=== PATIENT | male | born 1965 | race Caucasian/White ===

== ENCOUNTER 2023-06-18 12:41 | Outpatient (CLI) | payer BC, SELFPAY ==
--- NOTE | ~2023-06-18 | CT_ITS ---
EXAMINATION: CT abdomen pelvis wo con DATE: 06/18/2023 13:14 INDICATION: Abdominal pain TECHNIQUE: Computed tomography (CT) of the abdomen and pelvis was performed without intravenous contr ast. Automated exposure control and iterative reconstruction technique were employed. Exam dose: 645 .77 mGy-cm total exam DLP. COMPARISON: None. FINDINGS: 2.4 mm lingular soft tissue density. 4.3 and 3.6 mm left lower lobe pulmonary nodules. There is a calcified left lower lobe pulmonary granuloma. 1.2 and 1.4 cm middle lobe circumscribed soft tissue masses are noted near the anterior aspect of the greater fissure. There is mild discoid atelectasis at the lung bases. Normal heart size. No pericardial or pleural effusion. There is heterogeneous density of the liver suggesting numerous hepatic metastatic lesions of variabl e size, some quite large. No pancreatic mass lesion, calcification or pancreatic duct dilatation. No bile duct dilatation. The gallbladder appears to be contracted. The spleen measures up to 15 cm vertical dimension consistent with mild splenomegaly. Normal morphology of the adrenal glands. No apparent renal mass lesion is noted on this limited noncontrast examination. Nonobstructing approximately 3.3 mm upper pole left renal calculus. No ureteral calculi or hydrourete ronephrosis. The urinary bladder and prostate gland are unremarkable. Normal caliber of the abdominal aorta mild calcification. No intraperitoneal or retroperitoneal or pe lvic mass lesion or adenopathy or ascites is evident. Bilateral small fat-containing inguinal hernias, right larger than left. There is a suture line of the sigmoid colon. Normal appendix. No bowel obstruction is detected. Nonspecific soft tissue thickening in the wall of the colon is sugg ested in the distal transverse colon and at a short segment of the distal sigmoid colon, uncertain if any significance. Consider colon workup to evaluate for possible large bowel malignancy. Recommend c linical correlation for the cause of the previous sigmoid colon resection. CT-guided percutaneous needle biopsy of liver may be of diagnostic benefit as clinically appropriate. Small fat-containing umbilical hernia. No suspicious osteolytic or osteoblastic lesions are noted. IMPRESSION: Multiple bilateral pulmonary nodules and extensive hepatic masses of variable size, sugg esting pulmonary and hepatic metastases Status post sigmoid colon partial resection; recommend clinical correlation for causes of this resect ion and consider: Workup to exclude: Malignancy Splenomegaly Nonobstructing 3.3 mm upper pole left renal calculus Reviewed, dictated and finalized at [facility]. Reviewed, dictated and finalized at location B. ONHOLE MAKER IMPRESSION: Multiple bilateral pulmonary nodules and extensive hepatic masses of variable size, suggesting pulmonary and hepatic metastases Status post sigmoid colon partial resection; recommend clinical correlation for causes of this resection and consider: Workup to exclude: Malignancy Splenomegaly Nonobstructing 3.3 mm upper pole left renal calculus
[2023-06-18 13:25] LABS: Hematocrit 41.4 % (42.0-52.0); Hemoglobin 13.2 g/dL (14.0-18.0); Mean Corpuscular HGB Conc 31.9 g/dl (32-36); Mean Corpuscular Hemoglobin 26.5 pg (26-34); Mean Platelet Volume 9.3 fl (7.4-10.4); Platelet Count Result 398 k/mm3 (150-375); Red Blood Count 4.99 M/mm3 (4.6-6.20); Red Cell Distribution Width 13.8 % (11.5-14.5); White Blood Count 16.2 K/mm3 (4.5-10.0)
[2023-06-18 13:37] LABS: Alanine Aminotransferase 45 U/L (6-50); Albumin Level 4.3 g/dL (3.5-5.1); Alkaline Phosphatase 189 U/L (38-126); Amylase 71 U/L (30-110); Anion Gap 11 mmol/L (8-16); Aspartate Amino Transferase 74 U/L (17-59); Bilirubin,Total 1.2 mg/dL (0.2-1.3); Blood Urea Nitrogen 18 mg/dL (9-20); Calcium 9.5 mg/dL (8.4-10.2); Carbon Dioxide 27 mmol/L (22-30); Chloride 100 mmol/L (98-107); Estimated Glomerular Filt Rate > 60; Glucose 218 mg/dL (65-110); Lipase 107 U/L (23-300); Potassium 4.4 mmol/L (3.4-5.0); Sodium 138 mmol/L (137-145)
[2023-06-18 13:46] LABS: Band Neutrophils Percent 3 % (0-6); Eosinophils Absolute Manual 1.78 K/mm3 (0.02-0.5); Eosinophils Percent Manual 11 % (0-4); Lymphocytes Absolute Manual 1.94 K/mm3 (1.1-4.5); Lymphocytes Percent Manual 12 % (18-44); Monocytes Absolute Manual 1.13 K/mm3 (0.1-0.90); Monocytes Percent Manual 7 % (3-9); Neutrophils Absolute Manual 11.34 K/mm3 (1.3-6.7); Neutrophils Percent Manual 67 % (46-73); Total Cells Counted 100
[2023-06-18 13:47] LABS: Platelet Estimate Increased (Adequate)
[2023-06-18 13:48] LABS: Ovalocytes 1+ (NORMAL); Poikilocytosis 1+ (NORMAL); Schistocytes None Seen (NORMAL)
== END 2023-06-18 12:42 | disposition home or self-care (01) ==
LOC: ANHIMG 12:42
PROVIDERS: PCP Family Medicine; Visit Provider Nurse Practitioner Family
DX: R10.9 Unspecified abdominal pain (principal); R50.9 Fever, unspecified; R73.01 Impaired fasting glucose; R91.8 Other nonspecific abnormal finding of lung field; R16.0 Hepatomegaly, not elsewhere classified; R16.1 Splenomegaly, not elsewhere classified; N20.0 Calculus of kidney
CPT/HCPCS: 36415; 74176; 80053; 82150; 83690; 85025

== ENCOUNTER 2023-06-20 13:03 | Emergency (ER) | payer BC, SELFPAY ==
--- NOTE | ~2023-06-20 | XR_ITS ---
XR chest 2V DATE: 06/20/2023 16:47 INDICATION: Fever, hypertension TECHNIQUE: PA and lateral views COMPARISON: None FINDINGS: Suspected approximately 2 cm mass density of medial right upper lobe. Approximately 11 mm o pacity at right lower lung. CT thorax is recommended for further evaluation. Mild infiltrate, atelectasis and/or scarring, left lower lobe. Normal heart size. No hilar or mediastinal enlargement is evident. No pleural effusion or pulmonary vascular congestion or pneumothorax. IMPRESSION: Right lung masses; CT thorax is recommended Mild infiltrate, atelectasis or scarring, left lower lobe Reviewed, dictated and finalized at location B. CHOOL ASSISTANT TEACHER
--- NOTE | ~2023-06-20 | CT_ITS ---
EXAMINATION: CT diagnostic chest wo con DATE: 06/20/2023 17:13 INDICATION: right chest pain TECHNIQUE: Computed tomography (CT) of the chest was performed with 100 mL Omnipaque-350 intravenous contrast. Additional 3D reconstructions utilizing coronal maximum intensity projection (MIP) were per formed. Automated exposure control and iterative reconstruction technique were employed. The dose-bárbara gth product was 236.85 mGy-cm. COMPARISON: Chest radiograph dated 06/20/2023 FINDINGS: There are several bilateral pulmonary nodules, the largest measuring 2.6 x 1.7 cm mass with lobular m argins at the right apex. Additional 4 mm and 7 mm right upper lobe nodules. 6 mm nodule at the super ior segment of the right lower lobe. 1.4 cm and 1.3 cm nodules in the right middle lobe. Three 4-6 mm left lower lobe nodules. There is scattered mild linear discoid atelectasis at the lingula and bilat eral lower lobes. No pulmonary edema, pleural effusion or pneumothorax. Heart size is normal. Atheros clerotic coronary artery calcific lesion. No pericardial or pleural effusion. Thoracic aorta is cyndy l in caliber. No pathologically enlarged thoracic lymphadenopathy. Multiple subtle hypodense nodules and masses scattered throughout the liver, the largest in the posterior right hepatic lobe measuring approximately 7-8 cm maximal diameter. Visualized upper abdomen is otherwise unremarkable. Mild thora cic spondylosis. No suspicious lytic or blastic bone lesions. IMPRESSION: 1. Multiple bilateral pulmonary nodules and multiple hepatic masses consistent with metastatic diseas e of indeterminate primary. Recommend ultrasound guided biopsy of one of the liver lesions. Would als o consider further evaluation with contrast-enhanced CT of the abdomen and pelvis to be performed on a nonemergent basis to assess for any potential primary malignancy. Reviewed, dictated and finalized at location A. RANCE INSTRUCTOR IMPRESSION: 1. Multiple bilateral pulmonary nodules and multiple hepatic masses consistent with metastatic disease of indeterminate primary. Recommend ultrasound guided b iopsy of one of the liver lesions. Would also consider further evaluation with contrast-enhanced CT of the abdomen and pelvis to be performed on a nonemergent basis to assess for any potential primary malignancy.
--- NOTE | ~2023-06-20 | US_ITS ---
EXAMINATION: US abdomen limited DATE: 06/20/2023 17:58 INDICATION: Right upper quadrant abdominal pain TECHNIQUE: Multiple grayscale and Doppler ultrasound images of the abdomen were obtained. COMPARISON: CT dated 06/18/2023 FINDINGS: The pancreatic head and body are normal in appearance. The pancreatic tail is not visualized. Liver has normal contour, with a smooth surface. There are multiple hepatic masses which are primarily cent rally hyperechoic with peripheral hypoechoic halos consistent with metastatic disease. No intrahepati c biliary duct dilation suspected. Portal venous flow was seen in the hepatopetal, normal direction a nd has normal Doppler waveform. There are a few small likely benign gallbladder polyps along the wall of the partially decompressed gallbladder, the largest measuring <3 mm . No evident cholelithiasis. The common bile duct measures 304 mm in maximal diameter which is within normal limits. Sonographic M urphy sign was reported as negative by the motor coach operator. Visualized portion of the proximal inferior v barbara cava is normal. IMPRESSION: 1. Multiple hepatic masses consistent with metastatic disease. On prior CT there is been prior partia l sigmoid colon resection and would correlate for any history of prior malignancy including colon can cer. Could consider ultrasound guided biopsy for further evaluation as clinically indicated. 2. A few <3 mm likely benign gallbladder polyps. Reviewed, dictated and finalized at location A. OFFICER IMPRESSION: 1. Multiple hepatic masses consistent with metastatic disease. On prior CT ther e is been prior partial sigmoid colon resection and would correlate for any his tory of prior malignancy including colon cancer. Could consider ultrasound guid ed biopsy for further evaluation as clinically indicated. 2. A few <3 mm likely benign gallbladder polyps.
[2023-06-20 13:24] VITALS: BP 137/85; PULSE 89; RESP 17; TEMP 36.7; O2SAT 98
[2023-06-20 13:39] LABS: Hematocrit 40.4 % (42.0-52.0); Hemoglobin 12.8 g/dL (14.0-18.0); Mean Corpuscular HGB Conc 31.7 g/dl (32-36); Mean Corpuscular Hemoglobin 26.5 pg (26-34); Mean Corpuscular Volume 83.6 fl (80-100); Mean Platelet Volume 9.3 fl (7.4-10.4); Platelet Count Result 421 k/mm3 (150-375); Red Blood Count 4.83 M/mm3 (4.6-6.20); Red Cell Distribution Width 13.6 % (11.5-14.5); White Blood Count 13.5 K/mm3 (4.5-10.0)
[2023-06-20 13:40] LABS: Appearance Urine Clear (Clear); Bilirubin Urine Negative (Negative); Blood Urine Negative (Negative); Color Urine Yellow (Yellow); Glucose Urine UA 3+ mg/dL (Negative); Ketones Urine Negative (Negative); Leukocyte Esterase Ur Negative LEU/UL (Negative); Nitrate Urine Negative (Negative); Protein Urine Negative (Negative); Specific Grav Ur 1.035 (1.001-1.035); pH Urine 5.5 (5.0-9.0)
[2023-06-20 13:42] LABS: Add Urine Microscopic? NO
[2023-06-20 13:51] LABS: Alanine Aminotransferase 47 U/L (6-50); Albumin Level 4.3 g/dL (3.5-5.1); Alkaline Phosphatase 216 U/L (38-126); Anion Gap 12 mmol/L (8-16); Aspartate Amino Transferase 53 U/L (17-59); Bilirubin,Total 0.9 mg/dL (0.2-1.3); Blood Urea Nitrogen 21 mg/dL (9-20); Calcium 9.8 mg/dL (8.4-10.2); Carbon Dioxide 24 mmol/L (22-30); Chloride 101 mmol/L (98-107); Estimated CRCL calculation 80 ml/min; Estimated Glomerular Filt Rate > 60; Glucose 188 mg/dL (65-110); Lipase 125 U/L (23-300); Potassium 4.5 mmol/L (3.4-5.0); Sodium 137 mmol/L (137-145)
[2023-06-20 13:54] LABS: Band Neutrophils Percent 7 % (0-6); Eosinophils Absolute Manual 1.89 K/mm3 (0.02-0.5); Eosinophils Percent Manual 14 % (0-4); Lymphocytes Absolute Manual 1.21 K/mm3 (1.1-4.5); Lymphocytes Percent Manual 9 % (18-44); Monocytes Absolute Manual 0.67 K/mm3 (0.1-0.90); Monocytes Percent Manual 5 % (3-9); Neutrophils Absolute Manual 9.72 K/mm3 (1.3-6.7); Neutrophils Percent Manual 65 % (46-73); Platelet Estimate Increased (Adequate); Poikilocytosis 1+ (NORMAL); Total Cells Counted 100
[2023-06-20 13:55] LABS: Ovalocytes 1+ (NORMAL); Schistocytes None Seen (NORMAL)
[2023-06-20 15:38] VITALS: BP 146/87; PULSE 87; RESP 18; O2SAT 98
[2023-06-20 16:16] VITALS: BP 132/89; O2SAT 94
[2023-06-20] MEDS: ONDANSETRON INJ 4 MG/2 ML VIAL IV PUSH (16:40)
[2023-06-20] MEDS: HYDROmorphone HCL INJ (*CRX) 1 MG/ML SYR IV PUSH (16:40)
--- NOTE | 2023-06-20 17:29 | ED.ABDPAIN ---
HPI - Abdominal Pain General Chief Complaint: Abdominal Pain Stated Complaint: abd pain/back pain/Nausea Time Seen by Provider: 06/20/23 15:53 Source: patient, RN notes reviewed and old records reviewed Mode of arrival: ambulatory Limitations: no limitations History of Present Illness HPI narrative: This is a 58 year old male who presents for evaluation of right upper abdominal pain. He states he developed sudden onset pain on Friday. He states his pain has been constant but the intensity waxes and wanes. He denies nausea and vomiting but he reports diarrhea. He reports 1 episode of nonbloody diarrhea today. He reports sweating profusely for past 2 nights. He is unsure if he had a fever. He denies shortness of breath. He was seen by PCP and he had outpatient CT abdomen and labs. He was told he had liver mass on CT and possible infection. He reports having colon cancer 2 years ago that was treated with resection. He saw an oncologist once and he has not followed since. Related Data Allergies Allergy/AdvReac Type Severity Reaction Status Date / Time Penicillins Allergy Unknown Unknown Verified 06/20/23 15:38 Review of Systems Constitutional: Constitutional: Denies weakness Comments: night sweats Cardiovascular: Cardiovascular: Denies syncope, Denies rapid heart rate, Denies irregular heart rhythm, Denies leg edema and Denies dyspnea Respiratory: Respiratory: Denies chest congestion, Denies hemoptysis, Denies excessive phlegm production and Denies dyspnea Gastrointestinal: Gastrointestinal: Reports abdominal pain, Denies hematochezia, Reports diarrhea and Denies vomiting Genitourinary: Genitourinary: Denies hematuria, Denies dysuria, Denies penile discharge and Denies testicular pain Musculoskeletal: Musculoskeletal: Denies joint swelling, Denies loss of height and Denies muscle weakness Neurologic: Denies syncope, Denies focal weakness and Denies weakness PMFSH Past Medical History Medical History Abnormal colonoscopy Hydronephrosis Hyperlipidemia Hypertension Type 2 diabetes mellitus without complications Surgical History Surgical History H/O colonoscopy 01/31/21 H/O esophagogastroduodenoscopy 01/31/21 S/P cystoscopy with ureteral stent placement 01/31/21 S/P left colectomy Family History Family History Mother Hypertension Family history of chronic obstructive pulmonary disease Family history of diabetes mellitus in first degree relative Father Hypertension Family history of malignant neoplasm Family history of diabetes mellitus in first degree relative Grandparent Family history of cardiovascular disease Family history of diabetes mellitus in first degree relative Social History Social History Smoking status: Never smoker Second hand tobacco smoke exposure: No Alcohol intake: never Substance use: never Substance use type: does not use Living arrangements: alone Occupation/Education: occupation Gender identity (if verbalized by the patient): Male Spiritual care concerns: No Agree to blood products: No Exam Const: General: no acute distress and alert Nutritional Appearance: well nourished Orientation/consciousness: patient oriented x3 HENMT: Head: normal to inspection Mouth: Yes Normal oral and palatal mucosa present, Yes lip normal and Yes moist mucous membranes Eyes: EOM: EOMs intact bilaterally Chest: Chest palpation & inspection: normal inspection of the chest Resp: Effort & Inspection: normal respiratory effort Auscultation: clear to auscultation bilaterally Cardio: Rate: regular rate Rhythm: regular rhythm Heart sounds: no murmurs GI: GI Palp: Yes Soft to palpation, Yes Tenderness to palpation present (GI) (RUQ), No Guard
[2023-06-20 19:14] VITALS: BP 137/85; PULSE 88; RESP 18; O2SAT 95
[2023-06-20 19:38] LABS: Carcinoembryonic Antigen 68.9 ng/mL (0.0-3.0)
== END 2023-06-20 19:15 | disposition home or self-care (01) ==
PROVIDERS: Emergency Provider General Practice; PCP Family Medicine
DX: C18.9 Malignant neoplasm of colon, unspecified (principal); C78.7 Secondary malignant neoplasm of liver and intrahepatic bile duct; R91.8 Other nonspecific abnormal finding of lung field; E78.5 Hyperlipidemia, unspecified; I10 Essential (primary) hypertension; E11.9 Type 2 diabetes mellitus without complications
CPT/HCPCS: 36415; 71046; 71250; 76705; 80053; 81003; 82378; 83690; 85025; 96374; 96375; 99284; J1170; J2405

== ENCOUNTER 2023-06-23 15:41 | Outpatient (CLI) | payer BC, SELFPAY ==
--- NOTE | ~2023-06-23 | MR_ITS ---
EXAMINATION: MR abdomen wo/w con DATE: 06/23/2023 17:34 INDICATION: Secondary malignant neoplasm of unspecified site with hepatic and pulmonary metastases. TECHNIQUE: Magnetic resonance imaging (MRI) of the abdomen was performed without and with 17 mL Multi aracely intravenous contrast. Sequences included coronal T2-weighted SS-FSE, coronal and axial FS 2D-F IESTA, axial STIR FSE, axial T2-weighted SS-FSE, axial T2-weighted FS SS-FSE, axial diffusion-weighte d SE, axial dual-echo T1-weighted FSPGR, and axial and coronal T1-weighted LAVA. Postcontrast axial T 1-weighted LAVA images were obtained in a time course. Postcontrast coronal T1-weighted LAVA images w ere obtained. COMPARISON: CT and ultrasound studies dated 06/18/2023 and 06/20/2023 FINDINGS: Again seen are couple pulmonary nodules measuring up to 1.4 cm in the right middle lobe suspicious fo r metastatic disease. Heart size is normal. No pericardial or pleural effusion. There are multiple en hancing masses scattered throughout the liver which demonstrate slow progressive continuous periphera l enhancement suspicious for metastatic disease. The largest such mass or conglomeration of masses wh ich is located posteriorly in segment 7 measures 10.9 x 6.1 cm. The decompressed gallbladder, the spl een, pancreas, bilateral adrenal glands and kidneys are normal. Bowels are unremarkable with no obstr uction or evident masses. The suture line seen on prior CT at the sigmoid colon is unable to be ident ified on the MRI images. Visualized portion of the bladder is unremarkable. No pathologically enlarge d abdominal or pelvic lymphadenopathy. Bone marrow signal is normal throughout with no evident osseou s metastatic disease. IMPRESSION: 1. Pulmonary nodules the right middle lobe and multiple heterogeneously enhancing hepatic masses conc erning for metastatic disease of unknown primary. Consider ultrasound guided biopsy of one of the hep atic masses for further evaluation. Reviewed, dictated and finalized at location A. ER IMPRESSION: 1. Pulmonary nodules the right middle lobe and multiple heterogeneously enhanci ng hepatic masses concerning for metastatic disease of unknown primary. Conside r ultrasound guided biopsy of one of the hepatic masses for further evaluation.
== END 2023-06-23 15:42 | disposition home or self-care (01) ==
PROVIDERS: PCP Family Medicine; Visit Provider Family Medicine
DX: C79.9 Secondary malignant neoplasm of unspecified site (principal); K76.89 Other specified diseases of liver
CPT/HCPCS: 74183; A9577

== ENCOUNTER 2023-06-25 10:34 | Outpatient (CLI) | payer BC, SELFPAY ==
[2023-06-24 14:03] VITALS: BMI 28.5
--- NOTE | 2023-06-24 14:04 | PC.NURSE ---
Pre Radiology instructions Report to the outpatient [facility] on date 06/25/23 at time 1100 for procedure Time: 1300. YOU MAY BE MONITORED AT HOSPITAL FOR UP TO 4 HOURS AFTER YOUR PROCEDURE. A visitor will be allowed to accompany the patient into the hospital. You and your visitor will be asked to self-screen and do not enter if you have any COVID symptoms. A mask is OPTIONAL within the hospital. Patients are to have no food or drink 6 hours prior to procedure time Driving will be restricted after the procedure, you must have a person to drive you home. Labs will be drawn in preop area and once reviewed, you will be taken to radiology area for procedure. When the procedure is completed, you will be taken to outpatient where you will be monitored for several hours. You may have one visitor in this area. Other than holding anti-coagulants, patient may take other medication(s) as scheduled. Prior to your appointment date patients are instructed to hold anti-coagulants after discussing with ordering provider to stop. If unable to discontinue anti-coagulants please notify radiologist. ? No aspirin or warfarin (Coumadin) for 7 days prior to the procedure. ? No clopidogrel (Plavix), ticagrelor (Brilinta), prasugrel (Effient) or dabigatran (Pradaxa) for 5 days prior to the procedure. ? No rivaroxaban (Xarelto), apixaban (Eliquis), dipyridamole (Aggrenox or Persantine) or cilostazol (Pletal) for 2 days prior to the procedure. Medications to discontinue per physician: N/A Date to take last dose: N/A Please leave all valuables, including medications, at home the day of procedure. The hospital will not accept responsibility for valuables. Wear comfortable, loose fitting clothing.? Follow any additional instructions given to you from ordering provider. Telephone instructions given to PT - XIN WHITE and asked if any additional questions and then verbalized understanding. Patient advised to call scheduling provider office or registration scheduling [phone] if any additional questions.
[2023-06-25] VITALS (11 sets, daily range): BP systolic 112–157; BP diastolic 66–93; PULSE 78–83; RESP 16–20; TEMP 37.3; O2SAT 96–100
--- NOTE | ~2023-06-25 | US_ITS ---
EXAMINATION: US biopsy liver DATE: 06/25/2023 14:09 INDICATION: Liver masses TECHNIQUE: The procedure including the risks and benefits was discussed with the patient. Risks discu ssed included bleeding and infection. The patient understood the risks and agreed to proceed. The sk in overlying the liver was prepped and draped in usual sterile fashion. Anesthetic was administered with 1% lidocaine subcutaneously. An 18 gauge core biopsy needle was advanced under continuous ultra sound observation to the lesion of interest. 3 core biopsy specimens were obtained. The needle was removed and the entry site was cleaned and dressed. Post procedure ultrasound demonstrated no hemorr preston. FINDINGS: Ultrasound images demonstrate multiple isoechoic hypoechoic nodules with peripheral more hy poechoic halo scattered throughout the liver. Subsequent images demonstrate the biopsy needle advance d through a 3.0 cm nodule in the lateral segment of the left hepatic lobe. IMPRESSION: 1. Successful Ultrasound-guided biopsy of one of several hepatic masses concerning for metastatic dis ease. Reviewed, dictated and finalized at location A. AL POSITION SYSTEM TECHNICIAN IMPRESSION: 1. Successful Ultrasound-guided biopsy of one of several hepatic masses concern ing for metastatic disease.
[2023-06-25 11:27] LABS: Platelet Count Result 455 k/mm3 (150-375)
[2023-06-25 11:40] LABS: Prothrombin Time 13.9 Seconds (11.1-14.7)
--- NOTE | 2023-06-25 12:02 | SUR.PREOP ---
DR. RANGEL AWARE OF PLATELET COUNT 455. NO NEW ORDERS.
[2023-06-25 14:45] LABS: Glucose Point of Care 59 mg/dl (65-105)
[2023-06-25 14:45] LABS: Glucose Point of Care 63 mg/dl (65-105)
--- NOTE | 2023-06-25 15:00 | SUR.PHASEII ---
Patient refuses PO pain medications ordered by Dr. Benitez. Patient stated he took his own pain medication from home. Notified Dr. Benitez of this. Also educated patient on importance of only taking hospital supplied medications during his stay in recovery.
[2023-06-25 15:36] LABS: Glucose Point of Care 83 mg/dl (65-105)
== END 2023-06-25 17:55 | disposition home or self-care (01) ==
PROVIDERS: PCP Family Medicine; Referring Provider Internal Medicine Hematology & Oncology; Visit Provider Radiology Diagnostic Radiology
PROC: BF45ZZZ Ultrasonography of Liver (ICD-10-PCS; CPT 47000; principal; 2023-06-25 13:00)
DX: K76.9 Liver disease, unspecified (principal)
CPT/HCPCS: 36415; 47000; 76942; 80048; 82948; 85025; 85049; 85610; 85730; 88307; 88342; A9270

== ENCOUNTER 2023-06-25 13:39 | Outpatient (CLI) | payer BC, SELFPAY ==
[2023-06-25 13:01] LABS: Hemoglobin 13.1 g/dL (14.0-18.0); Mean Corpuscular Hemoglobin 26.3 pg (26-34); Mean Corpuscular Volume 82.3 fl (80-100); Mean Platelet Volume 8.8 fl (7.4-10.4); Platelet Count Result 467 k/mm3 (150-375); Red Blood Count 4.98 M/mm3 (4.6-6.20); Red Cell Distribution Width 13.3 % (11.5-14.5); White Blood Count 15.5 K/mm3 (4.5-10.0)
[2023-06-25 13:14] LABS: Anion Gap 12 mmol/L (8-16); Blood Urea Nitrogen 15 mg/dL (9-20); Calcium 9.7 mg/dL (8.4-10.2); Carbon Dioxide 26 mmol/L (22-30); Chloride 102 mmol/L (98-107); Estimated CRCL calculation 102 ml/min; Estimated Glomerular Filt Rate > 60; Glucose 71 mg/dL (65-110); Potassium 4.2 mmol/L (3.4-5.0); Sodium 140 mmol/L (137-145)
[2023-06-25 13:20] LABS: Partial Thromboplastin Time 31.7 SECONDS (22.3-36.8); Prothrombin Time 13.8 Seconds (11.1-14.7)
[2023-06-25 13:24] LABS: Band Neutrophils Percent 8 % (0-6); Basophils Absolute Manual 0.15 K/mm3 (0.0-0.1); Basophils Percent Manual 1 % (0-1); Eosinophils Absolute Manual 2.79 K/mm3 (0.02-0.5); Eosinophils Percent Manual 18 % (0-4); Lymphocytes Absolute Manual 3.41 K/mm3 (1.1-4.5); Monocytes Absolute Manual 0.15 K/mm3 (0.1-0.90); Monocytes Percent Manual 1 % (3-9); Neutrophils Absolute Manual 8.99 K/mm3 (1.3-6.7); Neutrophils Percent Manual 50 % (46-73); Platelet Estimate Increased (Adequate); Total Cells Counted 100
[2023-06-25 13:25] LABS: Schistocytes None Seen (NORMAL)
== END 2023-06-25 13:40 | disposition home or self-care (01) ==
PROVIDERS: PCP Family Medicine; Visit Provider Surgery
DX: Z01.818 Encounter for other preprocedural examination (principal)
CPT/HCPCS: 80048; 85025; 85610; 85730

== ENCOUNTER 2023-07-02 01:18 | Day surgery (SDC) | payer BC, SELFPAY ==
[2023-06-25 12:16] VITALS: BMI 28.6
--- NOTE | 2023-06-25 12:29 | PC.NURSE ---
Report to the Outpatient Waiting Room, entrance under the green pavilion located off [facility], at time __10:00 on date 07/02/23 . Planned Procedure Time: __12:00 . Time changes happen often and if your time is changed the preop area will call you the afternoon before. - You and your visitor will be asked to self-screen and do not enter if you have any COVID symptoms. - A mask is optional within the hospital at this time. Patients may have clear liquids (water, carbonated beverages, clear teas, apple juice) until 3 hours prior to surgery with a maximum of 20 ounces. - No food from midnight until time of surgery Take the following medications with a SIP of water the morning of surgery: __PAIN PILL DO NOT STOP ANY OF YOUR OTHER PRESCRIPTION MEDICATIONS PRIOR TO SURGERY ?EXCEPT THE FOLLOWING Medications to discontinue per physician N/A Date to take last dose____N/A Please no make-up, nail kiswahili, hairspray, perfume, deodorant, or body powder the day of surgery. No jewelry (including any body piercings) or valuables the day of surgery, leave them at home. Please take a shower or bath the night before, or the morning of, surgery with an antibacterial soap. Wear comfortable, loose fitting clothing. - Jewelry must be removed prior to entering the operating room. Rings and piercings that are not removed may be cut off. - The hospital will not accept responsibility for valuables. - Please leave all valuables, including medications, at home the day of surgery. If you are going home after surgery, a licensed class c driver must drive you home. - NO public transportation without another adult if you receive anesthesia. - We recommend that an adult stay with you for 24 hours following discharge. - We also recommend that you do not drive, make important decision, drink alcoholic beverages, or take any drugs that were not prescribed by your health care provider for at least 24 hours after your discharge time. Follow any additional instructions given to you from your surgeon. If you or anyone in your household have experienced Covid symptoms in the past week, please notify your surgeon or the nurse liaison at the phone number below for possible testing. Telephone instructions given to __JOHN and asked if any additional questions and then verbalized understanding. Patient advised to call surgeon office or pre surgery nurse liaison [phone] if any additional questions.
--- NOTE | ~2023-07-02 | XR_ITS ---
EXAMINATION: XR chest port-a-cath/central DATE: 07/02/2023 13:35 INDICATION: Port placement. TECHNIQUE: A single frontal view of the chest was obtained. COMPARISON: Chest 2 views 06/20/2023, chest CT 06/20/2023 FINDINGS: There is mild atelectasis at left lung base. There are multiple nodules in right lung. No p leural effusion or pneumothorax. The heart size is normal. There is a left subclavian port with tip a t superior cavoatrial junction. There is compression of the catheter between the clavicle and first r ib. IMPRESSION: 1. Port tip at superior cavoatrial junction. Compression of the catheter between the clavicle and fir st rib. 2. Right lung nodules, consistent with metastatic disease. Reviewed, dictated and finalized at location A. WELDER IMPRESSION: 1. Port tip at superior cavoatrial junction. Compression of the catheter betwee n the clavicle and first rib. 2. Right lung nodules, consistent with metastatic disease.
--- NOTE | ~2023-07-02 | XR_ITS ---
EXAMINATION: XR fl guide central line place DATE: 07/02/2023 13:00 MEDIA SPECIALIST INDICATION: INSERT ROSEANNA CATH . TECHNIQUE: 2 fluoroscopic images of the chest were obtained during Port-A-Cath insertion. I was not p resent during the procedure. Fluoroscopy exposure time was 20.8 seconds. Air Kerma 3.37 mGy. DAP 0.10 655 mGym2. COMPARISON: None FINDINGS: Implanted subclavian left chest port terminating at the cavoatrial junction. IMPRESSION: Fluoroscopic documentation of Port-A-Cath insertion. Please refer to the operative note for complete procedural details . Reviewed, dictated and finalized at location K. A SPECIALIST IMPRESSION: Fluoroscopic documentation of Port-A-Cath insertion. Please refer to the operat femi note for complete procedural details .
[2023-07-02 10:10] VITALS: BP 139/82; PULSE 75; RESP 16; TEMP 37.3; O2SAT 98
[2023-07-02] MEDS: LACTATED RINGERS 1,000 ML 30 ML IV CONT ×2 (10:10→13:21)
[2023-07-02 10:23] LABS: Glucose Point of Care 94 mg/dl (65-105)
[2023-07-02] MEDS: KETOROLAC 15 MG/ML VIAL (*BKC) IV PUSH (10:30)
--- NOTE | 2023-07-02 11:22 | WPDANESEPPF ---
Anes - Initial Pre Proc Eval Procedure: Operation Date: 07/02/23 12:00 Proposed Procedures p Insertion Lady Cath - Ninfa Ho MD Date/Time: 07/02/23 11:22 Surgeon: Ninfa Ho MD Pre Op Diagnosis: colon CA Patient Data Age: 58 Gender: M Height: 1.75 m Weight: 88 kg Last Vital Signs Temp 99.2 F 07/02/23 10:10 Pulse 75 07/02/23 10:10 Resp 16 07/02/23 10:10 BP 139/82 07/02/23 10:10 Pulse Ox 98 07/02/23 10:10 O2 Del Method Room Air 07/02/23 10:10 Allergies Allergy/AdvReac Type Severity Reaction Status Date / Time Penicillins Allergy Unknown Unknown Verified 07/02/23 11:12 Home Medications Medication Instructions Recorded Confirmed Type lisinopril 20 mg tablet 20 mg PO DAILY #90 tabs 03/25/23 06/25/23 Rx oxycodone-acetaminophen 5 mg-325 1 tablet PO Q6H PRN pain #20 tabs 06/20/23 06/25/23 Rx mg tablet (Endocet) atorvastatin 40 mg tablet 40 mg PO HS 06/25/23 06/25/23 History empagliflozin 25 mg tablet 25 mg PO HS 06/25/23 06/25/23 History (Jardiance) glimepiride 2 mg tablet 4 mg PO BID 06/25/23 06/25/23 History metformin 1,000 mg tablet 500 mg PO BID 06/25/23 06/25/23 History Laboratory Tests 07/02/23 10:11 POC Capillary Glucose 94 mg/dl (65-105) Patient hx anesthesia problems: none Family hx anesthesia problems: none Results Review: All pre-operative results and documents have been reviewed as part of the pre-operative evaluation. [facility] Past Medical History Medical History (Updated 06/23/23 @ 17:05 by Tommy Dias MD) Abnormal colonoscopy Hydronephrosis Hyperlipidemia Hypertension Liver nodule Metastatic disease Pulmonary nodule Type 2 diabetes mellitus without complications Surgical History Surgical History H/O colonoscopy 01/31/21 H/O esophagogastroduodenoscopy 01/31/21 S/P cystoscopy with ureteral stent placement 01/31/21 S/P left colectomy Family History Family History Mother Hypertension Family history of chronic obstructive pulmonary disease Family history of diabetes mellitus in first degree relative Father Hypertension Family history of malignant neoplasm Family history of diabetes mellitus in first degree relative Grandparent Family history of cardiovascular disease Family history of diabetes mellitus in first degree relative Social History Social History (Updated 06/23/23 @ 10:24 by Shawna Yost [facility]) Smoking status: Never smoker Second hand tobacco smoke exposure: No Alcohol intake: former Alcohol use details: QUIT 30 YRS AGO Substance use: never Substance use type: does not use Lack of Transportation: No Lack of Food: Never True Current Housing: I Have Housing Concerned About Future Housing: No Difficulty Paying Gas/Electric Bills: No Difficulty Paying for Meds: No Currently Unemployed: No Education: Don't Know Difficulty w/ Childcare or Family Care: No Living arrangements: with family Occupation/Education: occupation Gender identity (if verbalized by the patient): Male Spiritual care concerns: No Agree to blood products: No Anes - Eval Final PreProcedure Day of Procedure 07/02/23 11:22 Patient weight: normal Heart: regular rate and rhythm Lungs: clear to auscultation Airway: Mallampati scale class II Neurological: alert and oriented Last oral intake: >/= 8 hours ASA classification: III Emergent: no Anesthetic plan: proceed Anesthesia type and monitoring: general GIVS and standard monitoring Results Review: All pre-operative results and documents have been reviewed as part of the pre-operative evaluation. Informed Consent: The patient's anesthetic plan and its attendant risks and benefits were discussed with the patient/family/POA. Questions were solicited and answers provided to the satisfaction of the patient/family/POA.
--- NOTE | 2023-07-02 11:32 | PM.IMHP ---
H&P: HPI History of Present Illness Date/Time: 07/02/23 11:32 Chief Complaint: metastatic colon cancer Narrative: Pt is a 58 y/o M presenting c metastatic colon cancer to liver, lung needing access for chemotherapy. Pt denies previous central venous catheterization. Review of Systems Review of Systems: All systems reviewed & are unremarkable except as noted in HPI and below PMFSH Past Medical History Medical History Abnormal colonoscopy Hydronephrosis Hyperlipidemia Hypertension Liver nodule Metastatic disease Pulmonary nodule Type 2 diabetes mellitus without complications Surgical History Surgical History H/O colonoscopy 01/31/21 H/O esophagogastroduodenoscopy 01/31/21 S/P cystoscopy with ureteral stent placement 01/31/21 S/P left colectomy Family History Family History Mother Hypertension Family history of chronic obstructive pulmonary disease Family history of diabetes mellitus in first degree relative Father Hypertension Family history of malignant neoplasm Family history of diabetes mellitus in first degree relative Grandparent Family history of cardiovascular disease Family history of diabetes mellitus in first degree relative Social History Social History Smoking status: Never smoker Second hand tobacco smoke exposure: No Alcohol intake: former Alcohol use details: QUIT 30 YRS AGO Substance use: never Substance use type: does not use Lack of Transportation: No Lack of Food: Never True Current Housing: I Have Housing Concerned About Future Housing: No Difficulty Paying Gas/Electric Bills: No Difficulty Paying for Meds: No Currently Unemployed: No Education: Don't Know Difficulty w/ Childcare or Family Care: No Living arrangements: with family Occupation/Education: occupation Gender identity (if verbalized by the patient): Male Spiritual care concerns: No Agree to blood products: No Meds Home Medications and Allergies Home Medications Medication Instructions Recorded Confirmed Type lisinopril 20 mg tablet 20 mg PO DAILY #90 tabs 03/25/23 06/25/23 Rx oxycodone-acetaminophen 5 mg-325 1 tablet PO Q6H PRN pain #20 tabs 06/20/23 06/25/23 Rx mg tablet (Endocet) atorvastatin 40 mg tablet 40 mg PO HS 06/25/23 06/25/23 History empagliflozin 25 mg tablet 25 mg PO HS 06/25/23 06/25/23 History (Jardiance) glimepiride 2 mg tablet 4 mg PO BID 06/25/23 06/25/23 History metformin 1,000 mg tablet 500 mg PO BID 06/25/23 06/25/23 History Allergies Allergy/AdvReac Type Severity Reaction Status Date / Time Penicillins Allergy Unknown Unknown Verified 07/02/23 11:12 Vital Signs Vital Signs - 24 hr 07/02/23 10:10 Temperature 37.3 C Pulse Rate 75 Respiratory Rate 16 Blood Pressure 139/82 Pulse Oximetry 98 Oxygen Delivery Room Air Exam Const: General: cooperative, comfortable and no acute distress Neck: Neck: normal visual inspection, full ROM and no lymphadenopathy Chest: Chest palpation & inspection: normal inspection of the chest Resp: Auscultation: clear to auscultation bilaterally Cardio: Rate: regular rate Rhythm: regular rhythm GI: Inspection: normal to inspection Assessment and Plan Assessment and plan (1) Metastatic disease: Code(s): C79.9 - Secondary malignant neoplasm of unspecified site Status: Acute Assessment and Plan: will setup for placement of VAD for chemo access
--- NOTE | 2023-07-02 11:36 | WPDHPUPDATE1 ---
History and Physical Update Update Date/Time: 07/02/23 11:36 History and Physical has been reviewed, including an updated exam of the patient. There are NO changes in the patient's condition. Risks, benefits, and alternatives have been discussed and questions answered. Patient agrees to proceed with procedure.
[2023-07-02] MEDS: fentaNYL CITRATE INJ (*CRX) 100 MCG/2 ML VIAL 50 MCG IV PUSH (11:50)
[2023-07-02] MEDS: ceFAZolin 2 GM/D5W 50 ML 2 GM/50 ML BAG IVPB (12:36)
[2023-07-02] MEDS: BUPIVACAINE/EPINEPHRINE 0.5% 50 ML VIAL 30 ML INFILTRATE (12:59)
[2023-07-02] MEDS: HEPARIN SODIUM 5,000 UNITS/ML VIAL 5000 UNITS IRRIGATION (13:00)
[2023-07-02] MEDS: HEPARIN SODIUM, PORCINE 10,000 UNITS/10 ML VIAL 4000 UNITS IV PUSH (13:00)
[2023-07-02 13:21] VITALS: BP 116/68; PULSE 83; RESP 16; O2SAT 98
--- NOTE | 2023-07-02 13:29 | W.PM.PROC2 ---
Procedure Note - Detailed Date of Procedure 07/02/23 Pre-op Diagnosis metastatic colon cancer Post-op Diagnosis Same Procedure Performed placement of left subclavian venous access device Surgeon Ninfa Ho MD Anesthesia MAC and Local Indications 58 y/o M c metastatic colon cancer requiring chemotherapy Findings first stick L SCV Description of Procedure Patient was brought into the operating room and placed in the supine position. After adequate induction of mac anesthesia, the patient was prepped and draped in normal sterile fashion. Time-out was then done to verify the patient's identity, as well as the procedure being performed. I began by making a small incision in the left chest, I then gained access into the left subclavian vein with an 18 gauge needle. I then placed the guidewire into the vein and confirmed placement via fluoroscopic guidance. I then locally anesthetized the area in the left chest. I then enlarged the incision around the guidewire including making a subcutaneous pocket inferiorly to allow placement of the port itself. I then placed a dilating sheath over the guidewire into the left subclavian vein via sterile Seldinger technique. This was once again done and confirmed via fluoroscopic guidance. I then removed the dilator and the guidewire, now just leaving the sheath in the vein. I then fed the previously flushed catheter into the left subclavian vein under fluoroscopic guidance. At approximately 22 cm, the catheter was noted to be near the atrial caval junction. I then peeled away the sheath, now just leaving the catheter in the vein. I then was able to easily draw and flush from the catheter. The catheter was cut to fit and attached to the port itself. The port was placed into the previously made subcutaneous pocket and sutured in with 0 Ethibond suture. Final fluoroscopic view showed the termination of the catheter at the atrial caval junction with a nice smooth curvature back to the port itself. I was able to gain access to the port with a Kent needle and was able to easily draw and flush from the port. I then flushed 4 cc of a final heparin flush into the port. The incision was closed with 3 0 Vicryl suture in the subcutaneous tissue and the skin was closed with 4 O Monocryl subcuticular suture. Dermabond was then placed on wound. The patient tolerated the procedure well and will be sent to the recovery room in stable condition. Implants L SCV VAD Estimated Blood Loss 5 Drains No Packing No Pathology None sent Complications No immediate complications Condition Stable Disposition PACU [facility] Billing Surgery - Charge Forward: Surgery Billing
[2023-07-02 13:30] LABS: Glucose Point of Care 105 mg/dl (65-105)
[2023-07-02 13:50] VITALS: BP 121/74; PULSE 79; RESP 16; O2SAT 97
[2023-07-02 14:20] VITALS: BP 133/76; PULSE 77; RESP 18
[2023-07-02 14:35] VITALS: BP 131/68; PULSE 79; RESP 18
== END 2023-07-02 14:44 | disposition home or self-care (01) ==
PROVIDERS: PCP Family Medicine; Visit Provider Surgery
PROC: (CPT 36561; principal; 2023-07-02 12:00)
DX: C18.9 Malignant neoplasm of colon, unspecified (principal); C78.7 Secondary malignant neoplasm of liver and intrahepatic bile duct; I10 Essential (primary) hypertension; E11.9 Type 2 diabetes mellitus without complications; E78.5 Hyperlipidemia, unspecified; Z90.49 Acquired absence of other specified parts of digestive tract; Z79.84 Long term (current) use of oral hypoglycemic drugs; Z79.891 Long term (current) use of opiate analgesic
CPT/HCPCS: 36561; 77001; 82948; C1788; J0690; J1644; J1885; J2250; J3010; J7030; J7120

== ENCOUNTER 2023-10-24 14:47 | Outpatient (CLI) | payer BC, SELFPAY ==
--- NOTE | ~2023-10-24 | CT_ITS ---
EXAMINATION: CT chest abdomen pelvis w con DATE: 10/25/2023 07:37 CDT INDICATION: Malignant neoplasm of the colon TECHNIQUE: Computed tomography (CT) of the chest, abdomen, and pelvis was performed with 100 cc Omnip aque 350 intravenous contrast. The dose-length product was 695.63 mGy-cm. Automated exposure control and iterative reconstruction technique were employed. COMPARISON: CT dated 06/20/2023 FINDINGS: CHEST CT: There are multiple bilateral pulmonary nodules. There are approximately 10 mm the right and 6 on the left. The largest nodules on the right have decreased in size compared with prior examination allowin g for differences of technique. The right upper lobe nodule, image 30 measures 1.9 x 1.6 cm compared with 2.4 x 1.7 cm on 06/20/2023. Right middle lobe nodule, image 69 measures 1.2 x 1.4 cm compared wi th 1.4 x 1.4 cm on prior examination. No focal consolidation. No endobronchial lesions. No thoracic l ymphadenopathy. ABDOMEN/PELVIS CT: There are multiple hypovascular masses throughout the liver involving all segments, largest measuring approximately 8.8 x 5.3 cm. Changes to these masses is difficult to assess due to lack of contrast o n prior examination. Gallbladder is contracted. The spleen, pancreas, adrenal glands and kidneys are unremarkable. Nonobstructive bowel gas pattern. No lymphadenopathy. Portacatheter tip in the SVC. No focal lytic or blastic lesions. No free air or free fluid. There are changes of partial colectomy. IMPRESSION: 1. Multiple bilateral pulmonary nodules and hypovascular liver masses, consistent with metastatic dis ease secondary to known adenocarcinoma the colon. Decreased size of dominant right-sided pulmonary no dules consistent with partial interval response to therapy. Interval change to hypovascular liver mas ses is difficult to assess due to lack of contrast and incomplete inclusion of the liver on prior keke dy. Reviewed, dictated and finalized at location A. IMPRESSION: 1. Multiple bilateral pulmonary nodules and hypovascular liver masses, consiste nt with metastatic disease secondary to known adenocarcinoma the colon. Decreas ed size of dominant right-sided pulmonary nodules consistent with partial inter kevin response to therapy. Interval change to hypovascular liver masses is diffic ult to assess due to lack of contrast and incomplete inclusion of the liver on prior study.
== END 2023-10-24 14:48 | disposition home or self-care (01) ==
LOC: ANHIMG 14:47
PROVIDERS: PCP Family Medicine; Visit Provider Internal Medicine Hematology & Oncology
DX: R91.8 Other nonspecific abnormal finding of lung field (principal); C18.9 Malignant neoplasm of colon, unspecified
CPT/HCPCS: 71260; 74177; Q9967

== ENCOUNTER 2024-01-20 08:19 | Outpatient (CLI) | payer BC, SELFPAY ==
--- NOTE | ~2024-01-20 | CT_ITS ---
CT chest abdomen pelvis w con Ordering provider: Tommy Dias MD History: 58 years Male with . MALIGNANT NEOPLASM OF COLON . Comparison: October 24, 2023 Technique: CT chest with IV contrast. CT abdomen and pelvis CT abdomen and pelvis with IV and with or al contrast. Radiation reduction technique utilized. DLP measures 678.93 mGy. FINDINGS: --VISUALIZED THORACIC INLET: Normal. Left central line with the tip overlying superior vena cava. --MEDIASTINUM: Aorta/coronary arteries: Mild atheromatous disease. Heart/other: The heart is not enlarged. Lymph nodes: No mediastinal or hilar adenopathy. Paratracheal lymph node is seen measuring 1.1 cm. Other: Normal. --LUNGS: Multiple metastatic lesions are seen in the right lung which are unchanged except for the no dule seen in the right upper lobe which is slightly smaller than the previous study measuring 12.5 x 17.7 mm compared to 19.2 x 15.6 mm.. The smaller lesions are seen in the right lung with small lesion in the left lung base medially. No infiltrates or effusions. No pneumothorax. --MUSCULOSKELETAL: Soft tissues: The superficial soft tissues are normal. Bones: Age appropriate degenerative changes of the spine. No suspicious bony lytic or sclerotic lesio ns. ABDOMEN/PELVIS: --MUSCULOSKELETAL: Bones: Age appropriate degenerative changes of the spine. No suspicious bony lytic or sclerotic lesio ns. Superficial soft tissues: The superficial soft tissues are normal. --UPPER ABDOMINAL ORGANS: Liver: Multiple hypodense lesions suggestive of metastatic lesions or primary mass is unchanged from previous examination. Gallbladder: Contracted. Spleen: Normal. Stomach/duodenum: Normal. Pancreas: Normal. Adrenals: Normal. Kidneys: Stone in the left kidney upper pole. --PELVIC ORGANS: The bladder is normal. No bladder stones. --BOWEL AND MESENTERY: Colon: No evidence of diverticulitis. Postoperative changes in the sigmoid colon. No definite mass is seen in the colon at this time. If still suspicious colonoscopy advised. Normal appendix. Small Bowel: Normal. No obstruction. Peritoneum/mesentery: No free air or free fluid. No mesenteric lymphadenopathy. --RETROPERITONEUM: Mild atheromatous disease of the abdominal aorta. No retroperitoneal lymphadenop athy. IMPRESSION: CHEST: 1. Multiple metastatic lesions with the lesion in the right upper lobe slightly smaller. 2. Small lymph node in the right paratracheal area. ABDOMEN/PELVIS: 1. Multiple metastatic lesions in the liver are unchanged from previous examination. 2. No definite masses in the colon. If Still suspicious colonoscopy advised. Reviewed, dictated and finalized at location A. IMPRESSION: CHEST: 1. Multiple metastatic lesions with the lesion in the right upper lobe slightl y smaller. 2. Small lymph node in the right paratracheal area. ABDOMEN/PELVIS: 1. Multiple metastatic lesions in the liver are unchanged from previous examin ation. 2. No definite masses in the colon. If Still suspicious colonoscopy advised.
== END 2024-01-20 08:20 | disposition home or self-care (01) ==
PROVIDERS: PCP Family Medicine; Visit Provider Internal Medicine Hematology & Oncology
DX: C18.9 Malignant neoplasm of colon, unspecified (principal); R91.8 Other nonspecific abnormal finding of lung field; K76.9 Liver disease, unspecified
CPT/HCPCS: 71260; 74177; Q9967

== ENCOUNTER 2024-04-14 13:16 | Outpatient (CLI) | payer BC, SELFPAY ==
--- NOTE | ~2024-04-14 | CT_ITS ---
Non-contrast CT scan of the Abdomen and Pelvis Clinical indication: Abdominal pain Technique: 2.5 mm axial scans were obtained through the abdomen and pelvis without intravenous or or al contrast. Dose reduction technique was used on this scan by utilizing automated exposure control a nd iterative reconstruction technique. The dose-length product (DLP) was 544.86 mGy-cm. COMPARISON: 01/20/2024 Findings: Images through the lung bases reveal 2 noncalcified right middle lobe nodules, measuring 1 .5 cm in diameter each, minimally increased from prior exam. There are additional smaller nodules at the right middle lobe (axial image 22), and right lower lobe (axial images 19, 45), which are also in creased in size from prior exam. Stable calcified granuloma left lung base.. There is no evidence of renal or ureteral calculi. The kidneys and the ureters are nondilated. There are numerous, extensive hypodense hepatic masses, compatible with extensive hepatic metastatic disease. Several lesions are increased in size from prior exam. There is gallbladder wall thickening, nonspecific. The spleen, pancreas, and adrenals appear normal. There is no aortic aneurysm. There is no evidence of bowel obstruction. Rectosigmoid anastomosis is noted. Images through the pelvis were performed. There is no evidence of ascites or lymphadenopathy. Urinary bladder unremarkable. No pelvic mass seen. No ascites. Stable mild compression deformity of L1. Impression: Extensive hepatic metastatic disease, progressed from prior exam. Metastatic bibasilar pulmonary nodu les, also progressed from prior exam. Diffuse gallbladder wall thickening. Consider acute cholecystitis. Consider ultrasound and/or HIDA sc an for further evaluation. Reviewed, dictated and finalized at [facility]. Impression: Extensive hepatic metastatic disease, progressed from prior exam. Metastatic bi basilar pulmonary nodules, also progressed from prior exam. Diffuse gallbladder wall thickening. Consider acute cholecystitis. Consider ult rasound and/or HIDA scan for further evaluation.
== END 2024-04-14 13:17 | disposition home or self-care (01) ==
PROVIDERS: PCP Nurse Practitioner Family; Visit Provider Nurse Practitioner Family
DX: C78.7 Secondary malignant neoplasm of liver and intrahepatic bile duct (principal); C78.01 Secondary malignant neoplasm of right lung; K82.8 Other specified diseases of gallbladder; R10.31 Right lower quadrant pain
CPT/HCPCS: 74176

== ENCOUNTER 2024-04-16 10:02 | Outpatient (CLI) | payer BC, SELFPAY ==
--- NOTE | ~2024-04-16 | US_ITS ---
EXAMINATION: US abdomen limited DATE: 04/16/2024 09:40 INDICATION: Other specified diseases of the gallbladder. Thickened gallbladder wall. TECHNIQUE: Multiple grayscale and Doppler ultrasound images of the abdomen were obtained. COMPARISON: CT abdomen and pelvis 05/14/2024 FINDINGS: The visualized portion of the head of the pancreas is normal. There are multiple masses in the liver measuring up to 3.4 cm. There is normal flow in main portal vein. The gallbladder is normal in size and contains sludge. Gallbladder wall thickening is noted. There was a positive sonographic Santamaria's sign. The common duct is normal and measures 4 mm. IMPRESSION: 1. Normal-sized gallbladder with sludge, gallbladder wall thickening, and positive sonographic Santamaria 's sign. These findings are indeterminate for acute cholecystitis. If there is clinical suspicion for acute cholecystitis, consider hepatobiliary scintigraphy. 2. Liver masses, consistent with metastatic disease. Reviewed, dictated and finalized at location A. IMPRESSION: 1. Normal-sized gallbladder with sludge, gallbladder wall thickening, and posit femi sonographic Santamaria's sign. These findings are indeterminate for acute yaya cystitis. If there is clinical suspicion for acute cholecystitis, consider hepa tobiliary scintigraphy. 2. Liver masses, consistent with metastatic disease.
[2024-04-16 10:43] LABS: Creatinine Urine 121.8 mg/dL
[2024-04-16 10:47] LABS: Alanine Aminotransferase 29 U/L (6-50); Alkaline Phosphatase 209 U/L (38-126); Anion Gap 10 mmol/L (4-12); Aspartate Amino Transferase 43 U/L (17-59); Bilirubin,Total 0.9 mg/dL (0.2-1.3); Blood Urea Nitrogen 17 mg/dL (9-20); Calcium 9.3 mg/dL (8.4-10.2); Carbon Dioxide 27 mmol/L (22-30); Chloride 102 mmol/L (98-107); Cholesterol 129 mg/dL (0-200); Estimated Glomerular Filt Rate > 60; Glucose 89 mg/dL (65-110); HDL Direct 29 mg/dL; MALB Creatinine Ratio 6.4 mg/g (0-30); Microalbumin Urine Random 7.8 mg/L (0-16.7); Sodium 139 mmol/L (137-145); Triglycerides 113 mg/dL (<150)
[2024-04-16 10:59] LABS: LDL Cholesterol Direct 65 mg/dL
== END 2024-04-16 10:03 | disposition home or self-care (01) ==
PROVIDERS: PCP Nurse Practitioner Family; Visit Provider Nurse Practitioner Family
DX: K82.8 Other specified diseases of gallbladder (principal); R10.11 Right upper quadrant pain; Z13.220 Encounter for screening for lipoid disorders; E11.9 Type 2 diabetes mellitus without complications; Z12.5 Encounter for screening for malignant neoplasm of prostate; K76.89 Other specified diseases of liver
CPT/HCPCS: 36415; 76705; 80053; 80061; 82043; 83036; 84153; 84443; G0103

== ENCOUNTER 2024-05-15 08:58 | Outpatient (CLI) | payer BC, SELFPAY ==
--- NOTE | ~2024-05-15 | CT_ITS ---
EXAMINATION:CT diagnostic chest w con DATE: 05/15/2024 09:37 INDICATION: Malignant neoplasm of colon. TECHNIQUE: Computed tomography (CT) of the chest was performed with 75 mL Omnipaque 350 intravenous c ontrast. Automated exposure control and iterative reconstruction technique were employed. The dose-le ngth product (DLP) was 239.86 mGy-cm. COMPARISON: Chest CT, abdomen, and pelvis 01/20/2024 FINDINGS: There are greater than 20 nodules in the lungs measuring up to 14 mm in right upper lobe. S ome of the nodules demonstrate mild increase in size. For example, a right middle lobe nodule measure s 14 mm that previously measured 13 mm. A 10 mm right upper lobe nodule previously measured 7 mm. No pleural effusion. The heart size is normal. No pericardial effusion. There is a left subclavian port with tip at superior cavoatrial junction. There are embolization coils in gastroduodenal artery. Ther e are greater than 10 masses in the liver. For example, a 3.9 cm mass in left hepatic lobe previously measured 3.3 cm. There is a 3 mm stone in left kidney. There is mild thoracic spondylosis. There is a chronic compression fracture of L1. IMPRESSION: 1. Pulmonary nodules and liver masses with interval worsening, consistent with metastatic disease. Reviewed, dictated and finalized at location A.
== END 2024-05-15 08:59 | disposition home or self-care (01) ==
LOC: ANHIMG 08:59
PROVIDERS: PCP Nurse Practitioner Family; Visit Provider Internal Medicine Hematology & Oncology
DX: C18.9 Malignant neoplasm of colon, unspecified (principal); R91.8 Other nonspecific abnormal finding of lung field; R16.0 Hepatomegaly, not elsewhere classified
CPT/HCPCS: 71260; Q9967

== ENCOUNTER 2024-06-16 09:12 | Emergency (ER) | payer BC, SELFPAY ==
--- NOTE | ~2024-06-16 | CT_ITS ---
EXAMINATION: CT abdomen pelvis w con DATE: 06/16/2024 11:47 INDICATION: Abdominal pain and nausea TECHNIQUE: Computed tomography (CT) of the abdomen and pelvis was performed with 100 mL Omnipaque-350 intravenous contrast. Automated exposure control and iterative reconstruction technique were employe d. The dose-length product was 474.03 mGy-cm. COMPARISON: CT chest dated 05/15/[address] abdomen and pelvis dated 04/14/2024. FINDINGS: Interval increase in the few scattered pulmonary nodules at the bilateral lung bases common the large st in the right middle lobe increasing from 8 x 5 mm to currently measuring 10 x 6 consistent with pr ogression of metastatic disease. No pneumonia, pulmonary edema or pleural effusion. Heart size is nor mal. No pericardial effusion. Very small sliding-type hiatal hernia. Again seen are multiple hypoenha ncing masses scattered throughout the liver consistent with metastatic disease which is without signi ficant interval change since the more recent contrast-enhanced CT of the chest. Minimal pericholecyst ic fluid versus edematous wall thickening of the decompressed gallbladder. Embolization closed at the gastroduodenal artery. Spleen, pancreas, bilateral kidneys and right adrenal gland are normal. Uncha nged calcifications at the lateral limb of the otherwise normal left adrenal gland. Status post parti al sigmoidectomy with anastomotic suture line along the short remaining sigmoid colon. No bowel obstr uction. Normal appendix. Bladder is normal. No free intraperitoneal gas or fluid. Small fat-containin g right inguinal hernia. No pathologically enlarged abdominal or pelvic lymphadenopathy. IMPRESSION: 1. Nonspecific minimal pericholecystic fluid and/or edematous wall thickening at the decompressed gal lbladder likely related to liver disease. No other acute intra-abdominal/pelvic process. 2. Stable appearance of multiple hypoenhancing likely metastatic masses throughout the liver with sli ght interval increase in size of several pulmonary metastases at the lung bases. 3. Small sliding-type hiatal hernia. Reviewed, dictated and finalized at location B. [facility] IMPRESSION: 1. Nonspecific minimal pericholecystic fluid and/or edematous wall thickening a t the decompressed gallbladder likely related to liver disease. No other acute intra-abdominal/pelvic process. 2. Stable appearance of multiple hypoenhancing likely metastatic masses through out the liver with slight interval increase in size of several pulmonary metast ases at the lung bases. 3. Small sliding-type hiatal hernia.
[2024-06-16 09:12] VITALS: BP 121/75; PULSE 73; RESP 18; TEMP 36.4; O2SAT 100
--- NOTE | 2024-06-16 11:28 | ED.ABDPAIN ---
HPI - Abdominal Pain General Chief Complaint: Abdominal Pain <Chloé Payne PA-C - Last Filed: 06/16/24 18:14> Stated Complaint: abd pain <Chloé Payne PA-C - Last Filed: 06/16/24 18:14> Time Seen by Provider: 06/16/24 11:29 <Chloé Payne PA-C - Last Filed: 06/16/24 18:14> Focused HPI: This is a 59 year old male that presents to the ER for abdominal pain. Reports this started earlier this morning. Reports it was unrelieved with his narcotic pain medication. He was at his oncologists office who sent him here for further evaluation. Reports constipation and nausea. Denies fever, vomiting, diarrhea, dysuria or hematuria. GENERAL: Uncomfortable, well-nourished HEAD: Normocephalic, atraumatic. CHEST: Clear to auscultation. ?No respiratory distress. HEART: Regular rate and rhythm.? NEURO: ?Alert and oriented x3. Patient screened in triage and initial orders placed.? ?Additional care and disposition to be based upon?diagnostic testing and treatment. <Chloé Payne PA-C - Last Filed: 06/16/24 18:14> History of Present Illness HPI narrative: 59-year-old male with history of metastatic colon cancer presenting with abdominal pain. Went to the chemo session today and complained of severe abdominal pain so was advised to come to the ER any evaluate for obstruction. <Gaby Beavers MD - Last Filed: 06/16/24 16:51> Related Data Allergies/Adverse Reactions: Allergies Allergy/AdvReac Type Severity Reaction Status Date / Time Penicillins Allergy Unknown Unknown Verified 06/16/24 13:55 <Chloé Payne PA-C - Last Filed: 06/16/24 18:14> Review of Systems Review of Systems: All systems reviewed & are unremarkable except as noted in HPI and below <Gaby Beavers MD - Last Filed: 06/16/24 16:51> PMFSH Past Medical History Medical History: Medical History Abnormal colonoscopy Hydronephrosis Hyperlipidemia Hypertension Liver nodule Metastatic disease Pulmonary nodule Type 2 diabetes mellitus without complications <Chloé Payne PA-C - Last Filed: 06/16/24 18:14> Surgical History Surgical History: Surgical History H/O colonoscopy 01/31/21 H/O esophagogastroduodenoscopy 01/31/21 S/P cystoscopy with ureteral stent placement 01/31/21 S/P left colectomy <VINCE Little Last Filed: 06/16/24 18:14> Family History Family History: Family History Mother Hypertension Family history of chronic obstructive pulmonary disease Family history of diabetes mellitus in first degree relative Father Hypertension Family history of malignant neoplasm Family history of diabetes mellitus in first degree relative Grandparent Family history of cardiovascular disease Family history of diabetes mellitus in first degree relative <VINCE Little Last Filed: 06/16/24 18:14> Social History Social History: Social History Smoking status: Never smoker Second hand tobacco smoke exposure: No Alcohol intake: former Alcohol use details: QUIT 30 YRS AGO Substance use: never Substance use type: does not use Lack of Transportation: No Lack of Food: Never True Current Housing: I Have Housing Concerned About Future Housing: No Difficulty Paying Gas/Electric Bills: No Difficulty Paying for Meds: No Currently Unemployed: No Education: Don't Know Difficulty w/ Childcare or Family Care: No Living arrangements: with family Occupation/Education: occupation Gender identity (if verbalized by the patient): Male Spiritual care concerns: No Agree to blood products: No <VINCE Little Last Filed: 06/16/24 18:14> Exam Narrative: GENERAL: Chronically ill-appearing, no acute distress, pleasant cooperative HEAD: Normocephalic, atraumatic. EYES: PERRLA and EOMI. ENT: Mucous membranes moist. NECK: Supple. CHEST:No respiratory distress. HEART: Regular rate and rhythm ABDOMEN: Soft, diffusely tender without guarding or rebound EXTREMITIES: Normal range of motion SKIN: Warm, dry, no rash. NEURO: Alert and oriented x3. PSYCH: Normal mood and affect. <Gaby Beavers MD - Last Filed: 06/16/24 16:51> Course Vital Signs Vital signs: Vital Signs Temperature 97.6 F 06/16/24 09:12 Pulse Rate 73 06/16/24 09:12 Respiratory Rate 18 06/16/24 09:12 Blood Pressure 121/75 06/16/24 09:12 Pulse Oximetry 100 06/16/24 09:12 Oxygen Delivery Room Air 06/16/24 09:12 Temperature 97.3 F L 06/16/24 17:06 Pulse Rate 72 06/16/24 17:06 Respiratory Rate 18 06/16/24 17:06 Blood Pressure 138/81 06/16/24 17:06 Pulse Oximetry 96 06/16/24 17:06 Oxygen Delivery Room Air 06/16/24 09:12 <Chloé Payne PA-C - Last Filed: 06/16/24 18:14> Vital Signs Temperature 97.6 F 06/16/24 09:12 Pulse Rate 73 06/16/24 09:12 Respiratory Rate 18 06/16/24 09:12 Blood Pressure 121/75 06/16/24 09:12 Pulse Oximetry 100 06/16/24 09:12 Oxygen Delivery Room Air 06/16/24 09:12 Temperature 97.3 F L 06/16/24 17:06 Pulse Rate 72 06/16/24 17:06 Respiratory Rate 18 06/16/24 17:06 Blood Pressure 138/81 06/16/24 17:06 Pulse Oximetry 96 06/16/24 17:06 Oxygen Delivery Room Air 06/16/24 09:12 <Gaby Beavers MD - Last Filed: 06/16/24 16:51> MDM - Abdominal Pain MDM Narrative Medical decision making narrative: 59-year-old male presenting with abdominal pain. Vitals are within normal limits. Exam remarkable for the above. Blood work is unremarkable. CT abdomen pelvis shows no acute abnormalities. There is nonspecific minimal pericholecystic fluid likely related to his underlying liver disease. Inflammation in this areas improved prior to prior exams. I do not suspect his pain is related to acute cholecystitis at this time given these imaging results and is normal white count and LFTs. He is pretty diffusely tender, it is not focal to his right upper quadrant. At this point the plan is for pain control and hopefully discharge home. Patient received 2 mg of Dilaudid with moderate improvement in his pain for several hours. States that it starting to come back so will give another dose of Dilaudid. His workup shows no acute abnormalities, he is safe for outpatient management. Will give him a dose of his oxycodone and advised that he take his prescribed oxycodone as instructed. Advised he call his oncologist tomorrow morning. Appropriate supportive care and return precautions given. Discharged in stable condition. <Gaby Beavers MD - Last Filed: 06/16/24 16:51> Differential Diagnosis Differential diagnosis: Likely abdominal pain, constipation, diverticulitis, pancreatitis and small bowel obstruction <Gaby Beavers MD - Last Filed: 06/16/24 16:51> Medical Records Attestation: I reviewed the patient's medical records. <Gaby Beavers MD - Last Filed: 06/16/24 16:51> Lab Data Attestation: I reviewed the patient's lab results. <Gaby Beavers MD - Last Filed: 06/16/24 16:51> Result diagrams: 06/16/24 11:37 06/16/24 11:43 <Chloé Payne PA-C - Last Filed: 06/16/24 18:14> Labs: Lab Results 06/16/24 06/16/24 06/16/24 Range/Units 11:37 11:43 13:50 WBC 5.4 (4.5-10.0) K/mm3 RBC 5.20 (4.6-6.20) M/mm3 Hgb 14.9 (14.0-18.0) g/dL Hct 44.6 (42.0-52.0) % MCV 85.8 (80-100) fl MCH 28.7 (26-34) pg MCHC 33.4 (32-36) g/dl RDW 15.4 H (11.5-14.5) % Plt Count 206 (150-375) k/mm3 MPV 9.1 (7.4-10.4) fl Immature Gran % (Auto) 0.2 (0-0.5) % Neut % (Auto) 77.1 H (45.5-73.1) % Lymph % (Auto) 10.8 L (18.3-44.2) % [place] % (Auto) 6.8 (2.6-8.5) % Eos % (Auto) 4.2 (0-4.4) % Baso % (Auto) 0.9 (0.2-1.2) % Lymph # (Auto) 0.59 L (0.9-3.2) K/mm3 [place] # (Auto) 0.4 (0.1-0.6) K/mm3 Eos # (Auto) 0.2 (0-0.3) K/mm3 Baso # (Auto) 0.1 (0.0-0.1) K/mm3 Abs Immat Gran (auto) 0.01 (0.00-0.031) K/mm3 Absolute Neuts (auto) 4.2 (1.3-6.7) K/mm3 Absolute Nucleated RBC 0.000 (0.0-0.012) K/mm3 Nucleated RBC % 0.0 (0.0-0.2) % Sodium 140 (137-145) mmol/L Potassium 4.7 (3.4-5.0) mmol/L Chloride 105 (98-107) mmol/L Carbon Dioxide 26 (22-30) mmol/L Anion Gap 9 (4-12) mmol/L BUN 14 (9-20) mg/dL Creatinine 0.80 0.80 (0.7-1.3) mg/dL Estim Creat Clear Calc 89 89 ml/min Estimated GFR > 60 > 60 (59 - ) Glucose 109 (65-110) mg/dL Calcium 10.4 H (8.4-10.2) mg/dL Total Bilirubin 0.8 (0.2-1.3) mg/dL AST 35 (17-59) U/L ALT 40 (6-50) U/L Alkaline Phosphatase 216 H (38-126) U/L Total Protein 9.0 H (6.3-8.2) g/dL Albumin 4.8 (3.5-5.1) g/dL Lipase 159 (23-300) U/L Urine Color Yellow (Yellow) Urine Appearance Clear (Clear) Urine pH 5.0 (5.0-9.0) Ur Specific [place] > 1.045 H (1.001-1.035) Urine Protein Negative (Negative) mg/dL Urine Glucose (UA) 3+ H (Negative) mg/dL Urine Ketones Negative (Negative) mg/dL Ur Blood (Man) Negative (Negative) Urine Nitrate Negative (Negative) Urine Bilirubin Negative (Negative) Urine Urobilinogen 0.2 (<2.0) mg/dL Leukocyte Esterase Rfl Negative (Negative) BABATUNDE/UL <Chloé Payne PA-C - Last Filed: 06/16/24 18:14> Lab Results 06/16/24 06/16/24 06/16/24 Range/Units 11:37 11:43 13:50 WBC 5.4 (4.5-10.0) K/mm3 RBC 5.20 (4.6-6.20) M/mm3 Hgb 14.9 (14.0-18.0) g/dL Hct 44.6 (42.0-52.0) % MCV 85.8 (80-100) fl MCH 28.7 (26-34) pg MCHC 33.4 (32-36) g/dl RDW 15.4 H (11.5-14.5) % Plt Count 206 (150-375) k/mm3 MPV 9.1 (7.4-10.4) fl Immature Gran % (Auto) 0.2 (0-0.5) % Neut % (Auto) 77.1 H (45.5-73.1) % Lymph % (Auto) 10.8 L (18.3-44.2) % [place] % (Auto) 6.8 (2.6-8.5) % Eos % (Auto) 4.2 (0-4.4) % Baso % (Auto) 0.9 (0.2-1.2) % Lymph # (Auto) 0.59 L (0.9-3.2) K/mm3 [place] # (Auto) 0.4 (0.1-0.6) K/mm3 Eos # (Auto) 0.2 (0-0.3) K/mm3 Baso # (Auto) 0.1 (0.0-0.1) K/mm3 Abs Immat Gran (auto) 0.01 (0.00-0.031) K/mm3 Absolute Neuts (auto) 4.2 (1.3-6.7) K/mm3 Absolute Nucleated RBC 0.000 (0.0-0.012) K/mm3 Nucleated RBC % 0.0 (0.0-0.2) % Sodium 140 (137-145) mmol/L Potassium 4.7 (3.4-5.0) mmol/L Chloride 105 (98-107) mmol/L Carbon Dioxide 26 (22-30) mmol/L Anion Gap 9 (4-12) mmol/L BUN 14 (9-20) mg/dL Creatinine 0.80 0.80 (0.7-1.3) mg/dL Estim Creat Clear Calc 89 89 ml/min Estimated GFR > 60 > 60 (59 - ) Glucose 109 (65-110) mg/dL Calcium 10.4 H (8.4-10.2) mg/dL Total Bilirubin 0.8 (0.2-1.3) mg/dL AST 35 (17-59) U/L ALT 40 (6-50) U/L Alkaline Phosphatase 216 H (38-126) U/L Total Protein 9.0 H (6.3-8.2) g/dL Albumin 4.8 (3.5-5.1) g/dL Lipase 159 (23-300) U/L Urine Color Yellow (Yellow) Urine Appearance Clear (Clear) Urine pH 5.0 (5.0-9.0) Ur Specific [place] > 1.045 H (1.001-1.035) Urine Protein Negative (Negative) mg/dL Urine Glucose (UA) 3+ H (Negative) mg/dL Urine Ketones Negative (Negative) mg/dL Ur Blood (Man) Negative (Negative) Urine Nitrate Negative (Negative) Urine Bilirubin Negative (Negative) Urine Urobilinogen 0.2 (<2.0) mg/dL Leukocyte Esterase Rfl Negative (Negative) BABATUNDE/UL <Gaby Beavers MD - Last Filed: 06/16/24 16:51> Imaging Data Radiologist's impression: ITS Impressions Abdomen/Pelvis CT 06/16/24 11:56 IMPRESSION: 1. Nonspecific minimal pericholecystic fluid and/or edematous wall thickening at the decompressed gallbladder likely related to liver disease. No other acute intra-abdominal/pelvic process. 2. Stable appearance of multiple hypoenhancing likely metastatic masses throughout the liver with slight interval increase in size of several pulmonary metastases at the lung bases. 3. Small sliding-type hiatal hernia. <Chloé Payne PA-C - Last Filed: 06/16/24 18:14> ITS Impressions Abdomen/Pelvis CT 06/16/24 11:56 IMPRESSION: 1. Nonspecific minimal pericholecystic fluid and/or edematous wall thickening at the decompressed gallbladder likely related to liver disease. No other acute intra-abdominal/pelvic process. 2. Stable appearance of multiple hypoenhancing likely metastatic masses throughout the liver with slight interval increase in size of several pulmonary metastases at the lung bases. 3. Small sliding-type hiatal hernia. <Gaby Beavers MD - Last Filed: 06/16/24 16:51> Critical Care Time Critical Care Time Critical Care Time: No <Gaby Beavers MD - Last Filed: 06/16/24 16:51> Discharge Plan Discharge Clinical Impression: Metastatic cancer, Abdominal pain <Chloé Payne PA-C - Last Filed: 06/16/24 18:14> Patient Disposition: Home, Self-Care <Chloé Payne PA-C - Last Filed: 06/16/24 18:14> Condition: Stable <Chloé Payne PA-C - Last Filed: 06/16/24 18:14> Instructions: Antibiotic Form, Abdominal Pain (ED) <Chloé Payne PA-C - Last Filed: 06/16/24 18:14> Additional Instructions: The workup today shows no new changes. We suspect your pain is related to your cancer. Please take your narcotic pain medications as prescribed. Follow-up closely with your cancer doctor. If your symptoms worsen or other concerning symptoms arise, please return to the ER. <Chloé Payne PA-C - Last Filed: 06/16/24 18:14> Prescriptions: No Action ondansetron HCl 4 mg tablet 4 mg PO Q6H PRN (Reason: nausea and vomiting) Qty: 30 2RF glimepiride 2 mg tablet 4 mg PO BID Qty: 360 0RF pantoprazole 40 mg tablet,delayed release (DR/EC) 40 mg PO QAM Qty: 90 0RF metformin 1,000 mg tablet 1,000 mg PO BID Qty: 180 0RF atorvastatin 40 mg tablet 40 mg PO DAILY Qty: 90 0RF Jardiance 25 mg tablet 25 mg PO DAILY Qty: 90 0RF lisinopril 20 mg tablet 20 mg PO DAILY Qty: 90 1RF <Chloé Payne PA-C - Last Filed: 06/16/24 18:14> Follow-up/Referrals: Tommy Dias MD [Physician] - Kelsey Sherwood APRN [Primary Care Provider] - <Chloé Payne PA-C - Last Filed: 06/16/24 18:14> Stand Alone Forms: Work/School Release IP <Chloé Payne PA-C - Last Filed: 06/16/24 18:14>
[2024-06-16 11:44] LABS: Basophils Absolute Auto 0.1 K/mm3 (0.0-0.1); Basophils Percent Auto 0.9 % (0.2-1.2); Eosinophils Absolute Auto 0.2 K/mm3 (0-0.3); Eosinophils Percent Auto 4.2 % (0-4.4); Hematocrit 44.6 % (42.0-52.0); Hemoglobin 14.9 g/dL (14.0-18.0); Immature Granulocyte Absolute 0.01 K/mm3 (0.00-0.031); Immature Granulocyte Percent A 0.2 % (0-0.5); Lymphocytes Absolute Auto 0.59 K/mm3 (0.9-3.2); Lymphocytes Percent Auto 10.8 % (18.3-44.2); Mean Corpuscular HGB Conc 33.4 g/dl (32-36); Mean Corpuscular Hemoglobin 28.7 pg (26-34); Mean Corpuscular Volume 85.8 fl (80-100); Mean Platelet Volume 9.1 fl (7.4-10.4); Monocytes Absolute Auto 0.4 K/mm3 (0.1-0.6); Monocytes Percent Auto 6.8 % (2.6-8.5); Neutrophils Absolute Auto 4.2 K/mm3 (1.3-6.7); Neutrophils Percent Auto 77.1 % (45.5-73.1); Platelet Count Result 206 k/mm3 (150-375); Red Cell Distribution Width 15.4 % (11.5-14.5); White Blood Count 5.4 K/mm3 (4.5-10.0)
[2024-06-16 11:46] LABS: Estimated CRCL calculation 89 ml/min; Estimated Glomerular Filt Rate > 60
[2024-06-16 11:58] LABS: Alanine Aminotransferase 40 U/L (6-50); Albumin Level 4.8 g/dL (3.5-5.1); Alkaline Phosphatase 216 U/L (38-126); Anion Gap 9 mmol/L (4-12); Aspartate Amino Transferase 35 U/L (17-59); Bilirubin,Total 0.8 mg/dL (0.2-1.3); Blood Urea Nitrogen 14 mg/dL (9-20); Calcium 10.4 mg/dL (8.4-10.2); Carbon Dioxide 26 mmol/L (22-30); Chloride 105 mmol/L (98-107); Estimated CRCL calculation 89 ml/min; Estimated Glomerular Filt Rate > 60; Glucose 109 mg/dL (65-110); Lipase 159 U/L (23-300); Potassium 4.7 mmol/L (3.4-5.0); Sodium 140 mmol/L (137-145)
[2024-06-16] MEDS: HYDROmorphone HCL INJ (*CRX) 1 MG/ML SYR IV PUSH ×3 (13:01→16:47)
[2024-06-16] MEDS: SODIUM CHLORIDE 0.9% IV 1,000 ML 999 ML IV CONT (13:52)
[2024-06-16 13:54] VITALS: BP 143/91; PULSE 70; RESP 18; O2SAT 99
[2024-06-16 14:01] LABS: Add Urine Microscopic? NO; Appearance Urine Clear (Clear); Bilirubin Urine Negative (Negative); Blood Urine Negative (Negative); Color Urine Yellow (Yellow); Glucose Urine UA 3+ mg/dL (Negative); Ketones Urine Negative (Negative); Leukocyte Esterase Ur Negative LEU/UL (Negative); Nitrate Urine Negative (Negative); Protein Urine Negative (Negative); Specific Grav Ur > 1.045 (1.001-1.035); Urobilinogen Urine 0.2 mg/dL (<2.0)
[2024-06-16] MEDS: oxyCODONE/ACETAMINOPHEN (*CRX) 10-325 MG TABLET 1 TAB PO (16:47)
[2024-06-16 16:50] VITALS: BP 128/74; PULSE 73; RESP 20; O2SAT 98
[2024-06-16 17:06] VITALS: BP 138/81; PULSE 72; RESP 18; TEMP 36.3; O2SAT 96
== END 2024-06-16 17:08 | disposition home or self-care (01) ==
PROVIDERS: Physician Assistant; Emergency Provider Emergency Medicine; PCP Nurse Practitioner Family
DX: R10.9 Unspecified abdominal pain (principal); C18.9 Malignant neoplasm of colon, unspecified; C78.7 Secondary malignant neoplasm of liver and intrahepatic bile duct; C78.00 Secondary malignant neoplasm of unspecified lung; I10 Essential (primary) hypertension; E78.5 Hyperlipidemia, unspecified; E11.9 Type 2 diabetes mellitus without complications; Z90.49 Acquired absence of other specified parts of digestive tract; Z79.60 Long term (current) use of unspecified immunomodulators and immunosuppressants; Z79.84 Long term (current) use of oral hypoglycemic drugs; Z79.899 Other long term (current) drug therapy
CPT/HCPCS: 36415; 74177; 80053; 81003; 83690; 85025; 96361; 96374; 96376; 99284; A9270; J1171; J7030; Q9967

== ENCOUNTER 2024-07-30 08:34 | Outpatient (CLI) | payer BC, SELFPAY ==
--- NOTE | ~2024-07-30 | US_ITS ---
EXAMINATION: US right upper quadrant DATE: 07/30/2024 08:50 INDICATION: Other specified diseases of gallbladder. TECHNIQUE: Multiple grayscale and Doppler ultrasound images of the abdomen were obtained. COMPARISON: CT abdomen and pelvis 06/16/2024 FINDINGS: The visualized portions of the head, body, and tail of the pancreas are normal. The liver d emonstrates a nodular surface contour. There are multiple hyperechoic masses in the liver measuring u p to 3.9 cm. There is normal flow in main portal vein. The gallbladder is contracted. No gallstones o r sonographic Santamaria sign. The common duct is normal and measures 5 mm. IMPRESSION: 1. Liver masses, consistent with metastatic disease. Reviewed, dictated and finalized at location A. [facility]
== END 2024-07-30 08:35 | disposition home or self-care (01) ==
LOC: GOSHIMG 08:35
PROVIDERS: PCP Surgery; Visit Provider Surgery
DX: R16.0 Hepatomegaly, not elsewhere classified (principal); K82.8 Other specified diseases of gallbladder
CPT/HCPCS: 76705

== ENCOUNTER 2024-09-18 12:51 | Outpatient (CLI) | payer BC, SELFPAY ==
--- NOTE | ~2024-09-18 | CT_ITS ---
CLINICAL INDICATION: Colon cancer COMPARISON: 06/16/2024. And 05/15 2024 TECHNIQUE: An enhanced CT of the chest, abdomen and pelvis was performed utilizing multislice spiral technique reconstructed at 5 mm slice thickness. Coronal and sagittal reconstructions were performed . This CT examination was performed utilizing dose reduction techniques. DLP: 371.2 mGy-cm FINDINGS/OBSERVATIONS: LUNG: Innumerable lesions within the bilateral lung mendoza, without interval enlargement or evidence of dis ease progression. The nodule size and morphology are stable. HEART: The heart is of normal size, without pericardial effusion. MEDIASTINUM: No pathologically enlarged or morphologically suspicious lymph nodes are identified within the medias tinum, bilateral axilla, or within the soft tissues of the anterior chest wall. SOFT TISSUES OF THE CHEST: Unremarkable. BONES OF THE CHEST: No acute fracture. No lytic or blastic lesions are identified. LIVER: Relative decrease in the disease burden within the liver, when compared with 06/16/2024 with decrease in the overall size and extent of lesions when compared to prior study. GALLBLADDER AND BILIARY SYSTEM: The gallbladder is decompressed, and otherwise unremarkable. PANCREAS: The pancreas enhances homogeneously, without ductal dilatation. SPLEEN: The spleen enhances homogeneously and is enlarged measuring 14 cm in longitudinal dimension, unchanged from prior. KIDNEYS: The bilateral kidneys enhance symmetrically without hydronephrosis or renal calculi. ADRENAL GLANDS: Unremarkable. GASTROINTESTINAL TRACT: Trace fecal stasis within the colon. APPENDIX: The air-filled appendix is of normal caliber (axial series, images 174 through 193). VASCULATURE: Vascular coil is identified within (likely) the gastroduodenal artery suggesting prior Y90 treatment to the liver (performed at some point between the January and April 2024 CT examinations). The portal vein is patent. The hepatic veins are patent LYMPH NODES: Scattered nonpathologically enlarged lymph nodes within the root of the mesentery and deep in the pel vis. PELVIC STRUCTURES: The bladder is minimally distended and otherwise unremarkable. The prostate gland is not enlarged. BODY WALL AND MUSCULOSKELETAL: Compression of the superior endplate of L1 is identified, unchanged from prior. Degenerative disease is redemonstrated at the level of L5/S1 with osteophyte formation and disc space narrowing. Grade 1 retrolisthesis of L5 onto S1 is noted. Preservation of the remaining vertebral body heights and intervertebral disc spaces. IMPRESSION: No evidence of disease progression when compared with previous examination in the chest and liver, as detailed above. Findings suggesting a positive response to treatment. Reviewed, dictated and finalized at location A. CIPAL CLERK TYPIST IMPRESSION: No evidence of disease progression when compared with previous examination in t he chest and liver, as detailed above. Findings suggesting a positive response to treatment.
--- OUTSIDE RECORDS SUMMARY | 2024-09-18 13:02 | XMS_ITS | Clinical Summary ---
[facility] Organization [facility] Address [address] [place] [address] Care Team Providers Care Tennis Centre Manager Name Role Phone Anthony Modi MD Primary Care Provider [phone] Allergies Active Allergy Reactions Criticality Noted Date Comments Penicillin V Unknown 11/13/2020 When he was a kid Medications atorvastatin (LIPITOR) 40 mg tablet Take 40 mg by mouth daily. 09/16/19 21 Active glimepiride (AMARYL) 2 mg tablet Take 4 mg by mouth 2 times daily. 04/21/20 22 Active metFORMIN (GLUCOPHAGE) 1,000 mg tablet Take 1,000 mg by mouth 2 times daily. 09/16/19 21 Active lisinopriL (PRINIVIL) 20 mg tablet Take 20 mg by mouth daily. Active empagliflozin (Jardiance) 25 mg tablet Take by mouth daily in the morning. Active lidocaine-pril ocaine (EMLA) 2.5-2.5 % CreamIndicatio ns:Liver mass Apply to affected area see administration instructions. 30 Gram 1 07/07/20 23 Active ondansetron (ZOFRAN ODT) 8 mg Tablet, Rapid DissolveIndica tions:Liver mass Dissolve 1 tablet on top of tongue then swallow with saliva every 8 hours as needed for nausea or vomiting 30 Tablet 1 07/07/20 23 Active naloxone (NARCAN) 4 mg/spray Allen, Non-Aerosol EMERGENCY USE ONLY: Administer 1 spray (4 mg) in one nostril one time. May repeat in alternating nostrils every 2-3 min until responsive or EMS arrives. 2 Each 3 04/10/20 24 Active ursodioL (ACTIGALL) 300 mg capsule Take 1 Capsule by mouth 2 times daily. 07/23/20 24 Active apixaban (ELIQUIS) 5 mg tablet Take 2 Tablets (10 mg) by mouth 2 times daily for 8 days, THEN 1 Tablet (5 mg) 2 times daily. 18 Tablet 4 08/13/19 25 025 Active oxyCODONE (ROXICODONE) 10 mg tabletIndicati ons:Secondary malignant neoplasm of liver (CMS/HCC) Take 1 Tablet (10 mg) by mouth every 8 hours as needed for Pain, Moderate. Max Daily Amount: 30 mg 60 Tablet 09/08/19 25 Active oxyCODONE (ROXICODONE) 10 mg tabletIndicati ons:Secondary malignant neoplasm of liver (CMS/HCC) Take 1 Tablet (10 mg) by mouth every 8 hours as needed for Pain, Moderate. 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 Essential hypertension 08/10/2024 Intractable epigastric abdominal pain 04/10/2024 Type 2 diabetes mellitus with hyperglycemia 02/2024 Colon cancer metastasized to liver 04/10/2024 Secondary malignant neoplasm of liver 07/02/2023 Malignant neoplasm of descending colon Nephrolithiasis 12/11/2020 Overview (08/03/2024): Added automatically from request for surgery [id number] Encounters Date Type Department Care Team Description 09/14/2024 External Device Data STL ABSTRACTION Provider, Abstract 09/14/2024 External Device Data STL ABSTRACTION Provider, Abstract 09/14/2024 Orders Only [facility] Oncology and Hematology - [place] [address] [place] [address] Tommy Dias MD Secondary malignant neoplasm of liver (CMS/HCC) (Primary Dx) 09/08/2024 Orders Only [facility] Oncology and Hematology - [place] [address] [place] [address] Gaby Angel Secondary malignant neoplasm of liver (CMS/HCC) 09/06/2024 Orders Only [facility] Oncology and Hematology [facility] [address] [place] [address] Tommy Dias MD Malignant neoplasm of colon, unspecified part of colon (CMS/HCC) 08/31/2024 External Device Data STL ABSTRACTION Provider, Abstract 08/26/2024 Abstract [facility] Oncology and Hematology [facility] [address] [place] [id number] Tommy Dias MD 08/26/2024 Telephone [facility] Oncology [facility] Hematology [facility] [address] [place] [address] Tommy Dias MD Surgical Clearance 08/24/2024 Orders Only [facility] Oncology and Hematology [facility] [address] [place] [address] Tommy Dias MD Malignant neoplasm of colon, unspecified part of colon (CMS/HCC) (Primary Dx) 08/23/2024 Orders Only [facility] Oncology and Hematology [facility] [address] [place] [address] Tommy Dias MD Malignant neoplasm of colon, unspecified part of colon (CMS/HCC) 08/17/2024 External Device Data STL ABSTRACTION Provider, Abstract 08/17/2024 Orders Only [facility] Oncology and Hematology [place] [address] [place] [address] Tommy Dias MD 08/16/2024 Orders Only [facility] Oncology and Hematology [facility] [address] [place] [address] Tommy Dias MD 08/13/2024 Telephone [facility] Admitting [address] [place] [address] Negro Han MD Metastatic colon cancer admitted to [facility] thrombosis (SPOKE WITH SANTOS / DR. DELACRUZ OFFICE) 08/11/2024 Orders Only [facility] Oncology and Hematology - [place] [address] [place] [address] Tommy Dias MD 08/11/2024 Telephone [facility] Admitting [address] [place] [address] Staci Isaac, Metastatic colon cancer admitted to [facility] thrombosis (LEFT MESSAGE / DR. DIAS EXCHANGE) 08/11/2024 Travel 08/10/2024 9:27 PM INSIGHT DIRECTOR - 08/13/2024 11:04 AM INSIGHT DIRECTOR Hospital Encounter [facility] Medical Telemetry [address] [place] [address] Sven Tobin MD Mutungi, Pen[place], MD Superior mesenteric vein thrombosis Discharge Disposition: Home or Self Care 08/09/2024 Orders Only [facility] Oncology and Hematology - [place] [address] [place] [address] Tommy Dias MD Malignant neoplasm of colon, unspecified part of colon (CMS/HCC) 08/03/2024 9:00 AM INSIGHT DIRECTOR Office Visit [facility] Oncology and Hematology [facility] [address] [place] [address] Cristel Melton MD Malignant neoplasm of colon, unspecified part of colon (CMS/HCC) (Primary Dx); Secondary malignant neoplasm of liver (CMS/HCC) 07/26/2024 Orders Only [facility] Oncology and Hematology - [place] [address] [place] [address] Tommy Dias MD Malignant neoplasm of colon, unspecified part of colon (CMS/HCC) 07/20/2024 Orders Only [facility] Oncology and Hematology - [place] [address] [place] [address] Tommy Dias MD 07/19/2024 8:45 AM INSIGHT DIRECTOR Office Visit [facility] Oncology and Hematology [facility] [address] [place] [address] Tommy Dias MD Secondary malignant neoplasm of liver (CMS/HCC) (Primary Dx) 07/14/2024 Refill [facility] Oncology and Hematology - [place] [address] [place] [address] Tommy Dias MD Secondary malignant neoplasm of liver (CMS/HCC) 07/12/2024 Orders Only [facility] Oncology and Hematology - [place] [address] [place] [address] Tommy Dias MD Malignant neoplasm of colon, unspecified part of colon (CMS/HCC) 07/06/2024 External Device Data STL ABSTRACTION Provider, Abstract 07/05/2024 Telephone [facility] Oncology and Hematology [facility] [address] [place] [address] Tommy Dias MD Abdominal Pain 06/29/2024 Orders Only [facility] Oncology and Hematology [facility] [address] [place] [address] Tommy Dias MD 06/28/2024 Orders Only [facility] Oncology and Hematology [place] [address] [place] [address] Tommy Dias MD Malignant neoplasm of colon, unspecified part of colon (CMS/HCC) 06/24/2024 Refill [facility] Oncology and Hematology [facility] [address] [place] [address] Tommy Dias MD Secondary malignant neoplasm of liver (CMS/HCC) from Last 3 Months Family History Medical History Relation Name Comments Diabetes Father Prostate Cancer Father Relation Name Status Comments Brother 1 Alive Brother 2 Alive Daughter Alive Father Mother Alive Sister Son 1 Alive Son 2 Alive Social History Tobacco Use Types Packs/Day Years Used Date Smoking Tobacco: Never Smokeless Tobacco: Never Alcohol Use Standard Drinks/Week Comments Not Currently 0 (1 standard drink = 0.6 oz pur e alcohol) Feeling Safe Answer Date Recorded Are you in a relationship wi th someone who hurts you emotionally and/or physically? No 08/10/2024 Food Insecurity Answer Date Recorded Social/Environmental Concerns No concerns Transportation Needs Answer Date Record ed Social/Environmental Concerns No concerns Housing Stability Answer Date Recorded Social/Environmental Concerns No concerns Utility Needs Answer Date Recorded Social/Environmental Concerns No concerns Sex and Gender Information Value Date Recorded Sex Assigned at Not on file Legal Sex Male 10:48 AM INSIGHT DIRECTOR Gender Identity Not on file Sexual Orientation Not on file Last Filed Vital Signs Vital Sign Reading Time Taken Comments Blood Pressure 136/77 08/13/2024 7:13 AM INSIGHT DIRECTOR Pulse 72 08/13/2024 7:13 AM INSIGHT DIRECTOR Temperature 36.4 C (97.5 F) 08/13/2024 7:13 AM INSIGHT DIRECTOR Respiratory Rate 20 08/13/2024 7:13 AM INSIGHT DIRECTOR Oxygen Saturation 99% 08/13/2024 7:13 AM INSIGHT DIRECTOR Inhaled Oxygen Concentration - - Weight 84.7 kg (186 lb 11.2 oz) 08/13/2024 5:00 AM INSIGHT DIRECTOR Height 175.3 cm (5' 9 ) 08/10/2024 10:1 4 PM INSIGHT DIRECTOR Body Mass Index 27.57 08/10/2024 10:14 PM INSIGHT DIRECTOR Plan of Treatment Upcoming Encounters Date Type Department Care Team (Late st Contact Info) Description 09/27/2024 8:45 AM INSIGHT DIRECTOR Office Visit [facility] Oncology and Hematology - [place] [address] [facility] [address] [place] [address] Tommy Dias MD [address] [place] [address] Health Maintenance Due Date Last Done Comments DIABETES ANNUAL FOOT EXAM 1985 DIABETES ANNUAL RETINAL EXAM 1985 DIABETES MICROALBUMIN ANNUAL SCREEN 1985 LDL CHOLESTEROL ANNUAL 1985 DTAP/TDAP/TD VACCINES (1 - Tdap) 1986 HEPATITIS B VACCINES (1 of 3 - 19+ 3-dose series) 1986 ZOSTER VACCINE (1 of 2) 1986 COVID-19 Vaccine (2 - Jansse n risk series) 01/29/2021 01/01/2021 INFLUENZA VACCINE (#1) 2024 06/03/2020 Preventative Visit- Commercial 08/04/2024 DIABETES HBA1C Q 6 MONTHS 10/07/2024 04/09/2024, COLORECTAL SCREENING Discontinued 08/06/2022, 08/06/19 23 Colorectal Cancer Screening Discontinued FIT-DNA Q 3 years Discontinued FIT/FOBT Q 1 year Discontinued Flex Sig/CT Colonography Q 5 years Discontinued Medical Devices Implanted Type Area Athletic Equipment Custodian Device Identifier Shelf Expiration Date Model / Serial / Lot Coil-03/19/2024 Implanted:Qty: 1 on 03/19/2024 by Thuan Trujillo MD Trist 11/04/2031 [id number] / / [id number] Description:Packing coil 15c m implanted on 03/19/[address] Trujillo Y90 Mapping Coil-03/19/2024 Implanted:Qty: 1 on 03/19/2024 by Thuan Trujillo MD Trist 11/05/2031 [id number] / / [id number] Description:POD3 implanted o n 03/19/[address] Trujillo Y90 Mapping Procedures Procedure Name Priority Date/Time Associated Diagnosis Comments BASIC METABOLIC PANEL Routine 08/16/2024 4:18 PM INSIGHT DIRECTOR COMPREHENSIVE METABOLIC PANEL Routine 08/16/2024 4:14 PM INSIGHT DIRECTOR URINALYSIS DIPSTICK ONLY Routine 08/16/2024 1:20 PM INSIGHT DIRECTOR POC GLUCOSE Routine 08/13/2024 7:15 AM INSIGHT DIRECTOR POC GLUCOSE Routine 08/13/2024 5:08 AM INSIGHT DIRECTOR POC GLUCOSE Routine 08/13/2024 1:14 AM INSIGHT DIRECTOR POC GLUCOSE Routine 08/12/2024 8:35 PM INSIGHT DIRECTOR POC GLUCOSE Routine 08/12/2024 3:17 PM INSIGHT DIRECTOR POC GLUCOSE Routine 08/12/2024 7:37 AM INSIGHT DIRECTOR UNFRACTIONATED HEPARIN ACTIVITY Timed Study 08/12/2024 5:33 AM INSIGHT DIRECTOR COMPREHENSIVE METABOLIC PANEL Routine 08/12/2024 5:33 AM INSIGHT DIRECTOR CBC WITH DIFFERENTIAL Routine 08/12/2024 5:33 AM INSIGHT DIRECTOR POC GLUCOSE Routine 08/12/2024 5:22 AM INSIGHT DIRECTOR POC GLUCOSE Routine 08/11/2024 11:26 PM INSIGHT DIRECTOR POC GLUCOSE Routine 08/11/2024 8:49 PM INSIGHT DIRECTOR POC GLUCOSE Routine 08/11/2024 3:22 PM INSIGHT DIRECTOR UNFRACTIONATED HEPARIN ACTIVITY Timed Study 08/11/2024 12:52 PM INSIGHT DIRECTOR POC GLUCOSE Routine 08/11/2024 11:00 AM INSIGHT DIRECTOR POC GLUCOSE Routine 08/11/2024 7:14 AM INSIGHT DIRECTOR UNFRACTIONATED HEPARIN ACTIVITY Stat 08/11/2024 6:59 AM INSIGHT DIRECTOR PTT Timed Study 08/11/2024 6:59 AM INSIGHT DIRECTOR COMPREHENSIVE METABOLIC PANEL Routine 08/11/2024 6:59 AM INSIGHT DIRECTOR CBC WITH DIFFERENTIAL Routine 08/11/2024 6:59 AM INSIGHT DIRECTOR POC GLUCOSE Routine 08/11/2024 5:04 AM INSIGHT DIRECTOR POC GLUCOSE Routine 08/11/2024 12:45 AM INSIGHT DIRECTOR LACTIC ACID Stat 08/10/2024 11:16 PM INSIGHT DIRECTOR COMPREHENSIVE METABOLIC PANEL Stat 08/10/2024 11:16 PM INSIGHT DIRECTOR UNFRACTIONATED HEPARIN ACTIVITY Routine 08/10/2024 11:16 PM INSIGHT DIRECTOR PTT Routine 08/10/2024 11:16 PM INSIGHT DIRECTOR CBC WITH DIFFERENTIAL Stat 08/10/2024 11:15 PM INSIGHT DIRECTOR BASIC METABOLIC PANEL Routine 08/03/2024 4:19 PM INSIGHT DIRECTOR CBC WITH DIFFERENTIAL Routine 08/03/2024 3:50 PM INSIGHT DIRECTOR COMPREHENSIVE METABOLIC PANEL Routine 07/19/2024 11:39 AM INSIGHT DIRECTOR BASIC METABOLIC PANEL Routine 07/19/2024 10:42 AM INSIGHT DIRECTOR CBC WITH DIFFERENTIAL Routine 07/19/2024 10:36 AM INSIGHT DIRECTOR COMPREHENSIVE METABOLIC PANEL Routine 06/28/2024 10:55 AM INSIGHT DIRECTOR BASIC METABOLIC PANEL Routine 06/28/2024 10:47 AM INSIGHT DIRECTOR CBC WITH DIFFERENTIAL Routine 06/28/2024 10:30 AM INSIGHT DIRECTOR HEMOGLOBIN A1C Routine 04/09/2024 11:36 PM CDT from Last 3 Months or Most Recently Relevant to Health Maintenance Results * BASIC METABOLIC PANEL (08/16/2024 4:18 PM INSIGHT DIRECTOR) Only the most recent of4 resultswithin the time period is included. Blood us Tommy Dias MD CHEMISTRY ORDERABLES Final Resu lt * COMPREHENSIVE METABOLIC PANEL (08/16/2024 4:14 PM INSIGHT DIRECTOR) Only the most recent of6 resultswithin the time period is included. Blood us Tommy Dias MD CHEMISTRY ORDERABLES Final Resu lt * URINALYSIS DIPSTICK ONLY (08/16/2024 1:20 PM INSIGHT DIRECTOR) Urine URINE SPECIMEN OBTAINED BY CLEAN CATCH PROCEDURE / Unknown us Tommy Dias MD URINE ORDERABLES Final Result * (ABNORMAL) POC GLUCOSE (08/13/2024 7:15 AM INSIGHT DIRECTOR) Only the most recent of14 resultswithin the time period is included. [facility] GLUCOSE POC 129(H) 74 - 99 mg/dL 08/13/2024 7:15 AM INSIGHT DIRECTOR [facility] POINT OF CARE SPECIMEN SOURCE, GLUCOSE POC Whole Blood 08/13/2024 7:15 AM [facility] POINT OF CARE Blood, whole 08/13/2024 7:15 AM INSIGHT DIRECTOR 08/13/2024 7:22 AM INSIGHT DIRECTOR Negro Han MD POINT OF CARE TESTING Final Result Performing Organization Address City/[facility]/ZIP Co de Phone Number [facility] POINT OF CARE CLIA # [id number] [address] [place] [address] * (ABNORMAL) UNFRACTIONATED HEPARIN MONITORING (08/12/2024 5:33 AM INSIGHT DIRECTOR) Only the most recent of4 resultswithin the time period is included. [facility] ANTI-XA UNFRAC HEP >1.10(HH) See Interpreta tion. IU/mL 08/12/2024 6:55 AM INSIGHT DIRECTOR [facility] Blood Venipuncture / Unknown 08/12/2024 5:33 AM INSIGHT DIRECTOR 08/12/2024 5:58 AM INSIGHT DIRECTOR Narrative [facility] - 08/12/2024 6:55 AM INSIGHT DIRECTOR Unfractionated Heparin Therapeutic Range: 0.30-0.70 IU/ml Refer to pharmacy adult heparin protocol for further recommendation. The reference range for this test is specific to the anticoagulant and is not appropriate for monitoring patients on a DOAC protocol. Negro Han MD HEMATOLOGY ORDERABLES Final Result Performing Organization Address City/[facility]/ZIP Co de Phone Number [facility] CLIA# [id number] [place] [address] * (ABNORMAL) CBC WITH DIFFERENTIAL (08/12/2024 5:33 AM INSIGHT DIRECTOR) Only the most recent of6 resultswithin the time period is included. [facility] WBC 3.3(L) 4.0 - 9.8 K/uL 08/12/2024 6:31 AM [facility] RBC 4.46(L) 4.50 - 5.40 M/uL 08/12/2024 6:31 AM [facility] HEMOGLOBIN 12.9(L) 13.6 - 16.5 g/dL 08/12/2024 6:31 AM [facility] HEMATOCRIT 37.4(L) 40.0 - 48.0 % 08/12/2024 6:31 AM [facility] MCV 83.9 82.0 - 99.0 fL 08/12/2024 6:31 AM [facility] MCH 28.9 27.2 - 32.6 pg 08/12/2024 6:31 AM [facility] MCHC 34.5 31.5 - 35.5 g/dL 08/12/2024 6:31 AM [facility] RDW 14.4 11.5 - 14.5 % 08/12/2024 6:31 AM [facility] RDW-STDEV 43.8 37.1 - 48.7 fL 08/12/2024 6:31 AM [facility] PLATELETS 165 140 - 350 K/uL 08/12/2024 6:31 AM [facility] MPV 9.6 9.3 - 12.4 fL 08/12/2024 6:31 AM [facility] [employer] [facility] NEUTROPHILS 63 % 08/12/2024 6:31 AM [facility] LYMPHOCYTES 24 % 08/12/2024 6:31 AM [facility] MONOCYTES 9 % 08/12/2024 6:31 AM [facility] EOSINOPHILS 2 % 08/12/2024 6:31 AM [facility] BASOPHILS 2 % 08/12/2024 6:31 AM [facility] IMMATURE GRANULOCYTES 1 % 08/12/2024 6:31 AM [facility] Comment:IG (Immature Granulo cyte) count includes Metamyelocytes, Myelocytes, and Promyelocytes NEUTROPHIL ABSOLUTE 2.08 1.90 - 7.00 K/uL 08/12/2024 6:31 AM [facility] LYMPHOCYTE ABSOLUTE 0.80 0.70 - 4.50 K/uL 08/12/2024 6:31 AM [facility] MONOCYTE ABSOLUTE 0.29 0.10 - 1.30 K/uL 08/12/2024 6:31 AM [facility] EOSINOPHIL ABSOLUTE 0.08 0.00 - 0.70 K/uL 08/12/2024 6:31 AM [facility] BASOPHILS ABSOLUTE 0.05 0.00 - 0.20 K/uL 08/12/2024 6:31 AM [facility] IMMATURE GRANULOCYTES ABSOLUTE 0.02 0.00 - 0.03 K/uL 08/12/2024 6:31 AM [facility] Blood Venipuncture / Unknown 08/12/2024 5:33 AM INSIGHT DIRECTOR 08/12/2024 5:58 AM INSIGHT DIRECTOR Staci Isaac DO HEMATOLOGY ORDERABLES Final R esult [facility] CLIA# [id number] [address] [place] [address] * (ABNORMAL) PTT (08/11/2024 6:59 AM INSIGHT DIRECTOR) Only the most recent of2 resultswithin the time period is included. PTT 75.4(H) 23.1 - 37.1 seconds 08/11/2024 7:42 AM INSIGHT DIRECTOR [facility] Blood Venipuncture / Unknown 08/11/2024 6:59 AM INSIGHT DIRECTOR 08/11/2024 7:18 AM INSIGHT DIRECTOR us Sven Lopez MD HEMATOLOGY ORDERABLES Qi l Result [facility] CLIA# [id number] [address] [place] [address] * LACTIC ACID (08/10/2024 11:16 PM INSIGHT DIRECTOR) LACTIC ACID 0.8 <=2.0 mmol/L 08/10/2024 11:54 PM INSIGHT DIRECTOR [facility] Blood Venipuncture / Unknown 08/10/2024 11:16 PM INSIGHT DIRECTOR 08/10/2024 11:20 PM INSIGHT DIRECTOR Staci Isaac DO CHEMISTRY ORDERABLES Final Re sult Performing Organization Address City/[facility]/ZIP Co de Phone Number [facility] [id number] [address] [place] [address] * (ABNORMAL) HEMOGLOBIN A1C (04/09/2024 11:36 PM CDT) HEMOGLOBIN A1C 6.0(H) <5.7 % 04/10/2024 3:23 PM CDT [facility] EST. AVG GLUCOSE, A1C 126 mg/dL 04/10/2024 3:23 PM CDT [facility] Blood Venipuncture / Unknown 04/09/2024 11:36 PM CDT 04/09/2024 11:57 PM CDT Narrative [facility] - 04/10/2024 3:23 PM CDT HGB A1C INTERPRETATION NORMAL: <5.7% PRE-DIABETES: 5.7 - 6.4% DIABETES: 6.5% OR GREATER Mickie Leal DO CHEMISTRY ORDERABLES Final R esult Performing Organization Address City/[facility]/ZIP Co de Phone Number [facility] [id number] [address] [place] [address] from Last 3 Months or Most Recently Relevant to Health Maintenance Insurance [facility] BLUE PREFERRED [facility] PREFERRED RX [employer] Commercial Advance Directives For more information, please contact: [phone] * Default Full Code - Needs Discussion (Latest Code Status on File) Date Activated Date Inactivated Comments 08/10/2024 9:42 PM 08/13/2024 1:04 PM * Full Code Date Activated Date Inactivated Comments 04/09/2024 9:01 PM 04/10/2024 8:40 PM Care Teams Tennis Centre Manager Relationship Specialty Start Date End Date Anthony Modi MD [address] [place] [phone] PCP - General Family Practice 06/23/23
--- OUTSIDE RECORDS SUMMARY | 2024-09-18 13:02 | XMS_ITS | Patient Health Summary ---
Author Organization [facility] Address [address] [place] [address] Care Team Providers Care Contract Assistant Name Role Phone Unavailable Primary Care Provider Unavailabl e Note from [facility],non-owned Affiliates and Associated Physician Practices is amultiple site organization consisting of ambulatory clinics and hospital sitesin [place], [place], [place] and [place]. This disclosure is being madepursuant to the Care Everywhere program and may not contain all information available regarding this patient. 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
--- OUTSIDE RECORDS SUMMARY | 2024-09-18 13:02 | XMS_ITS | Encounter Summary ---
Author Organization [facility] Address [address] [place] [address] Care Team Providers Care Materials Recycler Name Role Phone Anthony Modi MD Primary Care Provider [phone] Reason for Visit * Reason Onset Date Comments Metastatic colon cancer admi tted to [facility] thrombosis 08/11/2024 LEFT MESSAGE / DR. DIAS EX CHANGE Encounter Details Date Type Department Care Team (Late st Contact Info) Description 08/11/2024 Telephone [facility] Admitting [address] [place] [address] [place] [address] [place] [address] Metastatic colon cancer admitted to [facility] thrombosis (LEFT MESSAGE / DR. DIAS EXCHANGE) Social History Tobacco Use Types Packs/Day Years [...] on file Legal Sex Male 10:48 AM PILOT Gender Identity Not on file Sexual Orientation Not on file documented as of this encounter Plan of Treatment Upcoming Encounters Date Type Department Care Team (Late st Contact Info) Description 09/27/2024 8:45 AM PILOT Office Visit [facility] - [place] [address] [facility] [address] [place] [address] Tommy Dias MD [address] [facility] [address] [place] [address] documented as of this encounter Visit Diagnoses Not on filedocumented in this encounter Care Teams Materials Recycler Relationship Specialty Start Date End Date Anthony Modi MD [address] [place] [phone] PCP - General Family Practice 06/23/23 documented as of this encounter
--- OUTSIDE RECORDS SUMMARY | 2024-09-18 13:02 | XMS_ITS ---
Author Organization [facility] Address [address] [place] [address] Care Team Providers Care Equipment Scheduler Name Role Phone Yue Avila DO Primary Care Provider + Sander Ahmadi MD Unavailable [phone] Marco A Maier MD Unavailable [phone] Twila Bowie NP Unavailable [phone] Active Problems Problem Noted Date Diagnosed Date 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/2021 Cancer Staging:Pathologic stage from 03/22/2021:Stage IIA(pT3, pN0, cM0) - Signed by Johnathon Ramirez MD on 03/22/2021 Nephrolithiasis 12/11/2020 Overview (12/11/2020): Added automatically from request for surgery [id number] Current Oncology Plans No current plan information found. Past Plans No past plan information found. Radiation Treatments * No radiation treatments are documented for this patient in [facility]. Treatments may have been administered in another system. Lifetime Dose Tracking * Chemical Lifetime Dose Automatic Entry Manual Entr y DLP 973 mGycm 973 mGycm 0 mGycm
--- OUTSIDE RECORDS SUMMARY | 2024-09-18 13:02 | XMS_ITS | Encounter Summary ---
Author Organization [facility] Address [address] [place] [address] Care Team Providers Care Foundry Metallurgist Name Role Phone Anthony Modi MD Primary Care Provider [phone] Reason for Visit * Reason Onset Date Comments Metastatic colon cancer admi tted to [facility] thrombosis 08/13/2024 SPOKE WITH [facility] / DR. DELACRUZ OFFICE Encounter Details Date Type Department Care Team (Late st Contact Info) Description 08/13/2024 Telephone [facility] Admitting [address] [place] [address] [place] [address] [address] Metastatic colon cancer admitted to [facility] thrombosis (SPOKE WITH [facility] / DR. DELACRUZ OFFICE) Social History Tobacco Use Types Packs/Day Years [...] on file Legal Sex Male 10:48 AM CONVERTING OPERATOR Gender Identity Not on file Sexual Orientation Not on file documented as of this encounter Plan of Treatment Upcoming Encounters Date Type Department Care Team (Late st Contact Info) Description 09/27/2024 8:45 AM CONVERTING OPERATOR Office Visit [facility] Oncology and Hematology - [place] [address] [facility] [address] [place] [address] Tommy Dias MD [address] [facility] [address] [place] [address] documented as of this encounter Visit Diagnoses Not on filedocumented in this encounter Care Teams Foundry Metallurgist Relationship Specialty Start Date End Date Anthony Modi MD [address] [place] [phone] PCP - General Family Practice 06/23/23 documented as of this encounter
--- OUTSIDE RECORDS SUMMARY | 2024-09-18 13:03 | XMS_ITS | Referral Summary ---
Author Organization [facility] Address [address] [place] [address] Care Team Providers Care Butter Liquefier Name Role Phone Unavailable Primary Care Provider Unavailabl e Source Comments [facility],non-owned Affiliates and Associated Physician Practices is amultiple site organization consisting of ambulatory clinics and hospital sitesin [place], [place], [place] and [place]. This disclosure is being madepursuant to the Care Everywhere program and may not contain all information available regarding this patient. 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
--- OUTSIDE RECORDS SUMMARY | 2024-09-18 13:03 | XMS_ITS | Clinical Summary ---
Author Organization [facility] Address [address] [place] [address] Care Team Providers Care Account Consultant Name Role Phone Alissa Lara PA-C Primary Care Provider [phone]- [phone] Allergies Active Allergy Reactions Criticality Noted Date Comments Penicillin V Unknown 11/13/2020 When he was a kid Medications atorvastatin 40 MG tablet Take 40 mg by mouth daily. 09/16/2020 Active metFORMIN 1000 MG tablet Take 1,000 mg by mouth 2 (two) times daily. 09/16/2020 Active glimepiride (AMARYL) 2 MG tablet Take 4 mg by mouth 2 (two) times daily. 04/21/2022 Active pantoprazole EC (PROTONIX) 40 MG tablet TAKE 1 TABLET BY MOUTH TWICE DAILY IN THE MORNING AND BEFORE SUPPER 07/17/2022 Active Active Problems No known active problems Encounters Date Type Department Care Team Description 08/09/2024 9:38 PM CORE BLOWER OPERATOR - 08/10/2024 8:13 PM [facility] [place] [facility] Emergency Room [address] [place] [address] Natanael Pierre MD Buggs, Mablene, MD Abdominal Pain; Back Pain (Pt stated pain started at approx. 3 pm today.) Discharge Disposition: Transfer to Acute [facility] Hospital 08/09/2024 Travel from Last 3 Months Immunizations Name Administration Dates Next Due Fluarix (IIV4) 06/03/2020 Influenza Adult (Generic) 06/03/2020 CORI (CARLEEN & CARLEEN) COVID-19 AD26 VACCINE 0.5 ML IM SUSP 01/01/2021 Pneumococcal (Prevnar 13) 06/22/2020 Social History Tobacco Use Types Packs/Day Years Used Date Smoking Tobacco: Never Smokeless Tobacco: Never Tobacco Cessation:Counseling Given: Not Answered Alcohol Use Standard Drinks/Week Comments Never 0 (1 standard drink = 0.6 oz pur e alcohol) PHQ-2 Answer Date Recorded PHQ-2 Score - If the patient scores above 3, please move on to questions 3-9 0 05/07/2022 Sex and Gender Information Value Date Recorded Sex Assigned at Not on file Legal Sex Male 5:27 PM CDT Gender Identity Not on file Sexual Orientation Not on file Last Filed Vital Signs Vital Sign Reading Time Taken Comments Blood Pressure 140/81 08/10/2024 5:00 PM CORE BLOWER OPERATOR Pulse 72 08/10/2024 5:30 PM CORE BLOWER OPERATOR Temperature 36.6 C (97.9 F) 08/09/2024 11:54 PM CORE BLOWER OPERATOR Respiratory Rate 17 08/10/2024 5:30 PM CORE BLOWER OPERATOR Oxygen Saturation 98% 08/10/2024 12:56 PM CORE BLOWER OPERATOR Inhaled Oxygen Concentration - - Weight 73.1 kg (161 lb 2.5 oz) 08/10/2024 1:32 A M CORE BLOWER OPERATOR Height 175.3 cm (5' 9 ) 08/09/2024 10:28 PM CORE BLOWER OPERATOR Body Mass Index 23.8 08/09/2024 10:28 PM CORE BLOWER OPERATOR Plan of Treatment Health Maintenance Due Date Last Done Comments Annual Physical 1970 Hepatitis C 1985 DTaP, Tdap and Td Vaccines (1 - Tdap) 1986 Hepatitis B Vaccines (1 of 3 - 19+ 3-dose series) 1986 Zoster Vaccines (1 of 2) 2017 COVID-19 Vaccine (2 - season) 2024 01/01/2021 Influenza Adult (#1) 2024 06/03/2020, 06/03/20 20 Colorectal Cancer Screening Colonoscopy (10 Years) 08/06/2032 08/06/2022, 08/06/2022, 01/31/2021, Additional history exists Pneumococcal Vaccine: Pediatrics (0 to 5 Years) and At-Risk Patients (6 to 64 Years) Aged Out 06/22/2020 No longer eligible based on patient's age to complete this topic Meningococcal B Vaccine Aged Out No l onger eligible based on patient's age to complete this topic Meningococcal Vaccine Aged Out No jakub jacqueline eligible based on patient's age to complete this topic RSV Immunizations Under 20 Months Aged Out No longer eligible based on patient's age to complete this topic Procedures Procedure Name Priority Date/Time Associated Diagnosis Comments HEPARIN, ANTI XA, UFH STAT 08/10/2024 5:37 PM CORE BLOWER OPERATOR LACTIC ACID W REFLEX (SEPSIS) STAT 08/10/2024 2:45 PM CORE BLOWER OPERATOR COMPREHENSIVE METABOLIC PANEL STAT 08/10/2024 2:45 PM CORE BLOWER OPERATOR CBC W/DIFF AUTOMATED STAT 08/10/2024 2:45 PM CORE BLOWER OPERATOR HEPARIN, ANTI XA, UFH STAT 08/10/2024 10:12 AM CORE BLOWER OPERATOR POCT GLUCOSE - ALEXANDER DOCKED DEVICE Routine 08/10/2024 8:47 AM CORE BLOWER OPERATOR HEPARIN, ANTI XA, UFH STAT 08/10/2024 8:17 AM CORE BLOWER OPERATOR PROTHROMBIN TIME, VENOUS STAT 08/10/2024 1:31 AM CORE BLOWER OPERATOR PARTIAL THROMBOPLASTIN TIME,PTT STAT 08/10/2024 1:31 AM CORE BLOWER OPERATOR LACTIC ACID W REFLEX (SEPSIS) STAT 08/10/2024 12:50 AM CORE BLOWER OPERATOR ECG 12-LEAD Routine 08/09/2024 11:52 PM CORE BLOWER OPERATOR CT CHEST+ABD+PEL W CON STAT 11:49 PM CORE BLOWER OPERATOR TROPONIN, QUANT STAT 08/09/2024 10:36 PM CORE BLOWER OPERATOR LIPASE STAT 08/09/2024 10:36 PM CORE BLOWER OPERATOR COMPREHENSIVE METABOLIC PANEL STAT 08/09/2024 10:36 PM CORE BLOWER OPERATOR CBC W/DIFF AUTOMATED STAT 08/09/2024 10:36 PM CORE BLOWER OPERATOR COLONOSCOPY Routine 08/06/2022 10:58 AM CORE BLOWER OPERATOR from Last 3 Months or Most Recently Relevant to Health Maintenance Results * (ABNORMAL) HEPARIN, ANTI XA, UFH (08/10/2024 5:37 PM CORE BLOWER OPERATOR) Only the most recent of3 resultswithin the time period is included. HEPARIN ANTI XA UFH 0.75(H) 0.30 - 0.70 IU/ML 08/10/2024 5:49 PM CORE BLOWER OPERATOR [facility] Comment: UFH Therapeutic Anti Xa Ranges: Medical Therapeutic Range: 0.30 - 0.70 IU/mL Cardiac Therapeutic Range: 0.30 - 0.50 IU/mL Neuro Therapeutic Range: 0.20 - 0.40 IU/mL 08/10/2024 5:37 PM CORE BLOWER OPERATOR Natanael Pierre MD LABORATORY Final Result Performing Organization Address City/[facility]/ZIP Co de Phone Number [facility] [address] [place] [address], [place] [phone] * LACTIC ACID W REFLEX (SEPSIS) (08/10/2024 2:45 PM CORE BLOWER OPERATOR) Only the most recent of2 resultswithin the time period is included. LACTIC ACID VENOUS 1.1 0.4 - 2.0 MMOL/L 08/10/2024 3:10 PM CORE BLOWER OPERATOR [facility] 08/10/2024 2:45 PM CORE BLOWER OPERATOR Raj Ceballos MD LABORATORY Final Result Performing Organization Address City/[facility]/ZIP Co de Phone Number [facility] [address] [place] [address], [place] [phone] * (ABNORMAL) COMPREHENSIVE METABOLIC PANEL (08/10/2024 2:45 PM CORE BLOWER OPERATOR) Only the most recent of2 resultswithin the time period is included. [facility] Signature GLUCOSE 106(H) 70 - 99 MG/DL 08/10/2024 3:07 PM [facility] BUN 11 7 - 18 MG/DL 08/10/2024 3:07 PM [facility] CREATININE S/P/B 0.90 0.7 - 1.3 MG/DL 08/10/2024 3:07 PM [facility] SODIUM S/P/B 143 136 - 145 MMOL/L 08/10/2024 3:07 PM [facility] POTASSIUM S/P/B 4.1 3.5 - 5.1 MMOL/L 08/10/2024 3:07 PM [facility] CHLORIDE S/P/B 107 100 - 108 MMOL/L 08/10/2024 3:07 PM [facility] CO2 28.4 21 - 32 MMOL/L 08/10/2024 3:07 PM [facility] CALCIUM S/P/B 9.3 8.5 - 10.1 MG/DL 08/10/2024 3:07 PM [facility] BILIRUBIN TOTAL S/P/B 0.7 0.2 - 1.2 MG/DL 08/10/2024 3:07 PM [facility] TOTAL PROTEIN S/P/B 7.1 6.4 - 8.2 G/DL 08/10/2024 3:07 PM [facility] ALBUMIN S/P/B 3.5 3.4 - 5.0 G/DL 08/10/2024 3:07 PM [facility] AST 24 15 - 37 U/L 08/10/2024 3:07 PM [facility] ALT 37 16 - 60 U/L 08/10/2024 3:07 PM [facility] ALKALINE PHOSPHATASE S/P/B 173(H) 50 - 136 U/L 08/10/2024 3:07 PM [facility] ANION GAP 7.6 5 - 15 MMOL/L 08/10/2024 3:07 PM [facility] BUN CREATININE RATIO 12.2 6 - 26 08/10/2024 3:07 PM [facility] A/G RATIO 1.0 1.0 - 2.0 RATIO 08/10/2024 3:07 PM [facility] GFR ESTIMATE >90 >90 ML/MIN/1.7 3 M2 08/10/2024 3:07 PM [facility] Comment: NOTE: eGFR is not calculated for patients <18 years of age. This is an estimated GFR calculation using the new CKD EPI creatinine equation without race and so does not require a correction factor for race. This estimated GFR should not be used for calculating drug doses. 08/10/2024 2:45 PM CORE BLOWER OPERATOR us Raj Ceballos MD LABORATORY Final Result [facility] [address] [place] [address], [place] [phone] * (ABNORMAL) CBC W/DIFF AUTOMATED (08/10/2024 2:45 PM CORE BLOWER OPERATOR) Only the most recent of2 resultswithin the time period is included. WBC 3.02(L) 4.4 - 11.0 x10'3/uL 08/10/2024 2:55 PM CORE BLOWER OPERATOR [facility] RBC 4.66 4.50 - 5.90 x10'6/uL 08/10/2024 2:55 PM [facility] HGB 13.5(L) 14.0 - 17.5 G/DL 08/10/2024 2:55 PM [facility] HCT 39.8(L) 41.5 - 50.4 % 08/10/2024 2:55 PM [facility] MCV 85.4 80.0 - 96.0 FL 08/10/2024 2:55 PM [facility] MCH 29.0 26.5 - 31.4 PG 08/10/2024 2:55 PM [facility] MCHC 33.9 31.9 - 34.8 G/DL 08/10/2024 2:55 PM [facility] RDW 14.7(H) 12.3 - 14.3 % 08/10/2024 2:55 PM [facility] PLT 148(L) 151 - 353 x10'3/uL 08/10/2024 2:55 PM [facility] MPV 9.4(L) 9.7 - 11.9 FL 08/10/2024 2:55 PM [facility] RBC MORPHOLOGY NORMAL 08/10/2024 2:55 PM [facility] PLT MORPH. NORMAL 08/10/2024 2:55 PM [facility] WBC MORPHOLOGY NORMAL 08/10/2024 2:55 PM [facility] LYMPHOCYTES % 27.2 15.8 - 45.0 % 08/10/2024 2:55 PM [facility] NEUTROPHILS % 61.5 42.1 - 71.9 % 08/10/2024 2:55 PM [facility] MONOCYTES % 7.6 5.7 - 12.5 % 08/10/2024 2:55 PM [facility] EOSINOPHILS 2.0 0.0 - 5.6 % 08/10/2024 2:55 PM [facility] BASOPHILS 1.0 0.0 - 1.3 % 08/10/2024 2:55 PM CORE BLOWER OPERATOR [facility] ABS. NEUTROPHILS 1.86 1.40 - 6.00 x10'3/uL 08/10/2024 2:55 PM CORE BLOWER OPERATOR [facility] IMMATURE GRANS % 0.7(H) 0.0 - 0.5 % 08/10/2024 2:55 PM CORE BLOWER OPERATOR [facility] ABS. LYMPHOCYTES 0.82 0.80 - 4.70 x10'3/uL 08/10/2024 2:55 PM CORE BLOWER OPERATOR [facility] 08/10/2024 2:45 PM CORE BLOWER OPERATOR us Raj Ceballos MD LABORATORY Final Result Performing Organization Address [facility] Co de Phone Number [facility] [address] [place] [address], [place] [phone] * POCT glucose (08/10/2024 8:47 AM CORE BLOWER OPERATOR) GLUCOSE POC 80 70 - 110 mg/dL 08/10/2024 8:56 AM CORE BLOWER OPERATOR [facility] 08/10/2024 8:47 AM CORE BLOWER OPERATOR us Natanael Pierre MD POCT ORDERABLES - DEVICE Fin al Result Performing Organization Address [facility]/ZIP Co de Phone Number [facility] [address] [place] [address], [place] [phone] * PARTIAL THROMBOPLASTIN TIME,PTT (08/10/2024 1:31 AM CORE BLOWER OPERATOR) PTT 34.6 27.0 - 36.8 SEC 08/10/2024 1:55 AM CORE BLOWER OPERATOR [facility] 08/10/2024 1:31 AM CORE BLOWER OPERATOR us Natanael Pierre MD LABORATORY Final Result Performing Organization Address City/[facility]/ZIP Co de Phone Number [facility] [address] [place] [address], * (ABNORMAL) PROTIME/INR, VENOUS (08/10/2024 1:31 AM CORE BLOWER OPERATOR) PROTIME 13.1(H) 9.1 - 12.4 SEC 08/10/2024 1:55 AM CORE BLOWER OPERATOR [facility] INR 1.1 08/10/2024 1:55 AM CORE BLOWER OPERATOR [facility] Comment: Recommend INR ranges for Oral Anticoagulant Therapy: Mechanical Cardiac Values 2.5-3.5 All others indication 2.0-3.0 08/10/2024 1:31 AM CORE BLOWER OPERATOR us Natanael Pierre MD LABORATORY Final Result Performing Organization Address [facility] Co de Phone Number [facility] [address] [place] [address], * ECG 12 lead (08/09/2024 11:52 PM CORE BLOWER OPERATOR) 08/09/2024 11:5 2 PM CORE BLOWER OPERATOR Narrative [facility] RAD - 08/10/2024 8:10 AM CORE BLOWER OPERATOR [facility] Test Date: 2024-08-09 Pat Name: XIN MAIER Department: 85 Room: EXAM 101 Gender: Male Brass Pourer: : 1965 Requested By: NATANAEL PIERRE Order Number: [id number] Reading : David Monroe Measurements Intervals Weiner Rate: 71 P: 49 IN: 166 QRS: 34 QRSD: 83 T: 40 QT: 394 QTc: 428 Interpretive Statements SINUS RHYTHM No previous ECG available for comparison BLOWER OPERATOR Procedure Note David Monroe MD - 08/10/2024 [facility] Test Date: 2024-08-09 Pat Name: XIN MAIER Department: 85 Room: EXAM 101 Gender: Male Brass Pourer: : 1965 Requested By: NATANAEL PIERRE Order Number: [id number] Reading MD: David Monroe Measurements Intervals Weiner Rate: 71 P: 49 IN: 166 QRS: 34 QRSD: 83 T: 40 QT: 394 QTc: 428 Interpretive Statements SINUS RHYTHM No previous ECG available for comparison BLOWER OPERATOR us Natanael Pierre MD ECG ORDERABLES Final Result [facility] RAD * CT CHEST+ABD+PEL W CON (08/09/2024 11:49 PM CORE BLOWER OPERATOR) Anatomical Region Laterality Modality Chest, Abdomen, Pelvis Computed Tomography 08/09/2024 11:5 8 PM CORE BLOWER OPERATOR Impressions 08/10/2024 12:10 AM CORE BLOWER OPERATOR IMPRESSION: 1. Findings highly suspicious for SMV thrombosis with central filling defect which appears to extend into left lower quadrant distal branches. Heterogeneous contrast enhancement extends into the portal vein and portal vein thrombus is not excluded. Late arterial phase contrast somewhat limits sensitivity. 2. There are a few hyperenhancing small bowel loops in the left lower quadrant without noted thickening or pneumatosis. This is favored to be secondary to congestive changes from SMV thrombosis, and early ischemia is not excluded. 3. Findings consistent with diffuse hepatic and lung metastatic disease. Referred By: Interpreted By: Biju Shaw MD, 08/09/2024 11:58 PM Narrative 08/10/2024 12:10 AM CORE BLOWER OPERATOR [facility] [address] [place] [address] EXAMINATION: CT CHEST ABDOMEN AND PELVIS WITH CONTRAST INDICATION: History of metastatic cancer. Chest, abdominal, back pain. COMPARISON: CT abdomen and pelvis with contrast on 11/13/2020. TECHNIQUE: Computed tomography of the chest, abdomen, and pelvis was performed after administration of intravenous contrast, 75 mL of Isovue-370, without immediate complication according to routine protocol. Sagittal and coronal reconstructions. Radiation dose reduction technique(s) were used. FINDINGS: CHEST: Airways are patent. No pleural effusion, pneumothorax, or consolidation. There are multifocal solid pulmonary nodules scattered throughout all lobes of the lungs of varying sizes. The largest of these in the right upper lobe measures about 17 x 12 mm. This is consistent with given history of metastatic disease No cardiomegaly or pericardial effusion. The thoracic aorta and main pulmonary artery are normal in caliber. There is no convincing evidence of mediastinal or hilar lymphadenopathy. No axillary lymphadenopathy. ABDOMEN/PELVIS: Upper abdominal organs: There are multifocal heterogeneous liver lesions which are suboptimally characterized on this examination due to late arterial phase of imaging but are consistent with given history of metastatic disease. The spleen, pancreas, gallbladder, and biliary tree are within normal limits. No discrete adrenal nodule. Subtle calcification in the left adrenal gland which could represent sequelae of prior hemorrhage but is nonspecific. There is a nonobstructing left renal stone measuring about 3 mm. No hydronephrosis or solid renal lesions. Vascular: The abdominal aorta is normal in caliber. There is a central filling defect involving the superior mesenteric vein which appears to extend down into left lower quadrant branches. There is heterogeneous contrast opacification of the portal vein which appears to extend into the left branch and extension of thrombus into the portal venous system is not excluded. Note that late arterial phase imaging as opposed to portal venous limits sensitivity. Lymph nodes: No retroperitoneal or mesenteric lymphadenopathy. No inguinal lymphadenopathy. Gastrointestinal: There appears to be a surgical clip in the pylorus. No bowel obstruction or bowel wall thickening. There are hyperenhancing loops of small bowel in the left lower quadrant, favored to be secondary to venous congestion. Early ischemic changes are nonexcluded though there is no evidence of bowel wall pneumatosis or thickening at this time. Postoperative changes of prior distal colon resection. Miscellaneous: No free intraperitoneal air or ascites. Pelvis: No free pelvic fluid. The urinary bladder is normal. The prostate is unremarkable. MSK: Stable superior endplate deformity of L1 which could be physiologic/degenerative. Procedure Note Biju Shaw MD - 08/10/2024 [facility] [address] [place] [address] EXAMINATION: CT CHEST ABDOMEN AND PELVIS WITH CONTRAST INDICATION: History of metastatic cancer. Chest, abdominal, back pain. COMPARISON: CT abdomen and pelvis with contrast on 11/13/2020. TECHNIQUE: Computed tomography of the chest, abdomen, and pelvis wasperformed after administration of intravenous contrast, 75 mL ofIsovue-370, without immediate complication according to routine protocol.Sagittal and coronal reconstructions. Radiation dose reductiontechnique(s) were used. FINDINGS: CHEST: Airways are patent. No pleural effusion, pneumothorax, or consolidation.There are multifocal solid pulmonary nodules scattered throughout alllobes of the lungs of varying sizes. The largest of these in the rightupper lobe measures about 17 x 12 mm. This is consistent with givenhistory of metastatic disease No cardiomegaly or pericardial effusion. The thoracic aorta and mainpulmonary artery are normal in caliber. There is no convincing evidence ofmediastinal or hilar lymphadenopathy. No axillary lymphadenopathy. ABDOMEN/PELVIS: Upper abdominal organs: There are multifocal heterogeneous liver lesionswhich are suboptimally characterized on this examination due to latearterial phase of imaging but are consistent with given history ofmetastatic disease. The spleen, pancreas, gallbladder, and biliary treeare within normal limits. No discrete adrenal nodule. Subtlecalcification in the left adrenal gland which could represent sequelae ofprior hemorrhage but is nonspecific. There is a nonobstructing left renalstone measuring about 3 mm. No hydronephrosis or solid renal lesions. Vascular: The abdominal aorta is normal in caliber. There is a centralfilling defect involving the superior mesenteric vein which appears toextend down into left lower quadrant branches. There is heterogeneouscontrast opacification of the portal vein which appears to extend into theleft branch and extension of thrombus into the portal venous system is notexcluded. Note that late arterial phase imaging as opposed to portalvenous limits sensitivity. Lymph nodes: No retroperitoneal or mesenteric lymphadenopathy. Noinguinal lymphadenopathy. Gastrointestinal: There appears to be a surgical clip in the pylorus. Nobowel obstruction or bowel wall thickening. There are hyperenhancingloops of small bowel in the left lower quadrant, favored to be secondaryto venous congestion. Early ischemic changes are nonexcluded though thereis no evidence of bowel wall pneumatosis or thickening at this time.Postoperative changes of prior distal colon resection. Miscellaneous: No free intraperitoneal air or ascites. Pelvis: No free pelvic fluid. The urinary bladder is normal. The prostateis unremarkable. MSK: Stable superior endplate deformity of L1 which could bephysiologic/degenerative. IMPRESSION: 1. Findings highly suspicious for SMV thrombosis with central fillingdefect which appears to extend into left lower quadrant distal branches.Heterogeneous contrast enhancement extends into the portal vein and portalvein thrombus is not excluded. Late arterial phase contrast somewhatlimits sensitivity. 2. There are a few hyperenhancing small bowel loops in the left lowerquadrant without noted thickening or pneumatosis. This is favored to besecondary to congestive changes from SMV thrombosis, and early ischemia isnot excluded. 3. Findings consistent with diffuse hepatic and lung metastaticdisease. Referred By: Interpreted By: Biju Shaw MD, 08/09/2024 11:58 PM Natanael Pierre MD CT Final Result * TROPONIN, QUANT (08/09/2024 10:36 PM CORE BLOWER OPERATOR) [facility] TROPONIN I HIGH SENSITIVITY 5 0 - 75 ng/L 08/09/2024 11:48 PM CORE BLOWER OPERATOR [facility] Comment: HIGH DOSES OF BIOTIN, TROPONIN-SPECIFIC AUTOANTIBODIES, AND ANTIBODY THERAPY CONTAINING HAMA MAY INTERFERE WITH THIS TEST RESULT. CORRELATION TO CLINICAL HISTORY AND PRESENTATION RECOMMENDED. 08/09/2024 10:3 6 PM CORE BLOWER OPERATOR Natanael Pierre MD LABORATORY Final Result [facility] [address] [place] [address], [place] [phone] * LIPASE (08/09/2024 10:36 PM CORE BLOWER OPERATOR) Pathologist [facility] LIPASE 39 16 - 77 UNITS/L 08/09/2024 10:56 PM CORE BLOWER OPERATOR [facility] 08/09/2024 10:3 6 PM CORE BLOWER OPERATOR Natanael Pierre MD LABORATORY Final Result [facility] [address] [place] [address], [place] [phone] * Colonoscopy (08/06/2022 10:58 AM CORE BLOWER OPERATOR) Narrative Elliot Maier MD - 08/06/2022 10:58 AM CORE BLOWER OPERATOR Elliot Maier MD 08/06/2022 11:25 AM ELLIOT MAIER MD, FACG, FACP COLONOSCOPY 08/06/2022 INDICATION: Personal history of colon cancer. POST-OP: One polyp removed. Post-surgical colonoscopy. SEDATION: Per Anesthesia PREP: Good. With the patient in the left lateral decubitus position, the Olympus [id number] colonoscope was introduced into the rectum and advanced easily to the Terminal Ileum. Careful inspection of the mucosa was made upon insertion and withdrawal of the endoscope. FINDINGS: Terminal ileum: distal 5 cm normal. Cecum, Ascending colon, Transverse colon and Rectum including retroflexion normal. Descending colon: 1.2 cm sessile polyp removed with snare polypectomy without bleed. Sigmoid colon: anastomosis seen at 15 cm. No masses, AVMs, colitis or diverticulosis seen. No complications, blood loss or implants. ASSESSMENT AND PLAN: Personal history of colon cancer: - Colon cancer of the Descending colon s/p left campos-colectomy 01/28/2021; no chemo or XRT - Surveillance colonoscopy 08/06/2022 with one polyp removed - If no cancer repeat colonoscopy in three years - Further recommendations on labs and imaging per Dr. Austin Ahmadi Thank you for allowing me to care for your patient. He will follow-up with Dr. Avila and Dr. Ahmadi. Elliot Maier M.D. Cc: Dr. Daren Avila; Dr. Austin Ahmadi Elliot Maier MD GI PROCEDURE ORDERABLES Fin al Result from Last 3 Months or Most Recently Relevant to Health Maintenance Insurance [facility] Care Teams Account Consultant Relationship Specialty Start Date End Date Alissa Lara PA-C [address] [place] [address] [address] [place] [address] PCP - General PHYSICIAN CONCIERGE 08/09/24
--- OUTSIDE RECORDS SUMMARY | 2024-09-18 13:03 | XMS_ITS | Clinical Summary ---
Author Organization [facility] Address [address] [place] [address] Care Team Providers Care Plant Changer Name Role Phone Yue Avila DO Primary Care Provider + Sander Ahmadi MD Unavailable [phone] Marco A Maier MD Unavailable [phone] Twila Bowie NP Unavailable [phone] Allergies No known active allergies Medications metFORMIN (GLUCOPHAGE) 1,000 mg tabletIndicatio ns:type 2 diabetes mellitus Take 1,000 mg by mouth 2 (two) times a day 01/02/2021 Active glimepiride (AMARYL) 1 mg tabletIndicatio ns:type 2 diabetes mellitus Take 1 mg by mouth 2 (two) times a day 01/02/2021 Active folic acid (FOLVITE) 1 mg tabletIndicatio ns:health Take 1,000 mcg by mouth daily 01/23/2021 Active iron 325 mg (65 mg iron) tablet Take 1 tablet by mouth every morning 01/24/2021 Active atorvastatin (LIPITOR) 40 mg tabletIndicatio ns:hyperlipidem ia Take 40 mg by mouth nightly 01/02/2021 Active omeprazole (PriLOSEC) 20 mg capsuleIndicati ons:GERD Take 20 mg by mouth every morning Active Active Problems Problem Noted Date Diagnosed Date 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/2021 Cancer Staging:Pathologic stage from 03/22/2021:Stage IIA(pT3, pN0, cM0) - Signed by Johnathon Ramirez MD on 03/22/2021 Nephrolithiasis 12/11/2020 Overview (12/11/2020): Added automatically from request for surgery [id number] Surgical History Surgery Date Site/Laterality Comments CYSTOSCOPY W/ URETEROSCOPY URETERAL STENT PLACEMENT COLONOSCOPY Medical History Medical History Date Comments Nephrolithiasis Cancer (CMS/HCC) (HCC) Diabetes mellitus (HCC) Abdominal pain Fecal incontinence Weight loss History of kidney problems Family History Medical History Relation Name Comments Diabetes Father Lung cancer Father Prostate cancer Father Diabetes Mother Anesthesia problems Neg Hx Relation Name Status Comments Father Mother Social History Tobacco Use Types Packs/Day Years Used Date Smoking Tobacco: Never Smokeless Tobacco: Never AUDIT-C Answer Date Recorded Q1: How often do you have a drink containing alc ohol? Never 02/23/2021 Average Number of Drinks Not on file 021 Q3: How often do you have si x or more drinks on one occasion? 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 Gender Identity Male 12/07/2020 3:16 PM CDT Sexual Orientation Not on file Obstetrics History Last Filed Vital Signs Vital Sign Reading Time Taken Comments Blood Pressure 151/84 04/04/2021 8:40 AM CDT Pulse 78 04/04/2021 8:40 AM CDT Temperature 36.2 C (97.2 F) 04/04/2021 8:40 AM CDT Respiratory Rate 16 03/22/2021 9:51 AM CDT Oxygen Saturation 97% 04/04/2021 8:40 AM CDT Inhaled Oxygen Concentration - - Weight 89.8 kg (198 lb) 04/04/2021 8:40 AM CDT Height 174 cm (5' 8.5 ) 04/04/2021 8:40 AM CDT Body Mass Index 29.67 04/04/2021 8:40 AM CDT Plan of Treatment Health Maintenance Due Date Last Done Comments Colon Cancer Screening-Colonoscopy 1967 Depression Screening 1967 Hepatitis C Screening 1967 Prostate Cancer Screening-PSA 1967 DTaP/Tdap/Td Vaccine (1 - Tdap) 1978 Hepatitis B Screening 1985 Regular Well Visit/Exam 18-64 1985 Zoster Vaccine (1 of 2) 2017 Covid-19 Vaccine (2 2023-2 5 season) 2024 01/01/2021 Influenza Vaccine (#1) 2024 06/03/2020 Pneumococcal vaccine <65 Aged Out 06/22/2020 No longer eligible based on patient's age to complete this topic Insurance CHOICE PRF PPO [place] CHOICE [facility] PPO [place] [facility] Advance Directives For more information, please contact: [phone] * Full Code (Latest Code Status on File) Date Activated Date Inactivated Comments 02/27/2021 11:57 AM 03/01/2021 4:35 PM Care Teams Plant Changer Relationship Specialty Start Date End Date Yue Avila DO [address] [place] [phone] PCP - General 11/14/20 Sander Ahmadi MD [address] [facility] [phone] [address] Surgeon Colon and Rectal Surgery 02/13/21 Marco A Maier MD [address] [facility] [phone] [address] Editorial Clerk Gastroenterology 02/13/21 Twila Bowie NP [address] [place] [address] Medical Oncologist/Measurement Operator Medical Oncology 06/20/21
--- OUTSIDE RECORDS SUMMARY | 2024-09-18 13:03 | XMS_ITS | Clinical Summary ---
Author Organization [facility] Address [address] [facility] [place] [address] Care Team Providers Care Motor Builder Winder Name Role Phone Unavailable Primary Care Provider Unavailabl e Source Comments [facility] [employer],non-owned Affiliates and Associated Physician Practices is amultiple site organization consisting of ambulatory clinics and hospital sitesin [place], [place], [place] and [place]. This disclosure is being madepursuant to the Care Everywhere program and may not contain all information available regarding this patient. 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 Encounters Date Type Department Care Team Description 08/10/2024 Telephone [facility] [address] [place] [id number] Kianna Hammer MD Hospital Admission from Last 3 Months Social History Tobacco Use Types Packs/Day Years Used Date Smoking Tobacco: Never Assessed Sex and Gender Information Value Date Recorded Sex Assigned at Not on file Gender Identity Not on file Sexual Orientation Not on file Plan of Treatment Health Maintenance Due Date Last Done Comments COLOGUARD (AGES 45-75) - COL ON CA SCREENING 1967 COLON MONITORING 1967 COLONOSCOPY - COLON CA SCREENING 1967 CT COLONOGRAPHY - COLON CA SCREENING 1967 Colorectal Cancer Screening 1967 FIT - COLON CA SCREENING 1967 FLEX SIG - COLON CA SCREENING 1967 LIPID TESTING 1967 HIV SCREENING 1982 HEPATITIS C SCREENING 05/20/1985 DTAP/TDAP/TD VACCINES (1 - Tdap) 1986 HEPATITIS B VACCINE (1 of 3 - 19+ 3-dose series) 1986 PNEUMOCOCCAL VACCINE 50+ (1 of 1 - PCV) 2017 ZOSTER VACCINE (1 of 2) 2017 COVID-19 VACCINE (1 - 2023-2 5 season) 2024 INFLUENZA VACCINE (#1) 2024 DEPRESSION SCREENING 08/04/2024 HIB VACCINE Aged Out No longer eligi ble based on patient's age to complete this topic HPV VACCINE Aged Out No longer eligi ble based on patient's age to complete this topic MENINGOCOCCAL (Group B) VACCINE Aged Out No longer eligible based on patient's age to complete this topic MENINGOCOCCAL VACCINE Aged Out No jakub jacqueline eligible based on patient's age to complete this topic PNEUMOCOCCAL VACCINE Aged Out No long er eligible based on patient's age to complete this topic XIN MAIER Personal/Family Spouse [address] [phone] Xin Maier Personal/Family Self 1965 [address] [phone] XIN MAIER Personal/Family Spouse Xin Maier Personal/Family Self 1965
--- OUTSIDE RECORDS SUMMARY | 2024-09-18 13:03 | XMS_ITS | Referral Summary ---
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 Gender Identity Male 12/07/2020 3:16 PM CDT Sexual Orientation Not on file Last Filed [...] 04/04/2021 8:40 AM CDT Plan of Treatment Not on file Insurance CHOICE PRF PPO [place] CHOICE PRF [place] [facility] Advance Directives For more information, please contact: [phone] * Full Code (Latest Code Status on File) Date Activated Date Inactivated Comments 02/27/2021 11:57 AM 03/01/2021 4:35 PM Care Teams Form Setter/Driver Relationship Specialty Start Date End Date Yue Avila DO [address] [place] [address] PCP - General 11/14/20 Sander Ahmadi MD [address] [facility] [phone] [facility] [place] [address] Surgeon Colon and Rectal Surgery 02/13/21 Marco A Maier MD [address] [facility] [phone] [address] Community Case Manager Gastroenterology 02/13/21 Twila Bowie NP [address] [place] [id number] Medical Oncologist/Janitor Supervisor Medical Oncology 06/20/21
== END 2024-09-18 12:52 | disposition home or self-care (01) ==
PROVIDERS: PCP Nurse Practitioner Family; Visit Provider Internal Medicine Hematology & Oncology
DX: C18.9 Malignant neoplasm of colon, unspecified (principal)
CPT/HCPCS: 71260; 74177; Q9967

== ENCOUNTER 2024-12-12 12:14 | Outpatient (CLI) | payer BC, SELFPAY ==
--- NOTE | ~2024-12-12 | CT_ITS ---
Clinical Indication: Colon cancer CT Scan of the Chest, Abdomen, and Pelvis with Contrast: Technique: Contiguous sections were acquired throughout the chest, abdomen, and pelvis after intraven ous administration of 100 cc of Omnipaque 350. Dose reduction technique was used on this scan by rom moulton automated exposure control and iterative reconstruction technique. The dose-length product (DL P) was 429.00 mGy-cm. Comparison: 09/18/2024 Findings: There is no evidence of any significant mediastinal, hilar or axillary lymphadenopathy. The mediastin al soft tissues appear normal. There is no evidence of pleural or pericardial effusion. Multiple scattered pulmonary nodules are essentially stable from prior exam, largest lesions in the r ight middle lobe measuring 1.4 cm in diameter. Extensive hepatic metastatic disease is probably without significant change from prior exam. The sple en, pancreas, gallbladder, adrenals and kidneys are within normal limits. No evidence of aortic aneu rysm. No lymphadenopathy. No bowel obstruction or bowel wall thickening. Distal large bowel anastomosis noted. Urinary bladder is unremarkable. Prostate gland and seminal vesicles are unremarkable. Stable mild L1 compression deformity. Impression: Pulmonary and hepatic metastatic disease is essentially unchanged from prior exam. Stable L1 mild compression deformity. Reviewed, dictated and finalized at location . Impression: Pulmonary and hepatic metastatic disease is essentially unchanged from prior ex am. Stable L1 mild compression deformity.
--- OUTSIDE RECORDS SUMMARY | 2024-12-12 12:54 | XMS_ITS | Clinical Summary ---
[facility] Address [address] [place] [address] Care Team Providers Care Industrial Laborer Name Role Phone Anthony Modi MD Primary Care Provider [phone] [phone] Allergies Active Allergy Reactions Criticality Noted Date [...] 07/07/20 23 Active naloxone (NARCAN) 4 mg/spray [place], Non-Aerosol EMERGENCY USE ONLY: Administer 1 spray (4 mg) in one nostril one time. May repeat in alternating nostrils every 2-3 min until responsive or EMS arrives. 2 Each 3 04/10/20 24 Active ursodioL (ACTIGALL) 300 mg capsule Take 1 Capsule by mouth 2 times daily. 07/23/20 24 Active gabapentin (NEURONTIN) 300 mg capsule Take 1 Capsule (300 mg) by mouth 2 times daily. 60 Capsule 1 09/29/19 25 Active oxyCODONE (ROXICODONE) 10 mg tabletIndicati ons:Secondary malignant neoplasm of liver (CMS/HCC) Take 1 Tablet (10 mg) by mouth every 8 hours as needed for Pain, Moderate. Max Daily Amount: 30 mg 60 Tablet 12/09/19 25 Active oxyCODONE (ROXICODONE) 10 mg tabletIndicati ons:Secondary malignant neoplasm of liver (CMS/HCC) Take 1 Tablet (10 mg) by mouth every 8 hours as needed for Pain, Moderate. 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 Essential hypertension 08/10/2024 Intractable epigastric abdominal pain 04/10/2024 Type 2 diabetes mellitus with hyperglycemia 02/2024 Colon cancer metastasized to liver 04/10/2024 Secondary malignant neoplasm of liver 07/02/2023 Malignant neoplasm of descending colon Nephrolithiasis 12/11/2020 Overview (08/03/2024): Added automatically from request for surgery [id number] Encounters Date Type Department Care Team Description 12/10/2024 Orders Only [facility] - [place] [address] [place] [phone] Tommy Dias MD 12/09/2024 Abstract [facility] - [place] [address] [place] [phone] Tamera Marx MD 12/09/2024 Abstract [facility] - [place] [address] [place] [phone] Tommy Dias MD 12/08/2024 Refill [facility] - [place] [address] [place] [phone] Tommy Dias MD Secondary malignant neoplasm of liver (CMS/HCC) 12/06/2024 Orders Only [facility] - [place] [address] [place] [phone] Tommy Dias MD Secondary malignant neoplasm of liver (CMS/HCC) 11/23/2024 9:00 AM CDT Office Visit [facility] - [place] [address] [place] [phone] Tamera Marx MD Malignant neoplasm of colon, unspecified part of colon (CMS/HCC) (Primary Dx) 11/23/2024 External Device Data STL ABSTRACTION Provider, Abstract 11/23/2024 Orders Only [facility] - [place] [address] [place] [phone] Tommy Dias MD 11/22/2024 Orders Only [facility] - [place] [address] [place] [phone] Tommy Dias MD Secondary malignant neoplasm of liver (CMS/HCC) 11/09/2024 External Device Data STL ABSTRACTION Provider, Abstract 11/09/2024 Orders Only [facility] - [place] [address] [place] [phone] Tommy Dias MD 11/08/2024 Orders Only [facility] - [place] [address] [place] [address] Tommy Dias MD Secondary malignant neoplasm of liver (CMS/HCC) 10/27/2024 Orders Only [facility] - [place] [address] [place] [phone] Tommy Dias MD 10/26/2024 Orders Only [facility] - [place] [address] [place] [address] Tommy Dias MD 10/25/2024 9:30 AM CDT Office Visit [facility] H[facility] [address] [place] [phone] Tommy Dias MD Secondary malignant neoplasm of liver (CMS/HCC) 10/25/2024 Orders Only [facility] [address] [place] [phone] Tommy Dias MD 10/20/2024 External Device Data STL ABSTRACTION Provider, Abstract 10/13/2024 Refill [facility] H[facility] [address] [place] [phone] Tommy Disa MD Secondary malignant neoplasm of liver (CMS/HCC) (Primary Dx) 10/12/2024 Orders Only [facility] [address] [place] [phone] Tommy Dias MD 10/11/2024 Orders Only [facility] [address] [place] [phone] Tommy Dias MD Secondary malignant neoplasm of liver (CMS/HCC) 10/09/2024 External Device Data STL ABSTRACTION Provider, Abstract 10/08/2024 External Device Data STL ABSTRACTION Provider, Abstract 09/28/2024 Orders Only [facility] Hematology [facility] [address] [place] [address] Tommy Dias MD Secondary malignant neoplasm of liver (CMS/HCC) (Primary Dx) 09/27/2024 8:45 AM MANAGER REGULATORY Office Visit [facility] Hematology [facility] [address] [place] [address] Tommy Dias MD Secondary malignant neoplasm of liver (CMS/HCC) 09/27/2024 Orders Only [facility] - [place] [address] [place] [address] Tommy Dias MD 09/21/2024 External Device Data STL ABSTRACTION Provider, Abstract 09/20/2024 Orders Only [facility] - [place] [address] [place] [address] Tommy Dias MD 09/14/2024 External Device Data STL ABSTRACTION Provider, Abstract 09/14/2024 External Device Data STL ABSTRACTION Provider, Abstract 09/14/2024 Orders Only [facility] - [place] [address] [place] [address] Tommy Dias MD Secondary malignant neoplasm of liver (CMS/HCC) (Primary Dx) from Last 3 Months Family History Medical History Relation Name Comments Diabetes Father Prostate Cancer Father Relation Name Status Comments Brother 1 Alive Brother 2 Alive Daughter Alive Father Mother Alive Sister Son 1 Alive Son 2 Alive Social History Tobacco Use Types Packs/Day Years Used Date Smoking Tobacco: Never Smokeless Tobacco: Never Tobacco Cessation:Counseling Given: Not Answered Alcohol Use Standard Drinks/Week Comments Not Currently 0 (1 standard drink = 0.6 oz pur e alcohol) Feeling Safe Answer Date Recorded Are you in a relationship wi th someone who hurts you emotionally and/or physically? No 08/10/2024 Food Insecurity Answer Date Recorded Patient needs follow up regardin 11/25/2024 Transportation Needs Answer Date Record ed Patient needs follow up regardin 11/25/2024 Housing Stability Answer Date Recorded Social/Environmental Concerns No concerns Utility Needs Answer Date Recorded Patient needs follow up regardin 11/25/2024 Sex and Gender Information Value Date Recorded Sex Assigned at Not on file Legal Sex Male 10:48 AM MANAGER REGULATORY Gender Identity Not on file Sexual Orientation Not on file Last Filed Vital Signs Vital Sign Reading Time Taken Comments Blood Pressure 132/71 11/23/2024 8:39 AM CDT Pulse 86 11/23/2024 8:39 AM CDT Temperature 36.8 C (98.3 F) 11/23/2024 8:39 AM CDT Respiratory Rate 16 11/23/2024 8:39 AM CDT Oxygen Saturation 94% 11/23/2024 8:39 AM CDT Inhaled Oxygen Concentration - - Weight 75.3 kg (166 lb) 11/23/2024 8:39 AM CDT Height 175.3 cm (5' 9 ) 08/10/2024 10:14 PM MANAGER REGULATORY Body Mass Index 24.51 08/10/2024 10:14 PM MANAGER REGULATORY Plan of Treatment Upcoming Encounters Date Type Department Care Team (Late st Contact Info) Description 12/21/2024 8:45 AM CDT Office Visit [facility] - [place] [address] [facility] [address] [place] [address] Tommy Dias MD [address] [facility] [address] [place] [address] Health Maintenance Due Date Last [...] 01/29/2021 01/01/2021 INFLUENZA VACCINE (#1) 2024 06/03/2020 DIABETES HBA1C Q 6 MONTHS 10/07/2024 04/09/2024, COLORECTAL SCREENING Discontinued 08/06/2022, 08/06/19 23 Colorectal Cancer Screening Discontinued FIT-DNA Q 3 years Discontinued FIT/FOBT Q 1 year Discontinued Flex Sig/CT Colonography Q 5 years Discontinued Medical Devices Implanted Type Area Gas Appliance Servicer Device Identifier Shelf Expiration Date Model / Serial / Lot Coil-03/19/2024 Implanted:Qty: 1 on 03/19/2024 by Thuan Trujillo MD [employer] 11/04/2031 [id number] / / [id number] Description:Packing coil 15c m implanted on 03/19/[address] Trujillo Y90 Mapping Coil-03/19/2024 Implanted:Qty: 1 on 03/19/2024 by Thuan Trujillo MD [facility] 11/05/2031 [id number] / / [id number] Description:POD3 implanted o n 03/19/[address] Trujillo Y90 Mapping Procedures Procedure Name Priority Date/Time Associated Diagnosis Comments BASIC METABOLIC PANEL Routine 12/07/2024 3:40 PM CDT COMPREHENSIVE METABOLIC PANEL Routine 11/23/2024 3:30 PM CDT COMPREHENSIVE METABOLIC PANEL Routine 11/23/2024 2:58 PM CDT BASIC METABOLIC PANEL Routine 11/23/2024 1:36 PM CDT COMPREHENSIVE METABOLIC PANEL Routine 11/08/2024 12:13 PM CDT BASIC METABOLIC PANEL Routine 10/25/2024 3:53 PM CDT COMPREHENSIVE METABOLIC PANEL Routine 10/25/2024 3:52 PM CDT URINE CULTURE Routine 10/25/2024 3:10 PM CDT COMPREHENSIVE METABOLIC PANEL Routine 10/25/2024 1:27 PM CDT BASIC METABOLIC PANEL Routine 10/11/2024 10:59 AM CDT BASIC METABOLIC PANEL Routine 09/27/2024 2:[address] CHEST ABDOMEN PELVIS W CONT Routine 09/18/2024 1:47 PM MANAGER REGULATORY HEMOGLOBIN A1C Routine 04/09/2024 11:36 PM CDT from Last 3 Months or Most Recently Relevant to Health Maintenance Results * BASIC METABOLIC PANEL (12/07/2024 3:40 PM CDT) Only the most recent of5 resultswithin the time period is included. Blood us Tommy Dias MD CHEMISTRY ORDERABLES Final Resu lt * COMPREHENSIVE METABOLIC PANEL (11/23/2024 3:30 PM CDT) Only the most recent of5 resultswithin the time period is included. Blood us Tommy Dias MD CHEMISTRY ORDERABLES Final Resu lt * URINE CULTURE (10/25/2024 3:10 PM CDT) Urine Tommy Dias MD MICROBIOLOGY - GENERAL ORDERABL ES Final Result * CT CHEST ABDOMEN PELVIS W CONT (09/18/2024 1:47 PM MANAGER REGULATORY) Anatomical Region Laterality Modality Chest Computed Tomogra phy Tommy Dias MD CT ORDERABLES Final Result * (ABNORMAL) HEMOGLOBIN A1C (04/09/2024 11:36 PM CDT) HEMOGLOBIN A1C 6.0(H) <5.7 % 04/10/2024 3:23 PM CDT [facility] EST. AVG GLUCOSE, A1C 126 mg/dL 04/10/2024 3:23 PM CDT [facility] Blood Venipuncture / Unknown 04/09/2024 11:36 PM CDT 04/09/2024 11:57 PM CDT Narrative [facility] - 04/10/2024 3:23 PM CDT HGB A1C INTERPRETATION NORMAL: <5.7% PRE-DIABETES: 5.7 - 6.4% DIABETES: 6.5% OR GREATER Mickie Leal DO CHEMISTRY ORDERABLES Final R esult [facility] [id number] [address] [place] [address] from Last 3 Months or Most Recently Relevant to Health Maintenance Insurance BCBS BLUE PREFERRED BC[employer] BLUE PREFERRED RX [employer] Commercial Advance Directives For more information, please contact: [phone] * Default Full Code - Needs Discussion (Latest Code Status on File) Date Activated Date Inactivated Comments 08/10/2024 9:42 PM 08/13/2024 1:04 PM * Full Code Date Activated Date Inactivated Comments 04/09/2024 9:01 PM 04/10/2024 8:40 PM Care Teams Industrial Laborer Relationship Specialty Start Date End Date Anthony Modi MD [address] [place] [phone] PCP - General Family Practice 06/23/23
--- OUTSIDE RECORDS SUMMARY | 2024-12-12 12:54 | XMS_ITS | Referral Summary ---
Author Organization [facility] Address [address] [place] [address] Care Team Providers Care Director Of Rotc Name Role Phone Yue Avila DO Primary Care Provider + Sander Ahmadi MD Unavailable [phone] Marco A Maier MD Unavailable [phone] Twila Bowie NP Unavailable [phone]- [phone] Allergies No known active allergies Medications metFORMIN [...] Diagnosed Date Malignant neoplasm of descending colon Cancer Staging:Pathologic stage from 03/22/2021:Stage IIA(pT3, pN0, cM0) - Signed by Johnathon Ramirez MD on 03/22/2021 Nephrolithiasis 12/11/2020 Overview (12/11/2020): Added automatically from request for surgery [id number] Social History Tobacco Use Types Packs/Day Years [...] on file 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 Gender Identity Male 12/07/2020 3:16 PM CDT [...] on file [place] [facility] Advance Directives For more information, please contact: [phone] * Full Code (Latest Code Status on File) Date Activated Date Inactivated Comments 02/27/2021 11:57 AM 03/01/2021 4:35 PM Care Teams Director Of Rotc Relationship Specialty Start Date End Date Yue Avila DO [address] [place] [id number] PCP - General 11/14/20 Sander Ahmadi MD [address] [facility] [place] [phone] [address] [place] [address] Surgeon Colon and Rectal Surgery 02/13/21 Marco A Maier MD [address] [facility] [phone] [facility] [place] [address] Carbon Sequestration Plant Engineer Gastroenterology 02/13/21 Twila Bowie NP [address] [place] [id number] Medical Oncologist/Heavy Coil [facility] 06/20/21
--- OUTSIDE RECORDS SUMMARY | 2024-12-12 12:54 | XMS_ITS | Clinical Summary ---
Author Organization [facility] Address [address] [place] [address] Care Team Providers Care Automobile Insurance Claim Examiner Name Role Phone Alissa Lara PA-C Primary Care Provider [phone]- [phone] Allergies Active Allergy Reactions Criticality Noted Date [...] THE MORNING AND BEFORE SUPPER 07/17/2022 Active gabapentin (NEURONTIN) 300 MG capsule Take 1 capsule (300 mg total) by mouth 2 (two) times daily. 09/29/2024 Active oxyCODONE immediate release (ROXICODONE) 10 MG immediate release tablet Take 1 tablet (10 mg total) by mouth every 8 (eight) hours as needed. 09/08/2024 Active apixaban (ELIQUIS) 5 MG tablet Take 1 tablet (5 mg total) by mouth 2 (two) times daily. 60 tablet 10/09/2024 Active Active Problems No known active problems Encounters Date Type Department Care Team Description 10/09/2024 3:22 AM ADVANCED RESEARCH PROGRAMS DIRECTOR - 10/09/2024 5:29 AM ADVANCED RESEARCH PROGRAMS DIRECTOR Emergency [facility] Emergency Services [facility] [address] [place], [place] [id number] Kody Almaraz, Abdominal Pain; Back Pain Discharge Disposition: Home or Self Care (Routine Discharge) 10/09/2024 Travel from Last 3 Months Immunizations Immunization Administration Dates Next Due Fluarix (IIV4) 06/03/2020 Influenza Adult (Generic) 06/03/2020 Snappy shuttle (CARLEEN & CARLEEN) COVID-19 AD26 VACCINE 0.5 [...] Information Value Date Recorded Sex Assigned at Male 10/09/2024 3:22 AM ADVANCED RESEARCH PROGRAMS DIRECTOR Legal Sex Male 5:27 PM CDT Gender Identity Not on file Sexual Orientation Not on file Last Filed Vital Signs Vital Sign Reading Time Taken Comments Blood Pressure 115/72 10/09/2024 5:00 AM ADVANCED RESEARCH PROGRAMS DIRECTOR Pulse 70 10/09/2024 5:00 AM ADVANCED RESEARCH PROGRAMS DIRECTOR Temperature 36.2 C (97.1 F) 10/09/2024 3:28 AM ADVANCED RESEARCH PROGRAMS DIRECTOR Respiratory Rate 16 10/09/2024 5:00 AM ADVANCED RESEARCH PROGRAMS DIRECTOR Oxygen Saturation 99% 10/09/2024 5:00 AM ADVANCED RESEARCH PROGRAMS DIRECTOR Inhaled Oxygen Concentration - - Weight 73.9 kg (163 lb) 10/09/2024 3:28 AM ADVANCED RESEARCH PROGRAMS DIRECTOR Height 175.3 cm (5' 9 ) 10/09/2024 3:28 AM ADVANCED RESEARCH PROGRAMS DIRECTOR Body Mass Index 24.07 10/09/2024 3:28 AM ADVANCED RESEARCH PROGRAMS DIRECTOR Plan of Treatment Health Maintenance Due Date Last Done Comments Annual Physical 1970 Hepatitis C 1985 DTaP, Tdap and Td Vaccines (1 - Tdap) 1986 Hepatitis B Vaccines (1 of 3 - 19+ 3-dose series) 1986 Zoster Vaccines (1 of 2) 2017 Pneumococcal Vaccine: 50+ Years (2 of 2 - PPSV23) 06/22/2021 06/22/2020 COVID-19 Vaccine (2 - season) 2024 01/01/2021 Colorectal Cancer Screening Colonoscopy (10 Years) 08/06/2032 08/06/2022, 08/06/2022, 01/31/2021, Additional history exists Meningococcal B Vaccine Aged Out No l onger eligible based on patient's age to complete this topic Meningococcal Vaccine Aged Out No jakub jacqueline eligible based on patient's age to complete this topic RSV Immunizations Under 20 Months Aged Out No longer eligible based on patient's age to complete this topic Procedures Procedure Name Priority Date/Time Associated Diagnosis Comments CT ABD+PEL W CON STAT 10/09/2024 4:23 AM ADVANCED RESEARCH PROGRAMS DIRECTOR LIPASE STAT 10/09/2024 3:35 AM ADVANCED RESEARCH PROGRAMS DIRECTOR COMPREHENSIVE METABOLIC PANEL STAT 10/09/2024 3:35 AM ADVANCED RESEARCH PROGRAMS DIRECTOR CBC W/DIFF AUTOMATED STAT 10/09/2024 3:35 AM ADVANCED RESEARCH PROGRAMS DIRECTOR COLONOSCOPY Routine 08/06/2022 10:58 AM ADVANCED RESEARCH PROGRAMS DIRECTOR from Last 3 Months or Most Recently Relevant to Health Maintenance Results * CT ABD+PEL W CON (10/09/2024 4:23 AM ADVANCED RESEARCH PROGRAMS DIRECTOR) Anatomical Region Laterality Modality Abdomen Computed Tomogra phy 10/09/2024 4:21 AM ADVANCED RESEARCH PROGRAMS DIRECTOR Impressions 10/09/2024 4:36 AM ADVANCED RESEARCH PROGRAMS DIRECTOR IMPRESSION: 1. NO EVIDENCE OF ACUTE INFLAMMATORY CHANGE, ABSCESS OR ASCITES. 2. BOWEL GAS PATTERN CONSISTENT WITH DIFFUSE ILEUS. NO EVIDENCE OF MECHANICAL BOWEL OBSTRUCTION OR PERFORATION. 3. DIFFUSE ABNORMAL APPEARANCE OF THE LIVER WITH NUMEROUS HYPOENHANCING LESIONS CONSISTENT WITH HISTORY OF METASTATIC DISEASE. 4. PERSISTENT SPLENOMEGALY UNCHANGED. Signed: Michael Schulz MD Referred By: Interpreted By: Michael Schulz MD, 10/09/2024 4:21 AM Narrative 10/09/2024 4:36 AM ADVANCED RESEARCH PROGRAMS DIRECTOR [address] [place] [address] PATIENT NAME: XIN MAIER EXAM: CT abdomen/pelvis with contrast DATE OF EXAM: 10/09/2024 COMPARISON EXAM: 08/09/2024 INDICATION: History of colon cancer with liver and lung metastatic disease. Abdominal pain and nausea. TECHNIQUE: Axial images obtained from the xiphoid process to pubic symphysis with intravenous injection of 95 mL Isovue 370 contrast using low-dose CT technique. Sagittal and coronal reconstruction. FINDINGS: CT ABDOMEN: Visualized portions of the lung bases demonstrate no acute abnormality. There is a small hiatal hernia with mild diffuse concentric wall thickening involving the distal esophagus suggestive of esophagitis. No pleural effusion. There is a diffusely abnormal appearance of the liver with nodular surface contour and numerous hypoenhancing lesions scattered throughout both right and left lobe of the liver consistent with history of metastatic disease. The lesions present appear somewhat more hypodense and well-circumscribed and noted on previous study suggesting some response to therapy. The gallbladder is partially contracted. No evidence of cholelithiasis or cholecystitis. No biliary duct dilatation. The portal vein is widely patent with no filling defect. There is persistent splenomegaly with spleen measuring approximately 14 cm in length similar to previous study. No focal splenic lesion. The pancreas and the adrenal glands are unremarkable. The kidneys demonstrate no acute perirenal inflammatory stranding or fluid. No evidence of ureteral stone nor hydronephrosis on either side. No evidence of renal mass lesion. There is no acute inflammatory change, abscess nor ascites. I will gas pattern suggests diffuse ileus. No evidence of mechanical bowel obstruction or perforation. No significant lymphadenopathy. Abdominal aorta and IVC are unremarkable. Suspected filling defect noted in the SMV on previous study is no longer seen. CT PELVIS: No pelvic mass nor adenopathy. No acute inflammatory change, abscess or ascites. Mild chronic compression deformity at L1 unchanged. Procedure Note Michael Schulz MD - 10/09/[address] [place] [address] PATIENT NAME: XIN MAIER EXAM: CT abdomen/pelvis with contrast DATE OF EXAM: 10/09/2024 COMPARISON EXAM: 08/09/2024 INDICATION: History of colon cancer with liver and lung metastaticdisease. Abdominal pain and nausea. TECHNIQUE: Axial images obtained from the xiphoid process to pubicsymphysis with intravenous injection of 95 mL Isovue 370 contrast usinglow-dose CT technique. Sagittal and coronal reconstruction. FINDINGS: CT ABDOMEN: Visualized portions of the lung bases demonstrate no acuteabnormality. There is a small hiatal hernia with mild diffuse concentricwall thickening involving the distal esophagus suggestive of esophagitis.No pleural effusion. There is a diffusely abnormal appearance of the liver with nodular surfacecontour and numerous hypoenhancing lesions scattered throughout both rightand left lobe of the liver consistent with history of metastatic disease.The lesions present appear somewhat more hypodense and well-circumscribedand noted on previous study suggesting some response to therapy. Thegallbladder is partially contracted. No evidence of cholelithiasis orcholecystitis. No biliary duct dilatation. The portal vein is widelypatent with no filling defect. There is persistent splenomegaly with spleen measuring approximately 14 cmin length similar to previous study. No focal splenic lesion. Thepancreas and the adrenal glands are unremarkable. The kidneys demonstrate no acute perirenal inflammatory stranding orfluid. No evidence of ureteral stone nor hydronephrosis on either side.No evidence of renal mass lesion. There is no acute inflammatory change, abscess nor ascites. I will gaspattern suggests diffuse ileus. No evidence of mechanical bowelobstruction or perforation. No significant lymphadenopathy. Abdominalaorta and IVC are unremarkable. Suspected filling defect noted in the SMVon previous study is no longer seen. CT PELVIS: No pelvic mass nor adenopathy. No acute inflammatory change,abscess or ascites. Mild chronic compression deformity at L1 unchanged. IMPRESSION: 1. NO EVIDENCE OF ACUTE INFLAMMATORY CHANGE, ABSCESS OR ASCITES. 2. BOWEL GAS PATTERN CONSISTENT WITH DIFFUSE ILEUS. NO EVIDENCE OFMECHANICAL BOWEL OBSTRUCTION OR PERFORATION. 3. DIFFUSE ABNORMAL APPEARANCE OF THE LIVER WITH NUMEROUS HYPOENHANCINGLESIONS CONSISTENT WITH HISTORY OF METASTATIC DISEASE. 4. PERSISTENT SPLENOMEGALY UNCHANGED. Signed: Michael Schulz MD Referred By: Interpreted By: Michael Schulz MD, 10/09/2024 4:21 AM Kody Almaraz DO CT Final Result * (ABNORMAL) COMPREHENSIVE METABOLIC PANEL (10/09/2024 3:35 AM ADVANCED RESEARCH PROGRAMS DIRECTOR) Pathologist [facility] GLUCOSE 73 70 - 99 MG/DL 10/09/2024 4:05 AM ADVANCED RESEARCH PROGRAMS DIRECTOR [facility] BUN 14 7 - 18 MG/DL 10/09/2024 4:05 AM [facility] CREATININE S/P/B 0.82 0.50 - 1.20 MG/DL 10/09/2024 4:05 AM [facility] SODIUM S/P/B 140 136 - 145 MMOL/L 10/09/2024 4:05 AM [facility] POTASSIUM S/P/B 3.2(L) 3.5 - 5.1 MMOL/L 10/09/2024 4:05 AM [facility] CHLORIDE S/P/B 103 100 - 108 MMOL/L 10/09/2024 4:05 AM [facility] CO2 27.5 21.0 - 32.0 MMOL/L 10/09/2024 4:05 AM [facility] CALCIUM S/P/B 8.6 8.5 - 10.1 MG/DL 10/09/2024 4:05 AM [facility] BILIRUBIN TOTAL S/P/B 0.5 0.2 - 1.2 MG/DL 10/09/2024 4:05 AM [facility] Comment: THIS ASSAY IS NOT RECOMMENDED FOR PATIENTS UNDERGOING TREATMENT WITH ELTROMBOPAG DUE TO THE POTENTIAL FOR FALSELY ELEVATED RESULTS. TOTAL PROTEIN S/P/B 6.9 6.4 - 8.2 G/DL 10/09/2024 4:05 AM [facility] ALBUMIN S/P/B 3.3(L) 3.4 - 5.0 G/DL 10/09/2024 4:05 AM [facility] AST 20 15 - 37 U/L 10/09/2024 4:05 AM [facility] ALT 25 16 - 60 U/L 10/09/2024 4:05 AM [facility] ALKALINE PHOSPHATASE S/P/B 135 50 - 136 U/L 10/09/2024 4:05 AM [facility] ANION GAP 9.5 5.0 - 15.0 MMOL/L 10/09/2024 4:05 AM [facility] BUN CREATININE RATIO 17.1 6 - 26 10/09/2024 4:05 AM [facility] A/G RATIO 0.9(L) 1.0 - 2.5 RATIO 10/09/2024 4:05 AM [facility] GFR ESTIMATE >90 >90 ML/MIN/1.7 3 M2 10/09/2024 4:05 AM [facility] Comment: NOTE: eGFR is not calculated for patients <18 years of age. This is an estimated GFR calculation using the new CKD EPI creatinine equation without race and so does not require a correction factor for race. This estimated GFR should not be used for calculating drug doses. 10/09/2024 3:35 AM ADVANCED RESEARCH PROGRAMS DIRECTOR Kody Almaraz DO LABORATORY Final Result [facility] [address] [place] [address], * (ABNORMAL) CBC W/DIFF AUTOMATED (10/09/2024 3:35 AM ADVANCED RESEARCH PROGRAMS DIRECTOR) WBC 4.40(L) 4.50 - 11.00 x10'3/uL 10/09/2024 3:51 AM [facility] RBC 4.31(L) 4.50 - 5.90 x10'6/uL 10/09/2024 3:51 AM [facility] HGB 12.7(L) 14.0 - 18.0 G/DL 10/09/2024 3:51 AM [facility] HCT 36.5(L) 43.0 - 54.0 % 10/09/2024 3:51 AM [facility] MCV 84.7 80.0 - 100.0 FL 10/09/2024 3:51 AM [facility] MCH 29.5 26.0 - 34.0 PG 10/09/2024 3:51 AM [facility] MCHC 34.8 31.0 - 37.0 G/DL 10/09/2024 3:51 AM [facility] RDW 15.2(H) 11.6 - 14.8 % 10/09/2024 3:51 AM [facility] PLT 166 130 - 400 x10'3/uL 10/09/2024 3:51 AM [facility] MPV 9.3 7.0 - 12.0 FL 10/09/2024 3:51 AM [facility] CBC COMMENT AUTOMATED RBC MORPHOLOGY AND PLATELET EVALUATION NORMAL 10/09/2024 3:51 AM [facility] NEUTROPHILS % 66.4 40.0 - 74.0 % 10/09/2024 3:51 AM [facility] LYMPHOCYTES % 23.9 14.0 - 46.0 % 10/09/2024 3:51 AM [facility] MONOCYTES % 7.7 4.0 - 13.0 % 10/09/2024 3:51 AM [facility] EOSINOPHILS 1.1 0.0 - 7.0 % 10/09/2024 3:51 AM [facility] BASOPHILS 0.7 0.0 - 3.0 % 10/09/2024 3:51 AM [facility] IMMATURE GRANS % 0.2 0.0 - 0.43 % 10/09/2024 3:51 AM [facility] NRBC % 0.0 % 10/09/2024 3:51 AM [facility] ABS. NEUTROPHILS TOTAL 2.92 1.69 - 7.81 x10'3/uL 10/09/2024 3:51 AM [facility] ABS. LYMPHOCYTES 1.05 0.21 - 5.42 x10'3/uL 10/09/2024 3:51 AM [facility] ABS. MONOCYTES 0.34 0.04 - 1.37 x10'3/uL 10/09/2024 3:51 AM [facility] ABS. EOSINOPHILS 0.05 0.00 - 0.68 x10'3/uL 10/09/2024 3:51 AM ADVANCED RESEARCH PROGRAMS DIRECTOR [facility] ABS. BASOPHILS 0.03 0.00 - 0.08 x10'3/uL 10/09/2024 3:51 AM ADVANCED RESEARCH PROGRAMS DIRECTOR [facility] ABS. IMMATURE GRANULOCYTES 0.01 0.00 - 0.06 x10'3/uL 10/09/2024 3:51 AM ADVANCED RESEARCH PROGRAMS DIRECTOR [facility] ABS. NUCLEATED RBC'S 0.00 0.00 - 0.01 x10'3/uL 10/09/2024 3:51 AM ADVANCED RESEARCH PROGRAMS DIRECTOR [facility] 10/09/2024 3:35 AM ADVANCED RESEARCH PROGRAMS DIRECTOR Kody Almaraz DO LABORATORY Final Result Performing Organization Address [facility] de Phone Number [facility] [address] [place] [address], [place] * LIPASE (10/09/2024 3:35 AM ADVANCED RESEARCH PROGRAMS DIRECTOR) LIPASE 62 16 - 77 UNITS/L 10/09/2024 4:05 AM ADVANCED RESEARCH PROGRAMS DIRECTOR [facility] 10/09/2024 3:35 AM ADVANCED RESEARCH PROGRAMS DIRECTOR Kody Almaraz DO LABORATORY Final Result Performing Organization Address [facility] de Phone Number [facility] [address] [place] [address], [place] * Colonoscopy (08/06/2022 10:58 AM ADVANCED RESEARCH PROGRAMS DIRECTOR) Narrative Marco A Frederick MD - 08/06/2022 10:58 AM ADVANCED RESEARCH PROGRAMS DIRECTOR Marco A Frederick MD 08/06/2022 11:25 AM MARCO A FREDERICK MD, FACG, FACP COLONOSCOPY 08/06/2022 INDICATION: Personal history of colon cancer. POST-OP: One polyp removed. Post-surgical colonoscopy. SEDATION: Per Anesthesia PREP: Good. With the patient in the left lateral decubitus position, the Olympus [id number] colonoscope was introduced into the rectum and [...] follow-up with Dr. Avila and Dr. Ahmadi. Marco A Frederick M.D. Cc: Dr. Daren Avila; Dr. Austin Ahmadi Marco A Frederick MD GI PROCEDURE ORDERABLES Fin al Result from Last 3 Months or Most Recently Relevant to Health Maintenance Insurance [facility] Care Teams Automobile Insurance Claim Examiner Relationship Specialty Start Date End Date Alissa Lara PA-C [address] [place] [address] [address] [place] [address] PCP - General PHYSICIAN PAINTINGS CONSERVATOR 08/09/24
--- OUTSIDE RECORDS SUMMARY | 2024-12-12 12:54 | XMS_ITS | Encounter Summary ---
Author Organization [facility] [employer] [place] [facility] Address [address] [place] [address] Care Team Providers Care Lockstitch Front Maker Name Role Phone Anthony Modi MD Primary Care Provider [phone] Encounter Details Date Type Department Care Team (Late Contact Info) Description 12/10/2024 Orders Only [facility] Oncology and Hematology - [place] [address] [facility] [address] [place] [address] Tommy Dias MD [address] [facility] [address] [place] [address] Social History Tobacco Use Types Packs/Day Years [...] on file Legal Sex Male 10:48 AM INSURANCE ACCOUNT ASSISTANT Gender Identity Not on file Sexual Orientation Not on file documented as of this encounter Plan of Treatment Upcoming Encounters Date Type Department Care Team (Late Contact Info) Description 12/21/2024 8:45 AM CDT Office Visit [facility] Oncology and Hematology - [place] [address] [facility] [address] [place] [address] Tommy Dias MD [address] [facility] [address] [place] [address] documented as of this encounter Procedures Procedure Name Priority Date/Time Associated Diagnosis Comments BASIC METABOLIC PANEL Routine 12/07/2024 3:40 PM CDT documented in this encounter Results * BASIC METABOLIC PANEL (12/07/2024 3:40 PM CDT) Blood Tommy Dias MD CHEMISTRY ORDERABLES Final Resu lt documented in this encounter Visit Diagnoses Not on filedocumented in this encounter Care Teams Lockstitch Front Maker Relationship Specialty Start Date End Date Anthony Modi MD [address] [place] [phone] PCP - General Family Practice 06/23/23 documented as of this encounter
--- OUTSIDE RECORDS SUMMARY | 2024-12-12 12:54 | XMS_ITS ---
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 Past Treatment and Therapy Plans No past plan information found. Lifetime Dose Tracking * Chemical Lifetime Dose Automatic Entry Manual Entr y DLP 973 mGycm 973 mGycm 0 mGycm
--- OUTSIDE RECORDS SUMMARY | 2024-12-12 12:54 | XMS_ITS | Encounter Summary ---
Author Organization [facility] Address [address] [place] [address] Care Team Providers Care Auto Claims Adjuster Name Role Phone Anthony Modi MD Primary Care Provider [phone] Reason for Visit * Reason Onset Date Comments Metastatic colon cancer admi tted to [facility] thrombosis 08/13/2024 SPOKE WITH [facility] / DR. DELACRUZ OFFICE Encounter Details Date Type Department Care Team (Late st Contact Info) Description 08/13/2024 Telephone [facility] Admitting [address] [place] [address] [place] [address] [address] Metastatic colon cancer admitted to [facility] thrombosis (SPOKE WITH [facility] / DR. DELACRUZ [...] on file Legal Sex Male 10:48 AM ENVIRONMENTAL TECHNOLOGY PROFESSOR Gender Identity Not on file Sexual Orientation Not on file documented as of this encounter Plan of Treatment Upcoming Encounters Date Type Department Care Team (Late st Contact Info) Description 12/21/2024 8:45 AM CDT Office Visit [facility] Oncology and Hematology - [place] [address] [facility] [address] [place] [address] Tommy Dias MD [address] [facility] [address] [place] [address] documented as of this encounter Visit Diagnoses Not on filedocumented in this encounter Care Teams Auto Claims Adjuster Relationship Specialty Start Date End Date Anthony Modi MD [address] [place] [phone] PCP - General Family Practice 06/23/23 documented as of this encounter
--- OUTSIDE RECORDS SUMMARY | 2024-12-12 12:54 | XMS_ITS | Clinical Summary ---
Author Organization [facility] Address [address] [place] [address] Care Team Providers Care Orthotic Assistant Name Role Phone Yue Avila DO Primary Care Provider + Sander Ahmadi MD Unavailable [phone] Marco A Maier MD Unavailable [phone] Twila Bowie NP Unavailable [phone] Allergies No known active allergies Medications metFORMIN [...] (12/11/2020): Added automatically from request for surgery [id number] Surgical History Surgery Date Site/Laterality Comments CYSTOSCOPY W/ URETEROSCOPY URETERAL STENT PLACEMENT COLONOSCOPY Medical History Medical History Date Comments Nephrolithiasis Cancer (HCC) Diabetes mellitus (HCC) Abdominal pain Fecal [...] on file Legal Sex Male 5:43 PM MAIL ROOM CLERK Gender Identity Male 12/07/2020 3:16 PM CDT [...] patient's age to complete this topic [place] [facility] Advance Directives For more information, please contact: [phone] * Full Code (Latest Code Status on File) Date Activated Date Inactivated Comments 02/27/2021 11:57 AM 03/01/2021 4:35 PM Care Teams Orthotic Assistant Relationship Specialty Start Date End Date Yue Avila DO [address] [place] [phone] PCP - General 11/14/20 Sander Ahmadi MD [address] [facility] [phone] [address] Surgeon Colon and Rectal Surgery 02/13/21 Marco A Maier MD [address] [facility] [phone] [address] Senior Qa Engineer Gastroenterology 02/13/21 Twila Bowie NP [address] [place] [id number] Medical Oncologist/Retail Reset Merchandiser Medical Oncology 06/20/21
--- OUTSIDE RECORDS SUMMARY | 2024-12-12 12:54 | XMS_ITS | Encounter Summary ---
Author Organization [facility] Address [address] [place] [address] Care Team Providers Care Road Commissioner Name Role Phone Anthony Modi MD Primary Care Provider [phone] Reason for Visit * Reason Onset Date Comments Metastatic colon cancer admi tted to [facility] thrombosis 08/11/2024 LEFT MESSAGE / DR. DIAS EX CHANGE Encounter Details Date Type Department Care Team (Late st Contact Info) Description 08/11/2024 Telephone [facility] Admitting [address] [place] [address] [place] [address] [place] [address] Metastatic colon cancer admitted to [facility] thrombosis (LEFT MESSAGE / DR. DIAS EXCHANGE) [...] on file Legal Sex Male 10:48 AM PRODUCT MANAGEMENT SPECIALIST Gender Identity Not on file Sexual Orientation Not on file documented as of this encounter Plan of Treatment Upcoming Encounters Date Type Department Care Team (Late st Contact Info) Description 12/21/2024 8:45 AM CDT Office Visit [facility] Oncology and Hematology - [place] [address] [facility] [address] [place] [address] Tommy Dias MD [address] [facility] [address] [place] [address] documented as of this encounter Visit Diagnoses Not on filedocumented in this encounter Care Teams Road Commissioner Relationship Specialty Start Date End Date Anthony Modi MD [address] [place] [phone] PCP - General Family Practice 06/23/23 documented as of this encounter
--- OUTSIDE RECORDS SUMMARY | 2024-12-12 12:54 | XMS_ITS | Clinical Summary ---
Author Organization [facility] Address [address] [place] [address] Care Team Providers Care Necktie Stitcher Name Role Phone Unavailable Primary Care Provider Unavailabl e Source Comments [facility],non-owned Affiliates and Associated Physician Practices is amultiple site organization consisting of ambulatory clinics and hospital sitesin [place], [place], [place] and [place]. This disclosure is being madepursuant to the Care Everywhere program and may not contain all information available regarding this patient. 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 Social History Tobacco Use Types Packs/Day Years Used Date Smoking Tobacco: Never Assessed Sex and Gender Information Value Date Recorded Sex Assigned at Not on file Legal Sex Male 7:43 PM HAND RUG BRAIDER Gender Identity Not on file Sexual Orientation [...] VACCINE (1 of 2) 2017 COVID-19 VACCINE ( - 2023-2 5 season) 2024 DEPRESSION SCREENING 08/04/2024 INFLUENZA VACCINE (Season Ended) 2025 HIB VACCINE Aged Out No longer eligi ble based on patient's age to complete this topic HPV VACCINE Aged Out No longer eligi ble based on patient's age to complete this topic MENINGOCOCCAL (Group B) VACC INE SHARED DECISION-MAKING Aged Out No longer eligibl e based on patient's age to complete this topic MENINGOCOCCAL GROUPS A/C/Y/W VACCINE Aged Out No longer eligible b ased on patient's age to complete this topic Insurance [facility] ANTHEM [facility] SELF PAY NO INSURANCE Member Subscriber Plan / Payer (Ef fective for All Dates) Name:Xin Maier Member ID:Not on file Relation to Subscriber:Not on file Name:XIN MAIER Subscriber ID:Not on file Address: [facility] [place] [address] Payer ID:Not on file Group ID:Not on file Type:Self Pay Address: [place], [place] * Guarantor: XIN MAIER Account Type Relation to Patient Date of Phone Billing Address Personal/Family Spouse
== END 2024-12-12 12:15 | disposition home or self-care (01) ==
PROVIDERS: PCP Nurse Practitioner Family; Visit Provider Internal Medicine
DX: C18.9 Malignant neoplasm of colon, unspecified (principal); C78.01 Secondary malignant neoplasm of right lung; C78.7 Secondary malignant neoplasm of liver and intrahepatic bile duct; M43.8X6 Other specified deforming dorsopathies, lumbar region
CPT/HCPCS: 71260; 74177; Q9967

== ENCOUNTER 2025-01-03 11:07 | Outpatient (CLI) | payer BC, SELFPAY ==
--- NOTE | ~2025-01-03 | XR_ITS ---
EXAMINATION: XR fl port a cath w contrast DATE: 01/03/2025 12:12 INDICATION: Liver cancer with pain at the left supraclavicular region and nonfunctioning port cathete r TECHNIQUE: A single fluoroscopic image of the left infraclavicular region was obtained. Fluoroscopy e xposure time was 0.1 minutes. Total DAP was 0.293 Gycm^2. COMPARISON: CT dated 12/12/2024 FINDINGS: Bones are normal alignment. No clavicle fracture. There is however a fracture with discontinuity of t he left subclavian central venous port catheter which occurs when the catheter passes between the ant erior first rib and the inferior margin of the medial left clavicle. IMPRESSION: 1. Fracture with discontinuity of the left subclavian central venous port catheter where it passes be tween the left first rib and the left clavicle. Reviewed, dictated and finalized at location A. IMPRESSION: 1. Fracture with discontinuity of the left subclavian central venous port bam ter where it passes between the left first rib and the left clavicle.
--- OUTSIDE RECORDS SUMMARY | 2025-01-03 11:42 | XMS_ITS | Clinical Summary ---
[facility] Address [address] [place] [address] Care Team Providers Care Business Director Name Role Phone Anthony Modi MD Primary Care Provider [phone] Allergies Active Allergy Reactions Criticality Noted Date [...] by mouth daily in the morning. Active naloxone (NARCAN) 4 mg/spray [place], Non-Aerosol EMERGENCY USE ONLY: Administer 1 spray [...] 30 mg 60 Tablet 12/09/19 25 Active lidocaine-pril ocaine (EMLA) 2.5-2.5 % CreamIndicatio ns:Liver mass Apply a quarter size amount to port site 30 minutes before access. 30 Gram 1 01/01/20 25 Active ondansetron (ZOFRAN ODT) 8 mg Tablet, Rapid DissolveIndica tions:Liver mass Dissolve 1 tablet on top of tongue then swallow with saliva every 8 hours as needed for nausea or vomiting 30 Tablet 1 01/01/20 25 Active lidocaine-pril ocaine (EMLA) 2.5-2.5 % CreamIndicatio ns:Liver mass Apply to affected area see administration instructions. 30 Gram 1 07/07/20 23 025 Discontin ued(Reord er) ondansetron (ZOFRAN ODT) 8 mg Tablet, Rapid DissolveIndica tions:Liver mass Dissolve 1 tablet on top of tongue then swallow with saliva every 8 hours as needed for nausea or vomiting 30 Tablet 1 07/07/20 23 025 Discontin ued(Reord er) oxyCODONE (ROXICODONE) 10 mg tabletIndicati ons:Secondary malignant [...] (08/03/2024): Added automatically from request for surgery [id number] Encounters Date Type Department Care Team Description 01/03/2025 Orders Only [facility] - [place] [address] [place] [phone] Tommy Dias MD Secondary malignant neoplasm of liver (CMS/HCC) (Primary Dx) 01/03/2025 Orders Only [facility] - [place] [address] [place] [phone] Tommy Dias MD Secondary malignant neoplasm of liver (CMS/HCC) 12/31/2024 Refill [facility] [place] [address] [place] [phone] Tommy Dias MD Liver mass 12/23/2024 External Device Data STL ABSTRACTION Provider, Abstract 12/22/2024 External Device Data STL ABSTRACTION Provider, Abstract 12/21/2024 8:45 AM CDT Office Visit [facility] - [place] [address] [place] [address] Tommy Dias MD Secondary malignant neoplasm of liver (CMS/HCC) (Primary Dx) 12/21/2024 External Device Data STL ABSTRACTION Provider, Abstract 12/20/2024 Orders Only [facility] - [place] [address] [place] [id number] Tommy Dias MD Secondary malignant neoplasm of liver (CMS/HCC) 12/14/2024 Orders Only [facility] [place] [address] [place] [phone] Tommy Dias MD 12/10/2024 Orders Only [facility] [place] [address] [place] [address] Tommy Dias MD 12/09/2024 Abstract [facility] [place] [address] [place] [address] Tamera Marx MD 12/09/2024 Abstract [facility] [place] [address] [place] [address] Tommy Dias MD 12/08/2024 Refill [facility] [place] [address] [place] [address] Tommy Dias MD Secondary malignant neoplasm of liver (CMS/HCC) 12/06/2024 Orders Only [facility] - [place] [address] [place] [phone] Tommy Dias MD Secondary malignant neoplasm of liver (CMS/HCC) 11/23/2024 9:00 AM CDT Office Visit [facility] [place] Edelmira M[address] [place] [address] Tamera Marx MD Malignant neoplasm of colon, unspecified part of colon (CMS/HCC) (Primary Dx) 11/23/2024 External Device Data STL ABSTRACTION Provider, Abstract 11/23/2024 Orders Only [facility] - [place] [address] [place] [address] Tommy Dias MD 11/22/2024 Orders Only [facility] [place] [address] [place] [address] Tommy Dias MD Secondary malignant neoplasm of liver (CMS/HCC) 11/09/2024 External Device Data STL ABSTRACTION Provider, Abstract 11/09/2024 Orders Only [facility] [place] [address] [place] [address] Tommy Dias MD 11/08/2024 Orders Only [facility] [place] [address] [place] [address] Tommy Dias MD Secondary malignant neoplasm of liver (CMS/HCC) 10/27/2024 Orders Only [facility] [place] [address]ira [address] [place] [address] Tommy Dias MD 10/26/2024 Orders Only [facility] [place] [address] [place] [address] Tommy Dias MD 10/25/2024 9:30 AM CDT Office Visit [facility] [place] [address] [place] [address] Tommy Dias MD Secondary malignant neoplasm of liver (CMS/HCC) 10/25/2024 Orders Only [facility] - [place] [address] Tommy Dias MD 10/20/2024 External Device Data STL ABSTRACTION Provider, Abstract 10/13/2024 Refill [facility] - [place] [address] [place] [address] Tommy Dias MD Secondary malignant neoplasm of liver (CMS/HCC) (Primary Dx) 10/12/2024 Orders Only [facility] [place] [address] [place] [address] Tommy Dias MD 10/11/2024 Orders Only [facility] [place] [address] [place] [address] Tommy Dias MD Secondary malignant neoplasm of liver (CMS/HCC) 10/09/2024 External Device Data STL ABSTRACTION Provider, Abstract 10/08/2024 External Device Data STL ABSTRACTION Provider, Abstract from Last 3 Months Family History Medical [...] on file 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 Gender Identity Not on file Sexual Orientation Not on file Last Filed Vital Signs Vital Sign Reading Time Taken Comments Blood Pressure 131/83 12/21/2024 8:37 AM CDT Pulse 85 12/21/2024 8:37 AM CDT Temperature 36.4 C (97.6 F) 12/21/2024 8:37 AM CDT Respiratory Rate 15 12/21/2024 8:37 AM CDT Oxygen Saturation 97% 12/21/2024 8:37 AM CDT Inhaled Oxygen Concentration - - Weight 76.2 kg (168 lb) 12/21/2024 8:37 AM CDT Height 175.3 cm (5' 9) 08/10/2024 10:14 PM TRANSPORT OPERATIONS INSPECTOR Body Mass Index 24.81 08/10/2024 10:14 PM TRANSPORT OPERATIONS INSPECTOR Plan of Treatment Upcoming Encounters Date Type Department Care Team (Late st Contact Info) Description 01/24/2025 9:15 AM CDT Office Visit [facility] - [place] [address] [facility] [address] [place] [address] Tommy Dias MD [address] [facility] [address] [place] [address] Health Maintenance Due Date Last [...] years Discontinued Medical Devices Implanted Type Area Batch Operator Device Identifier Shelf Expiration Date Model / Serial / Lot Coil-03/19/2024 Implanted:Qty: 1 on 03/19/2024 by Thuan Trujillo MD SADAR 3D 11/04/2031 [id number] / / [id number] Description:Packing coil 15c m implanted on 03/19/[address] Trujillo Y90 Mapping Coil-03/19/2024 Implanted:Qty: 1 on 03/19/2024 by Thuan Trujillo MD SADAR 3D 11/05/2031 [id number] / / [id number] Description:POD3 implanted o n 03/19/[address] Trujillo Y90 Mapping Procedures Procedure Name Priority Date/Time Associated Diagnosis Comments BASIC METABOLIC PANEL Routine 12/07/2024 3:40 PM CDT COMPREHENSIVE METABOLIC PANEL Routine 12/07/2024 2:22 PM CDT COMPREHENSIVE METABOLIC PANEL Routine 11/23/2024 [...] METABOLIC PANEL Routine 10/11/2024 10:59 AM CDT HEMOGLOBIN A1C Routine 04/09/2024 11:36 PM CDT from Last 3 Months or Most Recently Relevant to Health Maintenance Results * BASIC METABOLIC PANEL (12/07/2024 3:40 PM CDT) Only the most recent of4 resultswithin the time period is included. Blood Tommy Dias MD CHEMISTRY ORDERABLES Final Resu lt * COMPREHENSIVE METABOLIC PANEL (12/07/2024 2:22 PM CDT) Only the most recent of6 resultswithin the time period is included. Blood Tommy Dias MD CHEMISTRY ORDERABLES Final Resu lt * URINE CULTURE (10/25/2024 3:10 PM CDT) Urine Tommy Dias MD MICROBIOLOGY - GENERAL ORDERABL ES Final Result * (ABNORMAL) HEMOGLOBIN A1C (04/09/2024 11:36 PM CDT) HEMOGLOBIN A1C 6.0(H) <5.7 % 04/10/2024 3:[address] [facility] EST. AVG GLUCOSE, A1C 126 mg/dL 04/10/2024 3:[address] [facility] Blood Venipuncture / Unknown 04/09/2024 11:36 PM CDT 04/09/2024 11:[address] [facility] - 04/10/2024 3:23 PM CDT HGB A1C INTERPRETATION NORMAL: <5.7% PRE-DIABETES: 5.7 - 6.4% DIABETES: 6.5% OR GREATER us Mickie Leal DO CHEMISTRY ORDERABLES Final R esult [facility] CLIA# [id number] [address] [place] [address] from Last 3 Months or Most Recently Relevant to Health Maintenance Insurance [facility] BLUE PREFERRED Member Subscriber Plan / Payer (Ef fective 2023-Present) Name:Dave Maier Relation to Subscriber:Self Name:Dave Maier Payer ID:[id number] ([facility]) Type:PPO [facility] PREFERRED Member Subscriber Plan / Payer (Ef fective 2023-Present) Name:Dave Maier Relation to Subscriber:Self Name:Dave Maier Payer ID:[id number] ([facility]) Type:PPO RX [employer] Commercial Advance Directives For more information, please contact: [phone] * Default Full Code - Needs Discussion (Latest Code Status on File) Date Activated Date Inactivated Comments 08/10/2024 9:42 PM 08/13/2024 1:04 PM * Full Code Date Activated Date Inactivated Comments 04/09/2024 9:01 PM 04/10/2024 8:40 PM Care Teams Business Director Relationship Specialty Start Date End Date Anthony Modi MD [address] [place] [phone] PCP - General Family Practice 06/23/23
--- OUTSIDE RECORDS SUMMARY | 2025-01-03 11:42 | XMS_ITS | Encounter Summary ---
Author Organization [facility] Address [address] [place] [address] Care Team Providers Care Private Wealth Advisor Name Role Phone Anthony Modi MD Primary Care Provider [phone] Reason for Visit * Reason Onset Date Comments Metastatic colon cancer admi tted to [facility] thrombosis 08/11/2024 LEFT MESSAGE / DR. DIAS EX CHANGE Encounter Details Date Type Department Care Team (Late st Contact Info) Description 08/11/2024 Telephone [facility] Admitting [address] [place] [address] [place] [address] [place] [address] Metastatic colon cancer admitted to [facility] thrombosis (LEFT MESSAGE / DR. 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 Gender Identity Not on file Sexual Orientation Not on file documented as of this encounter Plan of Treatment Upcoming Encounters Date Type Department Care Team (Late st Contact Info) Description 01/24/2025 9:15 AM CDT Office Visit [facility]cology [facility] - [place] [address] [facility] [address] [place] [address] Tommy Dias MD [address] [facility] [address] [place] [address] documented as of this encounter Visit Diagnoses Not on filedocumented in this encounter Care Teams Private Wealth Advisor Relationship Specialty Start Date End Date Anthony Modi MD [address] [place] [phone] PCP - General Family Practice 06/23/23 documented as of this encounter
--- OUTSIDE RECORDS SUMMARY | 2025-01-03 11:42 | XMS_ITS | Clinical Summary ---
Author Organization [facility] Address [address] [place] [address] Care Team Providers Care Leather Cutter Name Role Phone Unavailable Primary Care Provider Unavailabl e Source Comments [facility],non-owned Affiliates and Associated Physician Practices is amultiple site organization consisting of ambulatory clinics and hospital sitesin [place], [place], [place] and [place]. This disclosure is being madepursuant to the Care Everywhere program and may not contain all information available regarding this patient. 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 Gender Identity Not on file Sexual Orientation [...] patient's age to complete this topic Insurance [facility] AN[facility]M [facility] SELF PAY NO INSURANCE Member Subscriber Plan / Payer (Ef fective for All Dates) Name:Xin Maier Member ID:Not on file Relation to Subscriber:Not on file Name:XIN MAIER Subscriber ID:Not on file Address: [facility] [place] [address] Payer ID:Not on file Group ID:Not on file Type:Self Pay Address: [place], [place] * Guarantor: XIN MAIER Account Type Relation to Patient Date of Phone Billing Address Personal/Family Spouse
--- OUTSIDE RECORDS SUMMARY | 2025-01-03 11:42 | XMS_ITS | Referral Summary ---
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 Gender Identity Male 12/07/2020 3:16 PM CDT [...] 8:40 AM CDT Height 174 cm (5' 8.5) 04/04/2021 8:40 AM CDT Body Mass Index 29.67 04/04/2021 8:40 AM CDT Plan of Treatment Not on file [place] [facility] Advance Directives For more information, please contact: [phone] * Full Code (Latest Code Status on File) Date Activated Date Inactivated Comments 02/27/2021 11:57 AM 03/01/2021 4:35 PM Care Teams Customer Insight Analyst Relationship Specialty Start Date End Date Yue Avila DO [address] [place] [phone] PCP - General 11/14/20 Sander Ahmadi MD [address] [facility] [phone] [place] [address] Surgeon Colon and Rectal Surgery 02/13/21 Marco A Maier MD [address] [facility] [phone] [facility] [place] [address] Valet Service Attendant Gastroenterology 02/13/21 Twila Bowie NP [address] [place] [address] Medical Oncologist/Unit Director Medical Oncology 06/20/21
--- OUTSIDE RECORDS SUMMARY | 2025-01-03 11:42 | XMS_ITS | Encounter Summary ---
Author Organization [facility] Address [address] [place] [address] Care Team Providers Care Carving Machine Operator Name Role Phone Anthony Modi MD Primary Care Provider [phone] Reason for Visit * Reason Onset Date Comments Metastatic colon cancer admi tted to [facility] thrombosis 08/13/2024 SPOKE WITH [facility]ANTOS / DR. DELACRUZ OFFICE Encounter Details Date Type Department Care Team (Late st Contact Info) Description 08/13/2024 Telephone [facility] Admitting [address] [place] [address] [place] [address] [address] Metastatic colon cancer admitted to [facility] thrombosis (SPOKE WITH [facility] / DR. 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 Gender Identity Not on file Sexual Orientation Not on file documented as of this encounter Plan of Treatment Upcoming Encounters Date Type Department Care Team (Late st Contact Info) Description 01/24/2025 9:15 AM CDT Office Visit [facility]cology and Hematology - [place] [address] [facility] [address] [place] [address] Tommy Dias MD [address] [facility] [address] [place] [address] documented as of this encounter Visit Diagnoses Not on filedocumented in this encounter Care Teams Carving Machine Operator Relationship Specialty Start Date End Date Anthony Modi MD [address] [place] [phone] PCP - General Family Practice 06/23/23 documented as of this encounter
--- OUTSIDE RECORDS SUMMARY | 2025-01-03 11:42 | XMS_ITS | Encounter Summary ---
Author Organization [facility] [employer] [facility] Address [address] [place] [address] Care Team Providers Care Boat Cleaning Supervisor Name Role Phone Anthony Modi MD Primary Care Provider [phone] Encounter Details Date Type Department Care Team (Late st Contact Info) Description 01/03/2025 Orders Only [facility] Oncology and Hematology - [place] [address] [facility] [address] [place] [address] Tommy Dias MD [address] [facility] [address] [place] [address] Secondary malignant neoplasm of liver (CMS/HCC) Social History Tobacco Use Types Packs/Day Years [...] on file 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 Gender Identity Not on file Sexual Orientation Not on file documented as of this encounter Plan of Treatment Upcoming Encounters Date Type Department Care Team (Late st Contact Info) Description 01/24/2025 9:15 AM CDT Office Visit [facility] Oncology and Hematology - [place] [address] [facility] [address] [place] [address] Tommy Dias MD [address] [facility] [address] [place] [address] documented as of this encounter Visit Diagnoses Diagnosis Secondary malignant neoplasm of liver (CMS/HCC) Secondary malignant neoplasm of liver documented in this encounter Care Teams Boat Cleaning Supervisor Relationship Specialty Start Date End Date Anthony Modi MD [address] [place] [phone] PCP - General Family Practice 06/23/23 documented as of this encounter
--- OUTSIDE RECORDS SUMMARY | 2025-01-03 11:42 | XMS_ITS ---
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 Past Treatment and Therapy Plans No past plan information found. Lifetime Dose Tracking * Chemical Lifetime Dose Automatic Entry Manual Entr y DLP 973 mGycm 973 mGycm 0 mGycm
--- OUTSIDE RECORDS SUMMARY | 2025-01-03 11:42 | XMS_ITS | Clinical Summary ---
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 Gender Identity Male 12/07/2020 3:16 PM CDT [...] (1 of 2) 2017 Covid-19 Vaccine (2 - 2023-2 5 season) 2024 01/01/2021 Influenza Vaccine (Season Ended) 2025 06/03/20 20 Pneumococcal vaccine <65 Aged Out 06/22/2020 No longer eligible based on patient's age to complete this topic [place] [facility] Advance Directives For more information, please contact: [phone] * Full Code (Latest Code Status on File) Date Activated Date Inactivated Comments 02/27/2021 11:57 AM 03/01/2021 4:35 PM Care Teams Check Cashier Relationship Specialty Start Date End Date Yue Avila DO [address] [place] [id number] PCP - General 11/14/20 Sander Ahmadi MD [address] [facility] [place], [place] [phone] [address] Surgeon Colon and Rectal Surgery 02/13/21 Marco A Maier MD [address] [facility] [place] [place] [phone] [address] [facility] G[facility]ology 02/13/21 Twila Bowie NP [address] [place] [address] Medical Oncologist/Hand I Blocker Medical Oncology 06/20/21
--- OUTSIDE RECORDS SUMMARY | 2025-01-03 11:42 | XMS_ITS | Encounter Summary ---
Author Organization [facility] Address [address] [place] [address] Care Team Providers Care Brusher Warp Name Role Phone Anthony Modi MD Primary Care Provider [phone] Reason for Referral * Radiology Services (Urgent) - Open Specialty Diagnoses / Procedures Referred By Contac t Referred To Contact Diagnoses Secondary malignant neoplasm of liver (CMS/HCC) Procedures XR PORT CONTRAST INJECT W FLUORO Tommy Dias MD [address] [place] [phone] Phone: tel: fax: [place] [phone] Referral ID Status Reason Start Date Expiration Date V isits Requested Visits Authorized [id number] Open [facility] CTS 01/03/2025 02/03/2026 1 1 Encounter Details Date Type Department Care Team (Late st Contact Info) Description 01/03/2025 Orders Only [facility] Oncology and Hematology [facility] [address] [place] [address] Tommy Dias MD [address] [place] [address] Secondary malignant neoplasm of liver (CMS/HCC) (Primary Dx) Social History Tobacco Use Types Packs/Day Years [...] on file 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 Gender Identity Not on file Sexual Orientation Not on file documented as of this encounter Plan of Treatment Upcoming Encounters Date Type Department Care Team (Late st Contact Info) Description 01/24/2025 9:15 AM CDT Office Visit [facility] Oncology and Hematology - [place] [address] [facility] [address] [place] [address] Tommy Dias MD [address] [facility] [address] [place] [address] Scheduled Orders Name Type Priority Associated Diagnoses Orde r Schedule XR PORT CONTRAST INJECT W FLUORO Imaging Stat Secondary malignant neoplasm of liver (CMS/HCC) Expected: 01/03/2025, Expires: 01/03/2026 documented as of this encounter Visit Diagnoses Diagnosis Secondary malignant neoplasm of liver (CMS/HCC)- Primary Secondary malignant neoplasm of liver documented in this encounter Care Teams Brusher Warp Relationship Specialty Start Date End Date Anthony Modi MD [address] [place] [phone] PCP - General Family Practice 06/23/23 documented as of this encounter
== END 2025-01-03 11:08 | disposition home or self-care (01) ==
PROVIDERS: PCP Nurse Practitioner Family; Visit Provider Internal Medicine Hematology & Oncology
DX: C22.9 Malignant neoplasm of liver, not specified as primary or secondary (principal); T82.514A Breakdown (mechanical) of infusion catheter, initial encounter
CPT/HCPCS: 36598

== ENCOUNTER 2025-01-31 00:07 | Day surgery (SDC) | payer BC, SELFPAY ==
[2025-01-25 10:14] VITALS: BMI 24.4
--- NOTE | 2025-01-25 10:25 | PC.NURSE ---
Report to the Outpatient Waiting Room, entrance under the green pavilion located off [facility], at time _1000_ on date _01/31/25. Planned Procedure Time: __1200_.? Time changes happen often and if your time is changed the preop area will call you the afternoon before. - You and your visitor will be asked to self-screen and do not enter if you have any COVID symptoms. Please call surgeon if you need to reschedule. - A mask is optional within the hospital at this time. Patients may have clear liquids (water, carbonated beverages, clear teas, apple juice) until 3 hours prior to surgery with a maximum of 20 ounces. - No food from midnight until time of surgery and no smoking, or chewing tobacco (or any form of nicotine). No chewing gum, candy or mints. - Infants may have breast milk until 4 hours before surgery, infant formula 6 hours prior to surgery. - Children will be allowed to drink immediately following surgery.? If applicable, please bring a bottle or sippy cup to assist with drinking. Juice, water, soda, and popsicles are readily available.? For infants on formula, please bring formula the day of surgery.? Pacifiers are allowed. Take only the following medications with a SIP of water on the morning of surgery: __NONE DO NOT STOP ANY OF YOUR OTHER PRESCRIPTION MEDICATIONS PRIOR TO SURGERY EXCEPT THE FOLLOWING Hold all vitamins and supplements for 3 days per anesthesiologist. Medications to discontinue per physician ELIQUIS Date to take last dose___01/27/25 Please no make-up, nail swazi, hairspray, perfume, deodorant, or body powder the day of surgery.? No jewelry (including any body piercings) or valuables the day of surgery, leave them at home.? Please take a shower or bath the night before, or the morning of, surgery with HIBICLENS antibacterial soap.? Wear comfortable, loose fitting clothing.? Children are encouraged to wear pajamas. - Jewelry must be removed prior to entering the operating room.? Rings and piercings that are not removed may be cut off. - The hospital will not accept responsibility for valuables.? - Please leave all valuables, including medications, at home the day of surgery. If you are going home after surgery, a licensed sprinkling truck driver must drive you home.? - NO public transportation without another adult if you receive anesthesia. - We recommend that an adult stay with you for 24 hours following discharge. - We also recommend that you do not drive, make important decision, drink alcoholic beverages, or take any drugs that were not prescribed by your health care provider for at least 24 hours after your discharge time. For Pediatric surgeries, we recommend two adults accompany the child home. Follow any additional instructions given to you from your surgeon. Telephone instructions given to __PATIENT__and asked if any additional questions and then verbalized understanding. Patient advised to call surgeon office or pre surgery nurse liaison [phone] if any additional questions.
--- NOTE | ~2025-01-31 | XR_ITS ---
EXAMINATION: XR fl guide central line place DATE: 01/31/2025 13:15 CDT INDICATION: PORTACATH PLACEMENT . TECHNIQUE: 2 fluoroscopic images of the chest were obtained during Port-A-Cath placement. Fluoroscopy exposure time was 22.5 seconds. Air Kerma 3.60 mGy. DAP [id number] mGym2. COMPARISON: 01/03/2025; x-ray chest 01/31/2025 FINDINGS/IMPRESSION: Fluoroscopic documentation of Port-A-Cath placement. Please refer to the operative note for complete procedural details. Reviewed, dictated and finalized at location K.
--- NOTE | ~2025-01-31 | XR_ITS ---
XR chest port-a-cath/central Ordering provider: Ninfa Ho MD History: 59 years Male with . PORTACATH PLACEMENT . Comparison: None. FINDINGS: MEDIASTINUM: The cardiac silhouette is not enlarged. Left Port-A-Cath with the tip overlying the supe rior vena cava. LUNGS: No infiltrates, effusions or pneumothorax. Multiple nodules in the right lower lobe are noted unchanged from previous examination OTHER: No free air under the diaphragm. IMPRESSION: Left Port-A-Cath with the tip overlying the superior vena cava. No acute cardiopulmonary pathology. Nodules in the right lower lobe area most likely metastatic lesions. Reviewed, dictated and finalized at location A.
[2025-01-31 10:00] VITALS: BP 147/94; PULSE 76; RESP 14; TEMP 37.1; O2SAT 100; BMI 25.0
[2025-01-31] MEDS: LACTATED RINGERS 1,000 ML 30 ML IV CONT (10:15)
[2025-01-31] MEDS: KETOROLAC 15 MG/ML VIAL (*BKC) IV PUSH (10:20)
[2025-01-31 10:26] LABS: Glucose Point of Care 100 mg/dl (65-105)
[2025-01-31 10:39] LABS: Partial Thromboplastin Time 31.2 Seconds (22.3-36.8); Prothrombin Time 13.7 Seconds (11.1-14.7)
--- NOTE | 2025-01-31 12:33 | WPDANESEPPF ---
Anes - Initial Pre Proc Eval Procedure: Operation Date: 01/31/25 12:00 Proposed Procedures p Insertion Lady Cath - Ninfa Ho MD Date/Time: 01/31/25 12:33 Surgeon: Ninfa Ho MD Pre Op Diagnosis: Secondary malignant Neoplasm of Liver Patient Data Age: 59 Gender: M Height: 1.75 m Weight: 76.7 kg Last Vital Signs Temp 37.1 C 01/31/25 10:00 Pulse 76 01/31/25 10:00 Resp 14 01/31/25 10:00 BP 147/94 H 01/31/25 10:00 Pulse Ox 100 01/31/25 10:00 Allergies Allergy/AdvReac Type Severity Reaction Status Date / Time Penicillins Allergy Unknown Unknown Verified 01/31/25 10:39 Home Medications ?Medication ?Instructions ?Recorded ?Confirmed ?Type ondansetron HCl 4 mg tablet 4 mg PO Q6H PRN nausea and 10/01/23 01/25/25 Rx vomiting #30 tabs pantoprazole 40 mg tablet,delayed 40 mg PO QAM #90 tabs 09/22/24 01/25/25 Rx release gabapentin 300 mg capsule 300 mg PO HS 09/29/24 01/25/25 History apixaban 5 mg tablet (Eliquis) 5 mg PO BID #180 tabs 11/11/24 01/31/25 Rx atorvastatin 40 mg tablet 40 mg PO DAILY #90 tabs 11/30/24 01/25/25 Rx lisinopril 20 mg tablet 20 mg PO DAILY #90 tabs 11/30/24 01/25/25 Rx metformin 1,000 mg tablet 1,000 mg PO BID #180 tabs 11/30/24 01/25/25 Rx glimepiride 2 mg tablet 4 mg (2 x 2 mg) PO BID #360 tabs 01/07/25 01/25/25 Rx Laboratory Tests 01/31/25 01/31/25 10:08 10:18 PT 13.7 Seconds (11.1-14.7) INR 1.0 APTT 31.2 Seconds (22.3-36.8) POC Capillary Glucose 100 mg/dl (65-105) Patient hx anesthesia problems: none Family hx anesthesia problems: none Results Review: All pre-operative results and documents have been reviewed as part of the pre-operative evaluation. [facility] Past Medical History Medical History Liver nodule Metastatic disease Pulmonary nodule Hypertension Abnormal colonoscopy Hydronephrosis Hyperlipidemia Type 2 diabetes mellitus without complications Surgical History Surgical History H/O colonoscopy 01/31/21 H/O esophagogastroduodenoscopy 01/31/21 S/P left colectomy S/P cystoscopy with ureteral stent placement 01/31/21 Family History Family History Mother Hypertension Family history of chronic obstructive pulmonary disease Family history of diabetes mellitus in first degree relative Father Hypertension Family history of malignant neoplasm Family history of diabetes mellitus in first degree relative Grandparent Family history of cardiovascular disease Family history of diabetes mellitus in first degree relative Social History Social History Smoking status: Never smoker Second hand tobacco smoke exposure: No Alcohol intake: former Alcohol use details: QUIT 15 YRS AGO Substance use: never Substance use type: does not use Do You Feel Safe in your Home?: Yes Lack of Transportation: No Lack of Food: Never True Current Housing: I Have Housing Concerned About Future Housing: No Difficulty Paying Gas/Electric Bills: No Difficulty Paying for Meds: No Currently Unemployed: No Education: High School Diploma/GED Difficulty w/ Childcare or Family Care: No Living arrangements: alone Occupation/Education: occupation Gender identity (if verbalized by the patient): Male Spiritual care concerns: No Agree to blood products: No Anes - Eval Final PreProcedure Day of Procedure 01/31/25 12:33 Patient weight: normal Heart: regular rate and rhythm Lungs: clear to auscultation Airway: Mallampati scale class II Neurological: alert and oriented Last oral intake: >/= 8 hours ASA classification: III Emergent: no Anesthetic plan: proceed Anesthesia type and monitoring: general GIVS and standard monitoring Results Review: All pre-operative results and documents have been reviewed as part of the pre-operative evaluation. Informed Consent: The patient's anesthetic plan and its attendant risks and benefits were discussed with the patient/family/POA. Questions were solicited and answers provided to the satisfaction of the patient/family/POA.
--- NOTE | 2025-01-31 12:44 | PM.IMHP ---
H&P: HPI History of Present Illness Date/Time: 01/31/25 12:44 Chief Complaint: Metastatic colon cancer Narrative: The patient is a 59-year-old male presenting for port placement for continued chemotherapy secondary to metastatic colon cancer. The patient had a previous port placed in 06/2023 and the left subclavian. The patient reports that he subsequently had fracture of this catheter and removal. The patient also reports the port was very positional in nature. Review of Systems Review of Systems: All systems reviewed & are unremarkable except as noted in HPI and below PMFSH Past Medical History Medical History Liver nodule Metastatic disease Pulmonary nodule Hypertension Abnormal colonoscopy Hydronephrosis Hyperlipidemia Type 2 diabetes mellitus without complications Surgical History Surgical History H/O colonoscopy 01/31/21 H/O esophagogastroduodenoscopy 01/31/21 S/P left colectomy S/P cystoscopy with ureteral stent placement 01/31/21 Family History Family History Mother Hypertension Family history of chronic obstructive pulmonary disease Family history of diabetes mellitus in first degree relative Father Hypertension Family history of malignant neoplasm Family history of diabetes mellitus in first degree relative Grandparent Family history of cardiovascular disease Family history of diabetes mellitus in first degree relative Social History Social History Smoking status: Never smoker Second hand tobacco smoke exposure: No Alcohol intake: former Alcohol use details: QUIT 15 YRS AGO Substance use: never Substance use type: does not use Do You Feel Safe in your Home?: Yes Lack of Transportation: No Lack of Food: Never True Current Housing: I Have Housing Concerned About Future Housing: No Difficulty Paying Gas/Electric Bills: No Difficulty Paying for Meds: No Currently Unemployed: No Education: High School Diploma/GED Difficulty w/ Childcare or Family Care: No Living arrangements: alone Occupation/Education: occupation Gender identity (if verbalized by the patient): Male Spiritual care concerns: No Agree to blood products: No Meds Home Medications and Allergies Home Medications ?Medication ?Instructions ?Recorded ?Confirmed ?Type ondansetron HCl 4 mg tablet 4 mg PO Q6H PRN nausea and 10/01/23 01/25/25 Rx vomiting #30 tabs pantoprazole 40 mg tablet,delayed 40 mg PO QAM #90 tabs 09/22/24 01/25/25 Rx release gabapentin 300 mg capsule 300 mg PO HS 09/29/24 01/25/25 History apixaban 5 mg tablet (Eliquis) 5 mg PO BID #180 tabs 11/11/24 01/31/25 Rx atorvastatin 40 mg tablet 40 mg PO DAILY #90 tabs 11/30/24 01/25/25 Rx lisinopril 20 mg tablet 20 mg PO DAILY #90 tabs 11/30/24 01/25/25 Rx metformin 1,000 mg tablet 1,000 mg PO BID #180 tabs 11/30/24 01/25/25 Rx glimepiride 2 mg tablet 4 mg (2 x 2 mg) PO BID #360 tabs 01/07/25 01/25/25 Rx Allergies Allergy/AdvReac Type Severity Reaction Status Date / Time Penicillins Allergy Unknown Unknown Verified 01/31/25 10:39 Vital Signs Vital Signs - 24 hr 01/31/25 10:00 Temperature 37.1 C Pulse Rate 76 Respiratory Rate 14 Blood Pressure 147/94 H Pulse Oximetry 100 Exam Const: General: cooperative, comfortable and no acute distress HENMT: Head: normal to inspection, normocephalic and atraumatic Neck: Neck: normal visual inspection, full ROM and no lymphadenopathy Chest: Chest palpation & inspection: normal inspection of the chest Other: Well-healed left port scar Resp: Auscultation: clear to auscultation bilaterally Cardio: Rate: regular rate Rhythm: regular rhythm GI: Inspection: normal to inspection Assessment and Plan Assessment and plan (1) Metastatic colon cancer to liver: Code(s): C18.9 - Malignant neoplasm of colon, unspecified; C78.7 - Secondary malignant neoplasm of liver and intrahepatic bile duct Status: Acute Assessment and Plan: will place port in the operating room
--- NOTE | 2025-01-31 12:48 | WPDHPUPDATE1 ---
History and Physical Update Update Date/Time: 01/31/25 12:48 History and Physical has been reviewed, including an updated exam of the patient. There are NO changes in the patient's condition. Risks, benefits, and alternatives have been discussed and questions answered. Patient agrees to proceed with procedure.
[2025-01-31] MEDS: ceFAZolin 2 GM/D5W 50 ML 2 GM/50 ML BAG IVPB (12:57)
[2025-01-31] MEDS: HEPARIN SODIUM, PORCINE 10,000 UNITS/10 ML VIAL 2000 UNITS IV PUSH (13:14)
--- NOTE | 2025-01-31 13:41 | P.OP_ITS ---
Procedure Note - Detailed Date of Procedure 01/31/25 Pre-op Diagnosis metastatic colon cancer Post-op Diagnosis Same Procedure Performed Placement of left internal jugular venous access device under both ultrasound and fluoroscopic guidance Surgeon Ninfa Ho MD Anesthesia General and Local Indications 59-year-old male with metastatic colon cancer necessitating access for chemotherapy. Patient had previous port placed in 2022 that has since fractured and been removed. Findings First stick left IJ under ultrasound guidance Description of Procedure Patient was brought into the operating room and placed in the supine position. After adequate induction of mac anesthesia, the patient was prepped and draped in normal sterile fashion. Time-out was then done to verify the patient's identity, as well as the procedure being performed. I then used the ultrasound to gain access into the left internal jugular vein. Once access was gained, I placed the guidewire in the vein and confirmed proper positioning via fluoroscopic guidance. I then locally anesthetized the previous port site in the left chest. I then opened the incision including making a subcutaneous pocket inferiorly to allow placement of the port itself. I proceeded to tunnel the catheter from the chest to the left neck insertion site. I then placed a dilating sheath over the guidewire into the left internal jugular vein via s terile Seldinger technique. This was once again done and confirmed via fluoroscopic guidance. I then removed the dilator and the guidewire, now just leaving the sheath in the vein. I then fed the previously flushed catheter into the left internal jugular vein under fluoroscopic guidance. At approximately 25 cm, the catheter was noted to be near the atrial caval junction. I then peeled away the sheath, now just leaving the catheter in the vein. I then was able to easily draw and flush from the catheter. The catheter was cut to fit and attached to the port itself. The port was placed into the previously made subcutaneous pocket and sutured in with 0 Ethibond suture. Final fluoroscopic view showed the termination of the catheter at the atrial caval junction with a nice smooth curvature back to the port itself. I was able to gain access to the port with a Kent needle and was able to easily draw and flush from the port. I then flushed 4 cc of a final heparin flush into the port. The incision was closed with 3 0 Vicryl suture in the subcutaneous tissue and the skin was closed with 4 O Monocryl subcuticular suture. Dermabond was then placed on wound. The patient tolerated the procedure well and will be sent to the recovery room in stable condition. Implants left internal jugular venous access device Estimated Blood Loss 5 Pathology None sent Complications No immediate complications Condition Stable Disposition PACU [facility] Billing Surgery - Charge Forward: Surgery Billing
[2025-01-31 13:44] VITALS: BP 92/52; PULSE 78; RESP 15; O2SAT 98
[2025-01-31] MEDS: HEPARIN SODIUM 5,000 UNITS/ML VIAL 5000 UNITS IV PUSH (13:52)
[2025-01-31 14:08] LABS: Glucose Point of Care 80 mg/dl (65-105)
[2025-01-31 14:10] VITALS: BP 117/78; PULSE 70; RESP 16; O2SAT 100
[2025-01-31 14:40] VITALS: BP 127/83; PULSE 70; RESP 16; O2SAT 100
[2025-01-31 15:00] VITALS: BP 142/95; PULSE 67; RESP 16
== END 2025-01-31 15:10 | disposition home or self-care (01) ==
PROVIDERS: PCP Nurse Practitioner Family; Visit Provider Surgery
PROC: (CPT 36561; principal; 2025-01-31 12:00)
DX: C18.9 Malignant neoplasm of colon, unspecified (principal); C78.7 Secondary malignant neoplasm of liver and intrahepatic bile duct; Z79.84 Long term (current) use of oral hypoglycemic drugs
CPT/HCPCS: 36561; 36415; 77001; 82948; 85610; 85730; C1788; J0690; J1644; J1885; J2250; J2704; J3010; J7030; J7120

== ENCOUNTER 2025-03-31 08:22 | Outpatient (CLI) | payer BC, SELFPAY ==
--- NOTE | ~2025-03-31 | CT_ITS ---
EXAMINATION: CT chest abdomen pelvis w con DATE: 04/01/2025 15:58 CDT INDICATION: Colon cancer follow-up TECHNIQUE: Computed tomography (CT) of the chest, abdomen, and pelvis was performed without intravenous contrast. The dose-length product was 452.59 mGy-cm. COMPARISON: CT chest abdomen pelvis 12/12/2024 FINDINGS: CHEST CT: No enlarged mediastinal or hilar lymph nodes. Heart is not enlarged. Thoracic aorta is not aneurysmal. Tracheobronchial tree is patent. No pneumothorax. No pleural effusion.Significant interval increase in the number and size of the bilateral pulmonary nodules consistent with worsening pulmonary metastatic disease. For example, interval increase in the size of the right upper lobe pulmonary nodule which previously measured 7 mm, currently measures 1.6 cm. Multilevel degenerative change in the visualized spine. Concentric thickening of the herrera of the esophagus. ABDOMEN/PELVIS CT: Significant interval increase in the size and number of metastatic liver lesions throughout both lobes of the liver. For example there has been interval increase in the size of a metastatic liver lesion in the lateral segment of the left lobe of the liver which previously measured 3.6 cm, currently measures 4.6 cm in greatest dimension. Gastric, splenic and esophageal varices. Adrenal glands and spleen are unremarkable. Pancreas is unremarkable. Prior surgical changes noted in the abdomen. Kidneys are unremarkable. Abdominal aorta is not aneurysmal. No free fluid in the abdomen. Anastomotic suture line in bowel in the pelvis. No enlarged lymph nodes in the pelvis. Bladder is unremarkable. No dilated bowel loops. Multilevel degenerative change in the visualized spine. Stable old compression fracture of the L1 vertebral body. Prostate gland is mildly enlarged. IMPRESSION: 1. Interval increase in the size and number of pulmonary metastases 2. Interval increase in the size and number of liver metastases. 3. Concentric thickening of the herrera of the distal esophagus, unchanged. 4. Gastric, splenic and esophageal varices Reviewed, dictated and finalized at location Q.
--- OUTSIDE RECORDS SUMMARY | 2025-03-31 08:27 | XMS_ITS | Encounter Summary ---
Author Organization [facility] Address [address] [place] [address] Care Team Providers Care Numerical Control Drill Press Operator Name Role Phone Anthony Modi MD Primary Care Provider [phone] Encounter Details Date Type Department Care Team (Late Contact Info) Description 03/28/2025 Orders Only [facility] Oncology and Hematology - [place] [address] 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 [address] [place] [address] Tommy Dias MD [address] [facility] [address] [place] [address] documented as of this encounter Procedures Procedure Name Priority Date/Time Associated Diagnosis Comments BASIC METABOLIC PANEL Routine 03/28/2025 2:34 PM CDT COMPREHENSIVE METABOLIC PANEL Routine 03/28/2025 2:24 PM CDT documented in this encounter Results * BASIC METABOLIC PANEL (03/28/2025 2:34 PM CDT) Blood us Tommy Dias MD CHEMISTRY ORDERABLES Final Resu lt * COMPREHENSIVE METABOLIC PANEL (03/28/2025 2:24 PM CDT) Blood us Tommy Dias MD CHEMISTRY ORDERABLES Final Resu lt documented in this encounter Visit Diagnoses Not on filedocumented in this encounter Care Teams Numerical Control Drill Press Operator Relationship Specialty Start Date End Date Anthony Modi MD [address] [place] [phone] PCP - General Family Practice 06/23/23 documented as of this encounter
--- OUTSIDE RECORDS SUMMARY | 2025-03-31 08:27 | XMS_ITS | Clinical Summary ---
Author Organization [facility] Address [address] [place] [address] Care Team Providers Care Arbor Press Operator Name Role Phone Unavailable Primary Care Provider Unavailabl e Source Comments [facility] [place],non-owned Affiliates and Associated Physician Practices is amultiple site organization consisting of ambulatory clinics and hospital sitesin [place], [place], [place] and [place]. This disclosure is being madepursuant to the Care Everywhere program and may not contain all information available regarding this patient. Last updated 18.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 Gender Identity Not on file Sexual Orientation [...] season) 2024 DEPRESSION SCREENING 08/04/2024 INFLUENZA VACCINE (#1) 2025 HIB VACCINE Aged Out No longer [...] patient's age to complete this topic Insurance [facility] SELF PAY NO INSURANCE Member Subscriber Plan / Payer (Ef fective for All Dates) Name:Xin Maier Member ID:Not on file Relation to Subscriber:Not on file Name:XIN MAIER Subscriber ID:Not on file Address: [facility] [place] [address] Payer ID:Not on file Group ID:Not on file Type:Self Pay Address: [place], [place] * Guarantor: XIN MAIER Account Type Relation to Patient Date of Phone Billing Address Personal/Family Spouse
--- OUTSIDE RECORDS SUMMARY | 2025-03-31 08:27 | XMS_ITS | Encounter Summary ---
Author Organization [facility] Address [address] [place] [address] Care Team Providers Care Outreach Team Member Name Role Phone Anthony Modi MD Primary Care Provider [phone] Reason for Visit * Reason Onset Date Comments Metastatic colon cancer admi tted to [facility] thrombosis 08/11/2024 LEFT MESSAGE / DR. DIAS EX CHANGE Encounter Details Date Type Department Care Team (Late st Contact Info) Description 08/11/2024 Telephone [facility] Admitting [address] [place] [address] [place] [address] [place] [address] Metastatic colon cancer admitted to [facility] thrombosis (LEFT MESSAGE / DR. 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 Gender Identity Not on file Sexual Orientation Not on file documented as of this encounter Plan of Treatment Upcoming Encounters Date Type Department Care Team (Late st Contact Info) Description 04/18/2025 9:45 AM CDT Office Visit [facility] Oncology and Hematology - [place] [address] [facility] [address] [place] [address] Tommy Dias MD [address] [facility] [address] [place] [address] documented as of this encounter Visit Diagnoses Not on filedocumented in this encounter Care Teams Outreach Team Member Relationship Specialty Start Date End Date Anthony Modi MD [address] [place] [phone] PCP - General Family Practice 06/23/23 documented as of this encounter
--- OUTSIDE RECORDS SUMMARY | 2025-03-31 08:27 | XMS_ITS | Clinical Summary ---
Author Organization [facility] Address [address] [address] Care Team Providers Care Senior Clinical Data Coordinator Name Role Phone Anthony Modi MD Primary Care Provider [phone] [phone] Allergies Active Allergy Reactions Criticality Noted Date Comments Penicillin V Unknown 11/13/2020 When he was a kid Medications atorvastatin (LIPITOR) 40 mg tablet Take 40 mg by mouth daily. 1 Active glimepiride (AMARYL) 2 mg tablet Take 4 mg by mouth 2 times daily. 2 Active metFORMIN (GLUCOPHAGE) 1,000 mg tablet Take 1,000 mg by mouth 2 times daily. 1 Active lisinopriL (PRINIVIL) 20 mg tablet Take 20 mg by mouth daily. Active empagliflozin (Jardiance) 25 mg tablet Take by mouth daily in the morning. Active naloxone (NARCAN) 4 mg/spray [place], Non-Aerosol EMERGENCY USE ONLY: Administer 1 spray (4 mg) in one nostril one time. May repeat in alternating nostrils every 2-3 min until responsive or EMS arrives. 2 Each 3 4 Active ursodioL (ACTIGALL) 300 mg capsule Take 1 Capsule by mouth 2 times daily. 4 Active lidocaine-pril ocaine (EMLA) 2.5-2.5 % CreamIndicatio ns:Liver mass Apply a quarter size amount to port site 30 minutes before access. 30 Gram 1 5 Active ondansetron (ZOFRAN ODT) 8 mg Tablet, Rapid DissolveIndica tions:Liver mass Dissolve 1 tablet on top of tongue then swallow with saliva every 8 hours as needed for nausea or vomiting 30 Tablet 1 5 Active gabapentin (NEURONTIN) 300 mg capsule Take 1 capsule by mouth twice daily 60 Capsule 5 Active oxyCODONE (ROXICODONE) 10 mg tabletIndicati ons:Secondary malignant neoplasm of liver (CMS/HCC) Take 1 Tablet (10 mg) by mouth every 8 hours as needed for Pain, Moderate. Max Daily Amount: 30 mg 60 Tablet 5 Active oxyCODONE (ROXICODONE) 10 mg tabletIndicati ons:Secondary malignant neoplasm of liver (CMS/HCC) Take 1 Tablet (10 mg) by mouth every 8 hours as needed for Pain, Moderate. Max Daily Amount: 30 mg 60 Tablet 5 03/28/20 25 Discontin ued(Reord er) Active Problems Problem Noted Date Diagnosed Date Protein-calorie malnutrition, severe 08/11/2024 Superior mesenteric vein thrombosis 08/10/2024 Essential hypertension 08/10/2024 Intractable epigastric abdominal pain 04/10/2024 Type 2 diabetes mellitus with hyperglycemia 02/2024 Colon cancer metastasized to liver 04/10/2024 Secondary malignant neoplasm of liver 07/02/2023 Malignant neoplasm of descending colon 1 Nephrolithiasis 12/11/2020 Overview (08/03/2024): Added automatically from request for surgery [id number] Encounters Date Type Department Care Team Description 03/29/2025 External Device Data STL ABSTRACTION Provider, Abstract 03/28/2025 9:15 AM CDT Office Visit [facility] Oncology and Hematology - [place] [address] [place] [address] Tommy Dias MD Secondary malignant neoplasm of liver (CMS/HCC) 03/28/2025 Orders Only [facility] and [facility] - [place] [address] [place] [address] Tommy Dias MD 03/14/2025 Orders Only [facility] - [place] [address] [place] [address] Tommy Dias MD Secondary malignant neoplasm of liver (CMS/HCC) 03/09/2025 External Device Data STL ABSTRACTION Provider, Abstract 03/07/2025 Orders Only [facility] Oncology and Hematology [facility] [address] Tommy Dias MD 02/28/2025 Orders Only [facility] and [facility]ematology - [place] [address] Tommy Dias MD Secondary malignant neoplasm of liver (CMS/HCC) 02/16/2025 External Device Data STL ABSTRACTION Provider, Abstract 02/15/2025 External Device Data STL ABSTRACTION Provider, Abstract 02/14/2025 Refill [facility] On[facility] Hematology [facility] [address] [place] [id number] Tommy Dias MD Secondary malignant neoplasm of liver (CMS/HCC) 02/14/2025 Orders Only [facility] Hematology [place] [address] [place] [id number] Tommy Dias MD Secondary malignant neoplasm of liver (CMS/HCC) 02/10/2025 Refill [facility] On[facility] and Hematology [facility] [address] [place] [id number] Tommy Dias MD 01/31/2025 Orders Only [facility] Hematology [place] [address] [place] [address] oTmmy Dias MD Secondary malignant neoplasm of liver (CMS/HCC) 01/18/2025 External Device Data STL ABSTRACTION Provider, Abstract 01/17/2025 Orders Only [facility] Hematology [facility] [address] [place] [phone] Tommy Dias MD Secondary malignant neoplasm of liver (CMS/HCC) (Primary Dx) 01/17/2025 Abstract [facility] Hematology [facility] [address] [place] [address] Tommy Dias MD 01/17/2025 Orders Only [facility] - [place] [address] [place] [id number] Tommy Dias MD Secondary malignant neoplasm of liver (CMS/HCC) 01/05/2025 Telephone [facility] - [place] [address] [place] [address] Tommy Dias MD [place] Update 01/05/2025 Telephone [facility] - [place] [address] [place] [address] Tommy Dias MD [place] 01/04/2025 Orders Only [facility] - [place] [address] [place] [address] Tommy Dias MD Secondary malignant neoplasm of liver (CMS/HCC) (Primary Dx) 01/04/2025 Orders Only [facility] - [place] [address] [place] [address] Tommy Dias MD Secondary malignant neoplasm of liver (CMS/HCC) (Primary Dx) 01/03/2025 Orders Only [facility] - [place] [address] Tommy Dias MD Secondary malignant neoplasm of liver (CMS/HCC) (Primary Dx) 01/03/2025 Orders Only [facility] - [place] [address] Tommy Dias MD Secondary malignant neoplasm of liver (CMS/HCC) (Primary Dx) 01/03/2025 Orders Only [facility] - [place] [address] Tommy Dias MD Secondary malignant neoplasm of liver (CMS/HCC) 12/31/2024 Refill [facility] and Hematology - [place] [address] [place], [place] [phone] Tommy Dias MD Liver mass from Last 3 Months Family History Medical [...] file 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 Gender Identity Not on file Sexual Orientation Not on file Last Filed Vital Signs Vital Sign Reading Time Taken Comments Blood Pressure 136/77 03/28/2025 9:17 AM CDT Pulse 81 03/28/2025 9:17 AM CDT Temperature 36.7 C (98.1 F) 03/28/2025 9:17 AM CDT Respiratory Rate 16 03/28/2025 9:17 AM CDT Oxygen Saturation 96% 03/28/2025 9:17 AM CDT Inhaled Oxygen Concentration - - Weight 73.1 kg (161 lb 3.2 oz) 03/28/2025 9:17 A M CDT Height 175.3 cm (5' 9) 08/10/2024 10:14 PM INSURANCE FOLLOW UP SPECIALIST Body Mass Index 23.81 08/10/2024 10:14 PM INSURANCE FOLLOW UP SPECIALIST Plan of Treatment Upcoming Encounters Date Type Department Care Team (Late st Contact Info) Description 04/18/2025 9:45 AM CDT Office Visit [facility] and Hematology - [place] [address] [place] [address] Tommy Dias MD [address] [facility] [address] [place] [address] Health Maintenance Due Date Last Done Comments DIABETES ANNUAL FOOT EXAM 1985 DIABETES ANNUAL RETINAL EXAM 1985 DIABETES MICROALBUMIN ANNUAL SCREEN 1985 LDL CHOLESTEROL ANNUAL 1985 DTAP/TDAP/TD VACCINES (1 - Tdap) 1986 HEPATITIS B VACCINES (1 of 3 - 19+ 3-dose series) 1986 ZOSTER VACCINE (1 of 2) 1986 COVID-19 Vaccine (2 - Jansse n risk series) 01/29/2021 01/01/2021 DIABETES HBA1C Q 6 MONTHS 10/07/2024 04/09/2024, INFLUENZA VACCINE (#1) 2025 06/03/2020, 2019 COLORECTAL SCREENING Discontinued 08/06/2022, 08/06/19 23 Colorectal Cancer Screening Discontinued FIT-DNA Q 3 years Discontinued FIT/FOBT Q 1 year Discontinued Flex Sig/CT Colonography Q 5 years Discontinued Medical Devices Implanted Type Area Tooth Cutter Device Identifier Shelf Expiration Date Model / Serial / Lot Coil-03/19/2024 Implanted:Qty: 1 on 03/19/2024 by Thuan Trujillo MD [employer] 11/04/2031 [id number] / / [id number] Description:Packing coil 15c m implanted on 03/19/[address] Trujillo Y90 Mapping Coil-03/19/2024 Implanted:Qty: 1 on 03/19/2024 by Thuan Trujillo MD [employer] 11/05/2031 [id number] / / [id number] Description:POD3 implanted o n 03/19/[address] Trujillo Y90 Mapping Procedures Procedure Name Priority Date/Time Associated Diagnosis Comments BASIC METABOLIC PANEL Routine 03/28/2025 2:34 PM CDT COMPREHENSIVE METABOLIC PANEL Routine 03/28/2025 2:24 PM CDT BASIC METABOLIC PANEL Routine 03/07/2025 12:43 PM CDT COMPREHENSIVE METABOLIC PANEL Routine 03/07/2025 12:42 PM CDT HX PORTACATH REMOVAL Routine 01/14/2025 3:24 PM CDT BASIC METABOLIC PANEL Routine 01/03/2025 2:42 PM CDT COMPREHENSIVE METABOLIC PANEL Routine 01/03/2025 2:33 PM CDT XR PORT CONTRAST INJECT W FLUORO Routine 01/03/2025 12:57 PM CDT HEMOGLOBIN A1C Routine 04/09/2024 11:36 PM CDT from Last 3 Months or Most Recently Relevant to Health Maintenance Results * BASIC METABOLIC PANEL (03/28/2025 2:34 PM CDT) Only the most recent of3 resultswithin the time period is included. Blood us Tommy Dias MD CHEMISTRY ORDERABLES Final Resu lt * COMPREHENSIVE METABOLIC PANEL (03/28/2025 2:24 PM CDT) Only the most recent of3 resultswithin the time period is included. Blood us Tommy Dias MD CHEMISTRY ORDERABLES Final Resu lt * HX PORTACATH REMOVAL (01/14/2025 3:24 PM CDT) us Tommy Dias MD GENERIC SURGICAL HISTORY Final Result * XR PORT CONTRAST INJECT W FLUORO (01/03/2025 12:57 PM CDT) Anatomical Region Laterality Modality Other us Tommy Dias MD DIAGNOSTIC IMAGING ORDERABLES F inal Result * (ABNORMAL) HEMOGLOBIN A1C (04/09/2024 11:36 PM CDT) HEMOGLOBIN A1C 6.0(H) <5.7 % 04/10/2024 3:23 PM CDT [facility] EST. AVG GLUCOSE, A1C 126 mg/dL 04/10/2024 3:23 PM CDT [facility] Blood Venipuncture / Unknown 04/09/2024 11:36 PM CDT 04/09/2024 11:57 PM CDT Narrative [facility] - 04/10/2024 3:23 PM CDT HGB A1C INTERPRETATION NORMAL: <5.7% PRE-DIABETES: 5.7 - 6.4% DIABETES: 6.5% OR GREATER Mickie Leal DO CHEMISTRY ORDERABLES Final R esult [facility] SERVICES [facility] CLIA# [id number] [address] [place] [address] from Last 3 Months or Most Recently Relevant to Health Maintenance Insurance [facility]ERRED [facility] [employer] Commercial Advance Directives For more information, please contact: [phone] * Default Full Code - Needs Discussion (Latest Code Status on File) Date Activated Date Inactivated Comments 08/10/2024 9:42 PM 08/13/2024 1:04 PM * Full Code Date Activated Date Inactivated Comments 04/09/2024 9:01 PM 04/10/2024 8:40 PM Care Teams Senior Clinical Data Coordinator Relationship Specialty Start Date End Date Anthony Modi MD [address] [place] [phone] PCP - General Family Practice 06/23/23
--- OUTSIDE RECORDS SUMMARY | 2025-03-31 08:27 | XMS_ITS | Encounter Summary ---
Author Organization [facility] Address [address] [place] [address] Care Team Providers Care Forensics Team Director Name Role Phone Anthony Modi MD Primary Care Provider [phone] Reason for Visit * Reason Onset Date Comments Metastatic colon cancer admi tted to [facility] thrombosis 08/13/2024 SPOKE WITH SANTOS / DR. DELACRUZ OFFICE Encounter Details Date Type Department Care Team (Late st Contact Info) Description 08/13/2024 Telephone [facility] Admitting [address] [place] [address] [place] [address] [facility] [address] [place] [address] Metastatic colon cancer admitted to [facility] thrombosis (SPOKE WITH SANTOS / DR. 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 Gender Identity Not on file Sexual Orientation Not on file documented as of this encounter Plan of Treatment Upcoming Encounters Date Type Department Care Team (Late st Contact Info) Description 04/18/2025 9:45 AM CDT Office Visit [facility] Oncology and Hematology - [place] [address] [facility] [address] [place] [address] Tommy Dias MD [address] [facility] [address] [place] [address] documented as of this encounter Visit Diagnoses Not on filedocumented in this encounter Care Teams Forensics Team Director Relationship Specialty Start Date End Date Anthony Modi MD [address] [place] [phone] PCP - General Family Practice 06/23/23 documented as of this encounter
--- OUTSIDE RECORDS SUMMARY | 2025-03-31 08:27 | XMS_ITS ---
Author Organization [facility] Address [address] [place] [address] Care Team Providers Care Garbage Man Name Role Phone Megan Avilafer Adan BUSH Primary Care Provider + Sander Ahmadi MD Unavailable [phone]- [phone] Marco A Maier MD Unavailable [phone] Twila Bowie NP Unavailable [phone]- [phone] Active Problems Problem Noted Date Diagnosed Date Malignant neoplasm of descending colon Cancer Staging:Pathologic stage from 03/22/2021:Stage IIA(pT3, pN0, cM0) - Signed by Johnathon Ramirez MD on 03/22/2021 Nephrolithiasis 12/11/2020 Overview (12/11/2020): Added automatically from request for surgery [id number] Current Treatment and Therapy Plans No current plan information found. Past Treatment and Therapy Plans No past plan information found. Lifetime Dose Tracking * Chemical Lifetime Dose Automatic Entry Manual Entr y Fluoro Time 16 minutes 16 minutes 0 minutes Air kerma at the reference point (Ka,r) 199 mGy 1 99 mGy 0 mGy DLP 973 mGycm 973 mGycm 0 mGycm
--- OUTSIDE RECORDS SUMMARY | 2025-03-31 08:27 | XMS_ITS | Clinical Summary ---
Author Organization [facility] Address [address] [place] [address] Care Team Providers Care Odd Bundle Worker Name Role Phone Yue Avila DO Primary Care Provider + Sander Ahmadi MD Unavailable [phone] Marco A Maier MD Unavailable [phone] Twila Bowie NP Unavailable [phone] Allergies No known active allergies Medications metFORMIN (GLUCOPHAGE) 1,000 mg tabletIndications: type 2 diabetes mellitus Take 1 tablet (1,000 mg total) by mouth 2 (two) times a day with meals 01/03/20 21 Active glimepiride (AMARYL) 1 mg tabletIndications: type 2 diabetes mellitus Take 1 tablet (1 mg total) by mouth 2 (two) times a day 01/03/20 21 Active folic acid (FOLVITE) 1 mg tabletIndications: health Take 1 tablet (1,000 mcg total) by mouth daily before breakfast 01/24/20 21 Active atorvastatin (LIPITOR) 40 mg tabletIndications: hyperlipidemia Take 1 tablet (40 mg total) by mouth nightly 01/03/20 21 Active Eliquis 5 mg tabletIndications: Venous Thrombosis Take 1 tablet (5 mg total) by mouth 2 (two) times a day Active empagliflozin (JARDIANCE) 25 mg tabletIndications: type 2 diabetes mellitus Take 1 tablet (25 mg total) by mouth daily before breakfast Has not taken in 2 months d/t significant weight loss from the medication Active gabapentin (NEURONTIN) 300 mg capsuleIndications :Neuropathic Pain Take 1 capsule (300 mg total) by mouth nightly Active lidocaine-prilocai ne cream Apply a quarter size amount to port site 30 minutes before access. 01/01/20 25 Active lisinopriL (PRINIVIL,ZESTRIL) 20 mg tabletIndications: hypertension Take 1 tablet (20 mg total) by mouth daily before breakfast Active naloxone (NARCAN) 4 mg/actuation spray,non-aerosol EMERGENCY USE ONLY: Administer 1 spray (4 mg) in one nostril one time. May repeat in alternating nostrils every 2-3 min until responsive or EMS arrives. 04/10/20 24 Active ondansetron ODT (ZOFRAN-ODT) 8 mg disintegrating tablet Take 1 tablet (8 mg total) by mouth every 8 (eight) hours as needed for vomiting or nausea Has not used in over 1 month 01/01/20 25 Active oxyCODONE (ROXICODONE) 10 mg tablet Take 1 tablet (10 mg total) by mouth every 8 (eight) hours as needed for pain 09/08/[address] (PROTONIX) 40 mg EC tabletIndications: Treatment of Non-Bleeding Gastric Disorder Take 1 tablet (40 mg total) by mouth every morning Active Active Problems Problem Noted Date Diagnosed Date Malignant neoplasm of descending colon Cancer Staging:Pathologic stage from 03/22/2021:Stage IIA(pT3, pN0, cM0) - Signed by Johnathon Ramirez MD on 03/22/2021 Nephrolithiasis 12/11/2020 Overview (12/11/2020): Added automatically from request for surgery [id number] Encounters Date Type Department Care Team Description 01/14/2025 1:34 PM CDT Anesthesia Event [facility] Radiology [address] [place] [address] Blane Madison MD [place], [address] 01/14/2025 11:40 AM CDT Lab [facility] [address] [facility] 1st [place] [address] 01/14/2025 11:38 AM CDT - 01/14/2025 11:59 PM CDT Hospital Encounter [facility] Radiology [address] [place] [address] Blane Madison MD Mani, Naganathan Bhagvathy, MD Flesher, Carito Harper CRNA Secondary malignant neoplasm of liver (HCC) Discharge Disposition: Discharge to home or self care 01/14/2025 Orders Only Radiology 1 [place] [address] Evelina Patel MD 01/11/2025 Telephone [facility] Radiology [address] [place] [address] Lisa Nix RN 01/07/2025 10:00 AM CDT Pre-Admission Testing [facility] for Preoperative Assessment [facility] ([facility]) [address] [place] [id number] 01/06/2025 Telephone [facility] Radiology [address] [place] [address] Millicent Leon, ANGELIQUE 01/05/2025 2:03 PM CDT - 01/05/2025 11:59 PM CDT Hospital Encounter [facility] Radiology [facility] ([facility]) [address] [place] [address] Diagnosis unknown Discharge Disposition: Discharge to home or self care 01/05/2025 Telephone [facility] Radiology [address] [place] [address] Rhea Mckeon RN 01/05/2025 Telephone [facility] Radiology [address] [place] [address] Millicent Leon, ANGELIQUE 01/05/2025 Telephone [facility] Radiology [address] [place] [address] Rhea Mckeon RN 01/05/2025 Telephone Radiology 1 [place] [address] Desire Jasmine MD 01/04/2025 Telephone [facility] Vascular Surgery [address] [facility] [address] [place] [address] Abner Seaman MD PhD New Referral from Last 3 Months Surgical History Surgery Date Site/Laterality Comments CYSTOSCOPY W/ URETEROSCOPY 08/04/2020 - 08/03/2021 URETERAL STENT PLACEMENT 08/04/2020 - 08/03/2021 COLONOSCOPY 08/04/2020 - 08/03/2021 LAPAROSCOPIC COLON RESECTION 08/04/2020 - 08/03/2021 ESOPHAGOGASTRODUODENOSCOPY 08/04/2020 - 08/03/2021 PORTACATH PLACEMENT 08/04/2023 - 08/03/2024 PORT REMOVAL 01/14/2025 N/A Medical History Medical History Date Comments Nephrolithiasis Cancer (HCC) Diabetes mellitus (HCC) Abdominal pain Fecal incontinence Weight loss History of kidney problems Family History Medical History Relation Name Comments Diabetes Father Lung cancer Father Prostate cancer Father Diabetes Mother Anesthesia problems Neg Hx Relation Name Status Comments Father Mother Social History Tobacco Use Types Packs/Day Years Used Date Smoking Tobacco: Never Passive Smoke Exposure: Never Smokeless Tobacco: Never Tobacco Cessation:Counseling Given: Not Answered AUDIT-C Answer Date Recorded Q1: How often do you have a drink containing alcohol? Never 01/14/2025 Q2: How many drinks containi ng alcohol do you have on a typical day when you are drinking? Patient does not drink Q3: How often do you have si x or more drinks on one occasion? Never 01/14/2025 Personal Safety Answer Date Recorded Have you ever been in or are you currently in a harmful physical or emotional relationship or is someone making you feel afraid or unsafe? 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 Gender Identity Male 12/07/2020 3:16 PM CDT Sexual Orientation Not on file Obstetrics History Last Filed Vital Signs Vital Sign Reading Time Taken Comments Blood Pressure 152/96 01/14/2025 4:30 PM CDT Pulse 73 01/14/2025 4:30 PM CDT Temperature 36 C (96.8 F) 01/14/2025 3:15 PM CDT Respiratory Rate 14 01/14/2025 4:30 PM CDT Oxygen Saturation 98% 01/14/2025 4:30 PM CDT Inhaled Oxygen Concentration - - Weight 75.3 kg (166 lb) 01/14/2025 12:29 PM CDT Height 174 cm (5' 8.5) 01/07/2025 10:10 AM CDT Body Mass Index 24.87 01/07/2025 10:10 AM CDT Plan of Treatment Health Maintenance Due Date Last Done Comments Colon Cancer Screening-Colonoscopy 1967 Depression Screening 1967 Hepatitis C Screening 1967 Prostate Cancer Screening-PSA 1967 DTaP/Tdap/Td Vaccine (1 - Tdap) 1978 Hepatitis B Screening 1985 Regular Well Visit/Exam 18-64 1985 Zoster Vaccine (1 of 2) 1986 Pneumococcal vaccine <65 (2 of 2 - PPSV23, PCV20, or PCV21) 08/17/2020 06/22/2020 Covid-19 Vaccine (2 - Alber risk series) 01/29/2021 01/01/2021 Influenza Vaccine (#1) 2025 06/03/2020 Medical Devices Implanted Type Area Tobacco Feeder Catcher Device Identifier Shelf Expiration Date Model / Serial / Lot Portacath Left: Chest Wall Procedures Procedure Name Priority Date/Time Associated Diagnosis Comments POCT GLUCOSE DEVICE Routine 01/14/2025 3 :16 PM CDT PORT REMOVAL Schedule Routine, Read Routine (OP Routine) 01/14/2025 3:05 PM CDT Secondary malignant neoplasm of liver (HCC) [place] AN PROCEDURE PLACEHOLDER Routine 01/14/2025 2:28 PM CDT [place] AN ELECTIVE ENDOTRACHEAL AIRWAY Routine 01/14/2025 2:28 PM CDT POCT GLUCOSE DEVICE Routine 01/14/2025 1 2:48 PM CDT DIFFERENTIAL AUTO Routine 01/14/2025 12: 01 PM CDT PROTIME-INR Routine 01/14/2025 12:01 PM CDT CBC WITH AUTO DIFFERENTIAL Routine 01/14/2025 12:[address] BODY OUTSIDE CONSULT Routine 01/05/2025 2:03 PM CDT Diagnosis unknown from Last 3 Months Results * POCT glucose (01/14/2025 3:16 PM CDT) Glucose, POC 137 70 - 199 mg/dL Blood 01/14/2025 3:16 PM CDT 01/14/2025 3:16 PM CDT us Carito Borrero CORPORATE TRAVEL COUNSELOR LAB POCT ORDERABLES - DEVICE Final Result [facility] Department [place] [address] * IR Port Removal (01/14/2025 3:05 PM CDT) Anatomical Region Laterality Modality Body N/A X-Ray Angiograph y 01/14/2025 3:39 PM CDT Impressions 01/14/2025 6:50 PM CDT Successful port removal and catheter retrieval. Dictated by: Evelina Patel M.D. The radiology attending physician has personally reviewed this study, and had reviewed and/or edited this written report and agrees with it. Electronically signed by: Reji Julien M.D. Narrative 01/14/2025 6:50 PM CDT EXAMINATION: IR PORT REMOVAL IR FOREIGN BODY RETRIEVAL HISTORY: 59-year-old man with metastatic colon cancer and a left chest port placement approximately 2 years ago at an OSH. 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 Port removal is requested. ATTENDING PRESENCE: Reij Julien M.D., the attending radiologist was present from the beginning to the end of the procedure. SEDATION: The procedure was done under General Anesthesia. TECHNIQUE: The risks, benefits and alternatives were discussed and informed consent was obtained. Prior to beginning the procedure, [place] Protocol was used to confirm the patient's identity and planned procedure. Fluoroscopy time has been recorded in the electronic medical record. Maximum sterile barriers including cap, mask, hand hygiene, sterile gloves, sterile gown, large sterile drape and 2% chlorhexidine for cutaneous antisepsis were used. A fluoroscopic image was recorded prior to the beginning of the procedure. The right neck was prepped and draped in sterile fashion. Following intradermal 1% lidocaine injection, the right internal jugular vein was accessed with a micropuncture needle under real-time ultrasound guidance, followed by a 9-Kyrgyz vascular sheath placement over a 0.035 wire. A 6-Kyrgyz 35 mm gooseneck snare was advanced into a Jordana catheter which was directed into the superior vena cava and used to lasso the free end of the fractured catheter. The fractured catheter was removed in its entirety. Post extraction images of the chest shows no retained fragments. The skin adjacent to the left chest wall port was sterilely prepped, draped and infiltrated with 1% lidocaine. After making a short transverse incision, the port reservoir was freed using a combination of sharp and blunt dissection. The catheter was then removed. A fluoroscopic image was recorded following removal of the port. The deep tissues were approximated using 4-0 Monocryl and the incision closed using skin glue. ESTIMATED BLOOD LOSS: Minimal. CONDITION: Stable DISCHARGED TO: home FINDINGS: Initial fluoroscopic image demonstrates fractured left chest wall port with catheter embolized into the right atrium. Post extraction images show no residual catheter fragments in the body. The port site showed no purulence or other evidence of infection. Procedure Note Reji Julien MD - 01/14/2025 EXAMINATION: IR PORT REMOVAL IR FOREIGN BODY RETRIEVAL HISTORY: 59-year-old man with metastatic colon cancer and a left chest port placement approximately 2 years ago at an OSH. 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 Port removal is requested. ATTENDING PRESENCE: Reji Julien M.D., the attending radiologist was present from the beginning to the end of the procedure. SEDATION: The procedure was done under General Anesthesia. TECHNIQUE: The risks, benefits and alternatives were discussed and informed consent was obtained. Prior to beginning the procedure, [place] Protocol was used to confirm the patient's identity and planned procedure. Fluoroscopy time has been recorded in the electronic medical record. Maximum sterile barriers including cap, mask, hand hygiene, sterile gloves, sterile gown, large sterile drape and 2% chlorhexidine for cutaneous antisepsis were used. A fluoroscopic image was recorded prior to the beginning of the procedure. The right neck was prepped and draped in sterile fashion. Following intradermal 1% lidocaine injection, the right internal jugular vein was accessed with a micropuncture needle under real-time ultrasound guidance, followed by a 9-Kyrgyz vascular sheath placement over a 0.035 wire. A 6-Kyrgyz 35 mm gooseneck snare was advanced into a Jordana catheter which was directed into the superior vena cava and used to lasso the free end of the fractured catheter. The fractured catheter was removed in its entirety. Post extraction images of the chest shows no retained fragments. The skin adjacent to the left chest wall port was sterilely prepped, draped and infiltrated with 1% lidocaine. After making a short transverse incision, the port reservoir was freed using a combination of sharp and blunt dissection. The catheter was then removed. A fluoroscopic image was recorded following removal of the port. The deep tissues were approximated using 4-0 Monocryl and the incision closed using skin glue. ESTIMATED BLOOD LOSS: Minimal. CONDITION: Stable DISCHARGED TO: home FINDINGS: Initial fluoroscopic image demonstrates fractured left chest wall port with catheter embolized into the right atrium. Post extraction images show no residual catheter fragments in the body. The port site showed no purulence or other evidence of infection. IMPRESSION: Successful port removal and catheter retrieval. Dictated by: Evelina Patel M.D. The radiology attending physician has personally reviewed this study, and had reviewed and/or edited this written report and agrees with it. Electronically signed by: Reji Julien M.D. Tommy Dias MD [facility] PROCEDURES Final Result * AZ AN ELECTIVE ENDOTRACHEAL AIRWAY, [place] AN PROCEDURE PLACEHOLDER (01/14/2025 2:28 PM CDT) Narrative Carito Borrero CRNA - 01/14/2025 2:28 PM CDT Carito Borrero CRNA 01/14/2025 2:29 PM Airway Patient location: OR Urgency: elective Indications for airway management: anesthesia and airway protection Difficult airway: no Staff: Supervising provider: Blane Madison MD Placed by: CORPORATE TRAVEL COUNSELOR: Carito Borrero CRNA Emergent airway documentation: Risks and benefits discussed: yes Consent obtained: yes Consent given by: patient Airway prep: Preoxygenated: yes Patient position: sniffing MILS maintained throughout: yes Mask difficulty assessment: 1 - vent by mask Spontaneous ventilation during airway: absent Sedation level during airway: GA Final airway details: Final airway type: endotracheal airway Tube type: ETT ETT size: 7.5 mm Cuffed: yes Technique used for successful ETT placement: video laryngoscopy Devices/Methods used in placement: stylet Insertion site: oral Blade type: Leighann Video blade type: Stewart Blade size: 3 Cormack-Lehane (video): grade I - full view of glottis Initial cuff pressure: 27 cm H2O Cuff volume: 7 mL ETT to teeth: 23 cm Placement verified by: CO2 detection Airway secured with: silk tape Number of attempts: 1 Planned trial extubation: yes Blane Madison MD ANESTHESIA ORDERABLES Fi nal Result * POCT glucose (01/14/2025 12:48 PM CDT) Pathologist [facility] [place] Glucose, POC 76 70 - 199 mg/dL Blood 01/14/2025 12:4 8 PM CDT 01/14/2025 12:48 PM CDT Carito Borrero CRNA LAB POCT ORDERABLES - DEVICE Final Result [facility] Department [place] [address] * (ABNORMAL) Differential, auto (01/14/2025 12:01 PM CDT) Pathologist [facility] Neutrophil abs 6.23 1.50 - 6.50 K/cumm Imm gran abs 0.05 0.00 - 0.10 K/cumm [facility] Lymphocyte abs 1.14 0.80 - 3.30 K/cumm [facility] Monocyte abs 0.62 0.20 - 0.80 K/cumm [facility] Eosinophil abs 1.61(H) 0.00 - 0.50 K/cumm [facility] Basophil abs 0.15(H) 0.00 - 0.10 K/cumm [facility] Neutrophil pct 63.7 % [facility] Comment: Interpretive Data Percent cell count reference ranges are not reported, since discordance with absolute values may lead to misinterpretation of CBC data. Current Interpretive Data was last revised on 2017. Imm gran pct 0.5 % [facility] Comment: Interpretive Data Percent cell count reference ranges are not reported, since discordance with absolute values may lead to misinterpretation of CBC data. Current Interpretive Data was last revised on 2017. Lymphocyte pct 11.6 % [facility] Comment: Interpretive Data Percent cell count reference ranges are not reported, since discordance with absolute values may lead to misinterpretation of CBC data. Current Interpretive Data was last revised on 2017. Monocyte pct 6.3 % [facility] Comment: Interpretive Data Percent cell count reference ranges are not reported, since discordance with absolute values may lead to misinterpretation of CBC data. Current Interpretive Data was last revised on 2017. Eosinophil pct 16.4 % [facility] Comment: Interpretive Data Percent cell count reference ranges are not reported, since discordance with absolute values may lead to misinterpretation of CBC data. Current Interpretive Data was last revised on 2017. Basophil pct 1.5 % [facility] Comment: Interpretive Data Percent cell count reference ranges are not reported, since discordance with absolute values may lead to misinterpretation of CBC data. Current Interpretive Data was last revised on 2017. Blood 01/14/2025 12:0 1 PM CDT 01/14/2025 12:14 PM CDT us Kelsey Sherwood NP LAB BLOOD ORDERABLES Fin al Result [facility] Department [place] [address] * (ABNORMAL) CBC with auto differential (01/14/2025 12:01 PM CDT) [facility] WBC 9.80 3.80 - 9.90 K/cumm Hgb 12.8(L) 13.0 - 17.5 g/dL [facility] Hct 38.9 38.9 - 50.3 % [facility] Plt 222 150 - 400 K/cumm [facility] MPV 9.8 9.1 - 12.3 fL [facility] RBC 4.38 4.30 - 5.80 M/cumm [facility] MCV 88.8 81.3 - 96.4 fL [facility] MCH 29.2 27.1 - 33.3 pg [facility] MCHC 32.9 32.3 - 35.7 g/dL [facility] RDW CV 13.6 11.1 - 14.9 % [facility] RDW SD 44.4 35.7 - 48.1 fL [facility] NRBC abs 0.00 0.00 - 0.01 K/cumm [facility] Blood 01/14/2025 12:0 1 PM CDT 01/14/2025 12:14 PM CDT us Kelsey Sherwood NP LAB BLOOD ORDERABLES Fin al Result [facility] Department [place] [address] * Protime-INR (01/14/2025 12:01 PM CDT) Pathologist [facility] PT 12.0 9.7 - 13.0 sec INR 1.11 0.90 - 1.20 [facility] Comment: Interpretive data Oral anticoagulant therapeutic ranges: Venous thromboembolism prophylaxis or treatment: 2.0-3.0 CARDIOLOGY Standard range: 2.0-3.0 High-intensity range: 2.5-3.5 Refer to indication-specific guidelines for appropriate target ranges for prosthetic heart valve replacement. Current interpretive data was last revised on 2019. Blood 01/14/2025 12:0 1 PM CDT 01/14/2025 12:15 PM CDT us Kelsey Sherwood NP LAB BLOOD ORDERABLES Fin al Result [facility] Department [place] [address] * CT Body Outside Consult (01/05/2025 2:03 PM CDT) Anatomical Region Laterality Modality Body N/A Computed Tomogra phy 01/06/2025 10:0 2 AM CDT Impressions 01/06/2025 4:24 PM CDT 1. Left subclavian approach port catheter appears intact on this examination. 2. Multifocal hepatic and bilateral pulmonary metastatic disease, new from 2020. 3. Sigmoid colonic resection. The findings, conclusions and recommendations within this report do not replace the initial findings, conclusions and recommendations made at the facility where the study was performed based upon the imaging and clinical condition at that time. Comparison with the prior report and clinical history is necessary. The provided images may or may not represent the [place] source data set and thus may contain changes that may lower the accuracy of this second-opinion interpretation. Electronically signed by: Regine Love M.D. Narrative 01/06/2025 4:24 PM CDT EXAMINATION: RADIOLOGY CONSULTATION ON OUTSIDE IMAGING STUDY STUDY INITIALLY PERFORMED: 12/12/2024 at [facility]. TYPE OF STUDY: Multiple CT images of the chest, abdomen, and pelvis with intravenous contrast are provided at the time of this interpretation. CONTRAST ROUTE: Contrast was administered via the intravenous route. The protocol was adequate to address the clinical question. The outside final report was not available at the time of this second opinion interpretation. TYPE OF CONSULTATION: Consult on outside imaging study with images submitted through Outside Image Sharing Service DATE OF CONSULTATION: 01/06/2025 9:54 AM HISTORY: Port catheter fracture with foreign body COMPARISON: 03/03/2021 FINDINGS: There is a left subclavian chest wall port catheter with tip terminating at the superior cavoatrial junction. The catheter appears intact on this examination. There are no enlarged supraclavicular, axillary, or mediastinal lymph nodes. The heart size is normal. There is no pericardial effusion. Coronary artery calcifications. No pleural effusion. In the lungs, there are multifocal pulmonary nodules, some of which have small cavitary areas such as a 13 mm nodule in the right lung apex. The largest nodule measures 14 mm in the right middle lobe. There is no pneumothorax. These pulmonary nodules are new from the prior examination in 2020. There is multifocal hepatic metastatic disease with internal areas of calcification, and pseudoarthrosis with capsular retraction. A conglomerate of hepatic lesions in the posterior right hemiliver spans 8.7 cm. These findings are also new from 202. There is also trace perihepatic fluid. The portal, splenic, superior mesenteric veins are patent. Spleen is enlarged. Adrenal glands, pancreas are normal. The gallbladder is decompressed. Embolization coils are present in the gastric duodenal artery. Symmetric renal enhancement. No hydronephrosis or focal renal lesion. Urinary bladder is incompletely distended. No pneumoperitoneum. No enlarged abdominal or pelvic lymph nodes. There are postoperative changes of sigmoid colonic resection. The appendix is normal. There is no bowel obstruction. No suspicious osseous lesion. Procedure Note Regine Love MD - 01/06/2025 EXAMINATION: RADIOLOGY CONSULTATION ON OUTSIDE IMAGING STUDY STUDY INITIALLY PERFORMED: 12/12/2024 at [facility]. TYPE OF STUDY: Multiple CT images of the chest, abdomen, and pelvis with intravenous contrast are provided at the time of this interpretation. CONTRAST ROUTE: Contrast was administered via the intravenous route. The protocol was adequate to address the clinical question. The outside final report was not available at the time of this second opinion interpretation. TYPE OF CONSULTATION: Consult on outside imaging study with images submitted through Outside Image Sharing Service DATE OF CONSULTATION: 01/06/2025 9:54 AM HISTORY: Port catheter fracture with foreign body COMPARISON: 03/03/2021 FINDINGS: There is a left subclavian chest wall port catheter with tip terminating at the superior cavoatrial junction. The catheter appears intact on this examination. There are no enlarged supraclavicular, axillary, or mediastinal lymph nodes. The heart size is normal. There is no pericardial effusion. Coronary artery calcifications. No pleural effusion. In the lungs, there are multifocal pulmonary nodules, some of which have small cavitary areas such as a 13 mm nodule in the right lung apex. The largest nodule measures 14 mm in the right middle lobe. There is no pneumothorax. These pulmonary nodules are new from the prior examination in 2020. There is multifocal hepatic metastatic disease with internal areas of calcification, and pseudoarthrosis with capsular retraction. A conglomerate of hepatic lesions in the posterior right hemiliver spans 8.7 cm. These findings are also new from 2020. There is also trace perihepatic fluid. The portal, splenic, superior mesenteric veins are patent. Spleen is enlarged. Adrenal glands, pancreas are normal. The gallbladder is decompressed. Embolization coils are present in the gastric duodenal artery. Symmetric renal enhancement. No hydronephrosis or focal renal lesion. Urinary bladder is incompletely distended. No pneumoperitoneum. No enlarged abdominal or pelvic lymph nodes. There are postoperative changes of sigmoid colonic resection. The appendix is normal. There is no bowel obstruction. No suspicious osseous lesion. IMPRESSION: 1. Left subclavian approach port catheter appears intact on this examination. 2. Multifocal hepatic and bilateral pulmonary metastatic disease, new from 2020. 3. Sigmoid colonic resection. The findings, conclusions and recommendations within this report do not replace the initial findings, conclusions and recommendations made at the facility where the study was performed based upon the imaging and clinical condition at that time. Comparison with the prior report and clinical history is necessary. The provided images may or may not represent the [place] source data set and thus may contain changes that may lower the accuracy of this second-opinion interpretation. Electronically signed by: Regine Love M.D. Desire Jasmine MD IM CT PROCEDURES F inal Result from Last 3 Months Insurance [place] Advance Directives For more information, please contact: [phone] * Full Code (Latest Code Status on File) Date Activated Date Inactivated Comments 01/14/2025 12:12 PM 01/15/2025 5:08 AM * Full Code Date Activated Date Inactivated Comments 02/27/2021 11:57 AM 03/01/2021 4:35 PM Care Teams Odd Bundle Worker Relationship Specialty Start Date End Date Yue Avila DO [address] [place] [address] PCP - General 11/14/20 Sander Ahmadi MD [address] [facility] [phone] [facility] [place] [address] Surgeon Colon and Rectal Surgery 02/13/21 Marco A Maier MD [address] [facility] [phone] [address] Systems Support Officer Gastroenterology 02/13/21 Twila Bowie NP [address] [place] [address] Medical Oncologist/Finance Administrator Medical Oncology 06/20/21
== END 2025-03-31 08:23 | disposition home or self-care (01) ==
PROVIDERS: PCP Nurse Practitioner Family; Visit Provider Internal Medicine Hematology & Oncology
DX: C78.7 Secondary malignant neoplasm of liver and intrahepatic bile duct (principal)
CPT/HCPCS: 71260; 74177; Q9967

== ENCOUNTER 2025-04-04 12:51 | Emergency (ER) | payer BC, SELFPAY ==
[2025-04-04] VITALS (15 sets, daily range): BP systolic 121–161; BP diastolic 68–95; PULSE 72–97; RESP 14–25; TEMP 36.4; O2SAT 97–100
--- OUTSIDE RECORDS SUMMARY | 2025-04-04 12:54 | XMS_ITS | Encounter Summary ---
Author Organization [facility] Address [address] [place] [address] Care Team Providers Care Contact Center Representative Name Role Phone Anthony Modi MD Primary Care Provider [phone] Reason for Visit * Reason Onset Date Comments Metastatic colon cancer admi tted to [facility] thrombosis 08/13/2024 SPOKE WITH [facility] / DR. DELACRUZ OFFICE Encounter Details Date Type Department Care Team (Late st Contact Info) Description 08/13/2024 Telephone [facility] Admitting [address] [place] [address] [place] [address] [facility] [address] [place] [address] Metastatic colon cancer admitted to [facility] thrombosis (SPOKE WITH [facility] / DR. 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 [address] [place] [address] documented as of this encounter Visit Diagnoses Not on filedocumented in this encounter Care Teams Contact Center Representative Relationship Specialty Start Date End Date Anthony Modi MD [address] [place] [phone] PCP - General Family Practice 06/23/23 documented as of this encounter
--- OUTSIDE RECORDS SUMMARY | 2025-04-04 12:54 | XMS_ITS | Clinical Summary ---
Author Organization [facility] Address [address] [place] [address] Care Team Providers Care Image Processing Engineer Name Role Phone Yue Avila DO Primary Care Provider + Sander Ahmadi MD Unavailable [phone] Marco A Maier MD Unavailable [phone] Twila Bowie NP Unavailable [phone] Allergies No known active allergies Medications metFORMIN [...] (12/11/2020): Added automatically from request for surgery [id number] Encounters Date Type Department Care Team Description 01/14/2025 1:34 PM CDT Anesthesia Event [facility] Radiology 1 [place] [address] Blane Madison MD [place], [address] 01/14/2025 11:40 AM CDT Lab [facility] 1 [facility] 1st [place] [address] 01/14/2025 11:38 AM CDT - 01/14/2025 11:59 PM CDT Hospital Encounter [facility] Radiology 1 [place] [address] Blane Madison MD Mani, Naganathan Bhagvathy, MD Flesher, Carito Harper CRNA Secondary malignant neoplasm of liver (HCC) Discharge Disposition: Discharge to home or self care 01/14/2025 Orders Only Radiology 1 [place] [address] Evelina Patel MD 01/11/2025 Telephone [facility] Radiology 1 [place] [address] Lisa Nix RN 01/07/2025 10:00 AM CDT Pre-Admission Testing [facility] Center for Preoperative Assessment and Planning [facility] ([facility]) [address] [place] [address] 01/06/2025 Telephone [facility] Radiology 1 [place] [address] Millicent Leon, ANGELIQUE 01/05/2025 2:03 PM CDT - 01/05/2025 11:59 PM CDT Hospital Encounter [facility] Radiology [facility] ([facility]) [address] [place] [address] Diagnosis unknown Discharge Disposition: Discharge to home or self care 01/05/2025 Telephone [facility] Radiology 1 [place] [address] Rhea Mckeon RN 01/05/2025 Telephone [facility] Radiology 1 [place] [address] Millicent Leon, ANGELIQUE 01/05/2025 Telephone [facility] Radiology 1 [place] [address] Rhea Mckeon RN 01/05/2025 Telephone Radiology 1 [place] [address] Desire Jasmine MD 01/04/2025 Telephone [facility] Vascular Surgery [address] [facility] Medical Office Building [address] [place] [address] Abner Seaman MD PhD New Referral from [...] on file 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 Gender Identity Male 12/07/2020 3:16 PM CDT [...] 2025 06/03/2020 Medical Devices Implanted Type Area Information Systems Operator Device Identifier Shelf Expiration Date Model / Serial / Lot Portacath Left: Chest Wall Procedures Procedure Name Priority Date/Time Associated Diagnosis Comments POCT GLUCOSE DEVICE Routine 01/14/2025 3 :16 PM CDT PORT REMOVAL Schedule Routine, Read Routine (OP Routine) 01/14/2025 3:05 PM CDT Secondary malignant neoplasm of liver (HCC) MO AN PROCEDURE PLACEHOLDER Routine 01/14/2025 2:28 PM CDT MO AN ELECTIVE ENDOTRACHEAL AIRWAY Routine 01/14/2025 2:28 [...] 01/14/2025 3:16 PM CDT us Carito Borrero PHOTOENGRAVING SKETCH MAKER LAB POCT ORDERABLES - DEVICE Final Result [facility] [address] [facility] Department [place] [address] * IR Port Removal (01/14/2025 3:05 PM [...] was obtained. Prior to beginning the procedure, [place] Protocol was used to confirm the patient's [...] under real-time ultrasound guidance, followed by a 9-Kenyan vascular sheath placement over a 0.035 wire. A 6-Kenyan 35 mm gooseneck snare was advanced into [...] was obtained. Prior to beginning the procedure, Muldoon Protocol was used to confirm the patient's [...] under real-time ultrasound guidance, followed by a 9-Kenyan vascular sheath placement over a 0.035 wire. A 6-Kenyan 35 mm gooseneck snare was advanced into [...] by: Reji Julien M.D. Tommy Dias MD [facility] IR PROCEDURES Final Result * MO AN ELECTIVE ENDOTRACHEAL AIRWAY, [place] AN PROCEDURE PLACEHOLDER (01/14/2025 2:28 PM CDT) Narrative Carito Borrero CRNA - 01/14/2025 2:28 PM CDT Carito Borrero CRNA 01/14/2025 2:29 PM Airway Patient location: OR Urgency: elective Indications for airway management: anesthesia and airway protection Difficult airway: no Staff: Supervising provider: Blane Madison MD Placed by: PHOTOENGRAVING SKETCH MAKER: Carito Borrero CRNA Emergent airway documentation: Risks [...] POCT glucose (01/14/2025 12:48 PM CDT) Pathologist [facility] Glucose, POC 76 70 - 199 mg/dL Blood 01/14/2025 12:4 8 PM CDT 01/14/2025 12:48 PM CDT Carito Borrero CRNA LAB POCT ORDERABLES - DEVICE Final Result [facility] [address] [facility] Department [place] [address] * (ABNORMAL) Differential, auto (01/14/2025 12:01 PM CDT) Pathologist [facility] Neutrophil abs 6.23 1.50 - 6.50 K/cumm Imm gran abs 0.05 0.00 - 0.10 K/cumm [facility] Lymphocyte abs 1.14 0.80 - 3.30 K/cumm [facility] Monocyte abs 0.62 0.20 - 0.80 K/cumm [facility] Eosinophil abs 1.61(H) 0.00 - 0.50 K/cumm [facility] Basophil abs 0.15(H) 0.00 - 0.10 K/cumm [facility] Neutrophil pct 63.7 % [facility] Comment: Interpretive Data Percent cell count reference ranges are not reported, since discordance with absolute values may lead to misinterpretation of CBC data. Current Interpretive Data was last revised on 2017. Imm gran pct 0.5 % [facility] Comment: Interpretive Data Percent cell count reference ranges are not reported, since discordance with absolute values may lead to misinterpretation of CBC data. Current Interpretive Data was last revised on 2017. Lymphocyte pct 11.6 % [facility] Comment: Interpretive Data Percent cell count reference ranges are not reported, since discordance with absolute values may lead to misinterpretation of CBC data. Current Interpretive Data was last revised on 2017. Monocyte pct 6.3 % [facility] Comment: Interpretive Data Percent cell count reference ranges are not reported, since discordance with absolute values may lead to misinterpretation of CBC data. Current Interpretive Data was last revised on 2017. Eosinophil pct 16.4 % [facility] Comment: Interpretive Data Percent cell count reference ranges are not reported, since discordance with absolute values may lead to misinterpretation of CBC data. Current Interpretive Data was last revised on 2017. Basophil pct 1.5 % [facility] Comment: Interpretive Data Percent cell count reference ranges are not reported, since discordance with absolute values may lead to misinterpretation of CBC data. Current Interpretive Data was last revised on 2017. Blood 01/14/2025 12:0 1 PM CDT 01/14/2025 12:14 PM CDT us Kelsey Sherwood NP LAB BLOOD ORDERABLES Fin al Result [facility] [address] [facility] Department [place] [address] * (ABNORMAL) CBC with auto differential (01/14/2025 12:01 PM CDT) [facility] WBC 9.80 3.80 - 9.90 K/cumm Hgb 12.8(L) 13.0 - 17.5 g/dL [facility] Hct 38.9 38.9 - 50.3 % [facility] Plt 222 150 - 400 K/cumm [facility] MPV 9.8 9.1 - 12.3 fL [facility] RBC 4.38 4.30 - 5.80 M/cumm [facility] MCV 88.8 81.3 - 96.4 fL [facility] MCH 29.2 27.1 - 33.3 pg [facility] MCHC 32.9 32.3 - 35.7 g/dL [facility] RDW CV 13.6 11.1 - 14.9 % [facility] RDW SD 44.4 35.7 - 48.1 fL [facility] NRBC abs 0.00 0.00 - 0.01 K/cumm [facility] Blood 01/14/2025 12:0 1 PM CDT 01/14/2025 12:14 PM CDT us Kelsey Sherwood NP LAB BLOOD ORDERABLES Fin al Result [facility] [address] [facility] Department [place] [address] * Protime-INR (01/14/2025 12:01 PM CDT) Pathologist [facility] PT 12.0 9.7 - 13.0 sec INR 1.11 0.90 - 1.20 [facility] Comment: Interpretive data Oral anticoagulant therapeutic ranges: [...] ORDERABLES Fin al Result [facility] [address] [facility] Department [place] [address] * CT Body Outside Consult (01/05/2025 2:03 [...] images may or may not represent the [place] source data set and thus may contain changes that may lower the accuracy of this second-opinion interpretation. Electronically signed by: Regine Love M.D. Narrative 01/06/2025 4:24 PM CDT EXAMINATION: RADIOLOGY CONSULTATION ON OUTSIDE IMAGING STUDY STUDY INITIALLY PERFORMED: 12/12/2024 at [facility]. TYPE OF STUDY: Multiple CT images of [...] IMAGING STUDY STUDY INITIALLY PERFORMED: 12/12/2024 at [facility]. TYPE OF STUDY: Multiple CT images of [...] images may or may not represent the [place] source data set and thus may contain changes that may lower the accuracy of this second-opinion interpretation. Electronically signed by: Regine Love M.D. Desire Jasmine MD IM CT PROCEDURES F inal Result from Last 3 Months [place] Advance Directives For more information, please contact: [phone] * Full Code (Latest Code Status on File) Date Activated Date Inactivated Comments 01/14/2025 12:12 PM 01/15/2025 5:08 AM * Full Code Date Activated Date Inactivated Comments 02/27/2021 11:57 AM 03/01/2021 4:35 PM Care Teams Image Processing Engineer Relationship Specialty Start Date End Date Yue Avila DO [address] [place] [address] PCP - General 11/14/20 Sander Ahmadi MD [address] [facility] [phone] [facility] [place] [address] Surgeon Colon and Rectal Surgery 02/13/21 Marco A Maier MD [address] [facility] [phone] [address] Clinical Trials Manager Gastroenterology 02/13/21 Twila Bowie NP [address] [place] [address] Medical Oncologist/Jacquard Card Cutter Medical Oncology 06/20/21
--- OUTSIDE RECORDS SUMMARY | 2025-04-04 12:54 | XMS_ITS | Encounter Summary ---
Author Organization [facility] Address [address] [place] [address] Care Team Providers Care Intensive Care Unit Nurse Name Role Phone Anthony Modi MD Primary Care Provider [phone] Reason for Visit * Reason Onset Date Comments Metastatic colon cancer admi tted to [facility] thrombosis 08/11/2024 LEFT MESSAGE / DR. 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 Gender Identity Not on file Sexual Orientation Not on file documented as of this encounter Plan of Treatment Upcoming Encounters Date Type Department Care Team (Late st Contact Info) Description 04/18/2025 9:45 AM CDT Office Visit [facility] Oncology and Hematology - [place] [address] [facility] [address] [place] [address] Tommy Dias MD [address] [facility] [address] [place] [address] documented as of this encounter Visit Diagnoses Not on filedocumented in this encounter Care Teams Intensive Care Unit Nurse Relationship Specialty Start Date End Date Anthony Modi MD [address] [place] [phone] PCP - General Family Practice 06/23/23 documented as of this encounter
--- OUTSIDE RECORDS SUMMARY | 2025-04-04 12:54 | XMS_ITS | Clinical Summary ---
Author Organization [facility] Address [address] [place] [address] Care Team Providers Care Teletypewriter Operator Name Role Phone Unavailable Primary Care Provider Unavailabl e Source Comments [facility],non-owned Affiliates and Associated Physician Practices is amultiple site organization consisting of ambulatory clinics and hospital sitesin [place], [place], [place] and [place]. This disclosure is being madepursuant to the Care Everywhere program and may not contain all information available regarding this patient. 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 Gender Identity Not on file Sexual Orientation [...] complete this topic Insurance [facility] Address: [address] [place] [address] [facility] SELF PAY NO INSURANCE Member Subscriber Plan / Payer (Ef fective for All Dates) Name:Xin Maier Member ID:Not on file Relation to Subscriber:Not on file Name:XIN MAIER Subscriber ID:Not on file Address: [facility] [place] [address] Payer ID:Not on file Group ID:Not on file Type:Self Pay Address: [place], [place] * Guarantor: XIN MAIER Account Type Relation to Patient Date of Phone Billing Address Personal/Family Spouse
--- OUTSIDE RECORDS SUMMARY | 2025-04-04 12:54 | XMS_ITS ---
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
--- OUTSIDE RECORDS SUMMARY | 2025-04-04 12:54 | XMS_ITS | Clinical Summary ---
Author Organization [facility] Address [address] [place] [address] Care Team Providers Care Electro Mechanical Technician Name Role Phone Alissa Lara PA-C Primary Care Provider [phone]- [phone] Allergies Active Allergy Reactions Criticality Noted Date [...] Active Active Problems No known active problems Immunizations Immunization Administration Dates Next Due Fluarix [...] Sex Assigned at Male 10/09/2024 3:22 AM BOOT AND SADDLE REPAIR PERSON Legal Sex Male 5:27 PM CDT Gender Identity Not on file Sexual Orientation Not on file Last Filed Vital Signs Vital Sign Reading Time Taken Comments Blood Pressure 115/72 10/09/2024 5:00 AM BOOT AND SADDLE REPAIR PERSON Pulse 70 10/09/2024 5:00 AM BOOT AND SADDLE REPAIR PERSON Temperature 36.2 C (97.1 F) 10/09/2024 3:28 AM BOOT AND SADDLE REPAIR PERSON Respiratory Rate 16 10/09/2024 5:00 AM BOOT AND SADDLE REPAIR PERSON Oxygen Saturation 99% 10/09/2024 5:00 AM BOOT AND SADDLE REPAIR PERSON Inhaled Oxygen Concentration - - Weight 73.9 kg (163 lb) 10/09/2024 3:28 AM BOOT AND SADDLE REPAIR PERSON Height 175.3 cm (5' 9) 10/09/2024 3:28 AM BOOT AND SADDLE REPAIR PERSON Body Mass Index 24.07 10/09/2024 3:28 AM BOOT AND SADDLE REPAIR PERSON Plan of Treatment Health Maintenance Due Date [...] Procedure Name Priority Date/Time Associated Diagnosis Comments COLONOSCOPY Routine 08/06/2022 10:58 AM BOOT AND SADDLE REPAIR PERSON from Last 3 Months or Most Recently Relevant to Health Maintenance Results * Colonoscopy (08/06/2022 10:58 AM BOOT AND SADDLE REPAIR PERSON) Marco A Ruvalcaba MD - 08/06/2022 10:58 AM BOOT AND SADDLE REPAIR PERSON Marco A Maier MD 08/06/2022 11:25 AM MARCO A MAIER MD, FACG, FACP COLONOSCOPY 08/06/2022 INDICATION: Personal history of colon cancer. POST-OP: One polyp removed. Post-surgical colonoscopy. SEDATION: Per Anesthesia PREP: Good. With the patient in the left lateral decubitus position, the Olympus [id number] colonoscope was introduced into the rectum and [...] Dr. Avila and Dr. Ahmadi. Marco A Maier M.D. Cc: Dr. Daren Avila; Dr. Austin Ahmadi us Marco A Maier MD GI PROCEDURE ORDERABLES Fin al Result from Last 3 Months or Most Recently Relevant to Health Maintenance Insurance [facility] Care Teams Electro Mechanical Technician Relationship Specialty Start Date End Date Alissa Lara PA-C [address] [place] [id number] PCP - General PHYSICIAN HEALTH AIDE 08/09/24
--- OUTSIDE RECORDS SUMMARY | 2025-04-04 12:54 | XMS_ITS | Clinical Summary ---
Author Organization [facility] (Formerly [facility]) [facility] Address [address] [place] [address] Care Team Providers Care Physician Credentialing Specialist Name Role Phone Anthony Modi MD Primary Care Provider [phone] Allergies Active Allergy Reactions Criticality Noted Date [...] the morning. Active naloxone (NARCAN) 4 mg/spray Hannah, Non-Aerosol EMERGENCY USE ONLY: Administer 1 spray [...] (08/03/2024): Added automatically from request for surgery [id number] Encounters Date Type Department Care Team Description 03/29/2025 External Device Data STL ABSTRACTION Provider, Abstract 03/28/2025 9:15 AM CDT Office Visit [facility] ([facility]) Oncology and Hematology - [place] [address] [place] [address] Tommy Dias MD Secondary malignant neoplasm of liver (CMS/HCC) 03/28/2025 Orders Only [facility] ([facility] Oncology and Hematology - [place] [address] [place] [address] Tommy Dias MD 03/14/2025 Orders Only [facility] ([facility] Oncology and Hematology - [place] [address] [place] [address] Tommy Dias MD Secondary malignant neoplasm of liver (CMS/HCC) 03/09/2025 External Device Data STL ABSTRACTION Provider, Abstract 03/07/2025 Orders Only [facility] ([facility] Oncology and Hematology [facility] [address] Tommy Dias MD 02/28/2025 Orders Only [facility] Oncology and Hematology - [place] [address] Tommy Dias MD Secondary malignant neoplasm of liver (CMS/HCC) 02/16/2025 External Device Data STL ABSTRACTION Provider, Abstract 02/15/2025 External Device Data STL ABSTRACTION Provider, Abstract 02/14/2025 Refill [facility] ([facility]) Oncology [facility] Hematology [facility] [address] [place] [phone] Tommy Dias MD Secondary malignant neoplasm of liver (CMS/HCC) 02/14/2025 Orders Only [facility] Oncology and Hematology [place] [address] [place] [phone] Tommy Dias MD Secondary malignant neoplasm of liver (CMS/HCC) 02/10/2025 Refill [facility] Oncology and Hematology [facility] [address] [place] [id number] Tommy Dias MD 01/31/2025 Orders Only [facility] Oncology and Hematology [place] [address] [place] [id number] Tommy Dias MD Secondary malignant neoplasm of liver (CMS/HCC) 01/18/2025 External Device Data STL ABSTRACTION Provider, Abstract 01/17/2025 Orders Only [facility] Oncology [facility] Hematology [facility] [address] [place] [id number] Tommy Dias MD Secondary malignant neoplasm of liver (CMS/HCC) (Primary Dx) 01/17/2025 Abstract [facility] Oncology [facility] Hematology [facility] [address] [place] [address] Tommy Dias MD 01/17/2025 Orders Only [facility] Oncology and Hematology - [place] [address] [place] [id number] Tommy Dias MD Secondary malignant neoplasm of liver (CMS/HCC) 01/05/2025 Telephone [facility] Oncology and Hematology - [place] [address] [place] [address] Tommy Dias MD [place] Update 01/05/2025 Telephone [facility] Oncology and Hematology - [place] [address] [place] [address] Tommy Dias MD [place] 01/04/2025 Orders Only [facility] Oncology and Hematology - [place] [address] [place] [address] Tommy Dias MD Secondary malignant neoplasm of liver (CMS/HCC) (Primary Dx) 01/04/2025 Orders Only [facility] Oncology and Hematology - [place] [address] [place] [address] Tommy Dias MD Secondary malignant neoplasm of liver (CMS/HCC) (Primary Dx) 01/03/2025 Orders Only [facility] Oncology and Hematology - [place] [address] Tommy Dias MD Secondary malignant neoplasm of liver (CMS/HCC) (Primary Dx) 01/03/2025 Orders Only [facility] Oncology and Hematology - [place] [address] Tommy Dias MD Secondary malignant neoplasm of liver (CMS/HCC) (Primary Dx) 01/03/2025 Orders Only [facility] Oncology and Hematology - [place] [address] Tommy Dias MD Secondary malignant neoplasm [...] on file Legal Sex Male 10:48 AM [employer]IPPING [employer] Gender Identity Not on file Sexual Orientation [...] 175.3 cm (5' 9) 08/10/2024 10:14 PM SHIPPING HAND Body Mass Index 23.81 08/10/2024 10:14 PM SHIPPING HAND Plan of Treatment Upcoming Encounters Date Type Department Care Team (Late st Contact Info) Description 04/18/2025 9:45 AM CDT Office Visit [facility] Oncology and Hematology - [place] [address] [place] [address] Tommy Dias MD [address] [facility] [facility] [address] [place] [address] Health Maintenance Due Date Last Done Comments [...] years Discontinued Medical Devices Implanted Type Area Nurse Licensed Practical Device Identifier Shelf Expiration Date Model / Serial / Lot Coil-03/19/2024 Implanted:Qty: 1 on 03/19/2024 by Thuan Trujillo MD [employer] 11/04/2031 [id number] / / [id number] Description:Packing coil 15c m implanted on 03/19/[address] Trujillo [id number] Mapping Coil-03/19/2024 Implanted:Qty: 1 on 03/19/2024 by Thuan Trujillo MD [employer] 11/05/2031 [id number] / / [id number] Description:POD3 implanted o n 03/19/[address] [...] PM CDT) Anatomical Region Laterality Modality Other Result Cayden Dias MD DIAGNOSTIC IMAGING ORDERABLES F inal Result * (ABNORMAL) HEMOGLOBIN A1C (04/09/2024 11:36 PM CDT) HEMOGLOBIN A1C 6.0(H) <5.7 % 04/10/2024 3:[address] [facility] EST. AVG GLUCOSE, A1C 126 mg/dL 04/10/2024 3:[address] [facility] Blood Venipuncture / Unknown 04/09/2024 11:36 PM CDT 04/09/2024 11:57 PM CDT Narrative [facility] - 04/10/2024 3:23 PM CDT HGB A1C INTERPRETATION NORMAL: <5.7% PRE-DIABETES: 5.7 - 6.4% DIABETES: 6.5% OR GREATER Mickie Leal DO CHEMISTRY ORDERABLES Final R esult [facility] CLIA# [id number] [address] [place] [id number] from Last 3 Months or Most Recently Relevant to Health Maintenance Insurance [facility] PREFERRED [facility] PREFERRED RX [employer] Commercial Advance Directives For more information, please contact: [phone] * Default Full Code - Needs Discussion (Latest Code Status on File) Date Activated Date Inactivated Comments 08/10/2024 9:42 PM 08/13/2024 1:04 PM * Full Code Date Activated Date Inactivated Comments 04/09/2024 9:01 PM 04/10/2024 8:40 PM Care Teams Physician Credentialing Specialist Relationship Specialty Start Date End Date Anthony Modi MD [address] [place] [phone] PCP - General Family Practice 06/23/23
[2025-04-04] MEDS: DICYCLOMINE HCL INJ 20 MG/2 ML VIAL IM (13:29)
[2025-04-04] MEDS: SODIUM CHLORIDE 0.9% IV 1,000 ML 999 ML IV CONT ×2 (13:30→15:24)
[2025-04-04] MEDS: BACLOFEN 5 MG TABLET PO (13:31)
[2025-04-04 13:33] LABS: Hematocrit 37.1 % (42.0-52.0); Hemoglobin 11.8 g/dL (14.0-18.0); Immature Granulocyte Percent A 0.7 % (0-0.5); Lymphocytes Absolute Auto 0.51 K/mm3 (0.9-3.2); Mean Corpuscular HGB Conc 31.8 g/dl (32-36); Mean Corpuscular Hemoglobin 26.4 pg (26-34); Mean Corpuscular Volume 83.0 fl (80-100); Nucleated Red Blood Cells Absolute Auto 0.000 K/mm3 (0.0-0.012); Nucleated Red Blood Cells Perc 0.0 % (0.0-0.2); Platelet Count Result 186 k/mm3 (150-375); Red Blood Count 4.47 M/mm3 (4.6-6.20); White Blood Count 7.4 K/mm3 (4.5-10.0)
[2025-04-04 13:43] LABS: INR 1.5; Prothrombin Time 18.3 Seconds (11.1-14.7)
[2025-04-04 13:44] LABS: Partial Thromboplastin Time 39.4 Seconds (22.3-36.8)
[2025-04-04 13:46] LABS: Alanine Aminotransferase 28 U/L (6-50); Albumin Level 3.7 g/dL (3.5-5.1); Alkaline Phosphatase 295 U/L (38-126); Anion Gap 10 mmol/L (4-12); Aspartate Amino Transferase 35 U/L (17-59); Bilirubin,Total 1.0 mg/dL (0.2-1.3); Blood Urea Nitrogen 14 mg/dL (9-20); Calcium 9.3 mg/dL (8.4-10.2); Carbon Dioxide 24 mmol/L (22-30); Chloride 100 mmol/L (98-107); Estimated CRCL calculation 104 ml/min; Estimated Glomerular Filt Rate > 60; Glucose 314 mg/dL (65-110); Potassium 4.4 mmol/L (3.4-5.0); Sodium 134 mmol/L (137-145); Total Protein 7.5 g/dL (6.3-8.2)
[2025-04-04 14:10] LABS: Lipase 119 U/L (23-300)
[2025-04-04] MEDS: ONDANSETRON INJ 4 MG/2 ML VIAL IV PUSH (15:34)
[2025-04-04] MEDS: BELLADONNA ALK/PHENOB ELIX 10 ML, MAG HYDROX/ALUMINUM HYD/SIMETH 30 ML, LIDOCAINE 2% VI... PO (15:37)
--- NOTE | 2025-04-04 15:56 | ED.GENADULT ---
HPI - General Adult General Chief complaint: Abdominal Pain Stated complaint: hick ups for a week, sore throat Time Seen by Provider: 04/04/25 13:00 History of Present Illness HPI narrative: Patient is a 59-year-old male who presents ER with pickups. Ongoing for several days. Has been taking his PPI without improvement. No fevers chills or sweats. No chest pain or chest pressure. Has not had this issue previously. 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 He is on chemotherapy. He recently had a repeat CT scan to see if the tumor burden is improving or if they will have to change therapy. Related Data Home Medications ?Medication ?Instructions ?Recorded ?Confirmed ?Last Taken ?Type gabapentin 300 mg capsule 300 mg PO HS 09/29/24 02/14/25 Unknown History Allergies Allergy/AdvReac Type Severity Reaction Status Date / Time Penicillins Allergy Unknown Unknown Verified 04/04/25 13:00 Review of Systems Review of Systems: All systems reviewed & are unremarkable except as noted in HPI and below Constitutional: Constitutional: Reports no additional constitutional complaints Cardiovascular: Cardiovascular: Reports no additional cardiovascular complaints Respiratory: Respiratory: Reports no additional respiratory complaints Gastrointestinal: Gastrointestinal: Reports no additional gastrointestinal complaints [facility] Past Medical History Medical History Liver nodule Metastatic disease Pulmonary nodule Hypertension Abnormal colonoscopy Hydronephrosis Hyperlipidemia Type 2 diabetes mellitus without complications Surgical History Surgical History H/O colonoscopy 01/31/21 H/O esophagogastroduodenoscopy 01/31/21 S/P left colectomy S/P cystoscopy with ureteral stent placement 01/31/21 Family History Family History Mother Hypertension Family history of chronic obstructive pulmonary disease Family history of diabetes mellitus in first degree relative Father Hypertension Family history of malignant neoplasm Family history of diabetes mellitus in first degree relative Grandparent Family history of cardiovascular disease Family history of diabetes mellitus in first degree relative Social History Social History Smoking status: Never smoker Second hand tobacco smoke exposure: No Alcohol intake: former Alcohol use details: QUIT 15 YRS AGO Substance use: never Substance use type: does not use Do You Feel Safe in your Home?: Yes Lack of Transportation: No Lack of Food: Never True Current Housing: I Have Housing Concerned About Future Housing: No Difficulty Paying Gas/Electric Bills: No Difficulty Paying for Meds: No Currently Unemployed: No Education: High School Diploma/GED Difficulty w/ Childcare or Family Care: No Living arrangements: alone Occupation/Education: occupation Gender identity (if verbalized by the patient): Male Spiritual care concerns: No Agree to blood products: No Exam Narrative: GENERAL: Well-appearing, well-nourished, and in no acute distress. HEAD: Normocephalic, atraumatic. ENT: Mucous membranes moist. CHEST: Clear to auscultation. No respiratory distress. HEART: Regular rate and rhythm. Normal peripheral pulses. ABDOMEN: Soft, nontender, nondistended. EXTREMITIES: Normal range of motion. No edema. SKIN: Warm, dry, no rash. NEURO: Alert and oriented x3. PSYCH: Normal mood and affect. Course Course Emergency Course: Patient resting comfortably after Bentyl and baclofen. Was sleeping without high cups. He woke up and we spoke about the abnormalities on his CT scan Ambien hiccuping again. He had improvement after GI cocktail. Discharge home with supportive medications. He will follow-up with his oncologist regarding the abnormal CT results. Patient received 2 L IV fluid for elevated lactic acid. White count normal hemoglobin at baseline. No renal failure. Electrolytes unremarkable. Patient is nondiabetic and glucose was elevated. Vital Signs Vital signs: Vital Signs Temperature 97.6 F 04/04/25 12:58 Pulse Rate 90 04/04/25 12:58 Respiratory Rate 16 04/04/25 12:58 Blood Pressure 161/95 H 04/04/25 12:58 Pulse Oximetry 98 04/04/25 12:58 Temperature 97.6 F 04/04/25 12:58 Pulse Rate 75 04/04/25 15:31 Respiratory Rate 15 04/04/25 15:31 Blood Pressure 152/86 H 04/04/25 15:31 Pulse Oximetry 98 04/04/25 15:31 Medical Decision Making Vital Signs Vital Signs: Vital Signs Temperature 97.6 F 04/04/25 12:58 Pulse Rate 90 04/04/25 12:58 Respiratory Rate 16 04/04/25 12:58 Blood Pressure 161/95 H 04/04/25 12:58 Pulse Oximetry 98 04/04/25 12:58 Temperature 97.6 F 04/04/25 12:58 Pulse Rate 75 04/04/25 15:31 Respiratory Rate 15 04/04/25 15:31 Blood Pressure 152/86 H 04/04/25 15:31 Pulse Oximetry 98 04/04/25 15:31 Lab Data 04/04/25 13:26 04/04/25 13:26 Labs: Lab Results 04/04/25 04/04/25 Range/Units 13:25 13:26 WBC 7.4 (4.5-10.0) K/mm3 RBC 4.47 L (4.6-6.20) M/mm3 Hgb 11.8 L (14.0-18.0) g/dL Hct 37.1 L (42.0-52.0) % MCV 83.0 (80-100) fl MCH 26.4 (26-34) pg MCHC 31.8 L (32-36) g/dl RDW 14.6 H (11.5-14.5) % Plt Count 186 (150-375) k/mm3 MPV 9.0 (7.4-10.4) fl Immature Gran % (Auto) 0.7 H (0-0.5) % Neut % (Auto) 86.4 H (45.5-73.1) % Lymph % (Auto) 6.9 L (18.3-44.2) % [place] % (Auto) 4.6 (2.6-8.5) % Eos % (Auto) 0.7 (0-4.4) % Baso % (Auto) 0.7 (0.2-1.2) % Lymph # (Auto) 0.51 L (0.9-3.2) K/mm3 [place] # (Auto) 0.3 (0.1-0.6) K/mm3 Eos # (Auto) 0.1 (0-0.3) K/mm3 Baso # (Auto) 0.1 (0.0-0.1) K/mm3 Abs Immat Gran (auto) 0.05 H (0.00-0.031) K/mm3 Absolute Neuts (auto) 6.4 (1.3-6.7) K/mm3 Absolute Nucleated RBC 0.000 (0.0-0.012) K/mm3 Nucleated RBC % 0.0 (0.0-0.2) % PT 18.3 H (11.1-14.7) Seconds INR 1.5 APTT 39.4 H (22.3-36.8) Seconds Sodium 134 L (137-145) mmol/L Potassium 4.4 (3.4-5.0) mmol/L Chloride 100 (98-107) mmol/L Carbon Dioxide 24 (22-30) mmol/L Anion Gap 10 (4-12) mmol/L BUN 14 (9-20) mg/dL Creatinine 0.67 L (0.7-1.3) mg/dL Estim Creat Clear Calc 104 ml/min Estimated GFR > 60 (59 - ) Glucose 314 H (65-110) mg/dL Lactic Acid 2.9 H (0.7-2.0) mmol/L Calcium 9.3 (8.4-10.2) mg/dL Total Bilirubin 1.0 (0.2-1.3) mg/dL AST 35 (17-59) U/L ALT 28 (6-50) U/L Alkaline Phosphatase 295 H (38-126) U/L Total Protein 7.5 (6.3-8.2) g/dL Albumin 3.7 (3.5-5.1) g/dL Lipase 119 (23-300) U/L Discharge Plan Discharge Clinical Impression: Hiccups Patient Disposition: Home Condition: Stable Instructions: Hiccups (ED) Additional Instructions: Return to the emergency department if you develop severe abdominal pain, severe nausea and vomiting to the point where you are unable to keep down fluids, if you develop chest pain or difficulty breathing, blood in your stool, dizziness or fainting, or if you develop any other new or concerning symptoms as these could be signs of more serious medical illness. Try to stay well hydrated. Patient Language: Malawian Prescriptions: New baclofen 5 mg tablet 5 mg PO TID Qty: 14 0RF simethicone 125 mg capsule 125 mg PO QID Qty: 20 0RF Rx Instructions: administer after meals and at bedtime dicyclomine 10 mg capsule 10 mg PO BID Qty: 14 0RF No Action gabapentin 300 mg capsule 300 mg PO HS Patient Comments: .. ondansetron HCl 4 mg tablet 4 mg PO Q6H PRN (Reason: nausea and vomiting) Qty: 30 2RF oxycodone 5 mg tablet 5 mg PO Q6H PRN (Reason: pain) Qty: 10 0RF lisinopril 20 mg tablet 20 mg PO DAILY Qty: 90 1RF Patient Comments: . glimepiride 2 mg tablet 4 mg PO BID Qty: 360 0RF Patient Comments: . metformin 1,000 mg tablet 1,000 mg PO BID Qty: 180 1RF atorvastatin 40 mg tablet 40 mg PO DAILY Qty: 90 1RF Patient Comments: . Eliquis 5 mg tablet 5 mg PO BID Qty: 180 0RF Patient Comments: . pantoprazole 40 mg tablet,delayed release (DR/EC) 40 mg PO QAM Qty: 90 1RF Follow-up/Referrals: Kelsey Sherwood APRN [Primary Care Provider, Family Practice] - 1 Week
== END 2025-04-04 16:20 | disposition home or self-care (01) ==
PROVIDERS: Emergency Provider Emergency Medicine; PCP Nurse Practitioner Family
DX: R06.6 Hiccough (principal); C18.9 Malignant neoplasm of colon, unspecified; C78.7 Secondary malignant neoplasm of liver and intrahepatic bile duct; C78.00 Secondary malignant neoplasm of unspecified lung; I10 Essential (primary) hypertension; E78.5 Hyperlipidemia, unspecified; E11.9 Type 2 diabetes mellitus without complications
CPT/HCPCS: 36415; 80053; 83605; 83690; 85025; 85610; 85730; 96361; 96372; 96374; 99284; A9270; J0500; J2405; J7030

== ENCOUNTER 2025-06-18 20:05 | Inpatient (IN) | payer BC, SELFPAY ==
[2025-06-18] VITALS (10 sets, daily range): BP systolic 138–153; BP diastolic 86–102; PULSE 88–102; RESP 16–25; TEMP 36.9; O2SAT 92–99
--- NOTE | ~2025-06-18 | CT_ITS ---
EXAMINATION: CT brain wo con DATE: 06/18/2025 23:01 INDICATION: Falls. Metastatic cancer. TECHNIQUE: Computed tomography (CT) of the head was performed without intravenous contrast. The mA was adjusted according to patient size. Iterative reconstruction technique was employed. The dose-length product was 605.33 mGy-cm. COMPARISON: None FINDINGS: There is no intracranial hemorrhage, acute infarction, or abnormal intracranial mass lesion. The ventricles are normal in size. There is an old blowout fracture of medial wall of left orbit. There is mild mucosal thickening in right maxillary sinus. The mastoid air cells are normal. IMPRESSION: 1. Normal brain. Reviewed, dictated and finalized at location E. PRESSER IMPRESSION: 1. Normal brain.
--- NOTE | ~2025-06-18 | CT_ITS ---
EXAMINATION: CT chest abdomen pelvis w con DATE: 06/18/2025 23:01 INDICATION: Metastatic cancer. Frequent falls. TECHNIQUE: Computed tomography (CT) of the chest, abdomen, and pelvis was performed with 100 mL Omnipaque 350 intravenous contrast. Automated exposure control and iterative reconstruction technique were employed. The dose-length product was 971.51 mGy-cm. COMPARISON: CT chest, abdomen, and pelvis 03/31/2025 FINDINGS: CHEST CT: There are greater than 40 nodules in the lungs in a random distribution measuring up to 2.4 cm, worsened from 1.5 cm on 03/31/2025. There is a small left pleural effusion. The heart size is normal. There are coronary artery calcifications. There is a small pericardial effusion. There is a left internal jugular port with tip at superior cavoatrial junction. There is mild thoracic spondylosis. ABDOMEN/PELVIS CT: There are innumerable hypodense masses in the liver, many of which are confluent. The largest mass measures approximately 5.9 cm. The gallbladder is contracted. There is embolization material in gastroduodenal artery. The spleen is moderately enlarged. The pancreas, adrenal glands, and right kidney are normal. There is a 3 mm stone in left kidney. There is an anastomosis in the sigmoid colon. There is wall thickening of the ascending and transverse colon. Paraesophageal varices are noted. There is a periumbilical portacaval shunt. There are no pathologically enlarged lymph nodes. There is a large volume of ascites. There are bilateral inguinal hernias containing ascites. There is a chronic compression fracture of L1. There is mild lumbar spondylosis. IMPRESSION: 1. Worsened pulmonary nodules, consistent with metastatic disease. 2. Worsened small left pleural effusion. 3. Worsened small pericardial effusion. 4. Worsened liver masses, consistent metastatic disease. 5. Portal venous hypertension. 6. Worsened large volume of ascites. 7. Wall thickening of the ascending and transverse colon, probably interstitial edema. Reviewed, dictated and finalized at location E. R REUSE PROGRAM MANAGER
--- NOTE | ~2025-06-18 | US_ITS ---
EXAMINATION: US paracentesis abd w/image DATE: 06/21/2025 12:18 INDICATION: Ascites. TECHNIQUE: The procedure and its risks and benefits were discussed with the patient. Potential risks discussed included bleeding and infection. The skin was prepped and draped in sterile fashion. 1% lidocaine was used for local anesthesia. Under ultrasound guidance, a 5 Fr catheter with trochar was advanced into the ascites in the left lower quadrant. Fluid was aspirated into vacuum bottles. The catheter was removed, and a dressing was applied. There were no immediate complications. FINDINGS: Ultrasound images demonstrate ascites and the catheter within the fluid. IMPRESSION: 1. Successful ultrasound-guided paracentesis yielding 2450 mL of clear straw- colored fluid. Reviewed, dictated and finalized at location A. ESSIONAL DRIVER IMPRESSION: 1. Successful ultrasound-guided paracentesis yielding 2450 mL of clear straw-c olored fluid.
--- NOTE | ~2025-06-18 | CT_ITS ---
EXAMINATION: CT cervical spine wo con DATE: 06/18/2025 23:01 INDICATION: Frequent falls. Metastatic cancer. TECHNIQUE: Computed tomography (CT) of the cervical spine was performed without intravenous contrast. Automated exposure control and iterative reconstruction technique were employed. The dose-length product was 314.31 mGy-cm. COMPARISON: None FINDINGS: There is mild kyphosis of cervical spine. Vertebral body heights are normal. There is mildly decreased disc height at C5-C6 and C6-C7. There is ossification of posterior longitudinal ligament at C5 and C6. There is multilevel vula-[id number]-[id number] facet joint osteoarthritis. There is multilevel un covertebral joint osteoarthritis, moderate on the left at C5-C6. There is mild neural foraminal stenosis at multiple levels on either side. There is mild central canal stenosis at C5-C6 and C6-C7. There are nodules in the lungs, consistent with metastatic disease. IMPRESSION: 1. No fracture. 2. Mild cervical spondylosis. 3. Pulmonary nodules, consistent with metastatic disease. Reviewed, dictated and finalized at location E. RONMENTAL SCIENCE INSTRUCTOR
--- NOTE | 2025-06-18 21:38 | ECG_ITS ---
Test Date: 2025-06-18 22:19:06 Measurements Intervals [place] Rate: 88 P: 26 ME: 156 QRS: 5 QRSD: 89 T: -13 QT: 379 QTc: 459 Interpretive Statements SINUS RHYTHM LOW QRS VOLTAGE IN PRECORDIAL LEADS T-WAVE ABNORMALITY, CONSIDER ISCHEMIA Electronically Signed On 06-19-2025 09:58:44 [employer] NURSERY SPECIALIST by Donte Reyes D.O
--- NOTE | 2025-06-18 22:02 | ED.GENADULT ---
HPI - General Adult General Chief complaint: Fall Stated complaint: Multiple falls, pain R Ribs Time Seen by Provider: 06/18/25 20:12 History of Present Illness HPI narrative: This is a 60-year-old male history of a stage IV metastatic colon cancer on palliative chemotherapy presenting for total body pain. Patient says that he has not been feeling well for quite some time and has had no appetite with decreased oral intake. He has started to have multiple falls due to generalized weakness. He has struck his head, ribs, and back. He is on Eliquis. He has been taking his oxycodone but has run out and has not gotten a refill from our shot yet. He is denying fevers chills chest pain difficulty breathing abdominal pain or urinary symptoms. Related Data Home Medications ?Medication ?Instructions ?Recorded ?Confirmed ?Last Taken ?Type gabapentin 300 mg capsule 300 mg PO HS 09/29/24 02/14/25 Unknown History morphine 15 mg tablet,extended 15 mg PO Q12H 06/03/25 06/03/25 Unknown History release Allergies Allergy/AdvReac Type Severity Reaction Status Date / Time Penicillins Allergy Unknown Unknown Verified 06/03/25 08:42 [facility] Past Medical History Medical History Liver nodule Metastatic disease Pulmonary nodule Hypertension Abnormal colonoscopy Hydronephrosis Hyperlipidemia Type 2 diabetes mellitus without complications Surgical History Surgical History H/O colonoscopy 01/31/21 H/O esophagogastroduodenoscopy 01/31/21 S/P left colectomy S/P cystoscopy with ureteral stent placement 01/31/21 Family History Family History Mother Hypertension Family history of chronic obstructive pulmonary disease Family history of diabetes mellitus in first degree relative Father Hypertension Family history of malignant neoplasm Family history of diabetes mellitus in first degree relative Grandparent Family history of cardiovascular disease Family history of diabetes mellitus in first degree relative Social History Social History Smoking status: Never smoker Second hand tobacco smoke exposure: No Alcohol intake: former Alcohol use details: QUIT 15 YRS AGO Substance use: never Substance use type: does not use Do You Feel Safe in your Home?: Yes Lack of Transportation: No Lack of Food: Never True Current Housing: I Have Housing Concerned About Future Housing: No Difficulty Paying Gas/Electric Bills: No Difficulty Paying for Meds: No Currently Unemployed: No Education: High School Diploma/GED Difficulty w/ Childcare or Family Care: No Living arrangements: alone Occupation/Education: occupation Gender identity (if verbalized by the patient): Male Spiritual care concerns: No Agree to blood products: No Exam Narrative: APPEARANCE: Patient appears chronically unwell Head: atraumatic. EYES: EOMI, NOSE: Atraumatic NECK: Trachea midline RESPIRATORY: No increased rate of breathing clear to auscultation CARDIOVASCULAR: tachycardic, ABDOMINAL:diffusely tender w/ voluntary guarding MUSCULOSKELETAl: No obvious deformities NEURO: Alert. Moving 4/4 extremities SKIN:: Warm, dry. Normal color PSYCHIATRIC: Normal affect Course Vital Signs Vital signs: Vital Signs Temperature 98.4 F 06/18/25 20:09 Pulse Rate 101 H 06/18/25 20:09 Respiratory Rate 21 H 06/18/25 20:09 Blood Pressure 153/86 H 06/18/25 20:09 Pulse Oximetry 99 06/18/25 20:09 Oxygen Delivery Room Air 06/18/25 20:09 Temperature 98.4 F 06/18/25 20:09 Pulse Rate 90 06/18/25 22:30 Respiratory Rate 24 H 06/18/25 22:30 Blood Pressure 144/99 H 06/18/25 22:30 Pulse Oximetry 95 06/18/25 22:30 Oxygen Delivery Room Air 06/18/25 20:09 Medical Decision Making [facility] Narrative Medical decision making narrative: -Course: 60-year-old male with stage IV metastatic colon cancer presenting for weakness and frequent falls. Patient has recently grown his oxycodone is requesting pain medication which is been provided will completing his workup. CT head, chest abdomen pelvis C-spine obtained. Screening lab work ordered. CT imaging significant for moderate to large amount of free fluid in the abdomen. The rest of his workup was unremarkable. on re-evaluation patient still looks unwell and uncomfortable. he will be admitted for diagnostic and therapeutic paracentesis. patient is Eliquis which makes him risk for bleeding complications. As his paracentesis may be delayed he has been started on ceftriaxone to cover SBP. DDX includes but is not limited to: Weakness, dehydration, sepsis, pneumonia, UTI, spontaneous bacterial peritonitis -Co-morbidities complicating care: metastatic cancer Vital Signs Vital Signs: Vital Signs Temperature 98.4 F 06/18/25 20:09 Pulse Rate 101 H 06/18/25 20:09 Respiratory Rate 21 H 06/18/25 20:09 Blood Pressure 153/86 H 06/18/25 20:09 Pulse Oximetry 99 06/18/25 20:09 Oxygen Delivery Room Air 06/18/25 20:09 Temperature 98.4 F 06/18/25 20:09 Pulse Rate 90 06/18/25 22:30 Respiratory Rate 24 H 06/18/25 22:30 Blood Pressure 144/99 H 06/18/25 22:30 Pulse Oximetry 95 06/18/25 22:30 Oxygen Delivery Room Air 06/18/25 20:09 Lab Data 06/18/25 22:05 06/18/25 22:05 Labs: Lab Results 06/18/25 Range/Units 22:05 WBC 9.1 (4.5-10.0) K/mm3 RBC 4.09 L (4.6-6.20) M/mm3 Hgb 10.5 L (14.0-18.0) g/dL Hct 33.2 L (42.0-52.0) % MCV 81.2 (80-100) fl MCH 25.7 L (26-34) pg MCHC 31.6 L (32-36) g/dl RDW 18.3 H (11.5-14.5) % Plt Count 257 (150-375) k/mm3 MPV 8.3 (7.4-10.4) fl Immature Gran % (Auto) 0.8 H (0-0.5) % Neut % (Auto) 85.3 H (45.5-73.1) % Lymph % (Auto) 6.9 L (18.3-44.2) % [place] % (Auto) 5.6 (2.6-8.5) % Eos % (Auto) 0.9 (0-4.4) % Baso % (Auto) 0.5 (0.2-1.2) % Lymph # (Auto) 0.63 L (0.9-3.2) K/mm3 [place] # (Auto) 0.5 (0.1-0.6) K/mm3 Eos # (Auto) 0.1 (0-0.3) K/mm3 Baso # (Auto) 0.1 (0.0-0.1) K/mm3 Abs Immat Gran (auto) 0.07 H (0.00-0.031) K/mm3 Absolute Neuts (auto) 7.8 H (1.3-6.7) K/mm3 Absolute Nucleated RBC 0.000 (0.0-0.012) K/mm3 Nucleated RBC % 0.0 (0.0-0.2) % PT 19.9 H (11.1-14.7) Seconds INR 1.7 APTT 58.0 H (22.3-36.8) Seconds Sodium 134 L (137-145) mmol/L Potassium 3.4 (3.4-5.0) mmol/L Chloride 101 (98-107) mmol/L Carbon Dioxide 28 (22-30) mmol/L Anion Gap 5 (4-12) mmol/L BUN 14 (9-20) mg/dL Creatinine 0.53 L (0.7-1.3) mg/dL Estim Creat Clear Calc 128 ml/min Estimated GFR > 60 (59 - ) Glucose 95 (65-110) mg/dL Lactic Acid 1.8 (0.7-2.0) mmol/L Calcium 8.4 (8.4-10.2) mg/dL Phosphorus 2.5 (2.5-4.5) mg/dL Magnesium 1.8 (1.6-2.3) mg/dL Total Bilirubin 1.6 H (0.2-1.3) mg/dL AST 92 H (17-59) U/L ALT 30 (6-50) U/L Alkaline Phosphatase 670 H (38-126) U/L Total Protein 6.7 (6.3-8.2) g/dL Albumin 2.9 L (3.5-5.1) g/dL Lipase 87 (23-300) U/L Influenza A (RT-PCR) Negative (Negative) Influenza B (RT-PCR) Negative (Negative) RSV (RT-PCR) Negative (Negative) SARS-CoV-2 RNA (RT-PCR) Negative (Negative) Discharge Plan Discharge Clinical Impression: Chronic pain, Ascites, Metastatic cancer Patient Disposition: Still a Patient Condition: Stable Patient Language: Arabic Prescriptions: No Action gabapentin 300 mg capsule 300 mg PO HS Patient Comments: .. morphine 15 mg tablet extended release 15 mg PO Q12H Patient Comments: at 08 and 20. ondansetron HCl 4 mg tablet 4 mg PO Q6H PRN (Reason: nausea and vomiting) Qty: 30 2RF oxycodone 5 mg tablet 5 mg PO Q6H PRN (Reason: pain) Qty: 10 0RF simethicone 125 mg capsule 125 mg PO QID Qty: 20 0RF Rx Instructions: administer after meals and at bedtime metformin 1,000 mg tablet 1,000 mg PO BID Qty: 180 1RF atorvastatin 40 mg tablet 40 mg PO DAILY Qty: 90 1RF Patient Comments: . pantoprazole 40 mg tablet,delayed release (DR/EC) 40 mg PO QAM Qty: 90 1RF glimepiride 2 mg tablet 4 mg PO BID Qty: 360 0RF Patient Comments: . lisinopril 20 mg tablet 20 mg PO DAILY Qty: 90 1RF Patient Comments: . Eliquis 5 mg tablet 5 mg PO BID Qty: 180 0RF Patient Comments: . Follow-up/Referrals: Kelsey Sherwood APRN [Primary Care Provider, Family Practice]
[2025-06-18] MEDS: HYDROmorphone HCL INJ (*CRX) 1 MG/ML SYR IV PUSH (22:05)
[2025-06-18] MEDS: LACTATED RINGERS 1,000 ML 999 ML IV CONT (22:05)
[2025-06-18 22:14] LABS: Hematocrit 33.2 % (42.0-52.0); Hemoglobin 10.5 g/dL (14.0-18.0); Immature Granulocyte Percent A 0.8 % (0-0.5); Lymphocytes Absolute Auto 0.63 K/mm3 (0.9-3.2); Mean Corpuscular HGB Conc 31.6 g/dl (32-36); Mean Corpuscular Hemoglobin 25.7 pg (26-34); Mean Corpuscular Volume 81.2 fl (80-100); Nucleated Red Blood Cells Absolute Auto 0.000 K/mm3 (0.0-0.012); Nucleated Red Blood Cells Perc 0.0 % (0.0-0.2); Platelet Count Result 257 k/mm3 (150-375); Red Blood Count 4.09 M/mm3 (4.6-6.20); White Blood Count 9.1 K/mm3 (4.5-10.0)
[2025-06-18 22:23] LABS: Alanine Aminotransferase 30 U/L (6-50); Albumin Level 2.9 g/dL (3.5-5.1); Alkaline Phosphatase 670 U/L (38-126); Anion Gap 5 mmol/L (4-12); Aspartate Amino Transferase 92 U/L (17-59); Bilirubin,Total 1.6 mg/dL (0.2-1.3); Blood Urea Nitrogen 14 mg/dL (9-20); Calcium 8.4 mg/dL (8.4-10.2); Carbon Dioxide 28 mmol/L (22-30); Chloride 101 mmol/L (98-107); Estimated CRCL calculation 128 ml/min; Estimated Glomerular Filt Rate > 60; Glucose 95 mg/dL (65-110); Lipase 87 U/L (23-300); Magnesium 1.8 mg/dL (1.6-2.3); Potassium 3.4 mmol/L (3.4-5.0); Sodium 134 mmol/L (137-145); Total Protein 6.7 g/dL (6.3-8.2)
[2025-06-18 22:25] LABS: INR 1.7; Prothrombin Time 19.9 Seconds (11.1-14.7)
[2025-06-18 22:26] LABS: Partial Thromboplastin Time 58.0 Seconds (22.3-36.8)
[2025-06-18 22:50] LABS: Influenza A QL RT-PCR Negative (Negative); Influenza B QL RT-PCR Negative (Negative); RSV RNA, RT-PCR Negative (Negative); SARS-CoV-2 RNA PCR Negative (Negative)
[2025-06-19] VITALS (24 sets, daily range): BP systolic 125–147; BP diastolic 85–98; PULSE 79–106; RESP 11–29; TEMP 36.3–36.7; O2SAT 90–100; BMI 23.9
[2025-06-19] MEDS: cefTRIAXone 2 GM in SODIUM CHLORIDE 0.9% IV 50 ML 100 ML IVPB (04:33)
--- NOTE | 2025-06-19 04:37 | WPCEDHO ---
ED Hand Off Checklist All vitals saved: Yes IV Site documented: Yes All med administrations documented: Yes Triage Note Triage Note pt ambulatory to ED with c/o 06/18/25 20:09 multiple falls since . pt visitor states he was face down on the floor one time and then on his back in the living room. pt has bruise on the back. pt visitor said pt was in bed all and whenever he got up he would fall. pt is on morphine and oxycodone for stage 4 liver and lung cancer. pt states he is dizzy and n/v. Allergies Penicillins Allergy (Unknown, Verified 06/03/25 08:42) Unknown Family History (Last Reviewed 06/18/25 @ 22:03 by Tutu Ritchie MD) Mother Hypertension Family history of chronic obstructive pulmonary disease Family history of diabetes mellitus in first degree relative Father Hypertension Family history of malignant neoplasm Family history of diabetes mellitus in first degree relative Grandparent Family history of cardiovascular disease Family history of diabetes mellitus in first degree relative Active Medications including assessments/comments Ceftriaxone Sodium 2 gm/ (Sodium Chloride) 50 mls @ 100 mls/hr IVPB ONCE STA Stop: 06/19/25 04:49 Last Admin: 06/19/25 04:33 Dose: 100 mls/hr Documented By: LUCIA Infusion/Titration Document 06/19/25 04:33 LUCIA (Rec: 06/19/25 04:33 LUCIA [id number]) Intake IV Site Peripheral Access Left Forearm Container Volume 50 Waste Amount 0 Dosing Infusion Rate 100 Increase/Decrease Started Elapsed Time Elapsed Time ( 0m minutes) Administered/Completed Medications Discontinued Medications Hydromorphone HCl (Hydromorphone Hcl Inj (*Crx) 1 Mg/Ml Syr) 1 mg IV PUSH ONCE STA Stop: 06/18/25 21:38 Last Admin: 06/18/25 22:05 Dose: 1 mg Documented By: LUCIA Lactated Ringer's (Lr - Lactated Ringers Iv) 1,000 mls @ 999 mls/hr IV CONT .Q1H1M STA Stop: 06/18/25 22:39 Last Infusion: 06/18/25 23:20 Dose: Infused Documented By: Admin: 06/18/25 22:05 Dose: 999 mls/hr Documented By: LUCIA Interventions/Assessments IV / Saline Lock, Insert Start: 06/18/25 22:05 Freq: Status: Active Protocol: Document 06/18/25 22:05 DJW (Rec: 06/18/25 22:05 DJW [id number]) IV Assessment Peripheral Access Left Forearm IV Catheter Access Initiated IV Insertion Date 06/18/25 IV Insertion Time 22:05 Catheter Gauge 18 IV Insertion 1 Attempts IV Site Assessment WNL IV Care and WNL Maintenance IV Line Assessment Start: 06/18/25 20:06 Freq: Status: Active Protocol: Document 06/19/25 04:34 DJW (Rec: 06/19/25 04:34 DJW [id number]) IV Assessment Peripheral Access Left Antecubital IV Catheter Access Initiated IV Insertion Date 06/19/25 IV Insertion Time 04:34 Catheter Gauge 18 IV Insertion 1 Attempts IV Site Assessment WNL IV Care and WNL Maintenance Last Vital Signs Temperature 98.4 F 06/18/25 20:09 Pulse Rate 89 06/19/25 04:16 Respiratory Rate 18 06/19/25 04:16 Pulse Oximetry 98 06/19/25 04:16 Blood Pressure 138/93 H 06/19/25 04:15 Blood Pressure Mean 106 06/19/25 04:15 Blood Pressure Position Supine 06/18/25 22:30 Oxygen Delivery Room Air 06/18/25 20:09 Weight 74.7 kg 06/18/25 20:09 Last Result - Abnormals Only RBC 4.09 M/mm3 (4.6-6.20) L 06/18/25 22:05 Hgb 10.5 g/dL (14.0-18.0) L 06/18/25 22:05 Hct 33.2 % (42.0-52.0) L 06/18/25 22:05 MCH 25.7 pg (26-34) L 06/18/25 22:05 MCHC 31.6 g/dl (32-36) L 06/18/25 22:05 RDW 18.3 % (11.5-14.5) H 06/18/25 22:05 Immature Gran % (Auto) 0.8 % (0-0.5) H 06/18/25 22:05 Neut % (Auto) 85.3 % (45.5-73.1) H 06/18/25 22:05 Lymph % (Auto) 6.9 % (18.3-44.2) L 06/18/25 22:05 Lymph # (Auto) 0.63 K/mm3 (0.9-3.2) L 06/18/25 22:05 Abs Immat Gran (auto) 0.07 K/mm3 (0.00-0.031) H 06/18/25 22:05 Absolute Neuts (auto) 7.8 K/mm3 (1.3-6.7) H 06/18/25 22:05 PT 19.9 Seconds (11.1-14.7) H 06/18/25 22:05 APTT 58.0 Seconds (22.3-36.8) H 06/18/25 22:05 Sodium 134 mmol/L (137-145) L 06/18/25 22:05 Creatinine 0.53 mg/dL (0.7-1.3) L 06/18/25 22:05 Total Bilirubin 1.6 mg/dL (0.2-1.3) H 06/18/25 22:05 AST 92 U/L (17-59) H 06/18/25 22:05 Alkaline Phosphatase 670 U/L (38-126) H 06/18/25 22:05 Albumin 2.9 g/dL (3.5-5.1) L 06/18/25 22:05 Most Recent Suicide Severity Rating Suicide Severity Rating NO RISK INDICATED 06/18/25 20:09
--- NOTE | 2025-06-19 05:49 | ADMGEN ---
This patient, Dave Maier, was admitted to Medical Room 348-01. Patient/family oriented to hospital policies and general routines including ID bracelet, bed and alarms, visiting hours, pain management, procedures, bathroom and other care routines, personal items, smoking policy, room service/diet, and visiting hours. Information on how to activate the Rapid Response Team has been discussed. Patient/Family are encouraged to report perceived risks to care and to ask questions if they do not understand what they are told or what they should do.
--- NOTE | 2025-06-19 06:54 | PM.IMHP ---
H&P: HPI History of Present Illness Date/Time: 06/19/25 06:54 Chief Complaint: Generalized pain, multiple falls recently Narrative: 60-year-old male with stage IV metastatic colon cancer on palliative chemotherapy, patient of Dr. Dias. Presenting for pain. He has chronic pain, takes opioids, dependent. Has had multiple falls recently with generalized weakness. He has fallen and hit his ribs, back, head. No loss of conscious. He is on Eliquis. Ran out of his oxycodone. Denies chest pain, fever, diarrhea, vomiting. CT head no acute findings. CT chest with metastatic pulmonary nodules in the lungs with small left pleural effusion, CT abdomen pelvis showing diffuse liver metastasis, surgical clips in the upper abdomen, moderate to large free fluid in the abdomen pelvis, suture material in the sigmoid colon. CT C-spine no acute findings. Abdomen distended. Pain to palpation, greater on the right side. Patient reports this might be his usual cancer pain but is not sure. No fever. WBC 9.1, hemoglobin 10.5, INR 1.7, total bilirubin 0.6 which is less than it was in May. Lipase 87. Also has history diabetes, hypertension, GERD, hyperlipidemia. He cannot tell me why he is on a blood thinner. Review of Systems Review of Systems: All systems reviewed & are unremarkable except as noted in HPI and below (Subjective) [facility] Past Medical History Medical History Liver nodule Metastatic disease Pulmonary nodule Hypertension Abnormal colonoscopy Hydronephrosis Hyperlipidemia Type 2 diabetes mellitus without complications Surgical History Surgical History H/O colonoscopy 01/31/21 H/O esophagogastroduodenoscopy 01/31/21 S/P left colectomy S/P cystoscopy with ureteral stent placement 01/31/21 Family History Family History Mother Hypertension Family history of chronic obstructive pulmonary disease Family history of diabetes mellitus in first degree relative Father Hypertension Family history of malignant neoplasm Family history of diabetes mellitus in first degree relative Grandparent Family history of cardiovascular disease Family history of diabetes mellitus in first degree relative Social History Social History Smoking status: Never smoker Second hand tobacco smoke exposure: No Alcohol intake: former Alcohol use details: QUIT 15 YRS AGO Substance use: never Substance use type: does not use Do You Feel Safe in your Home?: Yes Lack of Transportation: No Lack of Food: Never True Current Housing: I Have Housing Concerned About Future Housing: No Difficulty Paying Gas/Electric Bills: No Difficulty Paying for Meds: No Currently Unemployed: No Education: High School Diploma/GED Difficulty w/ Childcare or Family Care: No Living arrangements: alone Occupation/Education: occupation Gender identity (if verbalized by the patient): Male Spiritual care concerns: No Agree to blood products: No Meds Home Medications and Allergies Home Medications ?Medication ?Instructions ?Recorded ?Confirmed ?Type gabapentin 300 mg capsule 300 mg PO HS 09/29/24 06/19/25 History oxycodone 5 mg tablet 5 mg PO Q6H PRN pain #10 tabs 01/31/25 06/19/25 Rx atorvastatin 40 mg tablet 40 mg PO DAILY #90 tabs 02/24/25 06/19/25 Rx metformin 1,000 mg tablet 1,000 mg PO BID #180 tabs 02/24/25 06/19/25 Rx pantoprazole 40 mg tablet,delayed 40 mg PO QAM #90 tabs 03/15/25 06/19/25 Rx release simethicone 125 mg capsule 125 mg PO QID abdominal distention 04/04/25 06/19/25 Rx #20 caps glimepiride 2 mg tablet 4 mg (2 x 2 mg) PO BID #360 tabs 04/28/25 06/19/25 Rx lisinopril 20 mg tablet 20 mg PO DAILY #90 tabs 05/12/25 06/19/25 Rx apixaban 5 mg tablet (Eliquis) 5 mg PO BID #180 tabs 05/31/25 06/19/25 Rx morphine 15 mg tablet,extended 30 mg PO Q12H 06/03/25 06/19/25 History release ondansetron HCl 4 mg tablet 8 mg PO Q8H PRN nausea and vomiting 06/19/25 06/19/25 History oxycodone 10 mg tablet 10 mg PO Q6H PRN pain 06/19/25 06/19/25 History trifluridine 15 mg-tipiracil 6.14 3 tablet PO .bid 06/19/25 06/19/25 History mg tablet (Lons[place]f) trifluridine 20 mg-tipiracil 8.19 2 tablet PO .bid 06/19/25 06/19/25 History mg tablet (Lonsurf) zolpidem 12.5 mg tablet,extended 12.5 mg PO QHS PRN insomnia 06/19/25 06/19/25 History release,multiphase Allergies Allergy/AdvReac Type Severity Reaction Status Date / Time Penicillins Allergy Unknown Unknown Verified 06/19/25 05:54 Vital Signs Vital Signs - 24 hr 06/18/25 20:09 06/18/25 20:30 06/18/25 20:45 Temperature 98.4 F Pulse Rate 101 H 90 98 Respiratory Rate 21 H 18 16 Blood Pressure 153/86 H 144/87 H 139/93 H Pulse Oximetry 99 96 92 Oxygen Delivery Room Air 06/18/25 21:00 06/18/25 21:15 06/18/25 21:30 Temperature Pulse Rate 96 88 92 Respiratory Rate 20 18 18 Blood Pressure 138/101 H 142/100 H 147/93 H Pulse Oximetry 98 94 95 Oxygen Delivery 06/18/25 21:45 06/18/25 22:00 06/18/25 22:15 Temperature Pulse Rate 95 102 H 99 Respiratory Rate 20 24 H 25 H Blood Pressure 145/97 H 151/102 H 144/95 H Pulse Oximetry 96 97 95 Oxygen Delivery 06/18/25 22:30 06/19/25 00:06 06/19/25 00:15 Temperature Pulse Rate 90 89 93 Respiratory Rate 24 H 21 H 24 H Blood Pressure 144/99 H Pulse Oximetry 95 93 95 Oxygen Delivery 06/19/25 00:30 06/19/25 00:45 06/19/25 01:00 Temperature Pulse Rate 96 86 106 H Respiratory Rate 18 18 17 Blood Pressure Pulse Oximetry 98 97 94 Oxygen Delivery 06/19/25 01:15 06/19/25 01:30 06/19/25 01:45 Temperature Pulse Rate 105 H 95 92 Respiratory Rate 14 13 15 Blood Pressure Pulse Oximetry 94 98 93 Oxygen Delivery 06/19/25 02:05 06/19/25 02:15 06/19/25 02:30 Temperature Pulse Rate 90 80 79 Respiratory Rate 24 H 15 11 L Blood Pressure Pulse Oximetry 90 95 96 Oxygen Delivery 06/19/25 02:45 06/19/25 03:00 06/19/25 03:15 Temperature Pulse Rate 89 100 90 Respiratory Rate 18 18 16 Blood Pressure Pulse Oximetry 98 98 97 Oxygen Delivery 06/19/25 03:30 06/19/25 03:45 06/19/25 04:00 Temperature Pulse Rate 96 86 99 Respiratory Rate 29 H 20 15 Blood Pressure Pulse Oximetry 98 95 98 Oxygen Delivery 06/19/25 04:12 06/19/25 04:15 06/19/25 04:16 Temperature Pulse Rate 92 87 89 Respiratory Rate 19 17 18 Blood Pressure 138/98 H 138/93 H Pulse Oximetry 97 96 98 Oxygen Delivery 06/19/25 05:21 06/19/25 05:35 Temperature 97.3 F L Pulse Rate 85 86 Respiratory Rate 16 18 Blood Pressure 147/85 H 128/86 Pulse Oximetry 98 100 Oxygen Delivery Exam Const: General: comfortable and uncomfortable HENMT: Mouth: Yes moist mucous membranes Eyes: Pupils: Equal, round and reactive pupils present Neck: Neck: supple Resp: Effort & Inspection: normal respiratory effort Auscultation: clear to auscultation bilaterally Cardio: Rate: regular rate Rhythm: regular rhythm GI: Inspection: distended GI Palp: Yes Soft to palpation and Yes Tenderness to palpation present (GI) Neuro: Motor exam (neuro): 5/5 motor strength present throughout Extrem: General: no edema H&P: Results Labs Labs: Short CBC 06/18/25 Range/Units 22:05 WBC 9.1 (4.5-10.0) K/mm3 Hgb 10.5 L (14.0-18.0) g/dL Hct 33.2 L (42.0-52.0) % Plt Count 257 (150-375) k/mm3 BMP 06/18/25 22:05 Sodium 134 L Potassium 3.4 Chloride 101 Carbon Dioxide 28 BUN 14 Creatinine 0.53 L Glucose 95 Calcium 8.4 Liver Function 06/18/25 Range/Units 22:05 Total Bilirubin 1.6 H (0.2-1.3) mg/dL AST 92 H (17-59) U/L ALT 30 (6-50) U/L Alkaline Phosphatase 670 H (38-126) U/L Albumin 2.9 L (3.5-5.1) g/dL Assessment and Plan Assessment and plan (1) Ascites: Code(s): R18.8 - Other ascites Status: Acute (2) Abdominal pain: Qualifiers: Abdominal location: right upper quadrant Qualified Code(s): R10.11 - Right upper quadrant pain Code(s): R10.9 - Unspecified abdominal pain Status: Acute (3) Weakness: Code(s): R53.1 - Weakness Status: Acute Plan Paracentesis ordered. Hold apixaban. Continue ceftriaxone. Hold PPI. Resume DIVER'S TENDER pain control. Oncology consultation. Weakness, and falls. No acute fractures. PT/OT. Accu-Alan sarmientocChris HS Patient wishes to be DNR. SCDs. Hospitalist [place] Advance Care Plan I have confirmed that the patient's Advanced Care Plan is present, code status is documented, or surrogate decision maker is listed in patient medical record.: Yes Medication Reconciliation I have utilized all available resources to obtain, update and review the patients current medications (includes all prescriptions, OTC, herbals, cannabis, and nutritional supplements).: Yes
--- NOTE | 2025-06-19 07:26 | P.PNIM_ITS ---
Progress Note: A&P Assessment and Plan (1) Ascites: Code(s): R18.8 - Other ascites Status: Acute Assessment and Plan: Paracentesis ordered. Hold apixaban. Continue ceftriaxone. Hold PPI. Resume [employer] pain control. Oncology consultation. 06/19: Paracentesis on x2 day hold due to pt taking apixaban on 06/18, pt does not remember if he took the AM or PM dose that day, planned for tomorrow. -Onc consult today: urrently receiving Lonsurf and Avastin. Now with disease progression. Awaiting final determination as to whether patient is a candidate for a clinical trial through [facility]. (2) Abdominal pain: Qualifiers: Abdominal location: right upper quadrant Qualified Code(s): R10.11 - Right upper quadrant pain Code(s): R10.9 - Unspecified abdominal pain Status: Acute Assessment and Plan: See above. (3) Weakness: Code(s): R53.1 - Weakness Status: Acute Assessment and Plan: No acute fractures. PT/OT. (4) Type 2 diabetes mellitus without complications: Code(s): E11.9 - Type 2 diabetes mellitus without complications Status: Acute Assessment and Plan: Accu-Cheks a.c. HS 06/19: FBS 95 -Pt with hypoglycemia episode today and was feeling weak, self corrected with OJ x3. -May be the cause of recent falls? Will continue to monitor --Continue to hold glimepiride & metformin Plan Patient wishes to be DNR. SCDs. Pending paracentesis with counts pending Time Spent With Patient Time: 35 Subjective Date/time seen: 06/19/25 0855 Interval history: Pt sitting up in bed eating upon my arrival. Denies abnormal CA pain now that he is on his normal Oxy 10 IR. +abd pain today but tolerable with meds. Review of Systems Review of Systems: All systems reviewed & are unremarkable except as noted in HPI and below (Subjective) Exam Const: General: comfortable and uncomfortable HENMT: Mouth: Yes moist mucous membranes Eyes: Pupils: Equal, round and reactive pupils present Neck: Neck: supple Resp: Effort & Inspection: normal respiratory effort Auscultation: clear to auscultation bilaterally Cardio: Rate: regular rate Rhythm: regular rhythm GI: Inspection: distended GI Palp: Yes abdominal tenderness Skin: General skin exam: normal color and no rashes or lesions noted Neuro: Cranial nerves: Yes Equal, round and reactive pupils present Motor exam (neuro): Normal motor muscle tone present throughout Sensory Exam: normal sensation Extrem: General: no edema Psych: Mental Status: mental status grossly normal Affect: Blunted affect present Objective Data Vital Signs Vital Signs: Vital Signs - 24 hr 06/18/25 20:09 06/18/25 20:30 06/18/25 20:45 Temperature 98.4 F Pulse Rate 101 H 90 98 Respiratory Rate 21 H 18 16 Blood Pressure 153/86 H 144/87 H 139/93 H Pulse Oximetry 99 96 92 Oxygen Delivery Room Air 06/18/25 21:00 06/18/25 21:15 06/18/25 21:30 Temperature Pulse Rate 96 88 92 Respiratory Rate 20 18 18 Blood Pressure 138/101 H 142/100 H 147/93 H Pulse Oximetry 98 94 95 Oxygen Delivery 06/18/25 21:45 06/18/25 22:00 06/18/25 22:15 Temperature Pulse Rate 95 102 H 99 Respiratory Rate 20 24 H 25 H Blood Pressure 145/97 H 151/102 H 144/95 H Pulse Oximetry 96 97 95 Oxygen Delivery 06/18/25 22:30 06/19/25 00:06 06/19/25 00:15 Temperature Pulse Rate 90 89 93 Respiratory Rate 24 H 21 H 24 H Blood Pressure 144/99 H Pulse Oximetry 95 93 95 Oxygen Delivery 06/19/25 00:30 06/19/25 00:45 06/19/25 01:00 Temperature Pulse Rate 96 86 106 H Respiratory Rate 18 18 17 Blood Pressure Pulse Oximetry 98 97 94 Oxygen Delivery 06/19/25 01:15 06/19/25 01:30 06/19/25 01:45 Temperature Pulse Rate 105 H 95 92 Respiratory Rate 14 13 15 Blood Pressure Pulse Oximetry 94 98 93 Oxygen Delivery 06/19/25 02:05 06/19/25 02:15 06/19/25 02:30 Temperature Pulse Rate 90 80 79 Respiratory Rate 24 H 15 11 L Blood Pressure Pulse Oximetry 90 95 96 Oxygen Delivery 06/19/25 02:45 06/19/25 03:00 06/19/25 03:15 Temperature Pulse Rate 89 100 90 Respiratory Rate 18 18 16 Blood Pressure Pulse Oximetry 98 98 97 Oxygen Delivery 06/19/25 03:30 06/19/25 03:45 06/19/25 04:00 Temperature Pulse Rate 96 86 99 Respiratory Rate 29 H 20 15 Blood Pressure Pulse Oximetry 98 95 98 Oxygen Delivery 06/19/25 04:12 06/19/25 04:15 06/19/25 04:16 Temperature Pulse Rate 92 87 89 Respiratory Rate 19 17 18 Blood Pressure 138/98 H 138/93 H Pulse Oximetry 97 96 98 Oxygen Delivery 06/19/25 05:21 06/19/25 05:35 Temperature 97.3 F L Pulse Rate 85 86 Respiratory Rate 16 18 Blood Pressure 147/85 H 128/86 Pulse Oximetry 98 100 Oxygen Delivery Intake/Output Intake/Output: Intake & Output 06/16/25 06/17/25 06/18/25 06/19/25 23:59 23:59 23:59 23:59 Intake Total 1000 50 Balance 1000 50 Meds/Results Medications: Active Medications Generic Name Dose Route Start Last Admin Trade Name Freq PRN Reason Stop Dose Admin Atorvastatin Calcium 40 mg 06/19/25 09:00 Atorvastatin 40 Mg Tablet PO DAILY WAYNE Dextrose 12.5 gm 06/19/25 06:51 Dextrose 50% 25 Gm/50 Ml Syringe IV PUSH PRN PRN Hypoglycemia Protocol Gabapentin 300 mg 06/19/25 21:00 Gabapentin 300 Mg Capsule PO HS WAYNE Glucose 15 gm 06/19/25 06:51 Glucose Oral Gel 15 Gm Of Glucse In 37.5 Gm Tube PO PRN PRN Hypoglycemia Protocol Ceftriaxone Sodium 2 gm/ 50 mls @ 100 mls/hr 06/20/25 05:00 Sodium Chloride IVPB Q24H WAYNE Dextrose 1,000 mls @ 100 mls/hr 06/19/25 06:51 Dextrose 5% 1,000 Ml IVPB PRN PRN Hypoglycemia Protocol Insulin Aspart 2 - 5 units 06/19/25 08:00 Insulin Aspart (*Bkc) 100 Units/Ml SUB-Q TIDWM WAYNE Protocol Insulin Aspart 1 - 2 units 06/19/25 21:00 Insulin Aspart (*Bkc) 100 Units/Ml SUB-Q HS WAYNE Protocol Morphine Sulfate 30 mg 06/19/25 09:00 Morphine Sulfate (*Crx) 30 Mg Tabcr PO Q12HR WAYNE Oxycodone HCl 10 mg 06/19/25 06:49 Oxycodone Hcl (*Crx) 5 Mg Tab Ir PO Q6H PRN Pain Rated 7-10 Labs Labs: Laboratory Results - last 24 hr 06/18/25 22:05 WBC 9.1 RBC 4.09 L Hgb 10.5 L Hct 33.2 L MCV 81.2 MCH 25.7 L MCHC 31.6 L RDW 18.3 H Plt Count 257 MPV 8.3 Immature Gran % (Auto) 0.8 H Neut % (Auto) 85.3 H Lymph % (Auto) 6.9 L [place] % (Auto) 5.6 Eos % (Auto) 0.9 Baso % (Auto) 0.5 Lymph # (Auto) 0.63 L [place] # (Auto) 0.5 Eos # (Auto) 0.1 Baso # (Auto) 0.1 Abs Immat Gran (auto) 0.07 H Absolute Neuts (auto) 7.8 H Absolute Nucleated RBC 0.000 Nucleated RBC % 0.0 PT 19.9 H INR 1.7 APTT 58.0 H Sodium 134 L Potassium 3.4 Chloride 101 Carbon Dioxide 28 Anion Gap 5 BUN 14 Creatinine 0.53 L Estim Creat Clear Calc 128 Estimated GFR > 60 Glucose 95 Lactic Acid 1.8 Calcium 8.4 Phosphorus 2.5 Magnesium 1.8 Total Bilirubin 1.6 H AST 92 H ALT 30 Alkaline Phosphatase 670 H Total Protein 6.7 Albumin 2.9 L Lipase 87 Influenza A (RT-PCR) Negative Influenza B (RT-PCR) Negative RSV (RT-PCR) Negative SARS-CoV-2 RNA (RT-PCR) Negative Quality VTE Prophylaxis VTE prophylaxis: mechanical ordered
[2025-06-19] MEDS: MORPHINE SULFATE (*CRX) 30 MG TABCR PO ×2 (07:58→20:27)
[2025-06-19 08:10] LABS: Albumin Level 2.8 g/dL (3.5-5.1)
--- NOTE | 2025-06-19 09:23 | WPDONCCN ---
Assessment and Plan Assessment and plan (1) Ascites: Qualifiers: Ascites type: malignant Qualified Code(s): R18.0 - Malignant ascites Code(s): R18.8 - Other ascites Status: Acute Assessment and Plan: Suspect malignant. Paracentesis scheduled for 06/20/25. (2) Abdominal pain: Qualifiers: Abdominal location: right upper quadrant Qualified Code(s): R10.11 - Right upper quadrant pain Code(s): R10.9 - Unspecified abdominal pain Status: Acute Assessment and Plan: Due to known liver masses as well as generally uncomfortable from ascites. Restart pain meds. Paracentesis planned. (3) Weakness: Code(s): R53.1 - Weakness Status: Acute (4) Metastatic colon cancer to liver: Code(s): C18.9 - Malignant neoplasm of colon, unspecified; C78.7 - Secondary malignant neoplasm of liver and intrahepatic bile duct Status: Acute Assessment and Plan: Currently receiving Lonsurf and Avastin. Now with disease progression. Awaiting final determination as to whether patient is a candidate for a clinical trial through [facility]. Plan Paracentesis. Oxycodone Await final determination by [facility] concerning clinical trial participation HPI Data of Consult Date/Time: 06/19/25 09:23 Requesting Physician: Albina Ham MD Primary Care Provider: Kelsey Sherwood APRN Consult Narrative Narrative: Dave Maier is a 60 year old male known to Dr. Disa with metastatic colon cancer and now admitted with RUQ abdominal pain. He ran out of his oxycodone. He has ascites and is scheduled for a paracentesis tomorrow. Over the past couple of week, he has had hiccups. Thorazine has not helped much. He reports having fallen 4 times on his back in one day due to weakness (last ); he did not lose consciousness. The patient is on Eliquis. He is having no fever, chills, SOB or CP. NO N/V. Abdomen has be getting more distended and generally uncomfortably. No dysuria. The patient reports that he was seen at the [facility] yesterday. They are looking into whether the patient is a candidate for a clinical trial. Treatment history: Stage II colon cancer. S/P (L) hemicolectomy Palliative chemotherapy with FOLFOX + Avastin x 12 (07/15/23-01/12/24) Stage IV dx via liver bx 06/25/23 Y90 radioembolization of right hepatic artery 04/09/24 Maintenance 5FU/leucovorin begun 02/23/24, then d/c'd FOLFIRI + Avastin x 12 (06/02/24-12/07/24) Maintenance 5FU/leucovorin + Avastin (02/14/25-03/28/25); d/c'd due to progression of disease Lonsurf + q 2 week Avastin begun 06/03/25. Labs: (06/18/25): WBC 9.1, Hct 10.5, Hct 33.2, Plt 257, BUN 14, crea 0.53, total bili 1.6, AST 92, ALT 30, AP 670. PT 19.9, INR 1.7, PTT 58 CT abd/pelvis (06/19/25): 1. Worsened pulmonary nodules, consistent with metastatic disease. 2. Worsened small left pleural effusion. 3. Worsened small pericardial effusion. 4. Worsened liver masses, consistent metastatic disease. 5. Portal venous hypertension. 6. Worsened large volume of ascites. 7. Wall thickening of the ascending and transverse colon, probably interstitial edema. CT head (06/19/25): 1. Normal brain. CT cervical spine (06/19/25); 1. No fracture. 2. Mild cervical spondylosis. 3. Pulmonary nodules, consistent with metastatic disease. Review of Systems Review of Systems: As above. [facility] Past Medical History Medical History Liver nodule Metastatic disease Pulmonary nodule Hypertension Abnormal colonoscopy Hydronephrosis Hyperlipidemia Type 2 diabetes mellitus without complications Surgical History Surgical History H/O colonoscopy 01/31/21 H/O esophagogastroduodenoscopy 01/31/21 S/P left colectomy S/P cystoscopy with ureteral stent placement 01/31/21 Family History Family History Mother Hypertension Family history of chronic obstructive pulmonary disease Family history of diabetes mellitus in first degree relative Father Hypertension Family history of malignant neoplasm Family history of diabetes mellitus in first degree relative Grandparent Family history of cardiovascular disease Family history of diabetes mellitus in first degree relative Social History Social History Smoking status: Never smoker Second hand tobacco smoke exposure: No Alcohol intake: former Alcohol use details: QUIT 15 YRS AGO Substance use: never Substance use type: does not use Do You Feel Safe in your Home?: Yes Lack of Transportation: No Lack of Food: Never True Current Housing: I Have Housing Concerned About Future Housing: No Difficulty Paying Gas/Electric Bills: No Difficulty Paying for Meds: No Currently Unemployed: No Education: High School Diploma/GED Difficulty w/ Childcare or Family Care: No Living arrangements: alone Occupation/Education: occupation Gender identity (if verbalized by the patient): Male Spiritual care concerns: No Agree to blood products: No Meds Home Medications and Allergies Home Medications ?Medication ?Instructions ?Recorded ?Confirmed ?Type gabapentin 300 mg capsule 300 mg PO HS 09/29/24 06/19/25 History oxycodone 5 mg tablet 5 mg PO Q6H PRN pain #10 tabs 01/31/25 06/19/25 Rx atorvastatin 40 mg tablet 40 mg PO DAILY #90 tabs 02/24/25 06/19/25 Rx metformin 1,000 mg tablet 1,000 mg PO BID #180 tabs 02/24/25 06/19/25 Rx pantoprazole 40 mg tablet,delayed 40 mg PO QAM #90 tabs 03/15/25 06/19/25 Rx release simethicone 125 mg capsule 125 mg PO QID abdominal distention 04/04/25 06/19/25 Rx #20 caps glimepiride 2 mg tablet 4 mg (2 x 2 mg) PO BID #360 tabs 04/28/25 06/19/25 Rx lisinopril 20 mg tablet 20 mg PO DAILY #90 tabs 05/12/25 06/19/25 Rx apixaban 5 mg tablet (Eliquis) 5 mg PO BID #180 tabs 05/31/25 06/19/25 Rx morphine 15 mg tablet,extended 30 mg PO Q12H 06/03/25 06/19/25 History release ondansetron HCl 4 mg tablet 8 mg PO Q8H PRN nausea and vomiting 06/19/25 06/19/25 History oxycodone 10 mg tablet 10 mg PO Q6H PRN pain 06/19/25 06/19/25 History trifluridine 15 mg-tipiracil 6.14 3 tablet PO .bid 06/19/25 06/19/25 History mg tablet (Lonsurf) trifluridine 20 mg-tipiracil 8.19 2 tablet PO .bid 06/19/25 06/19/25 History mg tablet (Lonsurf) zolpidem 12.5 mg tablet,extended 12.5 mg PO QHS PRN insomnia 06/19/25 06/19/25 History release,multiphase Allergies Allergy/AdvReac Type Severity Reaction Status Date / Time Penicillins Allergy Unknown Unknown Verified 06/19/25 05:54 Vital Signs Vital Signs - 24 hr 06/18/25 20:09 06/18/25 20:30 06/18/25 20:45 Temperature 36.9 C Pulse Rate 101 H 90 98 Respiratory Rate 21 H 18 16 Blood Pressure 153/86 H 144/87 H 139/93 H Pulse Oximetry 99 96 92 Oxygen Delivery Room Air 06/18/25 21:00 06/18/25 21:15 06/18/25 21:30 Temperature Pulse Rate 96 88 92 Respiratory Rate 20 18 18 Blood Pressure 138/101 H 142/100 H 147/93 H Pulse Oximetry 98 94 95 Oxygen Delivery 06/18/25 21:45 06/18/25 22:00 06/18/25 22:15 Temperature Pulse Rate 95 102 H 99 Respiratory Rate 20 24 H 25 H Blood Pressure 145/97 H 151/102 H 144/95 H Pulse Oximetry 96 97 95 Oxygen Delivery 06/18/25 22:30 06/19/25 00:06 06/19/25 00:15 Temperature Pulse Rate 90 89 93 Respiratory Rate 24 H 21 H 24 H Blood Pressure 144/99 H Pulse Oximetry 95 93 95 Oxygen Delivery 06/19/25 00:30 06/19/25 00:45 06/19/25 01:00 Temperature Pulse Rate 96 86 106 H Respiratory Rate 18 18 17 Blood Pressure Pulse Oximetry 98 97 94 Oxygen Delivery 06/19/25 01:15 06/19/25 01:30 06/19/25 01:45 Temperature Pulse Rate 105 H 95 92 Respiratory Rate 14 13 15 Blood Pressure Pulse Oximetry 94 98 93 Oxygen Delivery 06/19/25 02:05 06/19/25 02:15 06/19/25 02:30 Temperature Pulse Rate 90 80 79 Respiratory Rate 24 H 15 11 L Blood Pressure Pulse Oximetry 90 95 96 Oxygen Delivery 06/19/25 02:45 06/19/25 03:00 06/19/25 03:15 Temperature Pulse Rate 89 100 90 Respiratory Rate 18 18 16 Blood Pressure Pulse Oximetry 98 98 97 Oxygen Delivery 06/19/25 03:30 06/19/25 03:45 06/19/25 04:00 Temperature Pulse Rate 96 86 99 Respiratory Rate 29 H 20 15 Blood Pressure Pulse Oximetry 98 95 98 Oxygen Delivery 06/19/25 04:12 06/19/25 04:15 06/19/25 04:16 Temperature Pulse Rate 92 87 89 Respiratory Rate 19 17 18 Blood Pressure 138/98 H 138/93 H Pulse Oximetry 97 96 98 Oxygen Delivery 06/19/25 05:21 06/19/25 05:35 06/19/25 07:45 Temperature 36.3 C L Pulse Rate 85 86 Respiratory Rate 16 18 Blood Pressure 147/85 H 128/86 Pulse Oximetry 98 100 Oxygen Delivery Room Air Exam Const: Other: Ill appearing male HENMT: Other: No oral lesions Eyes: Other: Mildly icteric sclerae Resp: Other: Bilateral air entry Cardio: Other: RRR GI: Other: Distended abdomen. BS present. Fluid wave. Generalized tenderness. No rebound tenderness. No guarding. Skin: Other: NO rashes Neuro: Other: Aert and awake. Grossly nonfocal Extrem: Other: No edema Psych: Other: Affect normal. Results Labs 06/18/25 22:05 06/18/25 22:05 Labs: Short CBC 06/18/25 Range/Units 22:05 WBC 9.1 (4.5-10.0) K/mm3 Hgb 10.5 L (14.0-18.0) g/dL Hct 33.2 L (42.0-52.0) % Plt Count 257 (150-375) k/mm3 BMP 06/18/25 22:05 Sodium 134 L Potassium 3.4 Chloride 101 Carbon Dioxide 28 BUN 14 Creatinine 0.53 L Glucose 95 Calcium 8.4 Liver Function 06/18/25 06/19/25 Range/Units 22:05 07:56 Total Bilirubin 1.6 H (0.2-1.3) mg/dL AST 92 H (17-59) U/L ALT 30 (6-50) U/L Alkaline Phosphatase 670 H (38-126) U/L Albumin 2.9 L 2.8 L (3.5-5.1) g/dL
[2025-06-19] MEDS: PANTOPRAZOLE 40 MG TABLET PO (10:15)
[2025-06-19] MEDS: ONDANSETRON INJ 4 MG/2 ML VIAL IV PUSH (10:15)
[2025-06-19] MEDS: SIMETHICONE 125 MG CHEW TAB PO (10:19)
[2025-06-19] MEDS: INSULIN ASPART (*BKC) 100 UNITS/ML SUB-Q (12:21)
[2025-06-19] MEDS: oxyCODONE HCL (*CRX) 5 MG TAB IR 10 MG PO ×2 (14:02→20:30)
[2025-06-19] MEDS: GABAPENTIN 300 MG CAPSULE PO (20:27)
[2025-06-19] MEDS: ATORVASTATIN 40 MG TABLET PO (20:27)
[2025-06-20 05:00] LABS: Hematocrit 31.6 % (42.0-52.0); Hemoglobin 9.9 g/dL (14.0-18.0); Immature Granulocyte Percent A 0.5 % (0-0.5); Lymphocytes Absolute Auto 0.74 K/mm3 (0.9-3.2); Mean Corpuscular HGB Conc 31.3 g/dl (32-36); Mean Corpuscular Hemoglobin 26.2 pg (26-34); Mean Corpuscular Volume 83.6 fl (80-100); Nucleated Red Blood Cells Absolute Auto 0.000 K/mm3 (0.0-0.012); Nucleated Red Blood Cells Perc 0.0 % (0.0-0.2); Platelet Count Result 203 k/mm3 (150-375); Red Blood Count 3.78 M/mm3 (4.6-6.20); White Blood Count 6.3 K/mm3 (4.5-10.0)
[2025-06-20 05:21] LABS: Alanine Aminotransferase 23 U/L (6-50); Albumin Level 2.6 g/dL (3.5-5.1); Alkaline Phosphatase 578 U/L (38-126); Anion Gap 4 mmol/L (4-12); Aspartate Amino Transferase 66 U/L (17-59); Bilirubin,Total 1.5 mg/dL (0.2-1.3); Blood Urea Nitrogen 11 mg/dL (9-20); Calcium 8.3 mg/dL (8.4-10.2); Carbon Dioxide 31 mmol/L (22-30); Chloride 101 mmol/L (98-107); Estimated CRCL calculation 106 ml/min; Estimated Glomerular Filt Rate > 60; Glucose 68 mg/dL (65-110); Potassium 3.2 mmol/L (3.4-5.0); Sodium 136 mmol/L (137-145); Total Protein 6.1 g/dL (6.3-8.2)
[2025-06-20] MEDS: cefTRIAXone 2 GM in SODIUM CHLORIDE 0.9% IV 50 ML 100 ML IVPB (05:53)
[2025-06-20] MEDS: oxyCODONE HCL (*CRX) 5 MG TAB IR 10 MG PO ×2 (05:56→23:01)
[2025-06-20 06:00] VITALS: BP 121/83; PULSE 78; RESP 20; TEMP 36.5; O2SAT 95
--- NOTE | 2025-06-20 08:29 | PM.IMPN ---
Progress Note: A&P Assessment and Plan (1) Ascites: Qualifiers: Ascites type: malignant Qualified Code(s): R18.0 - Malignant ascites Code(s): R18.8 - Other ascites Status: Acute Assessment and Plan: Paracentesis ordered. Hold apixaban. Continue ceftriaxone. Hold PPI. Resume [employer] pain control. Oncology consultation. 06/19: Paracentesis on x2 day hold due to pt taking apixaban on 06/18, pt does not remember if he took the AM or PM dose that day, planned for tomorrow. -Onc consult today: Currently receiving Lonsurf and Avastin. Now with disease progression. Awaiting final determination as to whether patient is a candidate for a clinical trial through [facility]. 06/20: Paracentesis on x2 day hold due to pt taking apixaban on 06/18, pt does not remember if he took the AM or PM dose that day so planned for tomorrow per rads per nursing. (2) Abdominal pain: Qualifiers: Abdominal location: right upper quadrant Qualified Code(s): R10.11 - Right upper quadrant pain Code(s): R10.9 - Unspecified abdominal pain Status: Acute Assessment and Plan: See above. (3) Weakness: Code(s): R53.1 - Weakness Status: Acute Assessment and Plan: No acute fractures. PT/OT. (4) Type 2 diabetes mellitus without complications: Code(s): E11.9 - Type 2 diabetes mellitus without complications Status: Acute Assessment and Plan: Accu-Cheks a.c. HS 06/19: FBS 95 -Pt with hypoglycemia episode today and was feeling weak, self corrected with OJ x3. -May be the cause of recent falls? Will continue to monitor --Continue to hold glimepiride & metformin 08/20: FBS 70, asymptomatic -Discussed these low blood sugars with pt today, states that he sometimes feels light headed at home like his blood sugar is low. Will continue to monitor with potentially holding PO meds at discharge. (5) Hypokalemia: Code(s): E87.6 - Hypokalemia Status: Acute Assessment and Plan: 06/20: K 3.2 this AM -40meq PO x1 this AM, continue with daily labs. -Denies N/V/D, muscle cramping, fatigue, CP, SOB, or any other sx. Plan Patient wishes to be DNR. SCDs. Disposition: Pending paracentesis with counts pending Time Spent With Patient Time: 30 Subjective Date/time seen: 06/20/25 0940 Interval history: Pt sitting up in bed upon my arrival. Pt reports pain well controlled on home pain regimen. +abd pain today but tolerable with meds. Denies CP/SOB or any other sx. Review of Systems Review of Systems: All systems reviewed & are unremarkable except as noted in HPI and below (Subjective) Exam Const: General: comfortable and uncomfortable HENMT: Mouth: Yes moist mucous membranes Eyes: Pupils: Equal, round and reactive pupils present Neck: Neck: supple Resp: Effort & Inspection: normal respiratory effort Auscultation: clear to auscultation bilaterally Cardio: Rate: regular rate Rhythm: regular rhythm GI: Inspection: distended GI Palp: Yes abdominal tenderness Skin: General skin exam: normal color and no rashes or lesions noted Neuro: Cranial nerves: Yes Equal, round and reactive pupils present Motor exam (neuro): Normal motor muscle tone present throughout Sensory Exam: normal sensation Extrem: General: no edema Psych: Mental Status: mental status grossly normal Affect: Blunted affect present Objective Data Vital Signs Vital Signs: Vital Signs - 24 hr 06/19/25 14:00 06/19/25 20:00 06/19/25 21:53 Temperature 97.7 F 98.0 F Pulse Rate 81 84 Respiratory Rate 18 20 Blood Pressure 125/88 131/89 Pulse Oximetry 100 98 Oxygen Delivery Room Air 06/20/25 06:00 Temperature 97.7 F Pulse Rate 78 Respiratory Rate 20 Blood Pressure 121/83 Pulse Oximetry 95 Oxygen Delivery Intake/Output Intake/Output: Intake & Output 06/17/25 06/18/25 06/19/25 06/20/25 23:59 23:59 23:59 23:59 Intake Total 1000 890 50 Balance 1000 890 50 Meds/Results Medications: Active Medications Generic Name Dose Route Start Last Admin Trade Name Freq PRN Reason Stop Dose Admin Atorvastatin Calcium 40 mg 06/19/25 21:00 06/19/25 20:27 Atorvastatin 40 Mg Tablet PO 40 mg HS WAYNE Administration Dextrose 12.5 gm 06/19/25 06:51 Dextrose 50% 25 Gm/50 Ml Syringe IV PUSH PRN PRN Hypoglycemia Protocol Gabapentin 300 mg 06/19/25 21:00 06/19/25 20:27 Gabapentin 300 Mg Capsule PO 300 mg HS WAYNE Administration Glucose 15 gm 06/19/25 06:51 Glucose Oral Gel 15 Gm Of Glucse In 37.5 Gm Tube PO PRN PRN Hypoglycemia Protocol Ceftriaxone Sodium 2 gm/ 50 mls @ 100 mls/hr 06/20/25 05:00 06/20/25 05:53 Sodium Chloride IVPB 100 mls/hr Q24H WAYNE Administration Dextrose 1,000 mls @ 100 mls/hr 06/19/25 06:51 Dextrose 5% 1,000 Ml IVPB PRN PRN Hypoglycemia Protocol Insulin Aspart 2 - 5 units 06/19/25 08:00 06/19/25 17:35 Insulin Aspart (*Bkc) 100 Units/Ml SUB-Q Not Given TIDWM WAYNE Protocol Insulin Aspart 1 - 2 units 06/19/25 21:00 06/20/25 01:31 Insulin Aspart (*Bkc) 100 Units/Ml SUB-Q Not Given HS [facility] Protocol Morphine Sulfate 30 mg 06/19/25 09:00 06/19/25 20:27 Morphine Sulfate (*Crx) 30 Mg Tabcr PO 30 mg Q12HR WAYNE Administration Ondansetron HCl 4 mg 06/19/25 08:46 06/19/25 10:15 Ondansetron Inj 4 Mg/2 Ml Vial IV PUSH 4 mg Q4H PRN Administration Nausea And Vomiting Oxycodone HCl 10 mg 06/19/25 06:49 06/20/25 05:56 Oxycodone Hcl (*Crx) 5 Mg Tab Ir PO 10 mg Q6H PRN Administration Pain Rated 7-10 Pantoprazole Sodium 40 mg 06/19/25 09:00 06/19/25 10:15 Pantoprazole 40 Mg Tablet PO 40 mg QAM WAYNE Administration Simethicone 125 mg 06/19/25 09:00 06/19/25 20:27 Simethicone 125 Mg Chew Tab PO Not Given QID WAYNE Radiology Results: ITS Impressions Chest/Abdomen/Pelvis CT 06/19/25 08:09 IMPRESSION: 1. Worsened pulmonary nodules, consistent with metastatic disease. 2. Worsened small left pleural effusion. 3. Worsened small pericardial effusion. 4. Worsened liver masses, consistent metastatic disease. 5. Portal venous hypertension. 6. Worsened large volume of ascites. 7. Wall thickening of the ascending and transverse colon, probably interstitial edema. Head CT 06/19/25 08:36 IMPRESSION: 1. Normal brain. Cervical Spine CT 06/19/25 08:41 IMPRESSION: 1. No fracture. 2. Mild cervical spondylosis. 3. Pulmonary nodules, consistent with metastatic disease. Labs Labs: Laboratory Results - last 24 hr 06/19/25 06/19/25 06/19/25 08:46 09:14 09:55 WBC RBC Hgb Hct MCV MCH MCHC RDW Plt Count MPV Immature Gran % (Auto) Neut % (Auto) Lymph % (Auto) [place] % (Auto) Eos % (Auto) Baso % (Auto) Lymph # (Auto) [place] # (Auto) Eos # (Auto) Baso # (Auto) Abs Immat Gran (auto) Absolute Neuts (auto) Absolute Nucleated RBC Nucleated RBC % Sodium Potassium Chloride Carbon Dioxide Anion Gap BUN Creatinine Estim Creat Clear Calc Estimated GFR Glucose POC Capillary Glucose 48 L* 57 L* 114 H Calcium Total Bilirubin AST ALT Alkaline Phosphatase Total Protein Albumin 06/19/25 06/19/25 06/19/25 11:46 16:42 21:04 WBC RBC Hgb Hct MCV MCH MCHC RDW Plt Count MPV Immature Gran % (Auto) Neut % (Auto) Lymph % (Auto) [place] % (Auto) Eos % (Auto) Baso % (Auto) Lymph # (Auto) [place] # (Auto) Eos # (Auto) Baso # (Auto) Abs Immat Gran (auto) Absolute Neuts (auto) Absolute Nucleated RBC Nucleated RBC % Sodium Potassium Chloride Carbon Dioxide Anion Gap BUN Creatinine Estim Creat Clear Calc Estimated GFR Glucose POC Capillary Glucose 210 H 125 H 138 H Calcium Total Bilirubin AST ALT Alkaline Phosphatase Total Protein Albumin 06/20/25 06/20/25 04:37 07:40 WBC 6.3 RBC 3.78 L Hgb 9.9 L Hct 31.6 L MCV 83.6 MCH 26.2 MCHC 31.3 L RDW 18.2 H Plt Count 203 MPV 8.4 Immature Gran % (Auto) 0.5 Neut % (Auto) 74.9 H Lymph % (Auto) 11.7 L [place] % (Auto) 8.5 Eos % (Auto) 3.5 Baso % (Auto) 0.9 Lymph # (Auto) 0.74 L [place] # (Auto) 0.5 Eos # (Auto) 0.2 Baso # (Auto) 0.1 Abs Immat Gran (auto) 0.03 Absolute Neuts (auto) 4.7 Absolute Nucleated RBC 0.000 Nucleated RBC % 0.0 Sodium 136 L Potassium 3.2 L Chloride 101 Carbon Dioxide 31 H Anion Gap 4 BUN 11 Creatinine 0.65 L Estim Creat Clear Calc 106 Estimated GFR > 60 Glucose 68 POC Capillary Glucose 70 Calcium 8.3 L Total Bilirubin 1.5 H AST 66 H ALT 23 Alkaline Phosphatase 578 H Total Protein 6.1 L Albumin 2.6 L Quality VTE Prophylaxis VTE prophylaxis: mechanical ordered
[2025-06-20] MEDS: MORPHINE SULFATE (*CRX) 30 MG TABCR PO ×2 (09:36→20:30)
[2025-06-20] MEDS: POTASSIUM CHLORIDE 20 MEQ ER TABLET 40 MEQ PO (09:36)
[2025-06-20] MEDS: PANTOPRAZOLE 40 MG TABLET PO (09:36)
[2025-06-20 10:54] VITALS: O2SAT 96
[2025-06-20 14:00] VITALS: BP 136/89; PULSE 83; RESP 20; TEMP 36.8; O2SAT 95
[2025-06-20 14:09] VITALS: BMI 24.3
--- NOTE | 2025-06-20 16:47 | WPDONCPN ---
Progress Note: A&P Assessment and Plan (1) Ascites: Qualifiers: Ascites type: malignant Qualified Code(s): R18.0 - Malignant ascites Code(s): R18.8 - Other ascites Status: Acute Assessment and Plan: Paracentesis scheduled for tomorrow (2) Abdominal pain: Qualifiers: Abdominal location: right upper quadrant Qualified Code(s): R10.11 - Right upper quadrant pain Code(s): R10.9 - Unspecified abdominal pain Status: Acute Assessment and Plan: See above. (3) Weakness: Code(s): R53.1 - Weakness Status: Acute (4) Type 2 diabetes mellitus without complications: Code(s): E11.9 - Type 2 diabetes mellitus without complications Status: Acute (5) Hypokalemia: Code(s): E87.6 - Hypokalemia Status: Acute Plan Paracentesis tomorrow. If discharged, please give patient a one week prescription for oxycodone until Dr. Dias gets back into the area next week. My DAQUAN has not transferred to this state yet. Thanks. Subjective Date/time seen: 06/20/25 16:47 Interval history: Dave Maier is a 60 year old male known to Dr. Dias with metastatic colon cancer and now admitted with RUQ abdominal pain. He ran out of his oxycodone. He has ascites and is scheduled for a paracentesis tomorrow. Over the past couple of week, he has had hiccups. Thorazine has not helped much. He reports having fallen 4 times on his back in one day due to weakness (last ); he did not lose consciousness. The patient is on Eliquis. He is having no fever, chills, SOB or CP. NO N/V. Abdomen has be getting more distended and generally uncomfortably. No dysuria. The patient reports that he was seen at the [facility] yesterday. They are looking into whether the patient is a candidate for a clinical trial. Treatment history: Stage II colon cancer. S/P (L) hemicolectomy Palliative chemotherapy with FOLFOX + Avastin x 12 (07/15/23-01/12/24) Stage IV dx via liver bx 06/25/23 Y90 radioembolization of right hepatic artery 04/09/24 Maintenance 5FU/leucovorin begun 02/23/24, then d/c'd FOLFIRI + Avastin x 12 (06/02/24-12/07/24) Maintenance 5FU/leucovorin + Avastin (02/14/25-03/28/25); d/c'd due to progression of disease Lonsurf + q 2 week Avastin begun 06/03/25. Labs: (06/18/25): WBC 9.1, Hct 10.5, Hct 33.2, Plt 257, BUN 14, crea 0.53, total bili 1.6, AST 92, ALT 30, AP 670. PT 19.9, INR 1.7, PTT 58 CT abd/pelvis (06/19/25): 1. Worsened pulmonary nodules, consistent with metastatic disease. 2. Worsened small left pleural effusion. 3. Worsened small pericardial effusion. 4. Worsened liver masses, consistent metastatic disease. 5. Portal venous hypertension. 6. Worsened large volume of ascites. 7. Wall thickening of the ascending and transverse colon, probably interstitial edema. CT head (06/19/25): 1. Normal brain. CT cervical spine (06/19/25); 1. No fracture. 2. Mild cervical spondylosis. 3. Pulmonary nodules, consistent with metastatic disease. 06/20/25: Patient's pain in under much better control. Review of his office chart reveals that he takes long acting morphine bid and then uses Oxycodone prn. Of note, he had not mentioned morphine to me yesterday when he was asked. Today he admits to taking morphine twice daily and then uses only 1 Oxycodone a day, sometimes none. Paracentesis planned for tomorrow as patient took Eliquis on 06/18/25. Labs (06/20/25): WBC 6.3, Hgb 9.9, Hct 31.6, MCV 83.6, Plt 203 Review of Systems Gastrointestinal Comments: Abdomen distended and uncomfortable. Exam Const: Other: Ill appearing male Eyes: Other: Icteric sclerae Resp: Other: Bilateral air entry Cardio: Other: RRR GI: Other: Abdomen distended. General tenderness. No guarding. No rebound tenderness. BS nl. Neuro: Other: Alert and awake. Grossly nonfocal. Objective Data Vital Signs Vital Signs: Vital Signs - 24 hr 06/19/25 20:00 06/19/25 21:53 06/20/25 06:00 Temperature 36.7 C 36.5 C Pulse Rate 84 78 Respiratory Rate 20 20 Blood Pressure 131/89 121/83 Pulse Oximetry 98 95 Oxygen Delivery Room Air 06/20/25 08:00 06/20/25 10:54 06/20/25 11:50 Temperature Pulse Rate Respiratory Rate Blood Pressure Pulse Oximetry 96 Oxygen Delivery Room Air Room Air Room Air 06/20/25 13:12 06/20/25 14:00 Temperature 36.8 C Pulse Rate 83 Respiratory Rate 20 Blood Pressure 136/89 Pulse Oximetry 95 Oxygen Delivery Room Air Intake/Output Intake/Output: Intake & Output 06/17/25 06/18/25 06/19/25 06/20/25 23:59 23:59 23:59 23:59 Intake Total 1000 890 170 Balance 1000 890 170 Meds/Results Medications: Active Medications Generic Name Dose Route Start Last Admin Trade Name Freq PRN Reason Stop Dose Admin Atorvastatin Calcium 40 mg 06/19/25 21:00 06/19/25 20:27 Atorvastatin 40 Mg Tablet PO 40 mg HS WAYNE Administration Dextrose 12.5 gm 06/19/25 06:51 Dextrose 50% 25 Gm/50 Ml Syringe IV PUSH PRN PRN Hypoglycemia Protocol Gabapentin 300 mg 06/19/25 21:00 06/19/25 20:27 Gabapentin 300 Mg Capsule PO 300 mg HS WAYNE Administration Glucose 15 gm 06/19/25 06:51 Glucose Oral Gel 15 Gm Of Glucse In 37.5 Gm Tube PO PRN PRN Hypoglycemia Protocol Ceftriaxone Sodium 2 gm/ 50 mls @ 100 mls/hr 06/20/25 05:00 06/20/25 05:53 Sodium Chloride IVPB 100 mls/hr Q24H WAYNE Administration Dextrose 1,000 mls @ 100 mls/hr 06/19/25 06:51 Dextrose 5% 1,000 Ml IVPB PRN PRN Hypoglycemia Protocol Insulin Aspart 2 - 5 units 06/19/25 08:00 06/20/25 13:23 Insulin Aspart (*Bkc) 100 Units/Ml SUB-Q Not Given TIDWM WAYNE Protocol Insulin Aspart 1 - 2 units 06/19/25 21:00 06/20/25 01:31 Insulin Aspart (*Bkc) 100 Units/Ml SUB-Q Not Given HS WAYNE Protocol Morphine Sulfate 30 mg 06/19/25 09:00 06/20/25 09:36 Morphine Sulfate (*Crx) 30 Mg Tabcr PO 30 mg Q12HR WAYNE Administration Ondansetron HCl 4 mg 06/19/25 08:46 06/19/25 10:15 Ondansetron Inj 4 Mg/2 Ml Vial IV PUSH 4 mg Q4H PRN Administration Nausea And Vomiting Oxycodone HCl 10 mg 06/19/25 06:49 06/20/25 05:56 Oxycodone Hcl (*Crx) 5 Mg Tab Ir PO 10 mg Q6H PRN Administration Pain Rated 7-10 Pantoprazole Sodium 40 mg 06/19/25 09:00 06/20/25 09:36 Pantoprazole 40 Mg Tablet PO 40 mg QAM WAYNE Administration Simethicone 125 mg 06/19/25 09:00 06/20/25 16:44 Simethicone 125 Mg Chew Tab PO Not Given QID [facility] Radiology Results: ITS Impressions Chest/Abdomen/Pelvis CT 06/19/25 08:09 IMPRESSION: 1. Worsened pulmonary nodules, consistent with metastatic disease. 2. Worsened small left pleural effusion. 3. Worsened small pericardial effusion. 4. Worsened liver masses, consistent metastatic disease. 5. Portal venous hypertension. 6. Worsened large volume of ascites. 7. Wall thickening of the ascending and transverse colon, probably interstitial edema. Head CT 06/19/25 08:36 IMPRESSION: 1. Normal brain. Cervical Spine CT 06/19/25 08:41 IMPRESSION: 1. No fracture. 2. Mild cervical spondylosis. 3. Pulmonary nodules, consistent with metastatic disease. Labs Labs: Laboratory Results - last 24 hr 06/19/25 06/20/25 06/20/25 21:04 04:37 07:40 WBC 6.3 RBC 3.78 L Hgb 9.9 L Hct 31.6 L MCV 83.6 MCH 26.2 MCHC 31.3 L RDW 18.2 H Plt Count 203 MPV 8.4 Immature Gran % (Auto) 0.5 Neut % (Auto) 74.9 H Lymph % (Auto) 11.7 L Cloud % (Auto) 8.5 Eos % (Auto) 3.5 Baso % (Auto) 0.9 Lymph # (Auto) 0.74 L [place] # (Auto) 0.5 Eos # (Auto) 0.2 Baso # (Auto) 0.1 Abs Immat Gran (auto) 0.03 Absolute Neuts (auto) 4.7 Absolute Nucleated RBC 0.000 Nucleated RBC % 0.0 Sodium 136 L Potassium 3.2 L Chloride 101 Carbon Dioxide 31 H Anion Gap 4 BUN 11 Creatinine 0.65 L Estim Creat Clear Calc 106 Estimated GFR > 60 Glucose 68 POC Capillary Glucose 138 H 70 Calcium 8.3 L Total Bilirubin 1.5 H AST 66 H ALT 23 Alkaline Phosphatase 578 H Total Protein 6.1 L Albumin 2.6 L 06/20/25 06/20/25 11:29 16:12 WBC RBC Hgb Hct MCV MCH MCHC RDW Plt Count MPV Immature Gran % (Auto) Neut % (Auto) Lymph % (Auto) Cloud % (Auto) Eos % (Auto) Baso % (Auto) Lymph # (Auto) Cloud # (Auto) Eos # (Auto) Baso # (Auto) Abs Immat Gran (auto) Absolute Neuts (auto) Absolute Nucleated RBC Nucleated RBC % Sodium Potassium Chloride Carbon Dioxide Anion Gap BUN Creatinine Estim Creat Clear Calc Estimated GFR Glucose POC Capillary Glucose 110 H 148 H Calcium Total Bilirubin AST ALT Alkaline Phosphatase Total Protein Albumin
[2025-06-20] MEDS: ONDANSETRON INJ 4 MG/2 ML VIAL IV PUSH (19:42)
[2025-06-20] MEDS: ATORVASTATIN 40 MG TABLET PO (20:30)
[2025-06-20] MEDS: GABAPENTIN 300 MG CAPSULE PO (20:30)
[2025-06-20 22:00] VITALS: BP 129/91; PULSE 87; RESP 20; TEMP 36.7; O2SAT 95
[2025-06-21 05:12] LABS: Hematocrit 31.1 % (42.0-52.0); Hemoglobin 9.5 g/dL (14.0-18.0); Immature Granulocyte Percent A 0.6 % (0-0.5); Lymphocytes Absolute Auto 0.70 K/mm3 (0.9-3.2); Mean Corpuscular HGB Conc 30.5 g/dl (32-36); Mean Corpuscular Hemoglobin 25.7 pg (26-34); Mean Corpuscular Volume 84.1 fl (80-100); Nucleated Red Blood Cells Absolute Auto 0.000 K/mm3 (0.0-0.012); Nucleated Red Blood Cells Perc 0.0 % (0.0-0.2); Platelet Count Result 194 k/mm3 (150-375); Red Blood Count 3.70 M/mm3 (4.6-6.20); White Blood Count 6.2 K/mm3 (4.5-10.0)
[2025-06-21] MEDS: cefTRIAXone 2 GM in SODIUM CHLORIDE 0.9% IV 50 ML 100 ML IVPB (05:17)
[2025-06-21] MEDS: oxyCODONE HCL (*CRX) 5 MG TAB IR 10 MG PO ×2 (05:17→11:23)
[2025-06-21 05:32] LABS: Alanine Aminotransferase 23 U/L (6-50); Albumin Level 2.6 g/dL (3.5-5.1); Alkaline Phosphatase 605 U/L (38-126); Anion Gap 2 mmol/L (4-12); Aspartate Amino Transferase 61 U/L (17-59); Bilirubin,Total 1.4 mg/dL (0.2-1.3); Blood Urea Nitrogen 13 mg/dL (9-20); Calcium 8.2 mg/dL (8.4-10.2); Carbon Dioxide 31 mmol/L (22-30); Chloride 102 mmol/L (98-107); Estimated CRCL calculation 114 ml/min; Estimated Glomerular Filt Rate > 60; Glucose 101 mg/dL (65-110); Potassium 3.7 mmol/L (3.4-5.0); Sodium 135 mmol/L (137-145); Total Protein 6.0 g/dL (6.3-8.2)
[2025-06-21 06:00] VITALS: BP 128/83; PULSE 79; RESP 20; TEMP 36.4; O2SAT 96
--- NOTE | 2025-06-21 07:34 | P.CDI_ITS ---
CDI Query Clarification Request BMI: 24.4 Nutritional Diagnostic Statement: Please refer to the comprehensive nutrition assessment for further information. If you agree with diagnosis of Moderate protein calorie malnutrition related to chronic inadequate intake in the setting of ascites, chronic metastatic colon cancer as evidenced by intakes <75% needs >1 month; moderate muscle wasting (temporalis, clavicles, shoulders), moderate fat loss (cheeks). Please specify severity if known: * Mild * Moderate * Severe * Other/Unknown <Lucita Hamilton RN - Last Filed: 06/21/25 07:35> BMI: 24.4 Nutritional Diagnostic Statement: Please refer to the comprehensive nutrition assessment for further information. If you agree with diagnosis of Moderate protein calorie malnutrition related to chronic inadequate intake in the setting of ascites, chronic metastatic colon cancer as evidenced by intakes <75% needs >1 month; moderate muscle wasting (temporalis, clavicles, shoulders), moderate fat loss (cheeks). Please specify severity if known: * Other/Unknown <Heidi Mccormick APRN - Last Filed: 06/21/25 08:37>
--- NOTE | 2025-06-21 08:37 | PM.IMPN ---
Progress Note: A&P Assessment and Plan (1) Ascites: Qualifiers: Ascites type: malignant Qualified Code(s): R18.0 - Malignant ascites Code(s): R18.8 - Other ascites Status: Acute Assessment and Plan: Paracentesis ordered. Hold apixaban. Continue ceftriaxone. Hold PPI. Resume [employer] pain control. Oncology consultation. 06/19: Paracentesis on x2 day hold due to pt taking apixaban on 06/18, pt does not remember if he took the AM or PM dose that day, planned for tomorrow. -Onc consult today: Currently receiving Lonsurf and Avastin. Now with disease progression. Awaiting final determination as to whether patient is a candidate for a clinical trial through [facility]. 06/20: Paracentesis on x2 day hold due to pt taking apixaban on 06/18, pt does not remember if he took the AM or PM dose that day so planned for tomorrow per rads per nursing. 06/21: (2) Abdominal pain: Qualifiers: Abdominal location: right upper quadrant Qualified Code(s): R10.11 - Right upper quadrant pain Code(s): R10.9 - Unspecified abdominal pain Status: Acute Assessment and Plan: See above. (3) Weakness: Code(s): R53.1 - Weakness Status: Acute Assessment and Plan: No acute fractures. PT/OT. (4) Type 2 diabetes mellitus without complications: Code(s): E11.9 - Type 2 diabetes mellitus without complications Status: Acute Assessment and Plan: Accu-Cheks a.c. HS 06/19: FBS 95 -Pt with hypoglycemia episode today and was feeling weak, self corrected with OJ x3. -May be the cause of recent falls? Will continue to monitor --Continue to hold glimepiride & metformin 08/20: FBS 70, asymptomatic -Discussed these low blood sugars with pt today, states that he sometimes feels light headed at home like his blood sugar is low. Will continue to monitor with potentially holding PO meds at discharge. (5) Hypokalemia: Code(s): E87.6 - Hypokalemia Status: Acute Assessment and Plan: 06/20: K 3.2 this AM -40meq PO x1 this AM, continue with daily labs. -Denies N/V/D, muscle cramping, fatigue, CP, SOB, or any other sx. Plan Patient wishes to be DNR. SCDs. Disposition: Pending paracentesis with counts pending Time Spent With Patient Time: 30 Subjective Date/time seen: 06/21/25 1021 Interval history: Pt sitting up in bed upon my arrival. Pt reports pain well controlled on home pain regimen. +abd pain today but tolerable with meds. Denies CP/SOB or any other sx. Review of Systems Review of Systems: All systems reviewed & are unremarkable except as noted in HPI and below (Subjective) Exam Const: General: comfortable and uncomfortable HENMT: Mouth: Yes moist mucous membranes Eyes: Pupils: Equal, round and reactive pupils present Neck: Neck: supple Resp: Effort & Inspection: normal respiratory effort Auscultation: clear to auscultation bilaterally Cardio: Rate: regular rate Rhythm: regular rhythm GI: Inspection: distended GI Palp: Yes abdominal tenderness Skin: General skin exam: normal color and no rashes or lesions noted Neuro: Cranial nerves: Yes Equal, round and reactive pupils present Motor exam (neuro): Normal motor muscle tone present throughout Sensory Exam: normal sensation Extrem: General: no edema Psych: Mental Status: mental status grossly normal Affect: Blunted affect present Objective Data Vital Signs Vital Signs: Vital Signs - 24 hr 06/20/25 10:54 06/20/25 11:50 06/20/25 13:12 Temperature Pulse Rate Respiratory Rate Blood Pressure Pulse Oximetry 96 Oxygen Delivery Room Air Room Air Room Air 06/20/25 14:00 06/20/25 20:00 06/20/25 22:00 Temperature 98.2 F 98.1 F Pulse Rate 83 87 Respiratory Rate 20 20 Blood Pressure 136/89 129/91 H Pulse Oximetry 95 95 Oxygen Delivery Room Air 06/21/25 06:00 Temperature 97.6 F Pulse Rate 79 Respiratory Rate 20 Blood Pressure 128/83 Pulse Oximetry 96 Oxygen Delivery Intake/Output Intake/Output: Intake & Output 06/18/25 06/19/25 06/20/25 06/21/25 23:59 23:59 23:59 23:59 Intake Total 6931 319 8425 100 Balance 5766 209 0700 100 Meds/Results Medications: Active Medications Generic Name Dose Route Start Last Admin Trade Name Freq PRN Reason Stop Dose Admin Atorvastatin Calcium 40 mg 06/19/25 21:00 06/20/25 20:30 Atorvastatin 40 Mg Tablet PO 40 mg HS WAYNE Administration Dextrose 12.5 gm 06/19/25 06:51 Dextrose 50% 25 Gm/50 Ml Syringe IV PUSH PRN PRN Hypoglycemia Protocol Gabapentin 300 mg 06/19/25 21:00 06/20/25 20:30 Gabapentin 300 Mg Capsule PO 300 mg HS WAYNE Administration Glucose 15 gm 06/19/25 06:51 Glucose Oral Gel 15 Gm Of Glucse In 37.5 Gm Tube PO PRN PRN Hypoglycemia Protocol Ceftriaxone Sodium 2 gm/ 50 mls @ 100 mls/hr 06/20/25 05:00 06/21/25 05:17 Sodium Chloride IVPB 100 mls/hr Q24H WAYNE Administration Dextrose 1,000 mls @ 100 mls/hr 06/19/25 06:51 Dextrose 5% 1,000 Ml IVPB PRN PRN Hypoglycemia Protocol Insulin Aspart 2 - 5 units 06/19/25 08:00 06/20/25 17:31 Insulin Aspart (*Bkc) 100 Units/Ml SUB-Q Not Given TIDWM [facility] Protocol Insulin Aspart 1 - 2 units 06/19/25 21:00 06/20/25 23:01 Insulin Aspart (*Bkc) 100 Units/Ml SUB-Q Not Given HS [facility] Protocol Morphine Sulfate 30 mg 06/19/25 09:00 06/20/25 20:30 Morphine Sulfate (*Crx) 30 Mg Tabcr PO 30 mg Q12HR WAYNE Administration Ondansetron HCl 4 mg 06/19/25 08:46 06/20/25 19:42 Ondansetron Inj 4 Mg/2 Ml Vial IV PUSH 4 mg Q4H PRN Administration Nausea And Vomiting Oxycodone HCl 10 mg 06/19/25 06:49 06/21/25 05:17 Oxycodone Hcl (*Crx) 5 Mg Tab Ir PO 10 mg Q6H PRN Administration Pain Rated 7-10 Pantoprazole Sodium 40 mg 06/19/25 09:00 06/20/25 09:36 Pantoprazole 40 Mg Tablet PO 40 mg QAM WAYNE Administration Simethicone 125 mg 06/19/25 09:00 06/20/25 20:30 Simethicone 125 Mg Chew Tab PO Not Given QID [facility] Radiology Results: ITS Impressions Chest/Abdomen/Pelvis CT 06/19/25 08:09 IMPRESSION: 1. Worsened pulmonary nodules, consistent with metastatic disease. 2. Worsened small left pleural effusion. 3. Worsened small pericardial effusion. 4. Worsened liver masses, consistent metastatic disease. 5. Portal venous hypertension. 6. Worsened large volume of ascites. 7. Wall thickening of the ascending and transverse colon, probably interstitial edema. Head CT 06/19/25 08:36 IMPRESSION: 1. Normal brain. Cervical Spine CT 06/19/25 08:41 IMPRESSION: 1. No fracture. 2. Mild cervical spondylosis. 3. Pulmonary nodules, consistent with metastatic disease. Labs Labs: Laboratory Results - last 24 hr 06/20/25 06/20/25 06/20/25 11:29 16:12 21:23 WBC RBC Hgb Hct MCV MCH MCHC RDW Plt Count MPV Immature Gran % (Auto) Neut % (Auto) Lymph % (Auto) [place] % (Auto) Eos % (Auto) Baso % (Auto) Lymph # (Auto) [place] # (Auto) Eos # (Auto) Baso # (Auto) Abs Immat Gran (auto) Absolute Neuts (auto) Absolute Nucleated RBC Nucleated RBC % Sodium Potassium Chloride Carbon Dioxide Anion Gap BUN Creatinine Estim Creat Clear Calc Estimated GFR Glucose POC Capillary Glucose 110 H 148 H 179 H Calcium Total Bilirubin AST ALT Alkaline Phosphatase Total Protein Albumin 06/21/25 04:51 WBC 6.2 RBC 3.70 L Hgb 9.5 L Hct 31.1 L MCV 84.1 MCH 25.7 L MCHC 30.5 L RDW 18.2 H Plt Count 194 MPV 8.6 Immature Gran % (Auto) 0.6 H Neut % (Auto) 73.6 H Lymph % (Auto) 11.2 L [place] % (Auto) 9.0 H Eos % (Auto) 4.6 H Baso % (Auto) 1.0 Lymph # (Auto) 0.70 L [place] # (Auto) 0.6 Eos # (Auto) 0.3 Baso # (Auto) 0.1 Abs Immat Gran (auto) 0.04 H Absolute Neuts (auto) 4.6 Absolute Nucleated RBC 0.000 Nucleated RBC % 0.0 Sodium 135 L Potassium 3.7 Chloride 102 Carbon Dioxide 31 H Anion Gap 2 L BUN 13 Creatinine 0.60 L Estim Creat Clear Calc 114 Estimated GFR > 60 Glucose 101 POC Capillary Glucose Calcium 8.2 L Total Bilirubin 1.4 H AST 61 H ALT 23 Alkaline Phosphatase 605 H Total Protein 6.0 L Albumin 2.6 L Quality VTE Prophylaxis VTE prophylaxis: mechanical ordered
--- NOTE | 2025-06-21 08:41 | P.PNONC_ITS ---
Progress Note: A&P Assessment and Plan (1) Ascites: Qualifiers: Ascites type: malignant Qualified Code(s): R18.0 - Malignant ascites Code(s): R18.8 - Other ascites Status: Acute Assessment and Plan: Paracentesis planned for today (2) Abdominal pain: Qualifiers: Abdominal location: right upper quadrant Qualified Code(s): R10.11 - Right upper quadrant pain Code(s): R10.9 - Unspecified abdominal pain Status: Acute (3) Weakness: Code(s): R53.1 - Weakness Status: Acute Assessment and Plan: No acute fractures. PT/OT. (4) Type 2 diabetes mellitus without complications: Code(s): E11.9 - Type 2 diabetes mellitus without complications Status: Acute (5) Hypokalemia: Code(s): E87.6 - Hypokalemia Status: Acute Assessment and Plan: Per hospitalist Plan Please schedule f/u with Dr. Dias after discharge. Thank you Subjective Date/time seen: 06/21/25 08:41 Interval history: [place] [address] [address] [place] [address] Oncology Progress Note Signed Patient: Dave Maier MR#: [id number] : 1965 Acct:[id number] Age: 60 ADM Date: 06/19/25 Loc: [id number] Interval history: Dave Maier is a 60 year old male known to Dr. Dias with metastatic colon cancer and now admitted with RUQ abdominal pain. He ran out of his oxycodone. He has ascites and is scheduled for a paracentesis tomorrow. Over the past couple of week, he has had hiccups. Thorazine has not helped much. He reports having fallen 4 times on his back in one day due to weakness (last ); he did not lose consciousness. The patient is on Eliquis. He is having no fever, chills, SOB or CP. NO N/V. Abdomen has be getting more distended and generally uncomfortably. No dysuria. The patient reports that he was seen at the [facility] yesterday. They are looking into whether the patient is a candidate for a clinical trial. Treatment history: Stage II colon cancer. S/P (L) hemicolectomy Palliative chemotherapy with FOLFOX + Avastin x 12 (07/15/23-01/12/24) Stage IV dx via liver bx 06/25/23 Y90 radioembolization of right hepatic artery 04/09/24 Maintenance 5FU/leucovorin begun 02/23/24, then d/c'd FOLFIRI + Avastin x 12 (06/02/24-12/07/24) Maintenance 5FU/leucovorin + Avastin (02/14/25-03/28/25); d/c'd due to progression of disease Lonsurf + q 2 week Avastin begun 06/03/25. Labs: (06/18/25): WBC 9.1, Hct 10.5, Hct 33.2, Plt 257, BUN 14, crea 0.53, total bili 1.6, AST 92, ALT 30, AP 670. PT 19.9, INR 1.7, PTT 58 CT abd/pelvis (06/19/25): 1. Worsened pulmonary nodules, consistent with metastatic disease. 2. Worsened small left pleural effusion. 3. Worsened small pericardial effusion. 4. Worsened liver masses, consistent metastatic disease. 5. Portal venous hypertension. 6. Worsened large volume of ascites. 7. Wall thickening of the ascending and transverse colon, probably interstitial edema. CT head (06/19/25): 1. Normal brain. CT cervical spine (06/19/25); 1. No fracture. 2. Mild cervical spondylosis. 3. Pulmonary nodules, consistent with metastatic disease. 06/20/25: Patient's pain in under much better control. Review of his office chart reveals that he takes long acting morphine bid and then uses Oxycodone prn. Of note, he had not mentioned morphine to me yesterday when he was asked. Today he admits to taking morphine twice daily and then uses only 1 Oxycodone a day, sometimes none. Paracentesis planned for tomorrow as patient took Eliquis on 06/18/25. Labs (06/20/25): WBC 6.3, Hgb 9.9, Hct 31.6, MCV 83.6, Plt 203 06/21/25: Abdominal discomfort still present; patient unclear if it is worse than yesterday. Paracentesis scheduled for today. Labs: (06/21/25): WBC 6.2, Hgb 9.5, Hct 31.3, Plt 194 Exam Narrative: Thin ill appearing male Eyes: Other: Anicteric sclerae Resp: Other: Bilateral air entry Cardio: Other: RRR GI: Other: Diffuse tenderness throughout abdomen. N0 rebound tenderness or guarding. BS present. Ascites present. Neuro: Other: Alert and awake. Grossly nonfocal. Objective Data Vital Signs Vital Signs: Vital Signs - 24 hr 06/20/25 10:54 06/20/25 11:50 06/20/25 13:12 Temperature Pulse Rate Respiratory Rate Blood Pressure Pulse Oximetry 96 Oxygen Delivery Room Air Room Air Room Air 06/20/25 14:00 06/20/25 20:00 06/20/25 22:00 Temperature 36.8 C 36.7 C Pulse Rate 83 87 Respiratory Rate 20 20 Blood Pressure 136/89 129/91 H Pulse Oximetry 95 95 Oxygen Delivery Room Air 06/21/25 06:00 Temperature 36.4 C Pulse Rate 79 Respiratory Rate 20 Blood Pressure 128/83 Pulse Oximetry 96 Oxygen Delivery Intake/Output Intake/Output: Intake & Output 06/18/25 06/19/25 06/20/25 06/21/25 23:59 23:59 23:59 23:59 Intake Total 6763 158 5319 100 Balance 8248 073 8621 100 Meds/Results Medications: Active Medications Generic Name Dose Route Start Last Admin Trade Name Freq PRN Reason Stop Dose Admin Atorvastatin Calcium 40 mg 06/19/25 21:00 06/20/25 20:30 Atorvastatin 40 Mg Tablet PO 40 mg HS WAYNE Administration Dextrose 12.5 gm 06/19/25 06:51 Dextrose 50% 25 Gm/50 Ml Syringe IV PUSH PRN PRN Hypoglycemia Protocol Gabapentin 300 mg 06/19/25 21:00 06/20/25 20:30 Gabapentin 300 Mg Capsule PO 300 mg HS WAYNE Administration Glucose 15 gm 06/19/25 06:51 Glucose Oral Gel 15 Gm Of Glucse In 37.5 Gm Tube PO PRN PRN Hypoglycemia Protocol Ceftriaxone Sodium 2 gm/ 50 mls @ 100 mls/hr 06/20/25 05:00 06/21/25 05:17 Sodium Chloride IVPB 100 mls/hr Q24H WAYNE Administration Dextrose 1,000 mls @ 100 mls/hr 06/19/25 06:51 Dextrose 5% 1,000 Ml IVPB PRN PRN Hypoglycemia Protocol Insulin Aspart 2 - 5 units 06/19/25 08:00 06/20/25 17:31 Insulin Aspart (*Bkc) 100 Units/Ml SUB-Q Not Given TIDWM WAYNE Protocol Insulin Aspart 1 - 2 units 06/19/25 21:00 06/20/25 23:01 Insulin Aspart (*Bkc) 100 Units/Ml SUB-Q Not Given [facility] Protocol Morphine Sulfate 30 mg 06/19/25 09:00 06/20/25 20:30 Morphine Sulfate (*Crx) 30 Mg Tabcr PO 30 mg Q12HR WAYNE Administration Ondansetron HCl 4 mg 06/19/25 08:46 06/20/25 19:42 Ondansetron Inj 4 Mg/2 Ml Vial IV PUSH 4 mg Q4H PRN Administration Nausea And Vomiting Oxycodone HCl 10 mg 06/19/25 06:49 06/21/25 05:17 Oxycodone Hcl (*Crx) 5 Mg Tab Ir PO 10 mg Q6H PRN Administration Pain Rated 7-10 Pantoprazole Sodium 40 mg 06/19/25 09:00 06/20/25 09:36 Pantoprazole 40 Mg Tablet PO 40 mg QAM WAYNE Administration Simethicone 125 mg 06/19/25 09:00 06/20/25 20:30 Simethicone 125 Mg Chew Tab PO Not Given QID WAYNE Radiology Results: ITS Impressions Chest/Abdomen/Pelvis CT 06/19/25 08:09 IMPRESSION: 1. Worsened pulmonary nodules, consistent with metastatic disease. 2. Worsened small left pleural effusion. 3. Worsened small pericardial effusion. 4. Worsened liver masses, consistent metastatic disease. 5. Portal venous hypertension. 6. Worsened large volume of ascites. 7. Wall thickening of the ascending and transverse colon, probably interstitial edema. Head CT 06/19/25 08:36 IMPRESSION: 1. Normal brain. Cervical Spine CT 06/19/25 08:41 IMPRESSION: 1. No fracture. 2. Mild cervical spondylosis. 3. Pulmonary nodules, consistent with metastatic disease. Labs Labs: Laboratory Results - last 24 hr 06/20/25 06/20/25 06/20/25 11:29 16:12 21:23 WBC RBC Hgb Hct MCV MCH MCHC RDW Plt Count MPV Immature Gran % (Auto) Neut % (Auto) Lymph % (Auto) Lake % (Auto) Eos % (Auto) Baso % (Auto) Lymph # (Auto) Lake # (Auto) Eos # (Auto) Baso # (Auto) Abs Immat Gran (auto) Absolute Neuts (auto) Absolute Nucleated RBC Nucleated RBC % Sodium Potassium Chloride Carbon Dioxide Anion Gap BUN Creatinine Estim Creat Clear Calc Estimated GFR Glucose POC Capillary Glucose 110 H 148 H 179 H Calcium Total Bilirubin AST ALT Alkaline Phosphatase Total Protein Albumin 06/21/25 04:51 WBC 6.2 RBC 3.70 L Hgb 9.5 L Hct 31.1 L MCV 84.1 MCH 25.7 L MCHC 30.5 L RDW 18.2 H Plt Count 194 MPV 8.6 Immature Gran % (Auto) 0.6 H Neut % (Auto) 73.6 H Lymph % (Auto) 11.2 L Lake % (Auto) 9.0 H Eos % (Auto) 4.6 H Baso % (Auto) 1.0 Lymph # (Auto) 0.70 L Lake # (Auto) 0.6 Eos # (Auto) 0.3 Baso # (Auto) 0.1 Abs Immat Gran (auto) 0.04 H Absolute Neuts (auto) 4.6 Absolute Nucleated RBC 0.000 Nucleated RBC % 0.0 Sodium 135 L Potassium 3.7 Chloride 102 Carbon Dioxide 31 H Anion Gap 2 L BUN 13 Creatinine 0.60 L Estim Creat Clear Calc 114 Estimated GFR > 60 Glucose 101 POC Capillary Glucose Calcium 8.2 L Total Bilirubin 1.4 H AST 61 H ALT 23 Alkaline Phosphatase 605 H Total Protein 6.0 L Albumin 2.6 L
[2025-06-21 08:42] LABS: INR 1.3; Prothrombin Time 16.2 Seconds (11.1-14.7)
[2025-06-21 08:43] LABS: Partial Thromboplastin Time 42.8 Seconds (22.3-36.8)
[2025-06-21] MEDS: PANTOPRAZOLE 40 MG TABLET PO (09:13)
[2025-06-21] MEDS: MORPHINE SULFATE (*CRX) 30 MG TABCR PO (09:13)
--- NOTE | 2025-06-21 13:00 | CY_PTH ---
PATIENT: Dave Maier LOC: [id number] U#:[id number] AGE/SX: 60/M ROOM: 348 RE06/19/[address]: Heidi Mccormick APRN : 1965 BED: 01 DIS: 06/21/2025 SPEC #: [id number] RECD: 06/21/25 13:03 STATUS: ÁNGEL RE #: [id number] DASH: 06/21/25 13:[address]: Albina Ham DEPT: [facility] Cytology RECD BY: Andrew Patel ENTERED: 06/21/25 13:05 SP TYPE: Cytology OTHR DR: MD Kelsey Cruz APRN Megan Lutman, APRN Tissues: A - Paracentesis Fluid Procedures: Tim Keratin Hematoxylin and Eosin Stain Cell Block Cytopathology Smear AVIS-EP4 Cytopathology Cytospin
[2025-06-21 13:27] LABS: Appearance Peritoneal Fluid Hazy (Clear); Color Peritoneal Fluid Yellow (Colorless); Nucleated Cells Peritoneal Flu 406 /uL (0-500); Source Peritoneal Fluid Peritoneal Fluid
[2025-06-21 13:28] LABS: Lymphocytes Peritoneal Fluid 20 %; Macrophages Peritoneal Fluid 28 %; Mesothelial Cells Peritoneal Fluid 4 %; Monocytes Peritoneal Fluid 2 %; Neutrophils Peritoneal Fluid 36 % (0-25)
[2025-06-21 13:56] VITALS: BP 145/78; PULSE 88; RESP 20; TEMP 36.2; O2SAT 98
--- NOTE | 2025-06-21 15:32 | P.DS_ITS ---
DS: Admitting Diagnosis Discharge Date 06/21/2025 Admitting Diagnosis Ascites DS: Discharge Diagnosis Discharge Diagnosis (1) Ascites: Qualifiers: Ascites type: malignant Qualified Code(s): R18.0 - Malignant ascites Code(s): R18.8 - Other ascites Status: Acute Assessment and Plan: Paracentesis ordered. Hold apixaban. Continue ceftriaxone. Hold PPI. Resume [employer] pain control. Oncology consultation. 06/19: Paracentesis on x2 day hold due to pt taking apixaban on 06/18, pt does not remember if he took the AM or PM dose that day, planned for tomorrow. -Onc consult today: Currently receiving Lonsurf and Avastin. Now with disease progression. Awaiting final determination as to whether patient is a candidate for a clinical trial through [facility]. 06/20: Paracentesis on x2 day hold due to pt taking apixaban on 06/18, pt does not remember if he took the AM or PM dose that day so planned for tomorrow per rads per nursing. 06/21: Paracentesis performed today, abd pain much better following. Per GI, pt able to discharge today without abx after looking at his resulted paracentesis fluid labs. Plan to f/u with Dr. Dias outpatient for regular appt and if in need of additional paracentesis procedures. (2) Abdominal pain: Qualifiers: Abdominal location: right upper quadrant Qualified Code(s): R10.11 - Right upper quadrant pain Code(s): R10.9 - Unspecified abdominal pain Status: Acute Assessment and Plan: See above. (3) Weakness: Code(s): R53.1 - Weakness Status: Acute Assessment and Plan: No acute fractures. PT/OT cleared. (4) Type 2 diabetes mellitus without complications: Code(s): E11.9 - Type 2 diabetes mellitus without complications Status: Acute Assessment and Plan: Accu-Cheks a.c. HS 06/19: FBS 95 -Pt with hypoglycemia episode today and was feeling weak, self corrected with OJ x3. -May be the cause of recent falls? Will continue to monitor --Continue to hold glimepiride & metformin 08/20: FBS 70, asymptomatic -Discussed these low blood sugars with pt today, states that he sometimes feels light headed at home like his blood sugar is low. Will continue to monitor with potentially holding PO meds at discharge. 06/21: FBS 101 -Pt to hold PO DM meds at home, states that he has not been eating like normal recently due to the ascites and home stressors. Educated him that if he remains on his normal diet that he can take these medicines but be cautious. Plan to follow-up with his primary care pictures on the right regimen with new factors. (5) Hypokalemia: Code(s): E87.6 - Hypokalemia Status: Acute Assessment and Plan: 06/20: K 3.2 this AM -40meq PO x1 this AM, continue with daily labs. -Denies N/V/D, muscle cramping, fatigue, CP, SOB, or any other sx. 06/21: K 3.7 Plan Discharge home with plan for PCP and onc f/u. DS: Summary Hospital Course Reason for hospitalization: Ascites Hospital Course: The patient is a 60-year-old male with a history of stage IV metastatic colon cancer (with liver and pulmonary involvement) on palliative chemotherapy, who was admitted for evaluation and management of worsening abdominal distension, right upper quadrant pain, and multiple recent falls. On presentation, he reported generalized weakness, poor oral intake, and running out of his prescribed oxycodone, resulting in poorly controlled pain. He also endorsed several falls without loss of consciousness, striking his head, ribs, and back, but denied fevers, chills, chest pain, shortness of breath, or gastrointestinal symptoms. Initial evaluation revealed vital signs notable for mild tachycardia and hypertension. Physical exam was significant for a chronically ill appearance, abdominal distension with diffuse tenderness, and evidence of ascites. Laboratory studies demonstrated mild anemia, hypoalbuminemia, elevated liver enzymes (AST, alkaline phosphatase), hyperbilirubinemia, and mild hypokalemia. Coagulation studies were elevated (INR 1.7, PTT 58) in the setting of ongoing apixaban therapy. Imaging (CT head, chest, abdomen, pelvis, and cervical spine) showed progression of metastatic disease with increased liver masses, pulmonary nodules, small pleural and pericardial effusions, portal hypertension, and a large volume of ascites. No acute intracranial or spinal pathology was i dentified. Given the large volume ascites and concern for spontaneous bacterial peritonitis (SBP), empiric ceftriaxone was initiated, and a diagnostic and therapeutic paracentesis was planned. However, the procedure was delayed for 48 hours due to recent apixaban use and elevated INR. During this period, the patient?s pain was managed with resumption of his home long-acting morphine and PRN oxycodone, resulting in improved comfort. His diabetes regimen was held due to episodes of hypoglycemia, likely related to decreased oral intake, and potassium was repleted for hypokalemia. Paracentesis was performed on hospital day 3 after appropriate anticoagulation hold, with removal of ascitic fluid resulting in significant symptomatic improvement. Fluid analysis did not reveal evidence of SBP, and antibiotics were discontinued. The patient was evaluated by oncology, with ongoing consideration for clinical trial enrollment at [facility]. Physical and occupational therapy assessed the patient and cleared him for independent ambulation. He remained hemodynamically stable throughout his stay, with no further falls or acute events. At discharge, the patient?s abdominal pain and distension were much improved, and he was ambulating independently. He was instructed to continue holding his oral hypoglycemic agents until his oral intake normalized and to follow up with his primary care provider and oncology for ongoing management, including consideration of further paracentesis as needed. He was discharged home in stable condition with appropriate follow-up arranged. Status at Discharge Functional status at discharge: independent ambulation Overall status at discharge: patient is progressing back to baseline Time Spent with Patient Time attestation: Total time spent providing and/or coordinating discharge services: Time spent: Greater than 30 minutes Exam Const: General: comfortable and uncomfortable HENMT: Mouth: Yes moist mucous membranes Eyes: Pupils: Equal, round and reactive pupils present Neck: Neck: supple Resp: Effort & Inspection: normal respiratory effort Auscultation: clear to auscultation bilaterally Cardio: Rate: regular rate Rhythm: regular rhythm GI: Inspection: non-distended GI Palp: Yes Soft to palpation and No Tenderness to palpation present (GI) Other: Non-distended after paracentesis Skin: General skin exam: normal color and no rashes or lesions noted Neuro: Cranial nerves: Yes Equal, round and reactive pupils present Motor exam (neuro): Normal motor muscle tone present throughout Sensory Exam: normal sensation Extrem: General: no edema Psych: Mental Status: mental status grossly normal Affect: Blunted affect present DS: Data Data Completed and Pending Completed studies during hospitalization: Labs, urine, paracentesis, imaging Pending studies at discharge: Pending at discharge 06/19/25 06:50 Cytology [PTH] Routine Labs on day of discharge: Labs from last 24 hours 06/21/25 06/21/25 06/21/25 12:45 11:38 08:17 WBC RBC Hgb Hct MCV MCH MCHC RDW Plt Count MPV Immature Gran % (Auto) Neut % (Auto) Lymph % (Auto) [place] % (Auto) Eos % (Auto) Baso % (Auto) Lymph # (Auto) [place] # (Auto) Eos # (Auto) Baso # (Auto) Abs Immat Gran (auto) Absolute Neuts (auto) Absolute Nucleated RBC Nucleated RBC % PT 16.2 H INR 1.3 APTT 42.8 H Sodium Potassium Chloride Carbon Dioxide Anion Gap BUN Creatinine Estim Creat Clear Calc Estimated GFR Glucose POC Capillary Glucose 75 Calcium Total Bilirubin AST ALT Alkaline Phosphatase Total Protein Albumin Fluid Glucose Pending Fluid Total Protein Pending Fluid Albumin Pending Fluid Amylase Pending Peritoneal Source Peritoneal fluid Peritoneal Color Yellow Peritoneal Appearance Hazy A Peritoneal RBC < 2000 Periton Nuc Cells 406 Periton Neutrophils 36 H Periton Lymphocytes 20 Peritoneal Monocytes 2 Periton Mesothelial 4 Periton Macrophages 28 Peritoneal Tot Protein Cancelled 06/21/25 06/21/25 06/20/25 07:58 04:51 21:23 WBC 6.2 RBC 3.70 L Hgb 9.5 L Hct 31.1 L MCV 84.1 MCH 25.7 L MCHC 30.5 L RDW 18.2 H Plt Count 194 MPV 8.6 Immature Gran % (Auto) 0.6 H Neut % (Auto) 73.6 H Lymph % (Auto) 11.2 L [place] % (Auto) 9.0 H Eos % (Auto) 4.6 H Baso % (Auto) 1.0 Lymph # (Auto) 0.70 L [place] # (Auto) 0.6 Eos # (Auto) 0.3 Baso # (Auto) 0.1 Abs Immat Gran (auto) 0.04 H Absolute Neuts (auto) 4.6 Absolute Nucleated RBC 0.000 Nucleated RBC % 0.0 PT INR APTT Sodium 135 L Potassium 3.7 Chloride 102 Carbon Dioxide 31 H Anion Gap 2 L BUN 13 Creatinine 0.60 L Estim Creat Clear Calc 114 Estimated GFR > 60 Glucose 101 POC Capillary Glucose 81 179 H Calcium 8.2 L Total Bilirubin 1.4 H AST 61 H ALT 23 Alkaline Phosphatase 605 H Total Protein 6.0 L Albumin 2.6 L Fluid Glucose Fluid Total Protein Fluid Albumin Fluid Amylase Peritoneal Source Peritoneal Color Peritoneal Appearance Peritoneal RBC Periton Nuc Cells Periton Neutrophils Periton Lymphocytes Peritoneal Monocytes Periton Mesothelial Periton Macrophages Peritoneal Tot Protein 06/20/25 16:12 WBC RBC Hgb Hct MCV MCH MCHC RDW Plt Count MPV Immature Gran % (Auto) Neut % (Auto) Lymph % (Auto) [place]ison % (Auto) Eos % (Auto) Baso % (Auto) Lymph # (Auto) [place]ison # (Auto) Eos # (Auto) Baso # (Auto) Abs Immat Gran (auto) Absolute Neuts (auto) Absolute Nucleated RBC Nucleated RBC % PT INR APTT Sodium Potassium Chloride Carbon Dioxide Anion Gap BUN Creatinine Estim Creat Clear Calc Estimated GFR Glucose POC Capillary Glucose 148 H Calcium Total Bilirubin AST ALT Alkaline Phosphatase Total Protein Albumin Fluid Glucose Fluid Total Protein Fluid Albumin Fluid Amylase Peritoneal Source Peritoneal Color Peritoneal Appearance Peritoneal RBC Periton Nuc Cells Periton Neutrophils Periton Lymphocytes Peritoneal Monocytes Periton Mesothelial Periton Macrophages Peritoneal Tot Protein Preliminary micro results at discharge 06/19/25 04:12 Blood Culture - Preliminary Blood 06/19/25 04:12 Blood Culture - Preliminary Blood Discharge Plan Discharge Attending physician on discharge: Familia Hui Consulting providers: Heidi Mccormick; Tommy Dias Discharging Clinician: Heidi Mccormick Anticipated Discharge Date/Time: 06/21/25 17:00 Patient Disposition: Home Activity: as tolerated Diet: heart healthy Discharge Instructions: Continue follow-up with Oncology, Dr. Dias, outpatient for additional paracentesis as needed. Start to hold your diabetic medicine, metformin and glimepiride. Your blood sugars in the hospital were pretty low this may be the cause of some of your recent falls. I know that you have not been eating a lot at home. If you c ontinue on with a regular diet you are able to take these medications, but, it is a also good to follow-up your primary care provider to make sure you on that are on the correct regimen. Continue to check your blood pressure and blood sugar at home if applicable. Keep your scheduled appts with your primary care provider and any specialist that you may see. Return to the emergency department if you develop sudden shortness of breath, chest pain, a fever of greater than 101.5, or nausea, vomiting, abd pain, or diarrhea that does not go away. Follow-up with your primary care provider within 1-2 weeks, they will want to be updated on your inpatient stay in the hospital. Thank you for choosing [facility] for your healthcare needs. Patient Instructions: Antibiotic Form, Apixaban (By mouth), Ascites (GEN), Paracentesis (GEN) Patient Language: Turkish Stand Alone Forms: General Discharge Information Follow-up/Referrals: Tommy Dias MD [Physician, Hematology] - 1 Week Kelsey Sherwood APRN [Primary Care Provider, Family Practice] - 2 Weeks Discharge Medications: Continued gabapentin 300 mg capsule 300 mg PO HS Patient Comments: .. morphine 15 mg tablet extended release 30 mg PO Q12H Patient Comments: at 08 and 20. Rx Instructions: do not exceed 2 per 24hr oxycodone 5 mg tablet 5 mg PO Q6H PRN (Reason: pain) Qty: 10 0RF simethicone 125 mg capsule 125 mg PO QID Qty: 20 0RF Rx Instructions: administer after meals and at bedtime zolpidem 12.5 mg tablet,ext release multiphase 12.5 mg PO QHS PRN (Reason: insomnia) oxycodone 10 mg tablet 10 mg PO Q6H PRN (Reason: pain) Lonsurf 15-6.14 mg tablet 3 tablet PO .bid Lonsurf 20-8.19 mg tablet 2 tablet PO .bid ondansetron HCl 4 mg tablet 8 mg PO Q8H PRN (Reason: nausea and vomiting) atorvastatin 40 mg tablet 40 mg PO DAILY Qty: 90 1RF Patient Comments: . pantoprazole 40 mg tablet,delayed release (DR/EC) 40 mg PO QAM Qty: 90 1RF lisinopril 20 mg tablet 20 mg PO DAILY Qty: 90 1RF Patient Comments: . Eliquis 5 mg tablet 5 mg PO BID Qty: 180 0RF Patient Comments: . Held metformin 1,000 mg tablet 1,000 mg PO BID Qty: 180 1RF Hold Instructions: Resume on 06/21/25. Until f/u with PCP or when you return to eating your normal diet to avoid any further falls. glimepiride 2 mg tablet 4 mg PO BID Qty: 360 0RF Hold Instructions: Resume on 06/28/25. Pending final paracentesis labs and culture. Patient Comments: . Date of admission: 06/19/25 03:43 Primary Care Provider: Kelsey Sherwood Admitting Provider: Albina Ham Attending physician on admission: Albina Ham Condition: Stable Quality VTE Prophylaxis VTE prophylaxis: mechanical ordered Hospitalist MIPS Heart Failure (Exclusion) Patient has history of Heart Transplant or Left Ventricular Assistive Device?: No IF YES, STOP HERE Heart Failure (Qualifier) Patient has current or prior documentation of LVEF less than or equal to 40%, or mod/servere depressed LVSF?: No IF NO, STOP HERE
[2025-06-22 14:08] LABS: Albumin, Body Fluid 1.1 g/dL (Not Estab.); Glucose, Body Fluid 79 mg/dL (.); LD, Body Fluid 350 IU/L (.)
== END 2025-06-21 16:15 | disposition home or self-care (01) | DRG 375 ==
LOC: ANHED 06-19 03:42 → ANH3MED 06-19 06:18
PROVIDERS: Admitting Provider General Practice; Emergency Provider Emergency Medicine; PCP Nurse Practitioner Family
DX: C18.9 Malignant neoplasm of colon, unspecified (principal); C78.00 Secondary malignant neoplasm of unspecified lung; C78.7 Secondary malignant neoplasm of liver and intrahepatic bile duct; R18.8 Other ascites; F11.20 Opioid dependence, uncomplicated; E87.6 Hypokalemia; E11.9 Type 2 diabetes mellitus without complications; E78.5 Hyperlipidemia, unspecified; K21.9 Gastro-esophageal reflux disease without esophagitis; R29.6 Repeated falls; Z20.822 Contact with and (suspected) exposure to COVID-19; Z79.01 Long term (current) use of anticoagulants; Z87.891 Personal history of nicotine dependence
CPT/HCPCS: 36415; 49083; 70450; 71260; 72125; 74177; 80053; 82040; 82042; 82150; 82945; 82948; 83605; 83615; 83690; 83735; 84100; 84157; 85025; 85610; 85730; 87040; 87637; 88104; 88108; 88305; 88342; 89051; 93005; 96361; 96374; 97161; 97165; 99285; A9270; J0696; J1171; J1815; J2405; J7120; Q9967